=== PATIENT | male | born 1960 | race Caucasian/White ===

== ENCOUNTER 2018-11-24 08:00 | Outpatient (CLI) | payer MEDICAID ==
[2018-11-24 12:53] LABS: BASOPHILS % (AUTO) 0.5 %; EOSINOPHILS # (AUTO) 0.1 10^3/uL (0.0-0.7); EOSINOPHILS % (AUTO) 1.6 %; HGB - HEMOGLOBIN 14.3 g/dL (14.0-18.0); LYMPHOCYTES # (AUTO) 1.9 10^3/uL (1.5-3.5); LYMPHOCYTES % (AUTO) 34.5 %; MEAN CORPUSCULAR HEMOGLOBIN 28.1 pg (27.0-31.0); MEAN CORPUSCULAR HGB CONC 33.9 g/dL (32.0-36.0); MEAN CORPUSCULAR VOLUME 82.8 fL (80.0-94.0); MEAN PLATELET VOLUME 9.9 fL (7.4-11.4); MONOCYTES # (AUTO) 0.4 10^3/uL (0.0-1.0); MONOCYTES % (AUTO) 6.5 %; NEUTROPHILS # (AUTO) 3.2 10^3/uL (1.5-6.6); NEUTROPHILS % (AUTO) 56.9 %; PLT - PLATELET COUNT 155 10^3/uL (130-450); RED BLOOD COUNT 5.08 10^6/uL (4.70-6.10); WHITE BLOOD COUNT 5.6 x10^3/uL (4.8-10.8)
[2018-11-24 13:30] LABS: ALBUMIN 4.1 g/dL (3.2-5.5); ALBUMIN/GLOBULIN RATIO 1.4 (1.0-2.2); ALKALINE PHOSPHATASE 65 IU/L (42-121); ALT ALANINE AMINOTRANSFERASE 42 IU/L (10-60); AST ASPARTATE AMINOTRANSFERASE 25 IU/L (10-42); BILIRUBIN,TOTAL 0.6 mg/dL (0.2-1.0); BUN - BLOOD UREA NITROGEN 19 mg/dL (6-20); CALCIUM 8.6 mg/dL (8.5-10.3); CARBON DIOXIDE - CO2 25 mmol/L (21-32); CHLORIDE 98 mmol/L (101-111); CHOL/HDL RATIO 5.7 (<5.0); CHOLESTEROL 193 mg/dL; CREATININE 0.9 mg/dL (0.6-1.2); GFR - MDRD 87 (>89); GLUCOSE 288 mg/dL (70-100); HDL CHOLESTEROL 34 mg/dL; SODIUM 133 mmol/L (135-145)
[2018-11-24 13:38] LABS: CREATININE,URINE 125.4 mg/dL; MICROALBUM/CREATININE RATIO,UR 54.2 ug/mg (<30.0); MICROALBUMIN,URINE 6.8 mg/dL (0-300.0)
[2018-11-24 13:58] LABS: LDL CHOLESTEROL,DIRECT 85 mg/dL; LDLD/HDL RATIO 2.5 (<3.6)
[2018-11-24 14:16] LABS: HB2 TOTAL 15.6 g/dL; HEMOGLOBIN A1C 1.7 g/dL; HEMOGLOBIN A1C % 12.1 % (4.6-6.2)
== END 2018-11-24 23:59 | disposition home or self-care (01) ==
LOC: LAB.WCP 08:00
PROVIDERS: ATTEND Family Medicine
DX: E11.9 Type 2 diabetes mellitus without complications (principal); E78.5 Hyperlipidemia, unspecified; I10 Essential (primary) hypertension
CPT/HCPCS: 36415; 80053; 80061; 82043; 82570; 83036; 83721; 84443; 85025

== ENCOUNTER 2019-03-03 07:13 | Outpatient (CLI) | payer MEDICAID ==
[2019-03-03 14:04] LABS: HB2 TOTAL 14.4 g/dL; HEMOGLOBIN A1C 1.53 g/dL; HEMOGLOBIN A1C % 11.9 % (4.6-6.2)
[2019-03-03 14:19] LABS: BUN - BLOOD UREA NITROGEN 22 mg/dL (6-20); CARBON DIOXIDE - CO2 24 mmol/L (21-32); CHLORIDE 104 mmol/L (101-111); CHOL/HDL RATIO 3.5 (<5.0); CHOLESTEROL 131 mg/dL; CREATININE 1.1 mg/dL (0.6-1.2); GFR - MDRD 69 (>89); GLUCOSE 194 mg/dL (70-100); HDL CHOLESTEROL 37 mg/dL; LDL CHOLESTEROL,CALCULATED 64 mg/dL; LDL/HDL RATIO 1.7 (<3.6); SODIUM 136 mmol/L (135-145); VLDL CHOLESTEROL 30 mg/dL
== END 2019-03-03 07:14 | disposition home or self-care (01) ==
LOC: LAB.WCP 07:13
PROVIDERS: ATTEND Family Medicine
DX: E11.9 Type 2 diabetes mellitus without complications (principal); E78.5 Hyperlipidemia, unspecified
CPT/HCPCS: 36415; 80048; 80061; 83036; 83721

== ENCOUNTER 2020-01-05 07:10 | Outpatient (CLI) | payer MEDICAID ==
[2020-01-05 12:53] LABS: BASOPHILS % (AUTO) 0.4 %; EOSINOPHILS # (AUTO) 0.1 10^3/uL (0.0-0.7); EOSINOPHILS % (AUTO) 1.3 %; HGB - HEMOGLOBIN 15.8 g/dL (14.0-18.0); LYMPHOCYTES # (AUTO) 1.7 10^3/uL (1.5-3.5); MEAN CORPUSCULAR HEMOGLOBIN 29.6 pg (27.0-31.0); MEAN CORPUSCULAR HGB CONC 34.3 g/dL (32.0-36.0); MEAN CORPUSCULAR VOLUME 86.3 fL (80.0-94.0); MEAN PLATELET VOLUME 11.9 fL (7.4-11.4); MONOCYTES # (AUTO) 0.4 10^3/uL (0.0-1.0); MONOCYTES % (AUTO) 7.8 %; NEUTROPHILS # (AUTO) 2.5 10^3/uL (1.5-6.6); NEUTROPHILS % (AUTO) 53.6 %; PLT - PLATELET COUNT 174 10^3/uL (130-450); RED BLOOD COUNT 5.33 10^6/uL (4.70-6.10); RED CELL DISTRIBUTION WIDTH 13.2 % (12.0-15.0); WHITE BLOOD COUNT 4.6 x10^3/uL (4.8-10.8)
[2020-01-05 13:21] LABS: ALBUMIN 4.4 g/dL (3.2-5.5); ALBUMIN/GLOBULIN RATIO 1.4 (1.0-2.2); ALKALINE PHOSPHATASE 62 IU/L (42-121); ALT ALANINE AMINOTRANSFERASE 39 IU/L (10-60); AST ASPARTATE AMINOTRANSFERASE 23 IU/L (10-42); BILIRUBIN,TOTAL 0.7 mg/dL (0.2-1.0); BUN - BLOOD UREA NITROGEN 16 mg/dL (6-20); CALCIUM 8.9 mg/dL (8.5-10.3); CARBON DIOXIDE - CO2 25 mmol/L (21-32); CHLORIDE 98 mmol/L (101-111); CHOL/HDL RATIO 6.7 (<5.0); CHOLESTEROL 235 mg/dL; CREATININE 0.9 mg/dL (0.6-1.2); GLUCOSE 364 mg/dL (70-100); HDL CHOLESTEROL 35 mg/dL; SODIUM 134 mmol/L (135-145); TOTAL PROTEIN 7.5 g/dL (6.7-8.2)
[2020-01-05 13:33] LABS: CREATININE,URINE 43.3 mg/dL; MICROALBUM/CREATININE RATIO,UR 170.9 ug/mg (<30.0); MICROALBUMIN,URINE 7.4 mg/dL (0-300.0)
[2020-01-05 14:08] LABS: HB2 TOTAL 15.5 g/dL; HEMOGLOBIN A1C 1.95 g/dL; HEMOGLOBIN A1C % 13.7 % (4.6-6.2)
[2020-01-05 14:41] LABS: LDL CHOLESTEROL,DIRECT 112 mg/dL; LDLD/HDL RATIO 3.2 (<3.6)
== END 2020-01-05 23:59 | disposition home or self-care (01) ==
LOC: LAB.WCP 07:10
PROVIDERS: ATTEND Family Medicine
DX: E11.9 Type 2 diabetes mellitus without complications (principal); E78.5 Hyperlipidemia, unspecified
CPT/HCPCS: 36415; 80053; 80061; 82043; 82570; 83036; 83721; 84443; 85025

== ENCOUNTER 2020-04-12 07:27 | Outpatient (CLI) | payer MEDICAID ==
[2020-04-12 12:59] LABS: HB2 TOTAL 15.7 g/dL; HEMOGLOBIN A1C 1.57 g/dL; HEMOGLOBIN A1C % 11.3 % (4.6-6.2)
== END 2020-04-12 23:59 | disposition home or self-care (01) ==
LOC: LAB.WCP 07:27
PROVIDERS: ATTEND Family Medicine
DX: E11.9 Type 2 diabetes mellitus without complications (principal)
CPT/HCPCS: 36415; 83036

== ENCOUNTER 2020-06-20 08:06 | Outpatient (CLI) | payer MEDICAID ==
[2020-06-20 12:02] LABS: HEMOGLOBIN A1c% 9.9 % (4.27-6.07)
== END 2020-06-20 23:59 | disposition home or self-care (01) ==
LOC: LAB.WCP 08:06
PROVIDERS: ATTEND Family Medicine
DX: E11.9 Type 2 diabetes mellitus without complications (principal)
CPT/HCPCS: 36415; 83036

== ENCOUNTER 2020-07-19 14:06 | Outpatient (CLI) | payer MEDICAID | END 2020-07-19 14:07 | disposition home or self-care (01) | LOC: COV 14:06 | PROVIDERS: ATTEND Surgery | DX: Z01.812 Encounter for preprocedural laboratory examination (principal); K42.9 Umbilical hernia without obstruction or gangrene; Z20.828 Contact with and (suspected) exposure to other viral communicable diseases ==

== ENCOUNTER 2020-07-23 07:03 | Day surgery (SDC) | payer MEDICAID ==
[2020-07-23] MEDS ORDERED: fentaNYL 100 MCG/2 ML VIAL IVP ONE (07:04)
[2020-07-23] MEDS ORDERED: DEXAMETHASONE 4 MG/ML VIAL IVP ONE (07:04)
[2020-07-23] MEDS ORDERED: GLYCOPYRROLATE 1 MG/5 ML VIAL IVP ONE (07:04)
[2020-07-23] MEDS ORDERED: ACETAMINOPHEN 1,000 MG/100 ML 100 ML IV ONE (07:04)
[2020-07-23] MEDS ORDERED: PROPOFOL 200 MG/20 ML VIAL IVP ONE (07:04)
[2020-07-23] MEDS ORDERED: SUCCINYLCHOLINE 200 MG/10 ML VIAL IVP ONE (07:04)
[2020-07-23] MEDS ORDERED: ePHEDrine 50 MG/ML VIAL IVP ONE (07:04)
[2020-07-23] MEDS ORDERED: ONDANSETRON 4 MG/2 ML VIAL IVP ONE (07:04)
[2020-07-23] MEDS ORDERED: MIDAZOLAM 2 MG/2 ML VIAL IVP ONE (07:04)
[2020-07-23] MEDS ORDERED: BUPIVACAINE 0.25% PF 30 ML VIAL ONE ×2 (07:24→09:06)
[2020-07-23] MEDS ORDERED: LIDOCAINE 1% 50 ML MDV ONE (07:24)
[2020-07-23] MEDS ORDERED: CEFAZOLIN SODIUM IN 0.9 % NACL 2 GM/100 ML BAG IV ONE (07:25)
[2020-07-23] MEDS ORDERED: LACTATED RINGERS 1,000 ML IV ONE ×2 (07:26→09:48)
[2020-07-23] MEDS ORDERED: MORPHINE 2 MG/ML CARPUJECT IVP PRN (08:01)
[2020-07-23] MEDS ORDERED: ATROPINE ABBOJECT 1 MG/10 ML SYRINGE IVP PRN (08:01)
[2020-07-23] MEDS ORDERED: NALOXONE 0.4 MG/ML VIAL IVP PRN (08:01)
[2020-07-23] MEDS ORDERED: METOCLOPRAMIDE 10 MG/2 ML VIAL IVP PRN (08:01)
[2020-07-23] MEDS ORDERED: ONDANSETRON 4 MG/2 ML VIAL IVP PRN (08:01)
[2020-07-23] MEDS ORDERED: ePHEDrine 50 MG/ML VIAL IVP PRN (08:01)
[2020-07-23] MEDS ORDERED: fentaNYL 100 MCG/2 ML VIAL IVP PRN (08:01)
[2020-07-23] MEDS ORDERED: HYDROmorphone 0.5 MG/0.5 ML SYRINGE IVP PRN (08:01)
--- NOTE | 2020-07-23 08:01 | ANESTHESIA ---
Pre-Anesthesia VS, & Labs - Diagnosis umbilical hernia - Procedure Open umbilical hernia repair with mesh Vital Signs: Temp Pulse Resp BP Pulse Ox 36.7 C 51 L 14 170/86 H 99 07/23/20 07:20 07/23/20 07:20 07/23/20 07:20 07/23/20 07:20 07/23/20 07:20 Height: 5 ft 11 in Weight (kg): 93.2 kg Body Mass Index: 28.6 BMI Classification: Overweight - NPO >8 hours - Lab Results Current Lab Results: Laboratory Tests 07/23/20 07:30: POC Whole Bld Glucose 289 H Home Medications and Allergies Home Medications: Ambulatory Orders Amlodipine Besylate [Norvasc] 10 mg PO DAILY 07/18/20 Atenolol [Tenormin] 50 mg PO DAILY 07/18/20 Atorvastatin Calcium [Lipitor] 80 mg PO QPM 07/18/20 Lisinopril [Zestril] 60 mg PO DAILY 07/18/20 glyBURIDE [Diabeta] 10 mg PO BID 07/18/20 Amlodipine Besylate [Norvasc] 10 mg PO DAILY 07/18/20 Atenolol [Tenormin] 50 mg PO DAILY 07/18/20 Atorvastatin Calcium [Lipitor] 80 mg PO QPM 07/18/20 Lisinopril [Zestril] 60 mg PO DAILY 07/18/20 glyBURIDE [Diabeta] 10 mg PO BID 07/18/20 Allergies/Adverse Reactions: Allergies Allergy/AdvReac Type Severity Reaction Status Date / Time No Known Drug Allergies Allergy Verified 07/18/20 09:00 Anes History & Medical History - Anesthetic History Anesthesia Complications: reports: No previous complications Family history of Anesthesia Complications: Denies Family history of Malignant Hyperthermia: Denies - Medical History Cardiovascular: reports: Hypertension, High cholesterol Pulmonary: reports: None Gastrointestinal: reports: None Urinary: reports: None Musculoskeletal: reports: None Endocrine/Autoimmune: reports: Type 2 diabetes Skin: reports: None - Surgical History Eyes Ears Nose Throat (EENT): Tonsil/Adenoidectomy Exam General: Alert, Oriented x3, Cooperative, No acute distress Dental: WNL Mouth Openin Fingerbreadth Neck Mobility: Normal Mallampati classification: II Respiratory: Lungs clear, Normal breath sounds, No respiratory distress, No accessory muscle use Cardiovascular: Regular rate, Normal S1, Normal S2, No murmurs Plan Anesthesia Type: General Consent for Procedure(s) Verified and Reviewed: Yes Code Status: Attempt Resuscitation ASA classification: 3-Severe systemic disease Is this case an emergency?: No
[2020-07-23] MEDS: INSULIN REGULAR HUMAN 100 UNIT/1 ML 10 ML MDV ONE ×2 (08:27→10:32)
[2020-07-23] MEDS ORDERED: LACTATED RINGERS 1,000 ML IV SCH (09:00)
[2020-07-23] MEDS ORDERED: BUPIVACAINE 0.25% PF 30 ML VIAL SUBQ ONE ×2 (09:04→09:33)
[2020-07-23] MEDS ORDERED: HYDROcod/ACETAM 5/325 MG TABLET PO PRN (09:57)
--- NOTE | 2020-07-23 10:01 | OPERATIVE REPORT ---
Operative Report - General Procedure Date: 07/23/20 Planned Procedure: umbilical hernia repair with mesh Pre-Op Diagnosis: 3 cm umbilical hernia Procedure Performed: open repair with mesh/ preperitoneal placement Post Op Diagnosis: umbilical hernia - Procedure Note Anesthesia Technique: General ET tube, Local Estimated Blood Loss (mL): 5 Complications: none
--- NOTE | 2020-07-23 10:22 | ANESTHESIA POST OP EVALUATION ---
Anesthesia Post Eval - Post Anesthesia Eval Vitals: Last Vital Signs Temp 36.1 C L 07/23/20 10:14 Pulse 67 07/23/20 10:14 Resp 20 07/23/20 10:14 BP 140/88 H 07/23/20 10:14 Pulse Ox 98 07/23/20 10:14 CV Function Including HR & BP: positive: Stable Pain Control: positive: Satisfactory Nausea & Vomiting: positive: Negative Mental Status: positive: Baseline Respiratory Status: Airway Patent Hydration Status: Satisfactory Anesthesia Complications: positive: None
[2020-07-23] MEDS ORDERED: INSULIN REGULAR HUMAN 100 UNIT/1 ML 10 ML MDV ONE (10:40)
[2020-07-23 10:46] VITALS: BP 144/85
--- NOTE | 2020-07-24 03:09 | OPERATIVE REPORT ---
DATE OF SERVICE: 07/23/2020 Physician: Rad Oliveira MD PREOPERATIVE DIAGNOSIS: Large symptomatic umbilical hernia. POSTOPERATIVE DIAGNOSIS: Large symptomatic umbilical hernia. PROCEDURE 1. Open umbilical hernia repair with mesh. 2. Preperitoneal dissection for mesh placement. SURGEON: Rad Oliveira MD ROOF FIXER: None. ANESTHESIA 1. General endotracheal anesthesia. 2. Local anesthesia with Marcaine. COMPLICATIONS: None. SPECIMEN: None. ESTIMATED BLOOD LOSS: None. COMPLICATIONS: None. PROSTHETIC: A 1-1/2-inch to 1-3/4-inch x 3-3/4-inch polypropylene mesh placed preperitoneal. INDICATIONS FOR PROCEDURE: The patient is an active 59-year-old gentleman who has developed a large symptomatic umbilical hernia. He presents for open repair with mesh. Risks discussed, alternatives discussed, questions answered, and consent obtained. DESCRIPTION OF PROCEDURE: The patient was properly identified and brought to the operating room and placed in supine position. He voided prior to surgery. Sequential compression devices were placed. General endotracheal anesthesia was induced. He has had difficulty managing his diabetes for a long time. He was given insulin as well as antibiotics prior to surgery. He was prepped and draped in a sterile fashion. Local anesthetic was given throughout the procedure. A 2 cm incision was made cephalad of umbilicus in the midline. The incision was extended left lateral of the umbilicus. He had a large hernia sac, which was mobilized away from surrounding subcutaneous tissue. It was sharply mobilized off from the umbilical skin and down towards the fascial defect. The hole in the top of the hernia sac or peritoneum was closed with a running 3-0 Vicryl suture. The peritoneum or hernia sac was carefully released at the fascial defect edge and preperitoneal dissection and space created. An 1-1/2-inch to 1-3/4-inch more cephalad x 3-3/4-inch tall polypropylene mesh was placed preperitoneal retrorectus and secured with 10 interrupted 0 Ethibond sutures. The fascia was closed over the mesh with additional interrupted 0 Ethibond sutures. There were no apparent complications. Hemostasis was ensured. Umbilical skin was tacked back down to fascia with interrupted 2-0 Vicryl. Subcutaneous tissue was closed with interrupted 2-0 Vicryl. Buried interrupted subdermal 3-0 Vicryl sutures were then placed. Skin was closed with a running 4-0 Monocryl subcuticular suture. He tolerated the procedure well, was awakened and brought to recovery in good condition. TD: 07/23/2020 19:56 EMERITA
== END 2020-07-23 07:04 | disposition home or self-care (01) ==
LOC: SDS 07:03
PROVIDERS: ATTEND Surgery
DX: K42.9 Umbilical hernia without obstruction or gangrene (principal); I10 Essential (primary) hypertension; E11.9 Type 2 diabetes mellitus without complications; Z79.84 Long term (current) use of oral hypoglycemic drugs
CPT/HCPCS: 49585; C1781; J0131; J0330; J0690; J1815; J7120

== ENCOUNTER 2020-08-27 08:00 | Outpatient (CLI) | payer MEDICAID ==
[2020-08-27 13:44] LABS: BASOPHILS % (AUTO) 0.4 %; EOSINOPHILS # (AUTO) 0.1 10^3/uL (0.0-0.7); EOSINOPHILS % (AUTO) 1.3 %; HGB - HEMOGLOBIN 15.2 g/dL (14.0-18.0); LYMPHOCYTES # (AUTO) 1.9 10^3/uL (1.5-3.5); LYMPHOCYTES % (AUTO) 27.7 %; MEAN CORPUSCULAR HEMOGLOBIN 29.1 pg (27.0-31.0); MEAN CORPUSCULAR HGB CONC 34.2 g/dL (32.0-36.0); MEAN CORPUSCULAR VOLUME 85.1 fL (80.0-94.0); MEAN PLATELET VOLUME 11.4 fL (7.4-11.4); MONOCYTES # (AUTO) 0.5 10^3/uL (0.0-1.0); MONOCYTES % (AUTO) 7.1 %; NEUTROPHILS # (AUTO) 4.4 10^3/uL (1.5-6.6); NEUTROPHILS % (AUTO) 63.1 %; PLT - PLATELET COUNT 173 10^3/uL (130-450); RED BLOOD COUNT 5.22 10^6/uL (4.70-6.10); RED CELL DISTRIBUTION WIDTH 12.2 % (12.0-15.0); WHITE BLOOD COUNT 6.9 x10^3/uL (4.8-10.8)
[2020-08-27 14:14] LABS: CREATININE,URINE 95.5 mg/dL; MICROALBUM/CREATININE RATIO,UR 9.4 ug/mg (<30.0); MICROALBUMIN,URINE 0.9 mg/dL (0-300.0)
[2020-08-27 14:16] LABS: ALBUMIN 4.3 g/dL (3.2-5.5); ALBUMIN/GLOBULIN RATIO 1.4 (1.0-2.2); ALKALINE PHOSPHATASE 54 IU/L (42-121); ALT ALANINE AMINOTRANSFERASE 38 IU/L (10-60); AST ASPARTATE AMINOTRANSFERASE 20 IU/L (10-42); BILIRUBIN,TOTAL 0.7 mg/dL (0.2-1.0); BUN - BLOOD UREA NITROGEN 23 mg/dL (6-20); CARBON DIOXIDE - CO2 27 mmol/L (21-32); CHLORIDE 101 mmol/L (101-111); CHOL/HDL RATIO 6.5 (<5.0); CHOLESTEROL 220 mg/dL; CREATININE 0.9 mg/dL (0.6-1.2); GLUCOSE 334 mg/dL (70-100); HDL CHOLESTEROL 34 mg/dL; SODIUM 137 mmol/L (135-145); TOTAL PROTEIN 7.3 g/dL (6.7-8.2)
[2020-08-27 14:29] LABS: HEMOGLOBIN A1c% 10.9 % (4.27-6.07)
[2020-08-27 15:02] LABS: LDL CHOLESTEROL,DIRECT 113 mg/dL; LDLD/HDL RATIO 3.3 (<3.6)
== END 2020-08-27 23:59 ==
LOC: LAB.WCP 08:00
PROVIDERS: ATTEND Internal Medicine Critical Care Medicine
DX: E11.9 Type 2 diabetes mellitus without complications (principal); I10 Essential (primary) hypertension; Z12.5 Encounter for screening for malignant neoplasm of prostate
CPT/HCPCS: 36415; 80053; 80061; 82043; 82088; 82570; 83036; 83721; 84153; 84244; 84443; 85025

== ENCOUNTER 2020-10-18 09:18 | Day surgery (SDC) | payer MEDICAID ==
[2020-10-18] MEDS ORDERED: LACTATED RINGERS 1,000 ML IV ONE ×2 (10:03→11:19)
[2020-10-18] MEDS ORDERED: MIDAZOLAM 2 MG/2 ML VIAL ONE ×3 (10:38→11:03)
[2020-10-18] MEDS ORDERED: fentaNYL 250 MCG/5 ML VIAL ONE (10:39)
[2020-10-18 11:46] VITALS: BP 124/72
== END 2020-10-18 09:19 | disposition home or self-care (01) ==
LOC: SDS 09:18
PROVIDERS: ATTEND Surgery
PROC: 0DBM8ZZ Excision of Descending Colon, Via Natural or Artificial Opening Endoscopic (ICD-10-PCS; principal; 2020-10-18 10:30)
DX: Z12.11 Encounter for screening for malignant neoplasm of colon (principal); K63.5 Polyp of colon; I10 Essential (primary) hypertension; E11.9 Type 2 diabetes mellitus without complications; Z79.84 Long term (current) use of oral hypoglycemic drugs
CPT/HCPCS: 45385; J3010; J7120

== ENCOUNTER 2020-11-13 08:41 | Outpatient (CLI) | payer MEDICAID ==
--- NOTE | 2020-11-13 15:21 | Ultrasound Report ---
PROCEDURE: Ankle Brachial Index INDICATIONS: HYPERTENSION, BILATERAL LEG CRAMPS TECHNIQUE: Ankle-brachial indices were obtained bilaterally and recorded. COMPARISONS: None. FINDINGS: Right ankle brachial index (ROMY): 1.04 Left ankle brachial index (ROMY): 1.01 Healing potential: Ankle pressures >55 mm Hg in non-diabetics and >80 mm Hg in diabetics are likely to achieve primary h ealing of ischemic foot ulcers. Toe pressures >30 mm Hg are likely to achieve primary healing of ischemic foot ulcers, toe or transme tatarsal amputations. IMPRESSION: Normal bilateral ROMY as above Reviewed by: Diego Jacobs MD on 11/13/2020 3:19 PM PST Approved by: Diego Jacobs MD on 11/13/2020 3:19 PM PST Station ID: [id number]
--- NOTE | 2020-11-14 11:27 | Ultrasound Report ---
PROCEDURE: Arterial Visceral Complete INDICATIONS: HYPERTENSION, BILATERAL LEG CRAMPS TECHNIQUE: Real time scanning was performed of both kidneys, followed by Color and pulsed Doppler in terrogation of the renal vessels. COMPARISON: None. FINDINGS: Aortic peak systolic velocity: 85.3 cm/s. Right side: Moss-scale imaging: Kidney is 12.5 cm long; renal cortical thickness is at least 1.5 cm. No hydrone phrosis. No nephrolithiasis. Renal cortex is normal in echogenicity. No suspicious solid renal mas ses. Proximal renal artery peak systolic velocity: Not visualized due to obscuration by bowel gas. Mid renal artery peak systolic velocity: Nonvisualized due to obscuration by bowel gas. Distal renal artery peak systolic velocity: 80 cm/s. Renal vein: Patent, without thrombus. Peak renal/aortic ratio (RAR): 0.9. Left side: Moss-scale imaging: Kidney is 13.7 cm long; renal cortical thickness is at least 1.5 cm. No hydrone phrosis. No nephrolithiasis. Renal cortex is normal in echogenicity. No suspicious solid renal mas ses. Proximal renal artery peak systolic velocity: 54 cm/s. Mid-renal artery peak systolic velocity: 62 cm/s. Distal renal artery peak systolic velocity: 64 cm/s. Renal vein: Patent, without thrombus. Peak renal/aortic ratio (RAR): 0.7. IMPRESSION: No renal artery stenosis. No findings of renal atrophy. Reviewed by: Ky Rosario MD on 11/14/2020 11:26 AM PST Approved by: Ky Rosario MD on 11/14/2020 11:26 AM PST Station ID: [id number]
== END 2020-11-13 08:42 | disposition home or self-care (01) ==
LOC: DI 08:41
PROVIDERS: ATTEND Internal Medicine
DX: I10 Essential (primary) hypertension (principal); R25.2 Cramp and spasm
CPT/HCPCS: 93922; 93975

== ENCOUNTER 2020-12-16 15:48 | Emergency (ER) | payer MEDICAID ==
[2020-12-16 16:34] LABS: BASOPHILS % (AUTO) 0.6 %; EOSINOPHILS # (AUTO) 0.1 10^3/uL (0.0-0.7); EOSINOPHILS % (AUTO) 1.6 %; HCT - HEMATOCRIT 44.1 % (42.0-52.0); HGB - HEMOGLOBIN 15.1 g/dL (14.0-18.0); LYMPHOCYTES % (AUTO) 38.3 %; MEAN CORPUSCULAR HEMOGLOBIN 28.3 pg (27.0-31.0); MEAN CORPUSCULAR HGB CONC 34.2 g/dL (32.0-36.0); MEAN CORPUSCULAR VOLUME 82.7 fL (80.0-94.0); MEAN PLATELET VOLUME 10.6 fL (7.4-11.4); MONOCYTES # (AUTO) 0.4 10^3/uL (0.0-1.0); MONOCYTES % (AUTO) 7.5 %; NEUTROPHILS # (AUTO) 2.6 10^3/uL (1.5-6.6); NEUTROPHILS % (AUTO) 51.4 %; PLT - PLATELET COUNT 159 10^3/uL (130-450); RED BLOOD COUNT 5.33 10^6/uL (4.70-6.10); RED CELL DISTRIBUTION WIDTH 12.5 % (12.0-15.0); WHITE BLOOD COUNT 5.1 x10^3/uL (4.8-10.8)
[2020-12-16 16:47] LABS: ALBUMIN 4.2 g/dL (3.2-5.5); ALBUMIN/GLOBULIN RATIO 1.4 (1.0-2.2); BILIRUBIN,TOTAL 0.6 mg/dL (0.2-1.0); CALCIUM 9.1 mg/dL (8.5-10.3); POTASSIUM 3.7 mmol/L (3.5-5.0); TOTAL PROTEIN 7.1 g/dL (6.7-8.2)
[2020-12-16 17:08] LABS: BILIRUBIN,URINE NEGATIVE (NEGATIVE); GLUCOSE, URINE (UA) >=1000 mg/dL (NEGATIVE); KETONES,URINE (UA) TRACE mg/dL (NEGATIVE); LEUKOCYTE ESTERASE, URINE NEGATIVE (NEGATIVE); NITRITE,URINE NEGATIVE (NEGATIVE); OCCULT BLOOD,URINE NEGATIVE (NEGATIVE); PROTEIN,URINE NEGATIVE (NEGATIVE); UROBILINOGEN,URINE 0.2 (NORMAL) E.U./dL (NORMAL)
[2020-12-16 17:14] LABS: CLARITY,URINE CLEAR (CLEAR)
[2020-12-16] MEDS ORDERED: IOPAMIDOL-300 100 ML VIAL ONE (18:03)
--- NOTE | 2020-12-16 18:28 | ED Physician Documentation ---
History of Present Illness - Stated complaint Stated Complaint: DIARRHEA/DIZZY/BLOATED - Chief complaint Chief Complaint: Abd Pain - History obtained from History obtained from: Patient - History of Present Illness Timing: Today Pain level max: 8 Pain level now: 6 - Additonal information Additional information: Patient is a 60-year-old male who presents to the emergency department with abdominal pain and diarrhea for the past 2 weeks. Comes and goes. Better with Imodium, nothing makes it worse. States he goes between 4-8 times per day. No fevers. No blood in the stool. He feels weak and tired. Feels lightheaded when standing. States he had a normal colonoscopy a month ago. Review of Systems Ten Systems: 10 systems reviewed and negative Constitutional: denies: Fever, Chills Ears: denies: Ear pain Nose: denies: Rhinorrhea / runny nose, Congestion Throat: denies: Sore throat Cardiac: denies: Chest pain / pressure Respiratory: denies: Cough, Wheezing GI: denies: Hematemesis, Bloody / black stool : denies: Dysuria, Frequency, Hesitancy Skin: denies: Rash Musculoskeletal: denies: Neck pain, Back pain Neurologic: denies: Headache PD PAST MEDICAL HISTORY - Past Medical History Past Medical History: Yes Cardiovascular: Hypertension, High cholesterol Respiratory: None Endocrine/Autoimmune: Type 2 diabetes GI: None : None HEENT: None Psych: None Musculoskeletal: None Derm: None - Past Surgical History Past Surgical History: Yes General: Colonoscopy HEENT: Tonsil/Adenoidectomy - Present Medications Home Medications: Ambulatory Orders Medication Instructions Recorded Confirmed Amlodipine Besylate [Norvasc] 10 mg PO DAILY 07/18/20 10/18/20 Atenolol [Tenormin] 50 mg PO DAILY 07/18/20 10/18/20 Atorvastatin Calcium [Lipitor] 80 mg PO QPM 07/18/20 10/18/20 Lisinopril [Zestril] 40 mg PO DAILY 07/18/20 10/18/20 glyBURIDE [Diabeta] 10 mg PO BID 07/18/20 10/18/20 metFORMIN [Glucophage] 1,000 mg PO BIDWM 10/17/20 10/18/20 HYDROcod/ACETAM 5/325 [[place] 5/325] 1 - 2 ea PO Q6H PRN #10 tablet 12/16/20 Ondansetron Odt [Zofran] 4 mg TL Q6H PRN #10 tablet 12/16/20 - Allergies Allergies/Adverse Reactions: Allergies Allergy/AdvReac Type Severity Reaction Status Date / Time No Known Drug Allergies Allergy Verified 12/16/20 15:58 - Social History Does the pt smoke?: No Smoking Status: Never smoker Does the pt drink ETOH?: No Does the pt have substance abuse?: Yes Substance Use and Type: Marijuana - Immunizations Immunizations are current?: Yes - POLST Patient has POLST: No PD ED PE NORMAL - Vitals Vital signs reviewed: Yes - General General: Alert and oriented X 3, No acute distress, Well developed/nourished - HEENT HEENT: PERRL, Moist mucous membranes - Neck Neck: Supple, no meningeal sign - Cardiac Cardiac: RRR, Strong equal pulses - Respiratory Respiratory: No respiratory distress, Clear bilaterally - Abdomen Abdomen: Normal bowel sounds, Soft, Non tender, Non distended - Back Back: No spinal TTP - Derm Derm: Warm and dry - Extremities Extremities: No deformity - Neuro Neuro: Alert and oriented X 3 - Psych Psych: Normal mood, Normal affect Results - Vitals Vitals: Vital Signs - 24 hr 12/16/20 12/16/20 12/16/20 15:58 16:47 19:46 Temperature 36.5 C Heart Rate 80 70 59 L Respiratory 16 18 16 Rate Blood Pressure 160/100 H 170/109 H 167/95 H O2 Saturation 98 99 99 12/16/20 12/16/20 20:29 21:00 Temperature 36.4 C L Heart Rate 52 L 55 L Respiratory 14 16 Rate Blood Pressure 164/93 H 165/93 H O2 Saturation 100 100 Oxygen O2 Source Room air - Labs Labs: Laboratory Tests 12/16/20 12/16/20 12/16/20 16:28 16:28 16:52 WBC 5.1 RBC 5.33 Hgb 15.1 Hct 44.1 MCV 82.7 MCH 28.3 MCHC 34.2 RDW 12.5 Plt Count 159 MPV 10.6 Neut # (Auto) 2.6 Lymph # (Auto) 2.0 [place] # (Auto) 0.4 Eos # (Auto) 0.1 Baso # (Auto) 0.0 Absolute Nucleated RBC 0.00 Nucleated RBC % 0.0 Sodium 136 Potassium 3.7 Chloride 101 Carbon Dioxide 26 Anion Gap 9.0 BUN 16 Creatinine 1.0 Estimated GFR (MDRD) 77 L Glucose 278 H Calcium 9.1 Total Bilirubin 0.6 AST 23 ALT 41 Alkaline Phosphatase 56 Total Protein 7.1 Albumin 4.2 Globulin 2.9 Albumin/Globulin Ratio 1.4 Lipase 32 Urine Color YELLOW Urine Clarity CLEAR Urine pH 6.0 Ur Specific [place] 1.025 Urine Protein NEGATIVE Urine Glucose (UA) >=1000 H Urine Ketones TRACE Urine Occult Blood NEGATIVE Urine Nitrite NEGATIVE Urine Bilirubin NEGATIVE Urine Urobilinogen 0.2 (NORMAL) Ur Leukocyte Esterase NEGATIVE Ur Microscopic Review NOT INDICATED Urine Culture Comments NOT INDICATED - Rads (name of study) CT abdomen and pelvis Radiology: Prelim report reviewed, EMP read contemporaneously, See rad report PD MEDICAL DECISION MAKING - ED course Complexity details: reviewed results, re-evaluated patient, considered differential, d/w patient ED course: 60-year-old male with diarrhea for the past several weeks, some days are worse than others. No diarrhea rating p.o. without difficulty. He is dehydrated and feels better after IV fluids. No significant findings on CT scan. No significant lab abnormalities. Patient is well-appearing, nontoxic. No evidence of C. difficile. Recommend stool culture with his doctor. Reportedly normal colonoscopy 1 month ago. Patient counseled regarding signs and symptoms for which I believe and urgent re-evaluation would be necessary. Patient with good understanding of and agreement to plan and is comfortable going home at this time This document was made in part using voice recognition software. While efforts are made to proofread this document, sound alike and grammatical errors may occur. IMPRESSION: 1. No CT evidence of acute process. 2. Mild hepatic steatosis and hepatomegaly. 3. Slight urinary bladder wall thickening. Correlate with UA as this can be seen in cystitis but may also be related to chronic bladder outlet obstruction. Departure - Departure Disposition: 01 Home, Self Care Clinical Impression: Diarrhea Qualifiers: Diarrhea type: unspecified type Qualified Code(s): R19.7 - Diarrhea, unspecified Abdominal pain Qualifiers: Abdominal location: generalized Qualified Code(s): R10.84 - Generalized abdominal pain Condition: Good Instructions: ED Abdominal Pain Unkn Cause, ED Diet Vomiting Diarrhea Follow-Up: Jas Epstein MD [Primary Care Provider] - Prescriptions: HYDROcod/ACETAM 5/325 [[place] 5/325] 1 - 2 ea PO Q6H PRN #10 tablet PRN Reason: Pain Ondansetron Odt [Zofran] 4 mg TL Q6H PRN #10 tablet PRN Reason: Nausea / Vomiting Comments: Follow-up with your doctor for further care. They will likely want to perform a stool sample prior to seeing you in the office. They will need to send in a order to the laboratory for this. Your testing today does not show any acute abnormality other than mild hyperglycemia, elevated blood sugar. Make sure you are drinking plenty of water. Do not drink alcohol or drive while on narcotic pain medicine. Note that many narcotic pain relievers also contain tylenol/acetaminophen. Please ensure that your total dose of acetaminophen from all sources does not exceed 3 grams (3000mg) per day. You may constipated on this medication, take a stool softener such as "Colace" twice a day while you are on it. Also recommend a [id number]-myl-[id number] laxative such as senna or MiraLAX any day that you do not have a bowel movement. If you received narcotic pain medication in the emergency department, do not drive or operate machinery for the next 24 hours. Discharge Date/Time: 12/16/20 21:16
--- NOTE | 2020-12-16 18:48 | CT Report ---
PROCEDURE: Abdomen/Pelvis W INDICATIONS: diffuse abd pain, diarrhea CONTRAST: IV CONTRAST: Isovue 300 ml: 100 PO CONTRAST: *NO PO CONTRAST TECHNIQUE: After the administration of IV contrast, 5 mm thick sections acquired from the diaphragms to the symp hysis. 5 mm thick coronal and sagittal reformats were acquired. For radiation dose reduction, the f ollowing was used: automated exposure control, adjustment of mA and/or kV according to patient size. COMPARISON: None. FINDINGS: Image quality: Excellent. ABDOMEN: Lung bases: Lung bases are clear. Heart size is normal. Partially imaged coronary artery calcifica tion. Solid organs: Liver is slightly enlarged and moderately hypodense. There is relative sparing in the gallbladder fossa. Spleen is normal size and enhancement.. Gallbladder is within normal limits. Angel iary system is non dilated. Pancreas enhances normally. No adrenal nodules. Kidneys demonstrate no rmal size and enhancement, without hydronephrosis. There are a few cortical cysts arising within the right kidney. Peritoneum and bowel: Bowel loops demonstrate normal wall thickness and caliber. No free fluid or a ir. There is normal appendix. Nodes and vessels: No retroperitoneal or mesenteric adenopathy by size criteria. Aorta and inferior vena cava are normal in size. Miscellaneous: No ventral hernias. PELVIS: i Genitourinary: There is slightly urinary bladder wall thickening.. Mild prostatomegaly. Miscellaneous: Small bilateral fat-containing inguinal hernias. Bones: No suspicious bony lesions. Prominent anterior endplate spur formation in the lower thoracic spine and at the L3-4 level. No vertebral body compression fractures. IMPRESSION: 1. No CT evidence of acute process. 2. Mild hepatic steatosis and hepatomegaly. 3. Slight urinary bladder wall thickening. Correlate with UA as this can be seen in cystitis but may also be related to chronic bladder outlet obstruction. Reviewed by: Pina Avery MD on 12/16/2020 5:46 PM JOSEPH Approved by: Pina Avery MD on 12/16/2020 5:46 PM AKNIC Station ID: [id number]
[2020-12-16] MEDS ORDERED: SODIUM CHLORIDE 0.9% 1,000 ML IV STA ×2 (18:57→18:58)
[2020-12-16] MEDS ORDERED: MORPHINE 2 MG/ML CARPUJECT IVP STA (20:01)
[2020-12-16 21:02] VITALS: BP 165/93
[2020-12-16] MEDS ORDERED: IOPAMIDOL-300 100 ML VIAL IVP ONE (21:32)
--- OUTSIDE RECORDS SUMMARY | 2020-12-18 03:17 | EXTERNAL MEDICAL SUMMARY RPT | Continuity of Care Document ---
:1960 Demographics Phone Unavailable Preferred Language Unknown Marital Status Unknown Anabaptism Affiliation Unknown Race Unknown Ethnic Group Unknown Author Organization [facility] Address [address] [place] [address] Phone Social History date description facility [id number]
== END 2020-12-16 21:16 | disposition home or self-care (01) ==
LOC: ED 15:48
DX: R19.7 Diarrhea, unspecified (principal); R10.84 Generalized abdominal pain; E86.0 Dehydration; E11.65 Type 2 diabetes mellitus with hyperglycemia; Z79.84 Long term (current) use of oral hypoglycemic drugs; I10 Essential (primary) hypertension
CPT/HCPCS: 36415; 74177; 80053; 81003; 83690; 85025; 93005; 96374; 99284; Q9967; 81001; 87086

== ENCOUNTER 2020-12-24 07:46 | Outpatient (CLI) | payer MEDICAID ==
[2020-12-24 12:42] LABS: BUN - BLOOD UREA NITROGEN 19 mg/dL (6-20); CALCIUM 9.4 mg/dL (8.5-10.3); CARBON DIOXIDE - CO2 28 mmol/L (21-32); CHLORIDE 100 mmol/L (101-111); CHOLESTEROL 237 mg/dL; CREATININE 0.9 mg/dL (0.6-1.2); GFR - MDRD 87 (>89); GLUCOSE 306 mg/dL (70-100); HDL CHOLESTEROL 34 mg/dL; POTASSIUM 4.1 mmol/L (3.5-5.0); SODIUM 137 mmol/L (135-145); TRIGLYCERIDES 681 mg/dL
[2020-12-24 12:45] LABS: CREATININE,URINE 103.4 mg/dL; MICROALBUM/CREATININE RATIO,UR 22.2 ug/mg (<30.0); MICROALBUMIN,URINE 2.3 mg/dL (0-300.0)
[2020-12-24 13:01] LABS: ESTIMATED AVERAGE GLUCOSE 286 mg/dL (70-100); HEMOGLOBIN A1c% 11.6 % (4.27-6.07)
[2020-12-24 14:00] LABS: LDL CHOLESTEROL,DIRECT 96 mg/dL; LDLD/HDL RATIO 2.8 (<3.6)
[2020-12-25 13:55] LABS: HEPATITIS C ANTIBODY NON-REACTIVE (NON-REACTIVE)
== END 2020-12-24 23:59 | disposition home or self-care (01) ==
LOC: LAB.WCP 07:46
PROVIDERS: ATTEND Internal Medicine
DX: E11.9 Type 2 diabetes mellitus without complications (principal); Z11.59 Encounter for screening for other viral diseases
CPT/HCPCS: 36415; 80048; 80061; 82043; 82570; 83036; 83721; 86803

== ENCOUNTER 2021-03-27 07:53 | Outpatient (CLI) | payer MEDICAID ==
[2021-03-27 11:42] LABS: CREATININE,URINE 70.9 mg/dL; MICROALBUM/CREATININE RATIO,UR 7.1 ug/mg (<30.0); MICROALBUMIN,URINE 0.5 mg/dL (0-300.0)
[2021-03-27 11:56] LABS: BUN - BLOOD UREA NITROGEN 14 mg/dL (6-20); CARBON DIOXIDE - CO2 29 mmol/L (21-32); CHLORIDE 100 mmol/L (101-111); CHOL/HDL RATIO 5.3 (<5.0); CHOLESTEROL 189 mg/dL; GFR - MDRD 77 (>89); GLUCOSE 187 mg/dL (70-100); HDL CHOLESTEROL 36 mg/dL; LDL CHOLESTEROL,CALCULATED 91 mg/dL; LDL/HDL RATIO 2.5 (<3.6); POTASSIUM 4.1 mmol/L (3.5-5.0); SODIUM 138 mmol/L (135-145); TRIGLYCERIDES 311 mg/dL; VLDL CHOLESTEROL 62 mg/dL
[2021-03-27 12:23] LABS: ESTIMATED AVERAGE GLUCOSE 232 mg/dL (70-100); HEMOGLOBIN A1c% 9.7 % (4.27-6.07)
== END 2021-03-27 23:59 | disposition home or self-care (01) ==
LOC: LAB.WCP 07:53
PROVIDERS: ATTEND Internal Medicine
DX: E11.9 Type 2 diabetes mellitus without complications (principal)
CPT/HCPCS: 36415; 80048; 80061; 82043; 82570; 83036; 83721

== ENCOUNTER 2021-06-09 20:00 | Outpatient (CLI) | payer MEDICAID | END 2021-06-09 20:01 | disposition critical access hospital (66) | LOC: EMS 20:00 | DX: T20.04XA Burn of unspecified degree of nose (septum), initial encounter (principal); W40.8XXA Explosion of other specified explosive materials, initial encounter; Y92.009 Unspecified place in unspecified non-institutional (private) residence as the place of occurrence of the external cause | CPT/HCPCS: A0425; A0427; A0999 ==

== ENCOUNTER 2021-06-09 20:40 | Emergency (ER) | payer MEDICAID ==
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
[2021-06-09] MEDS ORDERED: SODIUM CHLORIDE 0.9% 1,000 ML IV STA (20:51)
[2021-06-09 21:07] LABS: BASOPHILS % (AUTO) 0.5 %; EOSINOPHILS % (AUTO) 0.5 %; HCT - HEMATOCRIT 41.9 % (42.0-52.0); HGB - HEMOGLOBIN 14.6 g/dL (14.0-18.0); LYMPHOCYTES # (AUTO) 2.3 10^3/uL (1.5-3.5); LYMPHOCYTES % (AUTO) 37.7 %; MEAN CORPUSCULAR HEMOGLOBIN 29.4 pg (27.0-31.0); MEAN CORPUSCULAR HGB CONC 34.8 g/dL (32.0-36.0); MEAN CORPUSCULAR VOLUME 84.3 fL (80.0-94.0); MEAN PLATELET VOLUME 11.3 fL (7.4-11.4); MONOCYTES # (AUTO) 0.6 10^3/uL (0.0-1.0); MONOCYTES % (AUTO) 9.4 %; NEUTROPHILS # (AUTO) 3.1 10^3/uL (1.5-6.6); NEUTROPHILS % (AUTO) 51.7 %; PLT - PLATELET COUNT 227 10^3/uL (130-450); RED BLOOD COUNT 4.97 10^6/uL (4.70-6.10); RED CELL DISTRIBUTION WIDTH 12.7 % (12.0-15.0); WHITE BLOOD COUNT 6.1 x10^3/uL (4.8-10.8)
[2021-06-09 21:12] LABS: KETONES, SERUM (ACETEST) NEGATIVE (NEGATIVE)
[2021-06-09 21:16] LABS: BUN - BLOOD UREA NITROGEN 22 mg/dL (6-20); CALCIUM 10.1 mg/dL (8.5-10.3); CARBON DIOXIDE - CO2 24 mmol/L (21-32); CHLORIDE 97 mmol/L (101-111); GFR - MDRD 77 (>89); GLUCOSE 384 mg/dL (70-100); POTASSIUM 3.7 mmol/L (3.5-5.0); SODIUM 135 mmol/L (135-145)
--- NOTE | 2021-06-09 21:27 | XRAY Report ---
PROCEDURE: Chest 2 View X-Ray INDICATIONS: facial [place]in TECHNIQUE: 2 view(s) of the chest. COMPARISON: None. FINDINGS: Surgical changes and devices: None. Lungs and pleura: No pleural effusions or pneumothorax. Lungs are clear. Mediastinum: Mediastinal contours are normal. Heart size is normal. Bones and chest wall: No suspicious bony abnormalities. Soft tissues appear unremarkable. IMPRESSION: No evidence acute pulmonary process. Reviewed by: Hadley Weeks MD on 06/09/2021 9:25 PM PDT Approved by: Hadley Weeks MD on 06/09/2021 9:25 PM PDT Station ID: [id number]
[2021-06-09] MEDS ORDERED: BACITRACIN ZINC OINT 1 PACKET TOP STA (22:06)
[2021-06-09] MEDS ORDERED: amLODIPine 5 MG TABLET PO STA (22:06)
[2021-06-09 22:36] VITALS: BP 184/101
== END 2021-06-09 22:35 | disposition home or self-care (01) ==
LOC: EDUNIT# → ED 20:40
DX: T20.14XA Burn of first degree of nose (septum), initial encounter (principal); T31.0 Burns involving less than 10% of body surface; X04.XXXA Exposure to ignition of highly flammable material, initial encounter; Y93.89 Activity, other specified; E11.65 Type 2 diabetes mellitus with hyperglycemia; Z79.84 Long term (current) use of oral hypoglycemic drugs; I10 Essential (primary) hypertension
CPT/HCPCS: 36415; 71046; 80048; 82009; 85025; 96360; 99283; 99285; A9270

== ENCOUNTER 2021-08-28 11:33 | Emergency (ER) | payer MEDICAID ==
[2021-08-28 12:27] LABS: HCT - HEMATOCRIT 38.6 % (42.0-52.0); HGB - HEMOGLOBIN 13.6 g/dL (14.0-18.0); LYMPHOCYTES % (AUTO) 6.7 %; MEAN CORPUSCULAR HEMOGLOBIN 28.5 pg (27.0-31.0); MEAN CORPUSCULAR HGB CONC 35.2 g/dL (32.0-36.0); MEAN CORPUSCULAR VOLUME 80.8 fL (80.0-94.0); MEAN PLATELET VOLUME 10.7 fL (7.4-11.4); NEUTROPHILS % (AUTO) 80.9 %; PLT - PLATELET COUNT 155 10^3/uL (130-450); RED BLOOD COUNT 4.78 10^6/uL (4.70-6.10); RED CELL DISTRIBUTION WIDTH 12.4 % (12.0-15.0); WHITE BLOOD COUNT 10.8 x10^3/uL (4.8-10.8)
[2021-08-28 12:28] LABS: BASOPHILS % (AUTO) 0.6 %; EOSINOPHILS # (AUTO) 0.2 10^3/uL (0.0-0.7); EOSINOPHILS % (AUTO) 1.6 %; LYMPHOCYTES # (AUTO) 0.7 10^3/uL (1.5-3.5); MONOCYTES # (AUTO) 1.1 10^3/uL (0.0-1.0); MONOCYTES % (AUTO) 9.8 %; NEUTROPHILS # (AUTO) 8.7 10^3/uL (1.5-6.6); SLIDE REVIEW? Not Indicated
--- NOTE | 2021-08-28 12:28 | ED Physician Documentation ---
History of Present Illness - Stated complaint Stated Complaint: DIZZINESS - Chief complaint Chief Complaint: General - History obtained from History obtained from: Patient - History of Present Illness Timing: Other (several months) Pain level max: 9 Pain level now: 8 - Additonal information Additional information: Patient is a 60-year-old male who presents to the emergency department with several complaints today. He states that all of these complaints been ongoing for several months and none are new. He states he has had low back pain for the last several months. Worse with movement, better with rest. Has never taken anything for the pain. He states that today it just felt worse than usual. No trauma. No falls. No loss of bowel or bladder control. No numbness or tingling. No radiation. The pains in the lumbar area. He also states that he has had right lower quadrant abdominal pain for the past several months as well. He has had a colonoscopy which he reports was normal. No fevers. No chills. No nausea or vomiting. He states he has also had intermittent headaches for a few months since his girlfriend . They are gradual in onset, holoacranial and generally resolve on their own. Has not had any focal neurological deficits. He occasionally feels dizzy when he stands up and the pain becomes severe. Review of Systems Ten Systems: 10 systems reviewed and negative Constitutional: denies: Fever, Chills Nose: denies: Rhinorrhea / runny nose, Congestion Cardiac: denies: Chest pain / pressure, Palpitations Respiratory: denies: Dyspnea, Cough GI: denies: Vomiting, Diarrhea, Hematemesis, Bloody / black stool : denies: Dysuria, Frequency, Hesitancy, Unable to Void Skin: denies: Rash Musculoskeletal: denies: Neck pain Neurologic: denies: Headache PD PAST MEDICAL HISTORY - Past Medical History Cardiovascular: Hypertension, High cholesterol Respiratory: None Endocrine/Autoimmune: Type 2 diabetes GI: None : None HEENT: None Psych: None Musculoskeletal: None Derm: None - Past Surgical History Past Surgical History: Yes General: Colonoscopy HEENT: Tonsil/Adenoidectomy - Present Medications Home Medications: Ambulatory Orders Medication Instructions Recorded Confirmed Amlodipine Besylate [Norvasc] 10 mg PO DAILY 07/18/20 08/28/21 Atenolol [Tenormin] 50 mg PO DAILY 07/18/20 08/28/21 Atorvastatin Calcium [Lipitor] 80 mg PO QPM 07/18/20 08/28/21 Lisinopril [Zestril] 40 mg PO DAILY 07/18/20 08/28/21 glyBURIDE [Diabeta] 10 mg PO BID 07/18/20 08/28/21 metFORMIN [Glucophage] 1,000 mg PO BIDWM 10/17/20 08/28/21 HYDROcod/ACETAM 5/325 [[place] 5/325] 1 - 2 ea PO Q6H PRN #14 tablet 08/28/21 Ibuprofen [Motrin] 800 mg PO Q8H PRN #30 tablet 08/28/21 - Allergies Allergies/Adverse Reactions: Allergies Allergy/AdvReac Type Severity Reaction Status Date / Time No Known Drug Allergies Allergy Verified 06/09/21 20:47 - Social History Does the pt smoke?: No Smoking Status: Never smoker Does the pt drink ETOH?: No Does the pt have substance abuse?: Yes - Immunizations Immunizations are current?: Yes - POLST Patient has POLST: No PD ED PE NORMAL - Vitals Vital signs reviewed: Yes - General General: Alert and oriented X 3, No acute distress, Well developed/nourished - HEENT HEENT: Atraumatic, PERRL, EOMI, Ears normal, Moist mucous membranes, Pharynx benign - Neck Neck: Supple, no meningeal sign - Cardiac Cardiac: RRR, No murmur, Strong equal pulses - Respiratory Respiratory: No respiratory distress, Clear bilaterally - Abdomen Abdomen: Soft, Non distended, Other (Tender palpation right lower quadrant. No peritoneal signs.) - Back Back: No CVA TTP, No spinal TTP, Other (Paraspinal spasm bilateral lower lumbar.) - Derm Derm: Warm and dry - Extremities Extremities: No edema, No calf tenderness / cord - Neuro Neuro: Alert and oriented X 3, emissions engineer 2-12 intact (Normal cerebellar test.), No motor deficit, No sensory deficit, Normal speech, Other (Normal bilateral lower extremity patellar and ankle jerk reflexes. Normal great toe extension bilaterally. no saddle anesthesia) - Psych Psych: Normal mood, Normal affect Results - Vitals Vitals: Vital Signs - 24 hr 08/28/21 08/28/21 08/28/21 11:42 13:46 15:00 Temperature 37 C 36.5 C 36.6 C Heart Rate 102 H 97 85 Respiratory 21 24 24 Rate Blood Pressure 184/102 H 159/91 H 140/85 H O2 Saturation 100 99 97 08/28/21 08/28/21 08/28/21 17:00 19:00 19:41 Temperature 36.5 C 36.6 C 36.6 C Heart Rate 102 H 100 102 H Respiratory 30 H 24 24 Rate Blood Pressure 196/104 H 188/103 H 183/100 H O2 Saturation 97 100 97 08/28/21 19:59 Temperature 37.3 C Heart Rate 98 Respiratory 22 Rate Blood Pressure 178/100 H O2 Saturation 98 Oxygen O2 Source Room air - EKG (time done) 1137 Rate: Rate (enter#) (105) Rhythm: Sinus tachycardia [place]: Normal Intervals: Normal [place] QRS: Normal Ischemia: Normal ST segments - Labs Labs: Laboratory Tests 08/28/21 08/28/21 08/28/21 12:04 12:04 12:04 WBC 10.8 RBC 4.78 Hgb 13.6 L Hct 38.6 L MCV 80.8 MCH 28.5 MCHC 35.2 RDW 12.4 Plt Count 155 MPV 10.7 Neut # (Auto) 8.7 H Lymph # (Auto) 0.7 L [place] # (Auto) 1.1 H Eos # (Auto) 0.2 Baso # (Auto) 0.0 Absolute Nucleated RBC 0.00 Nucleated RBC % 0.0 Manual Slide Review Not Indicated VBG pH VBG pCO2 VBG pO2 VBG HCO3 VBG Total CO2 VBG O2 Saturation VBG Base Excess Sodium 125 L Potassium 3.5 Chloride 87 L Carbon Dioxide 21 Anion Gap 17.0 H BUN 15 Creatinine 0.8 Estimated GFR (MDRD) 99 Glucose 346 H Calcium 8.9 Total Bilirubin 1.6 H AST 29 ALT 50 Alkaline Phosphatase 128 H Total Protein 7.4 Albumin 3.5 Globulin 3.9 Albumin/Globulin Ratio 0.9 L Lipase 23 Urine Color Urine Clarity Urine pH Ur Specific [place] Urine Protein Urine Glucose (UA) Urine Ketones Urine Occult Blood Urine Nitrite Urine Bilirubin Urine Urobilinogen Ur Leukocyte Esterase Ur Microscopic Review Urine Culture Comments Urine Opiates Screen Ur Oxycodone Screen Urine Methadone Screen Ur Propoxyphene Screen Ur Barbiturates Screen Ur Tricyclics Screen Ur Phencyclidine Scrn Ur Amphetamine Screen U Methamphetamines Scrn U Benzodiazepines Scrn Urine Cocaine Screen U Cannabinoids Screen Ethyl Alcohol < 5.0 Serum Ketones 08/28/21 08/28/21 08/28/21 13:04 13:15 16:23 WBC RBC Hgb Hct MCV MCH MCHC RDW Plt Count MPV Neut # (Auto) Lymph # (Auto) Ellis # (Auto) Eos # (Auto) Baso # (Auto) Absolute Nucleated RBC Nucleated RBC % Manual Slide Review VBG pH 7.489 H VBG pCO2 30.4 L VBG pO2 59.1 H VBG HCO3 22.6 L VBG Total CO2 23.5 L VBG O2 Saturation 92.5 H VBG Base Excess 0.2 Sodium Potassium Chloride Carbon Dioxide Anion Gap BUN Creatinine Estimated GFR (MDRD) Glucose Calcium Total Bilirubin AST ALT Alkaline Phosphatase Total Protein Albumin Globulin Albumin/Globulin Ratio Lipase Urine Color Urine Clarity Urine pH Ur Specific [place] Urine Protein Urine Glucose (UA) Urine Ketones Urine Occult Blood Urine Nitrite Urine Bilirubin Urine Urobilinogen Ur Leukocyte Esterase Ur Microscopic Review Urine Culture Comments Urine Opiates Screen NEGATIVE Ur Oxycodone Screen NEGATIVE Urine Methadone Screen NEGATIVE Ur Propoxyphene Screen NEGATIVE Ur Barbiturates Screen NEGATIVE Ur Tricyclics Screen NEGATIVE Ur Phencyclidine Scrn NEGATIVE Ur Amphetamine Screen POSITIVE H U Methamphetamines Scrn POSITIVE H U Benzodiazepines Scrn NEGATIVE Urine Cocaine Screen NEGATIVE U Cannabinoids Screen POSITIVE H Ethyl Alcohol Serum Ketones SMALL H 08/28/21 08/28/21 16:23 17:35 WBC RBC Hgb Hct MCV MCH MCHC RDW Plt Count MPV Neut # (Auto) Lymph # (Auto) Ellis # (Auto) Eos # (Auto) Baso # (Auto) Absolute Nucleated RBC Nucleated RBC % Manual Slide Review VBG pH VBG pCO2 VBG pO2 VBG HCO3 VBG Total CO2 VBG O2 Saturation VBG Base Excess Sodium 130 L Potassium 4.3 Chloride 92 L Carbon Dioxide 25 Anion Gap 13.0 BUN 15 Creatinine 0.8 Estimated GFR (MDRD) 99 Glucose 296 H Calcium 8.7 Total Bilirubin AST ALT Alkaline Phosphatase Total Protein Albumin Globulin Albumin/Globulin Ratio Lipase Urine Color YELLOW Urine Clarity CLEAR Urine pH 5.5 Ur Specific [place] 1.015 Urine Protein NEGATIVE Urine Glucose (UA) >=1000 H Urine Ketones >=80 H Urine Occult Blood TRACE-INTA Urine Nitrite NEGATIVE Urine Bilirubin NEGATIVE Urine Urobilinogen 0.2 (NORMAL) Ur Leukocyte Esterase NEGATIVE Ur Microscopic Review NOT INDICATED Urine Culture Comments NOT INDICATED Urine Opiates Screen Ur Oxycodone Screen Urine Methadone Screen Ur Propoxyphene Screen Ur Barbiturates Screen Ur Tricyclics Screen Ur Phencyclidine Scrn Ur Amphetamine Screen U Methamphetamines Scrn U Benzodiazepines Scrn Urine Cocaine Screen U Cannabinoids Screen Ethyl Alcohol Serum Ketones - Rads (name of study) CT abdomen pelvis Radiology: Final report received, EMP read contemporaneously, See rad report PD MEDICAL DECISION MAKING - ED course Complexity details: reviewed results, re-evaluated patient, considered differential, d/w patient ED course: 60-year-old male with hyperglycemia, mild acidosis and mild ketosis. He was given IV fluids, insulin. His laboratory values improved. He is feeling better. Tolerating p.o. without any difficulty. Is not in significant DKA. Does not want to be admitted. His CT of the abdomen pelvis shows lumbar degenerative changes with canal stenosis at L4-L5. Pain well controlled with Toradol. Ambulating without any difficulty in the emergency department and with a steady gait. No evidence of cauda equina, epidural abscess. We will have him continue his current medications at home and follow-up with his doctor to adjust his medications for his hyperglycemia. I am prescribing a short course of short-acting opioid pain medication for this patient. I have reviewed the patients COMMUNITY [employer]IVING [employer]IST and no concerning findings were noted. I have discussed that the opioids are for short term therapy only, and will not be refilled from the ED. patient counseled regarding signs and symptoms for which I believe and urgent re-evaluation would be necessary. Patient with good understanding of and agreement to plan and is comfortable going home at this time This document was made in part using voice recognition software. While efforts are made to proofread this document, sound alike and grammatical errors may occur. IMPRESSION: 1. Mild splenomegaly, stable. 2. No evidence of acute abdominal process. 3. Mild prostate enlargement with bladder distention. 4. Small bilateral fat-containing inguinal hernias. 5. Lumbar degenerative change with canal stenosis at L4-L5. Departure - Departure Disposition: 01 Home, Self Care Clinical Impression: Hyperglycemia due to diabetes mellitus, Hyponatremia, Dehydration, Central stenosis of spinal canal Abdominal pain Qualifiers: Abdominal location: unspecified location Qualified Code(s): R10.9 - Unspecified abdominal pain Condition: Good Instructions: ED Back Care Tips, ED Hyperglycemia Diabetic, ED Dehydration Follow-Up: your,doctor in 3 days [Other] Prescriptions: Ibuprofen [Motrin] 800 mg PO Q8H PRN #30 tablet PRN Reason: PAIN &/OR FEVER HYDROcod/ACETAM 5/325 [[place] 5/325] 1 - 2 ea PO Q6H PRN #14 tablet PRN Reason: Pain Comments: Please follow-up with your doctor for further care. You need to make sure that you are controlling your blood sugar well at home and checking it regularly. Please return if you worsen. Your doctor should recheck your sodium and glucose levels next week. Your prescriptions were sent to [facility] in [place]. I am prescribing a short course of narcotic pain medication for you. These are potentially dangerous and addictive medications that should be used carefully. These medications may constipate you. Take an pjss-aul-lyixlwt stool softener (docusate) twice daily with plenty of water while taking these medications. If you go 24 hours without a bowel movement, take [id number] miralax, per package instructions. Do not drink or drive while taking these medications. If you received narcotic or sedating medications while in the emergency department, do not drive for 24 hours. Store this medication in a safe, secure place and out of reach of children. It is a violation of federal law to give or sell this medication to another person or to use in a manner other than prescribed. The ED will not refill narcotic prescriptions, including prescriptions lost or stolen. To dispose of unwanted medications: 1. [facility] at [address] in [place] has a medication drop box. They accept prescription medications (in pill form) Wednesday through Wednesday 9:00 a.m. to 5:00 p.m. 2. The [facility] [employer] accepts prescription medications (in pill form only) for disposal year round. Call for more information. 3. Contact the [facility] for the next [facility] sponsored prescription drug collection event. , [phone], or [phone]; CT RESULTS: FINDINGS: Image quality: Excellent. ABDOMEN: Lung bases: Lung bases are clear. Heart size is normal. Solid organs: Liver is normal in size and enhancement. Mild splenomegaly, as before. The craniocaudal dimension and the spleen is approximately 15 cm. AP and transverse dimensions are not enlarged. Gallbladder is unremarkable. Biliary system is non dilated. Pancreas enhances normally. No adrenal nodules. Kidneys demonstrate normal size and enhancement, without hydronephrosis. Peritoneum and bowel: Bowel loops demonstrate normal wall thickness and caliber. No free fluid or air. Nodes and vessels: No retroperitoneal or mesenteric adenopathy by size criteria. Aorta and inferior vena cava are normal in size. Miscellaneous: No ventral hernias. PELVIS: Genitourinary: Mild prostate enlargement. Distended bladder without significant wall thickening. Miscellaneous: Small bilateral fat-containing inguinal hernias. Small shotty inguinal lymph nodes. Bones: No suspicious bony lesions. No vertebral body compression fractures. Lumbar degenerative change. Disc plus osteophyte at L4-L5 contributes to canal stenosis. IMPRESSION: 1. Mild splenomegaly, stable. 2. No evidence of acute abdominal process. 3. Mild prostate enlargement with bladder distention. 4. Small bilateral fat-containing inguinal hernias. 5. Lumbar degenerative change with canal stenosis at L4-L5. Discharge Date/Time: 08/28/21 20:00
[2021-08-28] MEDS: KETOROLAC 30 MG/ML VIAL IVP STA (12:43)
[2021-08-28 12:56] LABS: BILIRUBIN,TOTAL 1.6 mg/dL (0.2-1.0); CALCIUM 8.9 mg/dL (8.5-10.3); CREATININE 0.8 mg/dL (0.6-1.2); POTASSIUM 3.5 mmol/L (3.5-5.0)
[2021-08-28 12:57] LABS: ALBUMIN 3.5 g/dL (3.2-5.5); ALBUMIN/GLOBULIN RATIO 0.9 (1.0-2.2); TOTAL PROTEIN 7.4 g/dL (6.7-8.2)
[2021-08-28 13:20] LABS: VBG BASE EXCESS 0.2 mmol/L (-2 - +2); VBG HCO3 22.6 mmol/L (23-28); VBG OXYGEN SATURATION 92.5 % (60-80); VBG PCO2 30.4 mmHg (41-51); VBG PH 7.489 (7.31-7.41); VBG PO2 59.1 mmHg (25-47); VBG TOTAL CO2 23.5 mmol/L (24-29)
[2021-08-28] MEDS: INSULIN REGULAR HUMAN 100 UNIT/1 ML 10 ML MDV SUBQ STA (13:20)
[2021-08-28] MEDS: INSULIN REGULAR HUMAN 100 UNIT/1 ML 10 ML MDV IVP STA (13:24)
[2021-08-28] MEDS: SODIUM CHLORIDE 0.9% 1,000 ML IV STA ×3 (13:24→16:04)
[2021-08-28] MEDS ORDERED: IOPAMIDOL-300 100 ML VIAL ONE (14:15)
[2021-08-28] MEDS: IOPAMIDOL-300 100 ML VIAL IVP ONE (14:56)
--- NOTE | 2021-08-28 15:21 | CT Report ---
PROCEDURE: Abdomen/Pelvis W INDICATIONS: diffuse abd pain CONTRAST: IV CONTRAST: Isovue 300 ml: 100 PO CONTRAST: *NO PO CONTRAST TECHNIQUE: After the administration of contrast, 5 mm thick sections acquired from the diaphragms to the sym physis. 5 mm thick coronal and sagittal reformats were acquired. For radiation dose reduction, the following was used: automated exposure control, adjustment of mA and/or kV according to patient size . COMPARISON: None. FINDINGS: Image quality: Excellent. ABDOMEN: Lung bases: Lung bases are clear. Heart size is normal. Solid organs: Liver is normal in size and enhancement. Mild splenomegaly, as before. The craniocauda l dimension and the spleen is approximately 15 cm. AP and transverse dimensions are not enlarged. Gal lbladder is unremarkable. Biliary system is non dilated. Pancreas enhances normally. No adrenal no dules. Kidneys demonstrate normal size and enhancement, without hydronephrosis. Peritoneum and bowel: Bowel loops demonstrate normal wall thickness and caliber. No free fluid or a ir. Nodes and vessels: No retroperitoneal or mesenteric adenopathy by size criteria. Aorta and inferior vena cava are normal in size. Miscellaneous: No ventral hernias. PELVIS: Genitourinary: Mild prostate enlargement. Distended bladder without significant wall thickening. Miscellaneous: Small bilateral fat-containing inguinal hernias. Small shotty inguinal lymph nodes. Bones: No suspicious bony lesions. No vertebral body compression fractures. Lumbar degenerative ch claus. Disc plus osteophyte at L4-L5 contributes to canal stenosis. IMPRESSION: 1. Mild splenomegaly, stable. 2. No evidence of acute abdominal process. 3. Mild prostate enlargement with bladder distention. 4. Small bilateral fat-containing inguinal hernias. 5. Lumbar degenerative change with canal stenosis at L4-L5. Reviewed by: Hadley Weeks MD on 08/28/2021 3:19 PM PST Approved by: Hadley Weeks MD on 08/28/2021 3:19 PM PST Station ID: [id number]
[2021-08-28 16:26] LABS: MUDS CUTOFF CONCENTRATIONS CUTOFF CONC BELOW:
[2021-08-28 16:42] LABS: BILIRUBIN,URINE NEGATIVE (NEGATIVE); GLUCOSE, URINE (UA) >=1000 mg/dL (NEGATIVE); KETONES,URINE (UA) >=80 mg/dL (NEGATIVE); LEUKOCYTE ESTERASE, URINE NEGATIVE (NEGATIVE); NITRITE,URINE NEGATIVE (NEGATIVE); OCCULT BLOOD,URINE TRACE-INTA (NEGATIVE); PH,URINE 5.5 PH (5.0-7.5); PROTEIN,URINE NEGATIVE (NEGATIVE); UROBILINOGEN,URINE 0.2 (NORMAL) E.U./dL (NORMAL)
[2021-08-28 16:51] LABS: CLARITY,URINE CLEAR (CLEAR)
[2021-08-28 16:55] LABS: COCAINE SCREEN URINE NEGATIVE (NEGATIVE); METHAMPHETAMINES SCREEN, URINE POSITIVE (NEGATIVE); THC CANNABINOID SCREEN, URINE POSITIVE (NEGATIVE)
[2021-08-28 16:56] LABS: AMPHETAMINE SCREEN,URINE POSITIVE (NEGATIVE); BARBITURATE SCREEN,UR NEGATIVE (NEGATIVE); BENZODIAZEPINES SCREEN, URINE NEGATIVE (NEGATIVE); METHADONE SCREEN, URINE NEGATIVE (NEGATIVE); OPIATE SCREEN, URINE NEGATIVE (NEGATIVE); OXYCODONE SCREEN, URINE NEGATIVE (NEGATIVE); PROPOXYPHENE SCREEN, URINE NEGATIVE (NEGATIVE); TRICYCLIC ANTIDEPRESSANT,URINE NEGATIVE (NEGATIVE)
[2021-08-28 17:51] LABS: CALCIUM 8.7 mg/dL (8.5-10.3); CREATININE 0.8 mg/dL (0.6-1.2); POTASSIUM 4.3 mmol/L (3.5-5.0)
[2021-08-28] MEDS: MORPHINE 2 MG/ML CARPUJECT IVP STA (19:08)
[2021-08-28] MEDS: DICYCLOMINE 10 MG CAPSULE PO STA (19:08)
[2021-08-28 20:00] VITALS: BP 178/100
== END 2021-08-28 20:00 | disposition home or self-care (01) ==
LOC: ED 11:33
DX: E11.65 Type 2 diabetes mellitus with hyperglycemia (principal); Z79.84 Long term (current) use of oral hypoglycemic drugs; E87.1 Hypo-osmolality and hyponatremia; E86.0 Dehydration; M48.061 Spinal stenosis, lumbar region without neurogenic claudication; I10 Essential (primary) hypertension
CPT/HCPCS: 36415; 74177; 80048; 80053; 80306; 80320; 81003; 82009; 82803; 83690; 85025; 93005; 96361; 96374; 96375; 99284; A9270; J1815; Q9967; 81001; 87086

== ENCOUNTER 2021-11-05 18:25 | Outpatient (CLI) | payer MEDICAID | END 2021-11-05 18:26 | disposition short-term general hospital (02) | LOC: EMS 18:25 | DX: M54.50 Low back pain, unspecified (principal) | CPT/HCPCS: A0425; A0427; A0999 ==

== ENCOUNTER 2021-12-22 09:36 | Outpatient (CLI) | payer MEDICAID ==
[2021-12-22 12:17] LABS: BASOPHILS % (AUTO) 0.6 %; EOSINOPHILS # (AUTO) 0.1 10^3/uL (0.0-0.7); HGB - HEMOGLOBIN 11.4 g/dL (14.0-18.0); LYMPHOCYTES # (AUTO) 1.6 10^3/uL (1.5-3.5); LYMPHOCYTES % (AUTO) 32.6 %; MEAN CORPUSCULAR HEMOGLOBIN 26.9 pg (27.0-31.0); MEAN CORPUSCULAR HGB CONC 31.7 g/dL (32.0-36.0); MEAN CORPUSCULAR VOLUME 84.9 fL (80.0-94.0); MEAN PLATELET VOLUME 9.9 fL (7.4-11.4); MONOCYTES # (AUTO) 0.4 10^3/uL (0.0-1.0); MONOCYTES % (AUTO) 7.3 %; NEUTROPHILS # (AUTO) 2.9 10^3/uL (1.5-6.6); NEUTROPHILS % (AUTO) 58.1 %; PLT - PLATELET COUNT 251 10^3/uL (130-450); RED BLOOD COUNT 4.24 10^6/uL (4.70-6.10); RED CELL DISTRIBUTION WIDTH 15.8 % (12.0-15.0); WHITE BLOOD COUNT 4.9 x10^3/uL (4.8-10.8)
== END 2021-12-22 09:37 | disposition home or self-care (01) ==
LOC: LAB.N 09:36
PROVIDERS: ATTEND Physician Assistant Medical
DX: M46.20 Osteomyelitis of vertebra, site unspecified (principal)
CPT/HCPCS: 36415; 85025

== ENCOUNTER 2022-01-02 11:53 | Outpatient (CLI) | payer MEDICAID ==
[2022-01-02 18:17] LABS: BASOPHILS % (AUTO) 0.5 %; EOSINOPHILS # (AUTO) 0.1 10^3/uL (0.0-0.7); EOSINOPHILS % (AUTO) 1.6 %; HGB - HEMOGLOBIN 11.6 g/dL (14.0-18.0); LYMPHOCYTES # (AUTO) 2.1 10^3/uL (1.5-3.5); LYMPHOCYTES % (AUTO) 37.5 %; MEAN CORPUSCULAR HEMOGLOBIN 27.4 pg (27.0-31.0); MEAN CORPUSCULAR HGB CONC 32.2 g/dL (32.0-36.0); MEAN CORPUSCULAR VOLUME 84.9 fL (80.0-94.0); MEAN PLATELET VOLUME 10.4 fL (7.4-11.4); MONOCYTES # (AUTO) 0.5 10^3/uL (0.0-1.0); MONOCYTES % (AUTO) 9.5 %; NEUTROPHILS # (AUTO) 2.8 10^3/uL (1.5-6.6); NEUTROPHILS % (AUTO) 50.5 %; PLT - PLATELET COUNT 319 10^3/uL (130-450); RED BLOOD COUNT 4.24 10^6/uL (4.70-6.10); RED CELL DISTRIBUTION WIDTH 15.3 % (12.0-15.0); WHITE BLOOD COUNT 5.6 x10^3/uL (4.8-10.8)
== END 2022-01-02 11:54 | disposition home or self-care (01) ==
LOC: LAB.N 11:53
PROVIDERS: ATTEND Physician Assistant Medical
DX: M46.20 Osteomyelitis of vertebra, site unspecified (principal)
CPT/HCPCS: 36415; 85025

== ENCOUNTER 2022-01-07 09:19 | Outpatient (CLI) | payer MEDICAID ==
[2022-01-07 12:06] LABS: BASOPHILS % (AUTO) 0.6 %; EOSINOPHILS # (AUTO) 0.1 10^3/uL (0.0-0.7); HCT - HEMATOCRIT 36.5 % (42.0-52.0); HGB - HEMOGLOBIN 11.9 g/dL (14.0-18.0); LYMPHOCYTES # (AUTO) 1.5 10^3/uL (1.5-3.5); LYMPHOCYTES % (AUTO) 29.5 %; MEAN CORPUSCULAR HEMOGLOBIN 27.5 pg (27.0-31.0); MEAN CORPUSCULAR HGB CONC 32.6 g/dL (32.0-36.0); MEAN CORPUSCULAR VOLUME 84.3 fL (80.0-94.0); MEAN PLATELET VOLUME 10.4 fL (7.4-11.4); MONOCYTES # (AUTO) 0.5 10^3/uL (0.0-1.0); MONOCYTES % (AUTO) 9.3 %; NEUTROPHILS % (AUTO) 58.8 %; PLT - PLATELET COUNT 295 10^3/uL (130-450); RED BLOOD COUNT 4.33 10^6/uL (4.70-6.10); WHITE BLOOD COUNT 5.2 x10^3/uL (4.8-10.8)
== END 2022-01-07 09:20 | disposition home or self-care (01) ==
LOC: LAB.N 09:19
PROVIDERS: ATTEND Physician Assistant Medical
DX: M46.20 Osteomyelitis of vertebra, site unspecified (principal)
CPT/HCPCS: 36415; 85025

== ENCOUNTER 2022-01-12 11:42 | Outpatient (CLI) | payer MEDICAID ==
[2022-01-12 17:54] LABS: BASOPHILS % (AUTO) 0.6 %; EOSINOPHILS # (AUTO) 0.1 10^3/uL (0.0-0.7); EOSINOPHILS % (AUTO) 0.7 %; HGB - HEMOGLOBIN 11.8 g/dL (14.0-18.0); LYMPHOCYTES # (AUTO) 1.9 10^3/uL (1.5-3.5); LYMPHOCYTES % (AUTO) 26.4 %; MEAN CORPUSCULAR HGB CONC 32.8 g/dL (32.0-36.0); MEAN CORPUSCULAR VOLUME 85.5 fL (80.0-94.0); MEAN PLATELET VOLUME 10.5 fL (7.4-11.4); MONOCYTES # (AUTO) 0.6 10^3/uL (0.0-1.0); MONOCYTES % (AUTO) 8.2 %; NEUTROPHILS # (AUTO) 4.5 10^3/uL (1.5-6.6); NEUTROPHILS % (AUTO) 63.4 %; PLT - PLATELET COUNT 280 10^3/uL (130-450); RED BLOOD COUNT 4.21 10^6/uL (4.70-6.10); RED CELL DISTRIBUTION WIDTH 14.8 % (12.0-15.0); WHITE BLOOD COUNT 7.1 x10^3/uL (4.8-10.8)
[2022-01-12 18:18] LABS: ALBUMIN 4.1 g/dL (3.2-5.5); ALBUMIN/GLOBULIN RATIO 1.2 (1.0-2.2); BILIRUBIN,TOTAL 0.4 mg/dL (0.2-1.0); CALCIUM 9.7 mg/dL (8.5-10.3); CREATININE 0.9 mg/dL (0.6-1.2); POTASSIUM 4.3 mmol/L (3.5-5.0); TOTAL PROTEIN 7.5 g/dL (6.7-8.2)
== END 2022-01-12 11:43 | disposition home or self-care (01) ==
LOC: LAB.N 11:42
PROVIDERS: ATTEND Physician Assistant Medical
DX: M46.20 Osteomyelitis of vertebra, site unspecified (principal); M86.9 Osteomyelitis, unspecified
CPT/HCPCS: 36415; 80053; 85025

== ENCOUNTER 2022-01-21 09:36 | Outpatient (CLI) | payer MEDICAID ==
[2022-01-21 11:55] LABS: BASOPHILS % (AUTO) 0.3 %; EOSINOPHILS # (AUTO) 0.1 10^3/uL (0.0-0.7); EOSINOPHILS % (AUTO) 1.3 %; HCT - HEMATOCRIT 36.3 % (42.0-52.0); HGB - HEMOGLOBIN 11.9 g/dL (14.0-18.0); LYMPHOCYTES # (AUTO) 1.9 10^3/uL (1.5-3.5); LYMPHOCYTES % (AUTO) 32.4 %; MEAN CORPUSCULAR HEMOGLOBIN 27.7 pg (27.0-31.0); MEAN CORPUSCULAR HGB CONC 32.8 g/dL (32.0-36.0); MEAN CORPUSCULAR VOLUME 84.4 fL (80.0-94.0); MEAN PLATELET VOLUME 10.4 fL (7.4-11.4); MONOCYTES # (AUTO) 0.5 10^3/uL (0.0-1.0); MONOCYTES % (AUTO) 8.4 %; NEUTROPHILS # (AUTO) 3.3 10^3/uL (1.5-6.6); NEUTROPHILS % (AUTO) 56.1 %; PLT - PLATELET COUNT 250 10^3/uL (130-450); RED CELL DISTRIBUTION WIDTH 14.5 % (12.0-15.0)
[2022-01-21 12:01] LABS: ALBUMIN 4.1 g/dL (3.2-5.5); ALBUMIN/GLOBULIN RATIO 1.2 (1.0-2.2); BILIRUBIN,TOTAL 0.5 mg/dL (0.2-1.0); CALCIUM 9.1 mg/dL (8.5-10.3); CREATININE 0.9 mg/dL (0.6-1.2); POTASSIUM 4.1 mmol/L (3.5-5.0); TOTAL PROTEIN 7.6 g/dL (6.7-8.2)
== END 2022-01-21 09:37 | disposition home or self-care (01) ==
LOC: LAB.N 09:36
PROVIDERS: ATTEND Physician Assistant Medical
DX: M46.20 Osteomyelitis of vertebra, site unspecified (principal); M86.9 Osteomyelitis, unspecified
CPT/HCPCS: 36415; 80053; 85025

== ENCOUNTER 2022-01-29 11:16 | Outpatient (CLI) | payer MEDICAID ==
[2022-01-29 17:49] LABS: ALBUMIN 4.2 g/dL (3.2-5.5); ALBUMIN/GLOBULIN RATIO 1.3 (1.0-2.2); BILIRUBIN,TOTAL 0.6 mg/dL (0.2-1.0); CALCIUM 9.2 mg/dL (8.5-10.3); CREATININE 1.1 mg/dL (0.6-1.2); POTASSIUM 3.8 mmol/L (3.5-5.0); TOTAL PROTEIN 7.4 g/dL (6.7-8.2)
[2022-01-29 18:06] LABS: BASOPHILS % (AUTO) 0.5 %; HCT - HEMATOCRIT 35.8 % (42.0-52.0); HGB - HEMOGLOBIN 11.8 g/dL (14.0-18.0); LYMPHOCYTES # (AUTO) 1.3 10^3/uL (1.5-3.5); LYMPHOCYTES % (AUTO) 32.2 %; MEAN CORPUSCULAR HEMOGLOBIN 28.2 pg (27.0-31.0); MEAN CORPUSCULAR VOLUME 85.4 fL (80.0-94.0); MEAN PLATELET VOLUME 10.3 fL (7.4-11.4); MONOCYTES # (AUTO) 0.3 10^3/uL (0.0-1.0); MONOCYTES % (AUTO) 8.1 %; NEUTROPHILS # (AUTO) 2.3 10^3/uL (1.5-6.6); NEUTROPHILS % (AUTO) 57.7 %; PLT - PLATELET COUNT 224 10^3/uL (130-450); RED BLOOD COUNT 4.19 10^6/uL (4.70-6.10); RED CELL DISTRIBUTION WIDTH 14.6 % (12.0-15.0)
== END 2022-01-29 11:17 | disposition home or self-care (01) ==
LOC: LAB.N 11:16
PROVIDERS: ATTEND Physician Assistant Medical
DX: M46.20 Osteomyelitis of vertebra, site unspecified (principal); M86.9 Osteomyelitis, unspecified
CPT/HCPCS: 36415; 80053; 85025

== ENCOUNTER 2022-07-13 15:29 | Outpatient (CLI) | payer MEDICAID | END 2022-07-13 15:30 | disposition critical access hospital (66) | LOC: EMS 15:29 | DX: M79.89 Other specified soft tissue disorders (principal); M79.672 Pain in left foot; R23.8 Other skin changes | CPT/HCPCS: A0425; A0429; A0999 ==

== ENCOUNTER 2022-07-13 15:52 | Emergency (ER) | payer MEDICAID ==
[2022-07-13] MEDS ORDERED: LIDOCAINE-EPINEPH-TETRACAINE 3 ML SYRINGE TOP STA (16:00)
[2022-07-13] MEDS ORDERED: KETOROLAC 15 MG/ML VIAL IVP STA (16:08)
[2022-07-13] MEDS ORDERED: CLINDAMYCIN 600 MG/50 ML 50 ML IV ONE (16:08)
[2022-07-13] MEDS ORDERED: HYDROmorphone 1 MG/ML CARPUJECT IVP STA (16:08)
[2022-07-13] MEDS ORDERED: ceFAZolin 1 GM in SODIUM CHLORIDE 0.9% MINIBAG 100 ML IV STA (16:08)
--- NOTE | 2022-07-13 16:09 | ED Physician Documentation ---
PD HPI LOWER EXT INJURY - Stated complaint Stated Complaint: LT FT INFECTION - History obtained from History obtained from: Patient - History of Present Illness PD HPI LOW EXT INJURY LOCATION: Left, Foot, Toe Type of injury: Other (had blister type lesion under toe, with swelling and redness progresing over past few days.). No: Fall, Twist Where injury occurred: Home (Patient denies any obvious injury. He developed blistery swelling under the toe and has progressive redness swelling and pain in the last few days. Redness and swelling to the dorsum of the foot.) Timing - onset: How many days ago (2-3) Timing - duration: Days (2-3) Timing - details: Abrupt onset (had small blister feeling area under 2-3rd toes and now 2-3 days of abruptly worsening redness/ swelling/ pain dorsal foot and the 2nd toe.), Still present Worsened by: Moving, Palpating Associated symptoms: Swelling, Discolored Contributing factors: Other (diabetic) Similar symptoms before: Diagnosis (has had foot infection on other foot last year, needed surgery.) Recently seen: Not recently seen Review of Systems Constitutional: denies: Fever, Chills Nose: denies: Rhinorrhea / runny nose, Congestion Throat: denies: Sore throat Cardiac: denies: Chest pain / pressure Respiratory: denies: Dyspnea GI: denies: Nausea, Vomiting Neurologic: reports: Numbness (of both feet due to neuropathy.). denies: Focal weakness PD PAST MEDICAL HISTORY - Past Medical History Cardiovascular: Hypertension, High cholesterol Respiratory: None Endocrine/Autoimmune: Type 2 diabetes GI: None : None HEENT: None Psych: None Musculoskeletal: None Derm: None - Past Surgical History Past Surgical History: Yes General: Colonoscopy HEENT: Tonsil/Adenoidectomy - Present Medications Home Medications: Ambulatory Orders Medication Instructions Recorded Confirmed Amlodipine Besylate [Norvasc] 10 mg PO DAILY 07/18/20 08/28/21 Atenolol [Tenormin] 50 mg PO DAILY 07/18/20 08/28/21 Atorvastatin Calcium [Lipitor] 80 mg PO QPM 07/18/20 08/28/21 Lisinopril [Zestril] 40 mg PO DAILY 07/18/20 08/28/21 glyBURIDE [Diabeta] 10 mg PO BID 07/18/20 08/28/21 metFORMIN [Glucophage] 1,000 mg PO BIDWM 10/17/20 08/28/21 HYDROcod/ACETAM 5/325 [[place] 5/325] 1 - 2 ea PO Q6H PRN #14 tablet 08/28/21 Ibuprofen [Motrin] 800 mg PO Q8H PRN #30 tablet 08/28/21 HYDROcod/ACETAM 5/325 [[place] 5/325] 1 ea PO Q6H PRN #18 tablet 07/13/22 Mupirocin 2% Oint [Bactroban 2% 1 applic TOP TID #15 gm 07/13/22 Oint] cephALEXin [Keflex] 500 mg PO TID 5 Days #15 cap 07/13/22 clindamycin HCL [Clindamycin HCl] 300 mg PO TID 5 Days #15 cap 07/13/22 - Allergies Allergies/Adverse Reactions: Allergies Allergy/AdvReac Type Severity Reaction Status Date / Time No Known Drug Allergies Allergy Verified 07/13/22 16:09 - Social History Does the pt smoke?: No Smoking Status: Never smoker Does the pt drink ETOH?: No Does the pt have substance abuse?: Yes - Immunizations Immunizations are current?: Yes - POLST Patient has POLST: No PD ED PE NORMAL - Vitals Vital signs reviewed: Yes - General General: Alert and oriented X 3, Well developed/nourished, Other (appears in pain from foot. ) - Cardiac Cardiac: RRR, No murmur - Respiratory Respiratory: Clear bilaterally - Abdomen Abdomen: Soft, Non tender - Derm Derm: Normal color, Warm and dry - Extremities Extremities: Other (left foot with redness, swelling, tenderness dorsum mid foot and the whole of 2nd toe, side of 3rd toe. there is blister/pustule appearing under 2nd-3rd toes at flexion crease area. Markedly tender. ) Results - Vitals Vitals: Vital Signs - 24 hr 07/13/22 07/13/22 07/13/22 16:04 16:33 18:52 Temperature 36.9 C 36.9 C Heart Rate 79 71 70 Respiratory 20 16 16 Rate Blood Pressure 143/90 H 155/89 H 140/88 H O2 Saturation 100 100 100 Oxygen O2 Source Room air - Labs Labs: Microbiology 07/13/22 17:43 Wound Culture - Preliminary Foot - Left Laboratory Tests 07/13/22 07/13/22 07/13/22 16:16 16:16 16:16 WBC 7.1 RBC 4.53 L Hgb 12.4 L Hct 37.7 L MCV 83.2 MCH 27.4 MCHC 32.9 RDW 13.1 Plt Count 177 MPV 10.5 Neut # (Auto) 5.2 Lymph # (Auto) 1.2 L [place] # (Auto) 0.6 Eos # (Auto) 0.1 Baso # (Auto) 0.0 Absolute Nucleated RBC 0.00 Nucleated RBC % 0.0 ESR 74 H Sodium 129 L Potassium 3.5 Chloride 93 L Carbon Dioxide 25 Anion Gap 11.0 BUN 20 Creatinine 1.1 Estimated GFR (MDRD) 69 L Glucose 658 H* Calcium 9.0 Total Bilirubin 0.5 AST 12 ALT 17 Alkaline Phosphatase 109 Total Protein 7.1 Albumin 3.6 Globulin 3.5 Albumin/Globulin Ratio 1.0 Lipase 26 - Rads (name of study) toes xray Radiology: Prelim report reviewed (no osseous lesions. ), See rad report Procedures - Abscess I&D (location) left plantar foot flexion crease Preparation: Lidocaine 1% Incision: Incised with scalpel, Purulent drainage, Irrigated, Culture obtained Other: Pt tolerated well, Antibiotic prescribed PD MEDICAL DECISION MAKING - ED course Complexity details: reviewed results, re-evaluated patient (pain improved with IV meds and also LET topically. ), considered differential (abscess of skin under toes with now cellulitis and pain of toe/foot. To give abx, and will give IV since diabetic and fast evolving. ), d/w patient Departure - Departure Disposition: 01 Home, Self Care Clinical Impression: Foot abscess, Cellulitis of foot, Poorly controlled diabetes mellitus Condition: Stable Record reviewed to determine appropriate education?: Yes Instructions: ED Infec Skin Cellulitis Prescriptions: Mupirocin 2% Oint [Bactroban 2% Oint] 1 applic TOP TID #15 gm clindamycin HCL [Clindamycin HCl] 300 mg PO TID 5 Days #15 cap cephALEXin [Keflex] 500 mg PO TID 5 Days #15 cap HYDROcod/ACETAM 5/325 [[place] 5/325] 1 ea PO Q6H PRN #18 tablet PRN Reason: Pain Comments: Soak the foot in warm water 2-3 times daily to help promote further drainage. Cleanse and dry gently after and apply mupirocin antibiotic ointment to the main sore under the toes. Elevate and rest your foot often to help reduce swelling. Your x-ray does not show any signs of bone involvement. Your blood sugar was quite elevated in the 600s. Be sure to take your regular insulin. We did give a little dose here but I would still use your normal at home. We did do a culture of the pus from the area. This will result in 2 to 3 days. For now I will prescribe cephalexin and clindamycin antibiotics. We should be able to tailor it to one of the other after the culture results. I also prescribed hydrocodone pain medicine to use if needed for pain. I sent your prescriptions to [facility] pharmacy. I am prescribing a short course of narcotic pain medication for you. These are potentially dangerous and addictive medications that should be used carefully. These medications may constipate you. Take an lamu-tmi-omriftu stool softener such as docusate twice daily with plenty of water while taking these medications. If you go 24 hours without a bowel movement, take vgoz-[id number]-sariefv MiraLAX, per package instructions. Do not drink or drive while taking these medications. If you received narcotic or sedating medications while in the emergency department do not drive for 24 hours. Store this medication in a safe, secure place and out of reach of children. It is a violation of federal law to give or sell this medication to another person or to use in a manner other than prescribed. The ED will not refill narcotic prescriptions, including prescriptions lost or stolen. You can dispose of unwanted medications at the [facility]'s office or at several pharmacies such as [facility]. Discharge Date/Time: 07/13/22 18:30
[2022-07-13 16:22] LABS: BASOPHILS % (AUTO) 0.4 %; EOSINOPHILS # (AUTO) 0.1 10^3/uL (0.0-0.7); EOSINOPHILS % (AUTO) 0.8 %; HCT - HEMATOCRIT 37.7 % (42.0-52.0); HGB - HEMOGLOBIN 12.4 g/dL (14.0-18.0); LYMPHOCYTES # (AUTO) 1.2 10^3/uL (1.5-3.5); LYMPHOCYTES % (AUTO) 16.7 %; MEAN CORPUSCULAR HEMOGLOBIN 27.4 pg (27.0-31.0); MEAN CORPUSCULAR HGB CONC 32.9 g/dL (32.0-36.0); MEAN CORPUSCULAR VOLUME 83.2 fL (80.0-94.0); MEAN PLATELET VOLUME 10.5 fL (7.4-11.4); MONOCYTES # (AUTO) 0.6 10^3/uL (0.0-1.0); MONOCYTES % (AUTO) 7.8 %; NEUTROPHILS # (AUTO) 5.2 10^3/uL (1.5-6.6); PLT - PLATELET COUNT 177 10^3/uL (130-450); RED BLOOD COUNT 4.53 10^6/uL (4.70-6.10); RED CELL DISTRIBUTION WIDTH 13.1 % (12.0-15.0); WHITE BLOOD COUNT 7.1 x10^3/uL (4.8-10.8)
--- NOTE | 2022-07-13 16:44 | XRAY Report ---
PROCEDURE: Toe(s) LT INDICATIONS: foot/toe infection and redness TECHNIQUE: 3 views of the second toe(s) acquired. COMPARISON: None FINDINGS: Bones: No fractures or dislocations. No suspicious bony lesions. Soft tissues: No suspicious soft tissue densities. IMPRESSION: No osseous abnormality identified. If concern persists, MRI may be obtained. Reviewed by: Suyapa Mosley MD on 07/13/2022 4:42 PM PDT Approved by: Suyapa Mosley MD on 07/13/2022 4:42 PM PDT Station ID: [id number]
[2022-07-13 16:56] LABS: ALBUMIN 3.6 g/dL (3.2-5.5); BILIRUBIN,TOTAL 0.5 mg/dL (0.2-1.0); CREATININE 1.1 mg/dL (0.6-1.2); POTASSIUM 3.5 mmol/L (3.5-5.0); TOTAL PROTEIN 7.1 g/dL (6.7-8.2)
[2022-07-13] MEDS ORDERED: INSULIN REGULAR HUMAN 100 UNIT/1 ML 10 ML MDV IVP STA (18:08)
[2022-07-13] MEDS ORDERED: INSULIN ASPART 300 UNIT/3 ML PEN SUBQ STA (18:08)
[2022-07-13] MEDS ORDERED: INSULIN LISPRO 300 UNIT/3 ML PEN SUBQ STA (18:11)
[2022-07-13 18:53] VITALS: BP 140/88
== END 2022-07-13 18:30 | disposition home or self-care (01) ==
LOC: ED 15:52
DX: E11.621 Type 2 diabetes mellitus with foot ulcer (principal); L97.429 Non-pressure chronic ulcer of left heel and midfoot with unspecified severity; Z79.84 Long term (current) use of oral hypoglycemic drugs; I10 Essential (primary) hypertension
CPT/HCPCS: 10060; 36415; 73660; 80053; 83690; 85025; 85651; 87070; 87181; 87205; 96365; 96367; 96375; 99284; A9270; J1170

== ENCOUNTER 2022-09-15 12:53 | Outpatient (CLI) | payer MEDICAID | END 2022-09-15 12:54 | disposition critical access hospital (66) | LOC: EMS 12:53 | DX: M54.6 Pain in thoracic spine (principal); M54.50 Low back pain, unspecified; M79.672 Pain in left foot; M79.671 Pain in right foot | CPT/HCPCS: A0425; A0429; A0999 ==

== ENCOUNTER 2022-09-15 13:13 | Emergency (ER) | payer MEDICAID ==
[2022-09-15] MEDS ORDERED: HYDROmorphone 1 MG/ML CARPUJECT IVP STA (13:29)
[2022-09-15 13:49] LABS: BASOPHILS % (AUTO) 0.2 %; EOSINOPHILS % (AUTO) 0.4 %; HCT - HEMATOCRIT 41.3 % (42.0-52.0); HGB - HEMOGLOBIN 14.1 g/dL (14.0-18.0); LYMPHOCYTES # (AUTO) 0.7 10^3/uL (1.5-3.5); LYMPHOCYTES % (AUTO) 12.8 %; MEAN CORPUSCULAR HEMOGLOBIN 27.5 pg (27.0-31.0); MEAN CORPUSCULAR HGB CONC 34.1 g/dL (32.0-36.0); MEAN CORPUSCULAR VOLUME 80.7 fL (80.0-94.0); MEAN PLATELET VOLUME 10.6 fL (7.4-11.4); MONOCYTES # (AUTO) 0.4 10^3/uL (0.0-1.0); NEUTROPHILS # (AUTO) 4.3 10^3/uL (1.5-6.6); NEUTROPHILS % (AUTO) 78.4 %; PLT - PLATELET COUNT 204 10^3/uL (130-450); RED BLOOD COUNT 5.12 10^6/uL (4.70-6.10); RED CELL DISTRIBUTION WIDTH 13.5 % (12.0-15.0); WHITE BLOOD COUNT 5.5 x10^3/uL (4.8-10.8)
[2022-09-15 14:01] LABS: PT - PROTHROMBIN TIME 11.5 secs (9.9-12.6)
[2022-09-15 14:08] LABS: LACTIC ACID, VENOUS 2.8 mmol/L (0.5-2.2); PARTIAL THROMBOPLASTIN TIME 29.7 secs (24.9-33.3)
--- NOTE | 2022-09-15 14:17 | ED Physician Documentation ---
History of Present Illness - Stated complaint Stated Complaint: GLF/BACK PX - Chief complaint Chief Complaint: Back Pain - History obtained from History obtained from: Patient, EMS - History of Present Illness Timing: How many days ago (2) Pain level max: 9 Pain level now: 7 - Additonal information Additional information: Patient is a 62-year-old male who presents to the emergency department complaining of lower back pain. He states is been ongoing for the past several years but over the past 12 months has had 3 separate surgeries at [facility] for osteomyelitis in the spine. He states recently having increasing back pain again. He also states that he has neuropathy in his feet and he has a ulcer to the bottom of the right foot. He states that he has felt feverish and chilled, but has not taken his temperature at home. Nothing makes it better or worse. No rhinorrhea or congestion. No cough. No loss of bowel or bladder control. Review of Systems Constitutional: denies: Fever, Chills GI: denies: Vomiting, Diarrhea Skin: denies: Rash Musculoskeletal: denies: Neck pain, Back pain Neurologic: denies: Focal weakness, Numbness, Confused, Altered mental status PD PAST MEDICAL HISTORY - Past Medical History Past Medical History: Yes Cardiovascular: Hypertension, High cholesterol Respiratory: None Neuro: Peripheral neuropathy Endocrine/Autoimmune: Type 2 diabetes GI: None : None HEENT: None Psych: None Musculoskeletal: None Derm: None - Past Surgical History Past Surgical History: Yes General: Colonoscopy HEENT: Tonsil/Adenoidectomy - Present Medications Home Medications: Ambulatory Orders Medication Instructions Recorded Confirmed Atorvastatin Calcium [Lipitor] 80 mg PO QPM 07/18/20 08/28/21 Cyclobenzaprine [Flexeril] 10 mg PO TID PRN 09/15/22 09/15/22 Gabapentin [Neurontin] 300 mg PO TID 09/15/22 09/15/22 Insulin Aspart [Novolog] 5 unit SQ TIDWM 09/15/22 09/15/22 Insulin Glargine [Lantus Solostar] 22 units SQ HS 09/15/22 09/15/22 Lisinopril [Zestril] 20 mg PO DAILY 09/15/22 09/15/22 Metoprolol Tartrate [Lopressor] 50 mg PO BID 09/15/22 09/15/22 Oxycodone HCl/Acetaminophen 1 - 2 each PO Q6H PRN #14 tablet 09/15/22 [Percocet 5-325 mg Tablet] MDD 6 tabs clindamycin HCL [Cleocin HCl] 300 mg PO Q6H #40 cap 09/15/22 - Allergies Allergies/Adverse Reactions: Allergies Allergy/AdvReac Type Severity Reaction Status Date / Time No Known Drug Allergies Allergy Verified 07/13/22 16:09 - Social History Does the pt smoke?: No Smoking Status: Never smoker Does the pt drink ETOH?: No Does the pt have substance abuse?: Yes Substance Use and Type: Marijuana - Immunizations Immunizations are current?: Yes - POLST Patient has POLST: No PD ED PE NORMAL - Vitals Vital signs reviewed: Yes - General General: Alert and oriented X 3, No acute distress - HEENT HEENT: Moist mucous membranes - Neck Neck: Supple, no meningeal sign - Cardiac Cardiac: RRR - Respiratory Respiratory: No respiratory distress, Clear bilaterally - Abdomen Abdomen: Soft, Non tender, Non distended - Back Back: No CVA TTP, No spinal TTP, Other (no skin changes.) - Derm Derm: Warm and dry - Neuro Neuro: Alert and oriented X 3, counseling services director 2-12 intact, No motor deficit, Other (decreased sensation over the B feet. There is a ulcer to the plantar aspect of the right foot underneath the first MTP joint. No drainage.) - Psych Psych: Normal mood, Normal affect Results - Vitals Vitals: Vital Signs - 24 hr 09/15/22 09/15/22 09/15/22 13:24 13:37 14:17 Temperature 37.0 C Heart Rate 73 80 84 Respiratory 24 22 18 Rate Blood Pressure 154/105 H 175/105 H 178/104 H O2 Saturation 100 100 95 09/15/22 16:53 Temperature Heart Rate 83 Respiratory 15 Rate Blood Pressure 147/93 H O2 Saturation 99 Oxygen O2 Source Room air - Labs Labs: Microbiology 09/15/22 16:30 Wound Culture - Preliminary Foot - Right Laboratory Tests 09/15/22 09/15/22 09/15/22 13:24 13:24 13:41 WBC 5.5 RBC 5.12 Hgb 14.1 Hct 41.3 L MCV 80.7 MCH 27.5 MCHC 34.1 RDW 13.5 Plt Count 204 MPV 10.6 Neut # (Auto) 4.3 Lymph # (Auto) 0.7 L [place] # (Auto) 0.4 Eos # (Auto) 0.0 Baso # (Auto) 0.0 Absolute Nucleated RBC 0.00 Nucleated RBC % 0.0 ESR 21 H PT 11.5 INR 1.0 APTT 29.7 Sodium Potassium Chloride Carbon Dioxide Anion Gap BUN Creatinine Estimated GFR (MDRD) Glucose Lactic Acid Calcium Total Bilirubin AST ALT Alkaline Phosphatase C-Reactive Protein Total Protein Albumin Globulin Albumin/Globulin Ratio Lipase Nasal Adenovirus (PCR) Nasal B. parapertussis DNA (PCR) Nasal Coronavir 229E PCR Nasal Coronavir HKU1 PCR Nasal Coronavir NL63 PCR Nasal Coronavir OC43 PCR Nasal Enterovir/Rhinovir PCR Nasal Influenza B PCR Nasal Influenza A PCR Nasal Parainfluen 1 PCR Nasal Parainfluen 2 PCR Nasal Parainfluen 3 PCR Nasal Parainfluen 4 PCR Nasal RSV (PCR) Nasal B.pertussis DNA PCR Nasal C.pneumoniae (PCR) Girish Human Metapneumo PCR Nasal M.pneumoniae (PCR) Nasal SARS-CoV-2 (PCR) 09/15/22 09/15/22 09/15/22 13:41 13:41 15:45 WBC RBC Hgb Hct MCV MCH MCHC RDW Plt Count MPV Neut # (Auto) Lymph # (Auto) [place] # (Auto) Eos # (Auto) Baso # (Auto) Absolute Nucleated RBC Nucleated RBC % ESR PT INR APTT Sodium 128 L Potassium 3.5 Chloride 93 L Carbon Dioxide 22 Anion Gap 13.0 BUN 17 Creatinine 1.0 Estimated GFR (MDRD) 76 L Glucose 307 H Lactic Acid 2.8 H Calcium 9.6 Total Bilirubin 1.1 H AST 24 ALT 23 Alkaline Phosphatase 94 C-Reactive Protein 1.3 H Total Protein 7.2 Albumin 4.1 Globulin 3.1 Albumin/Globulin Ratio 1.3 Lipase 33 Nasal Adenovirus (PCR) NOT DETECTED Nasal B. parapertussis DNA (PCR) NOT DETECTED Nasal Coronavir 229E PCR NOT DETECTED Nasal Coronavir HKU1 PCR NOT DETECTED Nasal Coronavir NL63 PCR NOT DETECTED Nasal Coronavir OC43 PCR NOT DETECTED Nasal Enterovir/Rhinovir PCR NOT DETECTED Nasal Influenza B PCR NOT DETECTED Nasal Influenza A PCR NOT DETECTED Nasal Parainfluen 1 PCR NOT DETECTED Nasal Parainfluen 2 PCR NOT DETECTED Nasal Parainfluen 3 PCR NOT DETECTED Nasal Parainfluen 4 PCR NOT DETECTED Nasal RSV (PCR) NOT DETECTED Nasal B.pertussis DNA PCR NOT DETECTED Nasal C.pneumoniae (PCR) NOT DETECTED Girish Human Metapneumo PCR NOT DETECTED Nasal M.pneumoniae (PCR) NOT DETECTED Nasal SARS-CoV-2 (PCR) NOT DETECTED - Rads (name of study) L spine MRI Radiology: Final report received, See rad report R foot xray Radiology: Final report received, See rad report PD Medical Decision Making - ED course Complexity details: reviewed results, re-evaluated patient, considered differential, d/w patient, d/w family ED course: Patient is a 62-year-old male who presents to the emergency department with continued lumbar spine pain. He has a history of osteomyelitis. Has had several surgeries for this. His MRI does not show any evidence of osteomyelitis today. He also has a mild cellulitis and a wound to the plantar aspect of the right foot. He had a small Foreign body in the soft tissue of the right foot, this was removed with forceps. A wound culture was performed. We will place on antibiotics for the diabetic foot ulcer. We will have him follow-up closely with wound care for debridement and further care. Patient will follow up with his PCP for further care as well. Patient is well-appearing, nontoxic. Afebrile. Pain well controlled. Patient counseled regarding signs and symptoms for which I believe and urgent re-evaluation would be necessary. Patient with good understanding of and agreement to plan and is comfortable going home at this time This document was made in part using voice recognition software. While efforts are made to proofread this document, sound alike and grammatical errors may occur. FINDINGS: Image quality: Excellent. Alignment and curvature: There is normal bony alignment. Marrow: No acute vertebral body compression fractures. No suspicious marrow enhancement. Decompressive laminotomies at L4-5 and L5-S1. L4-5 and L5-S1 interbody fusion with posterior lucas and screw instrumentation Spinal cord: Conus medullaris terminates at the L1 level. Visualized spinal cord demonstrates normal signal, without suspicious enhancement. Paraspinous soft tissues: No paravertebral masses or abnormal enhancement. T12-L1: Normal in appearance. L1-L2: Normal in appearance. L2-L3: Normal in appearance. L3-L4: Mild disc space narrowing posterior disc bulge without central or foraminal stenosis L4-L5: Discectomy and fusion. No central stenosis. Moderate bilateral foraminal stenosis L5-S1: Discectomy and fusion. No central or foraminal stenosis IMPRESSION: 1. Instrumented L4-5 and L5-S1 discectomy and fusion. No evidence of osteomyelitis Departure - Departure Disposition: 01 Home, Self Care Clinical Impression: Cellulitis of foot Diabetic foot ulcer Qualifiers: Diabetic foot ulcer location: unspecified part of foot Diabetes mellitus type: type 2 Laterality: right Non-pressure ulcer stage: unspecified non-pressure ulcer stage Qualified Code(s): E11.621 - Type 2 diabetes mellitus with foot ulcer Back pain Qualifiers: Back pain location: low back pain Chronicity: chronic Back pain laterality: bilateral Sciatica presence: without sciatica Qualified Code(s): M54.50 - Low back pain, unspecified Condition: Good Instructions: ED Infec Skin Cellulitis, ED Neck Back Pain General Follow-Up: Jas Epstein MD [Primary Care Provider] - Krista Ribeiro ARNP [Provider Admit Priv/Credential] - Krista Ribeiro ARNP [Provider Admit Priv/Credential] - [facility] [Provider Group] [facility] [Provider Group] - Within 1 week Prescriptions: clindamycin HCL [Cleocin HCl] 300 mg PO Q6H #40 cap Oxycodone HCl/Acetaminophen [Percocet 5-325 mg Tablet] 1 - 2 each PO Q6H PRN #14 tablet MDD 6 tabs PRN Reason: pain Comments: Please follow-up with wound care for further care of your foot. Please keep the wound dry. Please take all antibiotics. Please return if you worsen. Your MRI of your spine today does not show any evidence of osteomyelitis. Please follow- up with your doctor for further care. Your prescriptions were sent to [facility] in [place]. I am prescribing a short course of narcotic pain medication for you. These are potentially dangerous and addictive medications that should be used carefully. These medications may constipate you. Take an zvih-orj-pnufcef stool softener (docusate) twice daily with plenty of water while taking these medications. If you go 24 hours without a bowel movement, take [id number]-vyxrzsb miralax, per package instructions. Do not drink or drive while taking these medications. If you received narcotic or sedating medications while in the emergency department, do not drive for 24 hours. Store this medication in a safe, secure place and out of reach of children. It is a violation of federal law to give or sell this medication to another person or to use in a manner other than prescribed. The ED will not refill narcotic prescriptions, including prescriptions lost or stolen. To dispose of unwanted medications: 1. [facility] [address] in [place] has a medication drop box. They accept prescription medications (in pill form) Wednesday through Wednesday 9:00 a.m. to 5:00 p.m. 2. The [facility] [employer] accepts prescription medications (in pill form only) for disposal year round. Call for more information. 3. Contact the [facility] for the next [facility] sponsored prescription drug collection event. , [phone], or [phone]; Discharge Date/Time: 09/15/22 17:15
[2022-09-15 14:22] LABS: ALBUMIN 4.1 g/dL (3.2-5.5); ALBUMIN/GLOBULIN RATIO 1.3 (1.0-2.2); BILIRUBIN,TOTAL 1.1 mg/dL (0.2-1.0); CALCIUM 9.6 mg/dL (8.5-10.3); CRP - C-REACTIVE PROTEIN 1.3 mg/dL (0-1.0); POTASSIUM 3.5 mmol/L (3.5-5.0); TOTAL PROTEIN 7.2 g/dL (6.7-8.2)
--- NOTE | 2022-09-15 14:27 | XRAY Report ---
PROCEDURE: Foot 3 View RT INDICATIONS: R foot ulcer, neuropathy TECHNIQUE: 3 views of the foot were acquired. COMPARISON: None FINDINGS: Bones: Scattered arthrosis, mild to moderate first MTP and scattered interphalangeal joints. No displ aced fracture. No dislocation. No convincing osseous erosion. There is some irregularity of the sesam oids. Plantar calcaneal enthesopathy. Soft tissues: Skin hyperdensity at the plantar surface underlying the sesamoids. There is soft tissue swelling. IMPRESSION: No displaced fracture or dislocation. There is soft tissue swelling around the proximal first ray, as well as a skin hyperdensity on the plantar surface underlying the sesamoids on lateral view. The med ial sesamoid is slightly irregular in appearance on lateral view, without other convincing osseous er osion. Consider MRI to further evaluate for osteomyelitis if necessary. Reviewed by: Kris Wood MD on 09/15/2022 2:26 PM PST Approved by: Kris Wood MD on 09/15/2022 2:26 PM PST Station ID: [id number]
[2022-09-15] MEDS ORDERED: GADOBUTROL 7.5 MMOL/7.5 ML VIAL ONE (14:41)
--- NOTE | 2022-09-15 16:15 | MRI Report ---
PROCEDURE: MRI lumbar spine with and without contrast INDICATIONS: L spine pain, h/o osteo x 3 in 2021 CONTRAST: gadavist 7.0ml TECHNIQUE: Noncontrast sagittal T1 spin echo and T2 fast spin echo, sagittal STIR, axial T1 and T2 fast spin ech o through the lumbar spine. In cases with scoliosis, additional coronal T2 fast spin echo may be per formed. After the administration of contrast, sagittal and axial T1 spin echo with fat saturation th rough the lumbar spine. COMPARISON: None. FINDINGS: Image quality: Excellent. Alignment and curvature: There is normal bony alignment. Marrow: No acute vertebral body compression fractures. No suspicious marrow enhancement. Decompre ssive laminotomies at L4-5 and L5-S1. L4-5 and L5-S1 interbody fusion with posterior lucas and screw in strumentation Spinal cord: Conus medullaris terminates at the L1 level. Visualized spinal cord demonstrates peewee l signal, without suspicious enhancement. Paraspinous soft tissues: No paravertebral masses or abnormal enhancement. T12-L1: Normal in appearance. L1-L2: Normal in appearance. L2-L3: Normal in appearance. L3-L4: Mild disc space narrowing posterior disc bulge without central or foraminal stenosis L4-L5: Discectomy and fusion. No central stenosis. Moderate bilateral foraminal stenosis L5-S1: Discectomy and fusion. No central or foraminal stenosis IMPRESSION: 1. Instrumented L4-5 and L5-S1 discectomy and fusion. No evidence of osteomyelitis Reviewed by: Robbin Jefferson MD on 09/15/2022 3:13 PM [facility] Approved by: Robbin Jefferson MD on 09/15/2022 3:13 PM [facility] Station ID: [id number]
[2022-09-15] MEDS ORDERED: AMOX/CLAV 875 MG/125 MG TABLET PO STA (16:24)
[2022-09-15 16:50] LABS: B. PARAPERTUSSIS- RESP PCR PAN NOT DETECTED; B. PERTUSSIS- RESP PCR PANEL NOT DETECTED; C. PNEUMONIAE- RESP PCR PANEL NOT DETECTED; CORONAVIRUS 229E-RESP PCR NOT DETECTED; CORONAVIRUS HKU1-RESP PCR NOT DETECTED; CORONAVIRUS NL63-RESP PCR NOT DETECTED; CORONAVIRUS OC43-RESP PCR NOT DETECTED; HUMAN METAPNEUMOVIRUS NOT DETECTED; INFLUENZA A- RESP PCR PANEL NOT DETECTED; INFLUENZA B - RESP PCR PANEL NOT DETECTED; M. PNEUMONIAE- RESP PCR PANEL NOT DETECTED; PARAINFLUENZA VIRUS 1 NOT DETECTED; PARAINFLUENZA VIRUS 2 NOT DETECTED; PARAINFLUENZA VIRUS 3 NOT DETECTED; PARAINFLUENZA VIRUS 4 NOT DETECTED; RHINOVIRUS/ENTEROVIRUS NOT DETECTED; RSV- RESP PCR PANEL NOT DETECTED; SARS-CoV-2 -RESP PCR PANEL NOT DETECTED
[2022-09-15 16:54] VITALS: BP 147/93
[2022-09-15] MEDS ORDERED: GADOBUTROL 7.5 MMOL/7.5 ML VIAL IVP ONE (18:03)
--- NOTE | 2022-09-19 17:39 | ED Physician Documentation ---
ED Addendum - Addendum Addendum: 09/19/22 17:36 I have been asked by nursing staff to follow-up on the blood cultures obtained from the patient's September 15 visit where he was treated for cellulitis in the foot. He was started on clindamycin. A subsequent set of blood cultures grew staph aureus. A wound culture taken at that time grew E. coli as well as staph. Patient does have a history of osteomyelitis. When the blood cultures resulted positive on 16 September nursing staff called the patient and he reports to me that he went to [facility]. He reports that he was briefly admitted there. He reports to me that he had 2 sets of blood cultures drawn and was subsequently discharged when he was told that the blood cultures were negative. He continues to remain on the clindamycin. He has had no fevers. At this time it would seem appropriate for the patient to remain home. However we discussed the concern of osteomyelitis as well as blood culture infection. This may have been a contaminant but given that he has been seen at an outside hospital with negative Subsequent testing he can continue to remain home. We discussed that should he develop any further fevers have worsening of his wound or cellulitis he is to return immediately to the ER.
== END 2022-09-15 17:15 | disposition home or self-care (01) ==
LOC: EDUNIT# → ED 13:13
DX: E11.42 Type 2 diabetes mellitus with diabetic polyneuropathy (principal); E11.621 Type 2 diabetes mellitus with foot ulcer; L97.519 Non-pressure chronic ulcer of other part of right foot with unspecified severity; M79.5 Residual foreign body in soft tissue; L03.115 Cellulitis of right lower limb; M54.50 Low back pain, unspecified; G89.29 Other chronic pain; Z79.4 Long term (current) use of insulin
CPT/HCPCS: 36415; 72158; 73630; 80053; 83605; 83690; 85025; 85610; 85651; 85730; 86140; 87040; 87070; 87077; 87150; 87181; 87205; 87633; 96374; 99284; A9270; A9585; J1170

== ENCOUNTER 2023-01-03 09:44 | Emergency (ER) | payer OTHER, MEDICAID ==
[2023-01-03 09:52] VITALS: BP 206/117
--- NOTE | 2023-01-03 09:55 | ED Physician Documentation ---
History of Present Illness - Stated complaint Stated Complaint: FIT FOR CONFINEMENT - History obtained from History obtained from: Patient, Police - Additonal information Additional information: 62-year-old gentleman with history of hypertension, diabetes, and chronic foot wounds is here for fit for confinement because of concern about his foot wounds. Patient has no specific complaints. PD PAST MEDICAL HISTORY - Past Medical History Cardiovascular: Hypertension, High cholesterol Respiratory: None Neuro: Peripheral neuropathy Endocrine/Autoimmune: Type 2 diabetes GI: None : None HEENT: None Psych: Depression Musculoskeletal: Chronic back pain Derm: Other - Past Surgical History Past Surgical History: Yes General: Colonoscopy Ortho: Spine surgery, Other HEENT: Tonsil/Adenoidectomy - Present Medications Home Medications: Ambulatory Orders Medication Instructions Recorded Confirmed Atorvastatin Calcium [Lipitor] 80 mg PO QPM 07/18/20 11/18/22 Cyclobenzaprine [Flexeril] 10 mg PO TID PRN 09/15/22 11/18/22 Gabapentin [Neurontin] 300 mg PO TID 09/15/22 11/18/22 Insulin Aspart [Novolog] 5 unit SQ TIDWM 09/15/22 11/18/22 Insulin Glargine [Lantus Solostar] 22 units SQ [id number] 09/15/22 11/18/22 Lisinopril [Zestril] 40 mg PO DAILY 09/15/22 11/18/22 Metoprolol Tartrate [Lopressor] 50 mg PO BID 09/15/22 11/18/22 Amlodipine Besylate [Norvasc] 10 mg PO DAILY 11/18/22 11/18/22 Multivit-Minerals/Folic Acid 200 mcg PO DAILY 11/18/22 11/18/22 [Multivitamin Gummies] cephALEXin [Keflex] 500 mg PO Q6H 11/18/22 11/18/22 Amox/Clav 875/125 [Augmentin 1 tablet PO Q12H 10 Days #20 tablet 11/26/22 875/125 Tab] - Allergies Allergies/Adverse Reactions: Allergies Allergy/AdvReac Type Severity Reaction Status Date / Time No Known Drug Allergies Allergy Verified 01/03/23 09:52 - Social History Does the pt smoke?: No Smoking Status: Never smoker Does the pt drink ETOH?: No Does the pt have substance abuse?: Yes - Immunizations Immunizations are current?: Yes - POLST Patient has POLST: No PD ED PE NORMAL - Vitals Vital signs reviewed: Yes (Hypertensive) - General General: Alert and oriented X 3, No acute distress - Cardiac Cardiac: RRR, No murmur - Respiratory Respiratory: No respiratory distress, Clear bilaterally - Back Back: No CVA TTP, No spinal TTP - Derm Derm: Normal color, Warm and dry - Extremities Extremities: Other (He has a few blisters on the left foot, none of which appear infected. There is a deeper ulcer without signs of active infection on under the right first metatarsal head) - Neuro Neuro: Alert and oriented X 3, Normal speech Results - Vitals Vitals: Vital Signs - 24 hr 01/03/23 09:50 Temperature 36.4 C L Heart Rate 102 H Respiratory 20 Rate Blood Pressure 206/117 H O2 Saturation 100 Oxygen O2 Source Room air PD Medical Decision Making - ED course Complexity details: d/w leasing consultant (Attempted to call [facility] [facility], no answer, left voicemail) ED course: 62-year-old gentleman brought in for fit for confinement. He has a chronic ulcer on the bottom of the right foot which has been treated and wound care. There is no sign of active infection clinically right now. He also has uncontrolled hypertension, his compliance with his medications at home has been questionable. Departure - Departure Disposition: 01 Home, Self Care Clinical Impression: Uncontrolled hypertension, Type 2 diabetes mellitus with foot ulcer Condition: Good Record reviewed to determine appropriate education?: Yes Instructions: ED Foot Care Diabetic Comments: He should be immediately restarted on his home medications. Return if worse.
== END 2023-01-03 10:20 | disposition home or self-care (01) ==
LOC: ED 09:44
DX: Z02.89 Encounter for other administrative examinations (principal); I10 Essential (primary) hypertension; E11.621 Type 2 diabetes mellitus with foot ulcer; L97.519 Non-pressure chronic ulcer of other part of right foot with unspecified severity; Z79.4 Long term (current) use of insulin
CPT/HCPCS: 99281; 99283

== ENCOUNTER 2023-03-08 18:57 | Outpatient (CLI) | payer MEDICAID | END 2023-03-08 23:59 | disposition critical access hospital (66) | LOC: EMS 18:57 | DX: E11.65 Type 2 diabetes mellitus with hyperglycemia (principal); Z79.4 Long term (current) use of insulin | CPT/HCPCS: A0425; A0427; A0999 ==

== ENCOUNTER 2023-03-08 19:18 | Inpatient (IN) | payer MEDICAID ==
[2023-03-08] MEDS ORDERED: HYDROmorphone 1 MG/ML CARPUJECT IVP STA (19:25)
[2023-03-08] MEDS ORDERED: SODIUM CHLORIDE 0.9% 1,000 ML IV STA ×2 (19:25)
[2023-03-08] MEDS ORDERED: INSULIN REGULAR HUMAN 300 UNIT/3 ML VIAL IVP STA ×2 (19:25→21:49)
--- OUTSIDE RECORDS SUMMARY | 2023-03-08 19:27 | EXTERNAL MEDICAL SUMMARY RPT | Continuity of Care Document ---
Author Name Unknown Address [address] [place] [address] Phone Organization [facility] Address [address] [place] [address] Phone Care Team Providers Care Uniformer Name Role Phone Ever Monique Geriatric Nurse IiiJennifer Unavailable Unavailable System Maintenance Unavailable Unavailable Medications date description facility 2022-12-13 00:00 metoprolol tartrate All 2022-12-13 00:00 metoprolol tartrate All 2023-02-03 00:00 metoprolol tartrate All 2023-02-03 00:00 metoprolol tartrate All 2022-12-13 00:00 lisinopril All 2022-12-13 00:00 lisinopril All 2023-02-03 00:00 levofloxacin All 2023-02-05 00:00 levofloxacin All 2023-02-03 00:00 sulfamethoxazole-trimethoprim A 2023-02-05 00:00 sulfamethoxazole-trimethoprim A 2022-12-13 00:00 metoprolol tartrate All 2022-12-13 00:00 metoprolol tartrate All 2023-02-03 00:00 metoprolol tartrate All 2023-02-03 00:00 metoprolol tartrate All 2023-02-03 00:00 sulfamethoxazole-trimethoprim A 2023-02-05 00:00 sulfamethoxazole-trimethoprim A 2022-12-13 00:00 lisinopril All 2022-12-13 00:00 lisinopril All 2023-02-03 00:00 sulfamethoxazole-trimethoprim A 2023-02-05 00:00 sulfamethoxazole-trimethoprim A 2023-02-03 00:00 sulfamethoxazole-trimethoprim A 2023-02-05 00:00 sulfamethoxazole-trimethoprim A 2022-12-13 00:00 lisinopril All 2022-12-13 00:00 lisinopril All 2023-02-03 00:00 levofloxacin All 2023-02-05 00:00 levofloxacin All 2022-12-13 00:00 metoprolol tartrate All 2022-12-13 00:00 metoprolol tartrate All 2023-02-03 00:00 metoprolol tartrate All 2023-02-03 00:00 metoprolol tartrate All 2022-12-13 00:00 lisinopril All 2022-12-13 00:00 lisinopril All 2023-02-03 00:00 levofloxacin All 2023-02-05 00:00 levofloxacin All 2023-02-03 00:00 levofloxacin All 2023-02-05 00:00 levofloxacin All 2022-12-13 00:00 metoprolol tartrate All 2022-12-13 00:00 metoprolol tartrate All 2023-02-03 00:00 metoprolol tartrate All 2023-02-03 00:00 metoprolol tartrate All
--- NOTE | 2023-03-08 19:29 | ED Physician Documentation ---
History of Present Illness - Stated complaint Stated Complaint: LETHARGIC - Chief complaint Chief Complaint: General - History obtained from History obtained from: Patient - Additonal information Additional information: 62-year-old gentleman with poorly controlled diabetes with diabetic neuropathy and history of foot infections. He was in wound care but sounds like he got dismissed from wound care due to missing appointments. He also 2 years ago had history of what sounds like may be epidural abscess or spinal osteomyelitis couple of years ago. Review of the chart shows a history of methamphetamine abuse as well. Patient states he does not use tobacco but does use cannabis. He has low back pain starting yesterday with no neurologic symptoms and has been lethargic with increased thirst for the last 4 days with a prehospital blood sugar of nearly 500. He has not been checking his blood sugars because "I do not like poking myself." PD PAST MEDICAL HISTORY - Past Medical History Cardiovascular: Hypertension, High cholesterol Respiratory: None Neuro: Peripheral neuropathy Endocrine/Autoimmune: Type 2 diabetes GI: None : None HEENT: None Psych: Depression Musculoskeletal: Chronic back pain Derm: Other - Past Surgical History Past Surgical History: Yes General: Colonoscopy Ortho: Spine surgery, Other HEENT: Tonsil/Adenoidectomy - Present Medications Home Medications: Ambulatory Orders Medication Instructions Recorded Confirmed Atorvastatin Calcium [Lipitor] 80 mg PO QPM 07/18/20 11/18/22 Cyclobenzaprine [Flexeril] 10 mg PO TID PRN 09/15/22 11/18/22 Gabapentin [Neurontin] 300 mg PO TID 09/15/22 11/18/22 Insulin Aspart [Novolog] 5 unit SQ TIDWM 09/15/22 11/18/22 Insulin Glargine [Lantus Solostar] 22 units SQ QDBREAKFAST 09/15/22 11/18/22 Lisinopril [Zestril] 40 mg PO DAILY 09/15/22 11/18/22 Metoprolol Tartrate [Lopressor] 50 mg PO BID 09/15/22 11/18/22 Amlodipine Besylate [Norvasc] 10 mg PO DAILY 11/18/22 11/18/22 Multivit-Minerals/Folic Acid 200 mcg PO DAILY 11/18/22 11/18/22 [Multivitamin Gummies] cephALEXin [Keflex] 500 mg PO Q6H 11/18/22 11/18/22 Amox/Clav 875/125 [Augmentin 1 tablet PO Q12H 10 Days #20 tablet 11/26/22 875/125 Tab] - Allergies Allergies/Adverse Reactions: Allergies Allergy/AdvReac Type Severity Reaction Status Date / Time No Known Drug Allergies Allergy Verified 01/03/23 09:52 - Social History Does the pt smoke?: No Smoking Status: Never smoker Does the pt drink ETOH?: No Does the pt have substance abuse?: Yes - Immunizations Immunizations are current?: Yes - POLST Patient has POLST: No PD ED PE NORMAL - Vitals Vital signs reviewed: Yes - General General: Alert and oriented X 3, No acute distress - HEENT HEENT: PERRL, EOMI - Neck Neck: Supple, no meningeal sign, No bony TTP - Cardiac Cardiac: RRR, No murmur - Respiratory Respiratory: No respiratory distress, Clear bilaterally - Abdomen Abdomen: Non tender - Back Back: Other (He is quite tender over the lumbar spine) - Derm Derm: Normal color, Warm and dry - Extremities Extremities: Other (There is a large ulcer under the first metatarsal of the right foot that probes deep with purulent drainage. There is a developing ulcer on the lateral left foot. Multiple other smaller foot sores.) - Neuro Neuro: Alert and oriented X 3, No motor deficit, Normal speech, Other (Minimal sensation of the feet consistent with diabetic neuropathy) Results - Vitals Vitals: Vital Signs - 24 hr 03/08/23 03/08/23 19:22 20:11 Temperature 36.9 C Heart Rate 87 78 Respiratory 16 16 Rate Blood Pressure 147/96 H 152/99 H O2 Saturation 98 96 Oxygen O2 Source Room air - Labs Labs: Laboratory Tests 03/08/23 03/08/23 03/08/23 19:36 19:36 19:36 WBC 7.3 RBC 3.77 L Hgb 10.3 L Hct 30.1 L MCV 79.8 L MCH 27.3 MCHC 34.2 RDW 12.0 Plt Count 213 MPV 9.4 Neut # (Auto) 5.9 Lymph # (Auto) 1.0 L Newton # (Auto) 0.3 Eos # (Auto) 0.0 Baso # (Auto) 0.0 Absolute Nucleated RBC 0.00 Nucleated RBC % 0.0 ESR > 140 H VBG pH VBG pCO2 VBG pO2 VBG HCO3 VBG Total CO2 VBG O2 Saturation VBG Base Excess Sodium 127 L Potassium 3.7 Chloride 92 L Carbon Dioxide 26 Anion Gap 9.0 BUN 21 H Creatinine 0.9 Estimated GFR (MDRD) 86 L Glucose 500 H* POC Whole Bld Glucose Lactic Acid Calcium 8.2 L Phosphorus 3.8 Magnesium 1.7 Total Bilirubin 0.4 AST 11 ALT 14 Alkaline Phosphatase 110 C-Reactive Protein Total Protein 6.8 Albumin 2.5 L Globulin 4.3 H Albumin/Globulin Ratio 0.6 L Serum Ketones NEGATIVE SARS-CoV-2 (PCR) 03/08/23 03/08/23 03/08/23 19:36 19:52 20:02 WBC RBC Hgb Hct MCV MCH MCHC RDW Plt Count MPV Neut # (Auto) Lymph # (Auto) Newton # (Auto) Eos # (Auto) Baso # (Auto) Absolute Nucleated RBC Nucleated RBC % ESR VBG pH VBG pCO2 VBG pO2 VBG HCO3 VBG Total CO2 VBG O2 Saturation VBG Base Excess Sodium Potassium Chloride Carbon Dioxide Anion Gap BUN Creatinine Estimated GFR (MDRD) Glucose POC Whole Bld Glucose Lactic Acid 1.1 Calcium Phosphorus Magnesium Total Bilirubin AST ALT Alkaline Phosphatase C-Reactive Protein 12.5 H Total Protein Albumin Globulin Albumin/Globulin Ratio Serum Ketones SARS-CoV-2 (PCR) NOT DETECTED 03/08/23 03/08/23 20:02 21:31 WBC RBC Hgb Hct MCV MCH MCHC RDW Plt Count MPV Neut # (Auto) Lymph # (Auto) Newton # (Auto) Eos # (Auto) Baso # (Auto) Absolute Nucleated RBC Nucleated RBC % ESR VBG pH 7.472 H VBG pCO2 37.3 L VBG pO2 37.9 VBG HCO3 26.7 VBG Total CO2 27.8 VBG O2 Saturation 77.0 VBG Base Excess 3.0 H Sodium Potassium Chloride Carbon Dioxide Anion Gap BUN Creatinine Estimated GFR (MDRD) Glucose POC Whole Bld Glucose 343 H Lactic Acid Calcium Phosphorus Magnesium Total Bilirubin AST ALT Alkaline Phosphatase C-Reactive Protein Total Protein Albumin Globulin Albumin/Globulin Ratio Serum Ketones SARS-CoV-2 (PCR) - Rads (name of study) R foot XR Relevant Findings:: Final report received, Discussed with rads (Three-view x-ray of both feet read as normal by the radiologist. I believe he has osteomyelitis of the distal first metatarsal. I called Dr. Herring to clarify, he said he was no longer working" we could just get a bone scan." To my eye he clearly has osteomyelitis there and bone scan is not availa), EMP independent interpretation of test PD Medical Decision Making - ED course ED course: 62-year-old gentleman with uncontrolled diabetes, history of osteomyelitis or epidural abscess of the spine presents with severe back pain but also has osteomyelitis of the right foot. This is in the setting of uncontrolled diabetes with blood sugars of 500. He was given IV fluids and IV insulin. Labs were checked which were notable for normal white count, ESR too high To calculate, elevated CRP and blood sugar of 500. Given the back pain and the history of spinal infection this is of course concern and I called [facility] for potential transport as I do not not have access to timely MRI here. Subsequently they got me a hold of Dr. Kurtis Patel a neurosurgical resident who declined to accept the patient as there was no clear neurosurgical diagnosis. They will call me back potentially with another accepting physician. Subsequently [facility] called back and said they could not accept him and just recommend admission here for MRI and further work-up. I did speak with our on- call orthopedic surgeon who is happy to see the patient, but does note that he does not do amputations except for below-knee amputations. He does agree though that any surgical intervention on the foot would not be urgent or necessarily need to be done as an inpatient. At approximately 10 PM I had an extensive conversation with Dr. Rowland, the telehealth hospitalist and given the circumstances he refuses to admit. I tried to be clear that we had already tried to send the patient to a tertiary center capable of overnight MRI and neurosurgical consultation without success but he still refused to admit. We tried to do an ED to ED transfer to [facility], but they were well over capacity and could not accommodate. At this point the patient is boarding in the emergency department pending transfer to higher level of care. I had been holding off on antibiotics with the hope that he could go somewhere and have intraoperative cultures if needed, but at this point it appears that his stay will be long in the emergency department I went ahead and ordered Rocephin and vancomycin. I asked the FINISHING MANAGER to call any and all facilities in the area capable of neurosurgical consultation And urgent MRI and this is pending on signout to Dr. Reagan at shift change. Departure - Departure Disposition: 02 Transfer Acute Care Hosp Clinical Impression: Osteomyelitis of right foot, Back pain, Uncontrolled diabetes mellitus, Elevated erythrocyte sedimentation rate
[2023-03-08 19:42] LABS: BASOPHILS % (AUTO) 0.4 %; EOSINOPHILS % (AUTO) 0.3 %; HCT - HEMATOCRIT 30.1 % (42.0-52.0); HGB - HEMOGLOBIN 10.3 g/dL (14.0-18.0); LYMPHOCYTES % (AUTO) 13.3 %; MEAN CORPUSCULAR HEMOGLOBIN 27.3 pg (27.0-31.0); MEAN CORPUSCULAR HGB CONC 34.2 g/dL (32.0-36.0); MEAN CORPUSCULAR VOLUME 79.8 fL (80.0-94.0); MEAN PLATELET VOLUME 9.4 fL (7.4-11.4); MONOCYTES # (AUTO) 0.3 10^3/uL (0.0-1.0); MONOCYTES % (AUTO) 4.5 %; NEUTROPHILS # (AUTO) 5.9 10^3/uL (1.5-6.6); NEUTROPHILS % (AUTO) 80.8 %; PLT - PLATELET COUNT 213 10^3/uL (130-450); RED BLOOD COUNT 3.77 10^6/uL (4.70-6.10); WHITE BLOOD COUNT 7.3 x10^3/uL (4.8-10.8)
[2023-03-08 19:48] LABS: KETONES, SERUM (ACETEST) NEGATIVE (NEGATIVE)
[2023-03-08 19:58] LABS: ALBUMIN 2.5 g/dL (3.2-5.5); ALBUMIN/GLOBULIN RATIO 0.6 (1.0-2.2); ALKALINE PHOSPHATASE 110 IU/L (42-121); ALT ALANINE AMINOTRANSFERASE 14 IU/L (10-60); AST ASPARTATE AMINOTRANSFERASE 11 IU/L (10-42); BILIRUBIN,TOTAL 0.4 mg/dL (0.2-1.0); BUN - BLOOD UREA NITROGEN 21 mg/dL (6-20); CALCIUM 8.2 mg/dL (8.5-10.3); CARBON DIOXIDE - CO2 26 mmol/L (21-32); CHLORIDE 92 mmol/L (101-111); CREATININE 0.9 mg/dL (0.6-1.2); GFR - MDRD 86 (>89); MAGNESIUM 1.7 mg/dL (1.7-2.8); PHOSPHORUS 3.8 mg/dL (2.5-4.6); POTASSIUM 3.7 mmol/L (3.5-5.0); SODIUM 127 mmol/L (135-145); TOTAL PROTEIN 6.8 g/dL (6.7-8.2)
[2023-03-08 19:59] LABS: GLUCOSE 500 mg/dL (70-100)
--- NOTE | 2023-03-08 20:02 | XRAY Report ---
PROCEDURE: Foot 3 View BILAT INDICATIONS: Bilateral diabetic foot infections TECHNIQUE: 3 views of the foot were acquired. COMPARISON: None. FINDINGS: Bones: No fractures or dislocations. No suspicious bony lesions. Soft tissues: No suspicious soft tissue calcifications or masses. IMPRESSION: No acute fracture. No osseous lesion. If symptoms and/or clinical suspicion for pathology continue, f urther assessment with repeat plain films, or advanced imaging (e.g., CT, MRI, or bone scan) is recom mended for further assessment. Reviewed by: Wally Herring MD on 03/08/2023 8:01 PM PDT Approved by: Wally Herring MD on 03/08/2023 8:01 PM PDT Station ID: [id number]
[2023-03-08 20:09] LABS: VBG PCO2 37.3 mmHg (41-51); VBG PH 7.472 (7.31-7.41)
[2023-03-08 20:10] LABS: VBG HCO3 26.7 mmol/L (23-28); VBG PO2 37.9 mmHg (25-47); VBG TOTAL CO2 27.8 mmol/L (24-29)
[2023-03-08] MEDS ORDERED: VANCOMYCIN INJ 1.5 GM in SODIUM CHLORIDE 0.9% 500 ML IV STA (22:28)
[2023-03-08] MEDS ORDERED: cefTRIAXone 1 GM VIAL IVP STA (22:29)
[2023-03-08] MEDS ORDERED: ONDANSETRON 4 MG/2 ML VIAL IVP PRN (22:30)
[2023-03-08] MEDS ORDERED: VANCOMYCIN 1 GM VIAL ONE (23:12)
[2023-03-09] MEDS: oxyCODONE 5 MG TABLET PO PRN ×4 (04:24→23:37)
[2023-03-09 04:35] LABS: MUDS CUTOFF CONCENTRATIONS CUTOFF CONC BELOW:
[2023-03-09 04:46] LABS: COCAINE SCREEN URINE NEGATIVE (NEGATIVE); METHAMPHETAMINES SCREEN, URINE POSITIVE (NEGATIVE); THC CANNABINOID SCREEN, URINE POSITIVE (NEGATIVE)
[2023-03-09 04:47] LABS: AMPHETAMINE SCREEN,URINE POSITIVE (NEGATIVE); BARBITURATE SCREEN,UR NEGATIVE (NEGATIVE); BENZODIAZEPINES SCREEN, URINE NEGATIVE (NEGATIVE); METHADONE SCREEN, URINE NEGATIVE (NEGATIVE); OPIATE SCREEN, URINE POSITIVE (NEGATIVE); OXYCODONE SCREEN, URINE NEGATIVE (NEGATIVE); PROPOXYPHENE SCREEN, URINE NEGATIVE (NEGATIVE); TRICYCLIC ANTIDEPRESSANT,URINE NEGATIVE (NEGATIVE)
[2023-03-09 06:12] LABS: BASOPHILS % (AUTO) 0.2 %; EOSINOPHILS % (AUTO) 0.2 %; HCT - HEMATOCRIT 28.8 % (42.0-52.0); HGB - HEMOGLOBIN 9.9 g/dL (14.0-18.0); LYMPHOCYTES # (AUTO) 0.6 10^3/uL (1.5-3.5); LYMPHOCYTES % (AUTO) 15.2 %; MEAN CORPUSCULAR HEMOGLOBIN 27.6 pg (27.0-31.0); MEAN CORPUSCULAR HGB CONC 34.4 g/dL (32.0-36.0); MEAN CORPUSCULAR VOLUME 80.2 fL (80.0-94.0); MEAN PLATELET VOLUME 9.2 fL (7.4-11.4); MONOCYTES # (AUTO) 0.3 10^3/uL (0.0-1.0); MONOCYTES % (AUTO) 7.1 %; NEUTROPHILS # (AUTO) 3.2 10^3/uL (1.5-6.6); NEUTROPHILS % (AUTO) 75.6 %; PLT - PLATELET COUNT 174 10^3/uL (130-450); RED BLOOD COUNT 3.59 10^6/uL (4.70-6.10); WHITE BLOOD COUNT 4.2 x10^3/uL (4.8-10.8)
[2023-03-09 06:26] LABS: CALCIUM 7.8 mg/dL (8.5-10.3); CREATININE 0.8 mg/dL (0.6-1.2); POTASSIUM 3.8 mmol/L (3.5-5.0)
[2023-03-09] MEDS: PANTOPRAZOLE 40 MG TABLET PO SCH (06:45)
[2023-03-09] MEDS: INSULIN NPH HUMAN 100 UNIT/1 ML 10 ML MDV SUBQ SCH ×3 (06:45→17:18)
[2023-03-09] MEDS ORDERED: cefTRIAXone 1 GM VIAL IVP SCH (09:00)
[2023-03-09] MEDS ORDERED: INSULIN GLARGINE-YFGN 300 UNIT/3 ML PEN SUBQ SCH (09:00)
[2023-03-09] MEDS: MULTIVITAMIN TABLET PO SCH (10:19)
[2023-03-09] MEDS ORDERED: GADOBUTROL 7.5 MMOL/7.5 ML VIAL ONE (10:44)
[2023-03-09] MEDS ORDERED: VANCOMYCIN INJ 1 GM in SODIUM CHLORIDE 0.9% 250 ML IV SCH ×2 (11:00→21:00)
--- NOTE | 2023-03-09 12:54 | MRI Report ---
PROCEDURE: LUMBAR SPINE W/WO INDICATIONS: back pain CONTRAST: gadavist 7.5ml TECHNIQUE: Noncontrast sagittal T1 spin echo and T2 fast spin echo, sagittal STIR, axial T1 and T2 fast spin ech o through the lumbar spine. In cases with scoliosis, additional coronal T2 fast spin echo may be per formed. After the administration of contrast, sagittal and axial T1 spin echo with fat saturation th rough the lumbar spine. COMPARISON: CT dated 08/28/2021 and MRI dated 09/15/2022 FINDINGS: Image quality: Degraded by metallic artifact. Alignment and curvature: 5 lumbar type vertebral bodies are present by CT. 2 mm of retrolisthesis of L3 on L4. Marrow: Marrow is of normal overall signal. No acute vertebral body compression fractures. No susp icious marrow enhancement. Mild reactive signal throughout the endplates of the lumbar and lower tho racic spine. Posterior fusion hardware at L4-S1. Spinal cord: Conus medullaris terminates at the lower L1 level. Visualized spinal cord demonstrates normal signal, without suspicious enhancement. Paraspinous soft tissues: No paravertebral masses or abnormal enhancement. T12-L1: Mild disc desiccation and diffuse disc bulge. Mild facet and ligament flavum hypertrophy. Mi ld canal stenosis. No foraminal stenosis. No significant change. L1-L2: Mild facet and ligament flavum hypertrophy. No significant canal nor foraminal stenosis. No significant change. L2-L3: Mild facet and ligament flavum hypertrophy. No significant canal stenosis. Mild bilateral f oraminal stenosis. No significant change. L3-L4: Mild disc desiccation and diffuse disc bulge. Mild facet and ligament flavum hypertrophy. Mi ld canal stenosis. Moderate right and mild left foraminal stenosis. No significant change. L4-L5: Posterior fusion. Interbody device placement. Mild residual disc bulge/osteophyte. Mild bila teral facet hypertrophy. Mild canal stenosis. Moderate bilateral foraminal stenosis. No significant c hange. L5-S1: Posterior fusion. Interbody device placement. Mild residual disc bulge. Mild bilateral face t and ligament flavum hypertrophy. Mild canal stenosis. Moderate subarticular foraminal stenosis bila terally. No significant change. IMPRESSION: 1. Postsurgical sequelae. 2. Multilevel degenerative disc and facet disease, in addition to epidural lipomatosis and ligamentum flavum hypertrophy. 3. Mild multilevel canal stenoses. 4. Multilevel foraminal stenoses, worst at L3-L4, L4-L5, and L5-S1, where there are moderate foramina l stenoses. Reviewed by: Wally Herring MD on 03/09/2023 12:53 PM PDT Approved by: Wally Herring MD on 03/09/2023 12:53 PM PDT Station ID: [id number]
[2023-03-09] MEDS: AMPICILLIN/SULBACTAM 3 GM in SODIUM CHLORIDE 0.9% MINIBAG 100 ML IV SCH ×2 (14:13→19:30)
--- NOTE | 2023-03-09 15:12 | ED Physician Documentation ---
ED Addendum - Addendum Addendum: 03/09/23 15:36 62-year-old Kevin Valadez has a history of osteomyelitis in his foot and an epidural abscess back in 2019. He states he spent about 3 months in the hospital with this and multiple operations. He has wounds to his feet, his car has broken down and he has resorted to walking. He has worsening pain, swelling and erythema to the right foot with a draining ulcer. He was evaluated in the ED yesterday with elevated CRP(12.5) and ESR(>140). He had x-ray demonstrating osteo on the right foot. He was not considered here for admission with the thought that previously an epidural abscess was present and this would need to be ruled out prior to admission here. We also do not have a surgeon capable of operating on feet. The patient remained in the ED overnight for MRI. This was done today and there is no evidence of abscess or osteo on the MRI of the lumbar spine. I am now contacting the hospitalist for admission here with out patient follow up with podiatry. We have reached out to podiatry Dr. Bethea at [facility] and they will call us back tomorrow for consultation. 03/09/23 15:59 03/09/23 16:02 03/09/23 16:03 03/09/23 17:15
[2023-03-09] MEDS ORDERED: ACETAMINOPHEN 325 MG TABLET PO PRN (17:11)
[2023-03-09] MEDS ORDERED: SODIUM CHLORIDE FLUSH 0.9% 10 ML SYRINGE IVP PRN (17:11)
[2023-03-09] MEDS ORDERED: ONDANSETRON 4 MG/2 ML VIAL IVP PRN (17:11)
--- NOTE | 2023-03-09 17:21 | HISTORY & PHYSICAL EXAMINATION ---
Chief Complaint - Chief Complaint Chief Complaint: R foot pain and drainage from chronic wound History of Present Illness - Admitted From Admitted From:: ED - History Obtained From History obtained from: ED provider and the patient - History of Present Illness HPI Comment/Other: This is a 62-year-old man who has type 2 diabetes, is on insulin. He has a history of chronic diabetic foot ulcers. There is a history of an epidural abscess that needed to be drained and he had prolonged hospitalization because of this several years ago. Patient is usually followed at the wound clinic for his diabetic foot ulcers. He stopped attending those appointments because his car broke down and he could not get to them. He was subsequently discharged from those clinics because of no-shows. The patient developed drainage and worse pain in the ulcer of the right foot and because of that presented to the ER last evening. He denied a fever or chills. He admits he is not compliant with a diabetic diet nor with checking his fingersticks. He was found to have a normal WBC but elevated ESR greater than 140 and great elevated CRP of 12.9. He underwent x-rays of both feet and findings are that of bone changes consistent with osteomyelitis of the plantar aspect of the right foot. Because of the epidural abscess history he also underwent MRI of his back today. This showed no areas suspicious for infection or abscess. He has been started on empiric IV Vanco and IV Unasyn given in the ED. The ED provider reached out to me on the Hospitalist team and we spoke about having this patient admitted for treatment of his diabetic foot ulcers with R foot osteomyelitis. History - Past Medical History Cardiovascular: reports: Hypertension, High cholesterol Respiratory: reports: None Neuro: reports: Peripheral neuropathy Endocrine/Autoimmune: reports: Type 2 diabetes GI: reports: None : reports: None HEENT: reports: None Psych: reports: Depression Musculoskeletal: reports: Chronic back pain Derm: reports: Other MRSA Hx?: Yes - Past Surgical History General: reports: Colonoscopy Ortho: reports: Spine surgery, Other HEENT: reports: Tonsil/Adenoidectomy - Family & Social History Family History: Mother: , Father: , Sister: Alive and Well, Brother: Alive and Well Family History Comment/Other: He has no natural children. He has 2 brothers and sisters, no one else has diabetes. Living arrangement: At home Living Situation: Alone Social History Notes: He is a non-smoker of cigarettes but smokes pot daily. He rarely uses alcohol. There is a remote mote history of meth use. He just got approved for SSI to get financial support. - Substance History Use: Uses substance without health or social issues: Cannabis - POLST Patient has POLST: No Meds/Allgy - Home Medications Home Medications: Ambulatory Orders Medication Instructions Recorded Confirmed Atorvastatin Calcium [Lipitor] 80 mg PO QPM 07/18/20 11/18/22 Cyclobenzaprine [Flexeril] 10 mg PO TID PRN 09/15/22 11/18/22 Gabapentin [Neurontin] 300 mg PO TID 09/15/22 11/18/22 Insulin Aspart [Novolog] 5 unit SQ TIDWM 09/15/22 11/18/22 Insulin Glargine [Lantus Solostar] 22 units SQ QDBREAKFAST 09/15/22 11/18/22 Lisinopril [Zestril] 40 mg PO DAILY 09/15/22 11/18/22 Metoprolol Tartrate [Lopressor] 50 mg PO BID 09/15/22 11/18/22 Amlodipine Besylate [Norvasc] 10 mg PO DAILY 11/18/22 11/18/22 Multivit-Minerals/Folic Acid 200 mcg PO DAILY 11/18/22 11/18/22 [Multivitamin Gummies] cephALEXin [Keflex] 500 mg PO Q6H 11/18/22 11/18/22 Amox/Clav 875/125 [Augmentin 1 tablet PO Q12H 10 Days #20 tablet 11/26/22 875/125 Tab] - Allergies Allergies/Adverse Reactions: Allergies Allergy/AdvReac Type Severity Reaction Status Date / Time No Known Drug Allergies Allergy Verified 01/03/23 09:52 Review of Systems - Integumentary Integumentary: reports: Other (Drainage from R foot ulcer for several days. Left foot ulcer is dry and smaller) - Neurological Neurological: reports: Numbness (of feet chronically.) - All Other Systems All Other Systems: reports: Reviewed and negative Exam - Vital Signs Reviewed Vital Signs: Yes Vital Signs: Vital Signs x48h Pulse Resp BP Pulse Ox 03/09/23 17:00 82 20 164/88 H 100 03/09/23 15:17 82 12 171/107 H 100 03/09/23 11:00 79 22 172/96 H 99 03/09/23 10:00 77 21 180/101 H 99 - Physical Exam General Appearance: positive: No acute distress, Alert Eyes Bilateral: positive: Normal inspection, EOMI ENT: positive: ENT inspection nml, No signs of dehydration Neck: positive: Nml inspection, No JVD Respiratory: positive: No respiratory distress Cardiovascular: positive: Regular rate & rhythm, No murmur Abdomen: positive: Non-tender, No distention Skin: positive: Warm, Dry, Pallor Extremities: positive: No pedal edema, Other (Small ( 3x 3cm) dry, purple ulcer with eschar of plantar side of 5th L toe. Larger (approx 6x6 cm) open ulcer of R foot, plantar side of 1st toe. Base is purple, edges are red, and drainage is yellow. Tender.) Conclusion/Plan - Problem List (1) Osteomyelitis of right foot Conclusion/Plan: The source is a chronic diabetic right foot wound. His XRay was read as having osteo Plan: I will order culture of the foot wound drainage Await blood culture results that were taken in ER We will continue with empiric IV Vanco and IV Unasyn. Follow ESR and CRP daily since his WBC is not elevated. We will await input from the spreading machine operator at [facility] who did prior interventions on this patient, for further recommendations (our ED provider Dr. Schwartz reached out to him today and he is to call back tomorrow). Our current orthopedic surgeon does not do foot amputations, only BKAs. Qualifiers: Osteomyelitis type: unspecified type Qualified Code(s): M86.9 - Osteomyelitis, unspecified (2) Diabetic foot ulcer Conclusion/Plan: Plan: As in #1 We will order Tylenol, oxycodone and Dilaudid as needed (3) Uncontrolled diabetes mellitus Conclusion/Plan: He reported that his glucose at home measured greater than 500. He normally does not do fingersticks at all he admitted to me. He also said he does not follow a diabetic diet but takes his insulin on schedule His admission labs show he was running glucoses in the 300s. Because of the high glucoses, he has pseudohyponatremia on labs (all labs were reviewed). Plan: We will continue with his Lantus insulin, however I will not order 22 units since he will be on a carb controlled diet here, will order 15 units every morning We will order sliding scale insulin We will continue with fingerstick checks, order hypoglycemia protocol in a diabetic diet Check his A1c We will request meeting facilitator consultation and for giving him education Qualifiers: Diabetes mellitus type: type 2 (4) Anemia Conclusion/Plan: His hemoglobin is 9.9 on presentation (all labs were reviewed). Plan: We will check B12, folate levels and iron stores and replace if low (5) HTN (hypertension) Conclusion/Plan: His blood pressure is running 160-180/80-100. He is on lisinopril and amlodipine at home Plan: I will give doses of his BP meds and continue those meds daily - Lab Results Fish Bones: 03/09/23 06:08 03/09/23 06:08 - Diagnostic Imaging Results Diagnostic Imaging Results: positive: Final report reviewed - Other Other Results/Comments: Attestation: The patient is expected to be hospitalized for greater than 2 midnights and is expected to be discharged or transferred to another facility within 96 hours: Yes.
[2023-03-09] MEDS ORDERED: lisinopriL 5 MG TABLET PO STA (17:36)
[2023-03-09] MEDS ORDERED: amLODIPine 5 MG TABLET PO STA (17:36)
[2023-03-09] MEDS: ACETAMINOPHEN 500 MG TABLET PO PRN (17:57)
[2023-03-09] MEDS: INSULIN LISPRO 300 UNIT/3 ML PEN SUBQ SCH ×3 (18:02→21:10)
[2023-03-09] MEDS ORDERED: GADOBUTROL 7.5 MMOL/7.5 ML VIAL IVP ONE (18:27)
[2023-03-09] MEDS ORDERED: AMPICILLIN/SULBACTAM 3 GM in SODIUM CHLORIDE 0.9% MINIBAG 100 ML IV SCH (21:00)
[2023-03-09] MEDS ORDERED: VANCOMYCIN 1 GM VIAL ONE (21:09)
[2023-03-09] MEDS: SODIUM CHLORIDE FLUSH 0.9% 10 ML SYRINGE IVP SCH (23:38)
[2023-03-10] MEDS: AMPICILLIN/SULBACTAM 3 GM in SODIUM CHLORIDE 0.9% MINIBAG 100 ML IV SCH ×4 (00:33→19:02)
[2023-03-10 05:16] LABS: BASOPHILS % (AUTO) 0.6 %; EOSINOPHILS # (AUTO) 0.1 10^3/uL (0.0-0.7); EOSINOPHILS % (AUTO) 1.4 %; HCT - HEMATOCRIT 30.7 % (42.0-52.0); HGB - HEMOGLOBIN 10.1 g/dL (14.0-18.0); LYMPHOCYTES # (AUTO) 0.8 10^3/uL (1.5-3.5); LYMPHOCYTES % (AUTO) 23.3 %; MEAN CORPUSCULAR HEMOGLOBIN 26.9 pg (27.0-31.0); MEAN CORPUSCULAR HGB CONC 32.9 g/dL (32.0-36.0); MEAN CORPUSCULAR VOLUME 81.9 fL (80.0-94.0); MEAN PLATELET VOLUME 9.3 fL (7.4-11.4); MONOCYTES # (AUTO) 0.4 10^3/uL (0.0-1.0); NEUTROPHILS # (AUTO) 2.3 10^3/uL (1.5-6.6); PLT - PLATELET COUNT 217 10^3/uL (130-450); RED BLOOD COUNT 3.75 10^6/uL (4.70-6.10); RED CELL DISTRIBUTION WIDTH 12.3 % (12.0-15.0); WHITE BLOOD COUNT 3.6 x10^3/uL (4.8-10.8)
[2023-03-10 05:35] LABS: CALCIUM 8.1 mg/dL (8.5-10.3); CREATININE 0.8 mg/dL (0.6-1.2); CRP - C-REACTIVE PROTEIN 9.4 mg/dL (0-1.0); MAGNESIUM 1.9 mg/dL (1.7-2.8); PHOSPHORUS 3.8 mg/dL (2.5-4.6); POTASSIUM 3.7 mmol/L (3.5-5.0)
[2023-03-10] MEDS: oxyCODONE 5 MG TABLET PO PRN ×3 (05:37→21:27)
[2023-03-10] MEDS: PANTOPRAZOLE 40 MG TABLET PO SCH (06:01)
[2023-03-10] MEDS: ACETAMINOPHEN 500 MG TABLET PO PRN (07:45)
[2023-03-10] MEDS: INSULIN LISPRO 300 UNIT/3 ML PEN SUBQ SCH ×4 (08:50→21:19)
[2023-03-10] MEDS: amLODIPine 5 MG TABLET PO SCH (08:52)
[2023-03-10] MEDS: lisinopriL 20 MG TABLET PO SCH (08:52)
[2023-03-10] MEDS: MULTIVITAMIN TABLET PO SCH (08:52)
[2023-03-10] MEDS: SODIUM CHLORIDE FLUSH 0.9% 10 ML SYRINGE IVP SCH ×2 (08:53→17:05)
[2023-03-10] MEDS: ENOXAPARIN 40 MG/0.4 ML SYRINGE SUBQ SCH (08:53)
[2023-03-10] MEDS ORDERED: INSULIN GLARGINE-YFGN 300 UNIT/3 ML PEN SUBQ SCH (09:00)
[2023-03-10] MEDS ORDERED: lisinopriL 20 MG TABLET PO SCH (09:00)
--- NOTE | 2023-03-10 09:27 | PROVIDER PROGRESS NOTE ---
Assessment/Plan - Problem List (1) Osteomyelitis of right foot Qualifiers: Osteomyelitis type: unspecified type Qualified Code(s): M86.9 - Osteomyelitis, unspecified Assessment/Plan: The source is a chronic diabetic right foot wound. His XRay was read as having osteo Plan: Await blood culture results that were taken in ER We will continue with empiric IV Vanco and IV Unasyn. Vanco will be stopped when we know he is not growing MRSA. Discussed with pharmacy today. Follow ESR and CRP daily since his WBC is not elevated. Our current orthopedic surgeon does not do foot amputations, only BKAs. I spoke to Dr Bethea, the shingle inspector at [facility], who did prior intervention(s) on this patient and knows him. Dr. 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 I called the transfer center at [facility] and they have no open beds today. So I did not speak to a Hospitalist yet to accept him. I updated the patient on this plan Qualifiers: Osteomyelitis type: unspecified type Qualified Code(s): M86.9 - Osteomyelitis, unspecified (2) Diabetic foot ulcer Conclusion/Plan: The gr5am stain from the foot wound drainage is showing WBC and gram Pos cocci Plan: MAC wound clinic consult ordered with Dr. Car. He will be squeezed into their clinic schedule on (tomorrow) at 0830. Pt was updated. Antibx as in #1 Cont Tylenol, oxycodone and Dilaudid as needed, but he gets his best pain relief from Flexeril, he said. Today his med list is reconciled by pharmacy and I will resume his Gabapentin and Flexeril (3) Uncontrolled diabetes mellitus Conclusion/Plan: He reported that his glucose at home measured greater than 500. He normally does not do fingersticks at all he admitted to me. He also said he does not follow a diabetic diet but takes his insulin on schedule His admission labs show glucose in the 300s. Because of the high glucoses, he has pseudohyponatremia on labs (all labs were reviewed). His A1c came back at 15, which equates to an avg glu of 348. Plan: We will continue with his Lantus insulin, and I will resume his 22 units q am, since he is still running high glu levels on fingerstick checks. Will also add Reg Insulin 5U with meals TID Cont sliding scale insulin We will continue with fingerstick checks,hypoglycemia protocol, and a diabetic diet I will request college physics instructor consultation and for giving him education Qualifiers: Diabetes mellitus type: type 2 (4) Drug abuse - F19.10 Conclusion/Plan: The patient admitted to smoking a lot of pot.His MUDS tox screen came back showing positive meth, amphetamines and narcotics. There were no narcotics listed on his prescription ordered medication list. His upper jaw is edentulous, which is consistent with meth use. I asked him where he is getting meth from. He denied getting any meth. When I re- questioned him and told him the test definitely shows belem was present, he then admitted that maybe he is getting it from his girlfriend who is "trying naturopathy and is mixing various substances together to give him". Given the meth use, I expect him to have weakness and hypersomnolence as he withdraws from that Plan: Will have social work see him in consult to offer resources to stop drug abuse (5) Lightheadedness Conclusion/Plan: Today he told his afternoon nurse that he was lightheaded. Vital signs were checked and were normal at the time (BP 141/84, heart rate 68). He told me he gets this feeling of near syncope and he needs to rest, it can last an hour. He has never had syncope. It is associated with pain in the left upper posterior mandible where he has one broken tooth left, the rest of his upper teeth fell out recently. That tooth pain radiates to his left TMJ and he thinks he might have sinusitis. Plan: I will order maxillofacial CT to evaluate for abscess or any infection (6) Anemia Conclusion/Plan: His hemoglobin is 9.9 on presentation (all labs were reviewed). Plan: We will check B12, folate levels and iron stores and replace if low (7) HTN (hypertension) Conclusion/Plan: His blood pressure is running 160-180/80-100. He is on lisinopril and amlodipine at home Plan: I will give doses of his BP meds and continue those meds daily - Current Meds Current Meds: Current Medications Generic Name Dose Route Start Last Admin Trade Name Freq PRN Reason Stop Dose Admin Amlodipine Besylate 10 mg 03/10/23 09:00 03/10/23 08:52 Amlodipine 5 Mg Tablet PO 10 mg DAILY JUANITO Administration Enoxaparin Sodium 40 mg 03/10/23 09:00 03/10/23 08:53 Enoxaparin 40 Mg/0.4 Ml Syringe SUBQ 40 mg DAILY JUANITO Administration Ampicillin Sodium/Sulbactam 100 mls @ 200 mls/hr 03/10/23 01:00 03/10/23 06:49 Sodium 3 gm/ Sodium Chloride IV Infused Q6H JUANITO Infusion Insulin Glargine-yfgn 15 unit 03/10/23 09:00 03/10/23 09:14 Insulin Glargine-Yfgn 300 Unit/3 Ml Pen SUBQ 15 unit DAILY UJANITO Administration Insulin Human Lispro 1 - 9 unit 03/09/23 21:00 03/10/23 08:50 Insulin Lispro 300 Unit/3 Ml Pen SUBQ 3 unit 0800,1200,1700,2100 JUANITO Administration Protocol Lisinopril 20 mg 03/10/23 09:00 03/10/23 08:52 Lisinopril 20 Mg Tablet PO 20 mg DAILY JUANITO Administration Multivitamins 1 tab 03/09/23 08:00 03/10/23 08:52 Multivitamin Tablet PO 1 tab DAILYWM JUANITO Administration Sodium Chloride 10 ml 03/10/23 01:00 03/10/23 08:53 Sodium Chloride Flush 0.9% 10 Ml Syringe IVP 10 ml 0100,0900,1700 JUANITO Administration - Lab Result Fish Bone Diagrams: 03/10/23 05:08 03/10/23 05:08 - Additional Planning My Orders: My Active Orders 03/09/23 Dinner Carb-controlled Diet [DIET] 03/09/23 17:11 Activity Orders [RC] Q2HR IO [RC] IOSHIFT Initiate Bowel Care Protocol [RC] .protocol Initiate Line Care Protocol [RC] QSHIFT Initiate Personal Care Protoco [RC] .protocol Oxygen Therapy [RC] .PRN Vital Signs [RC] Q4HR Acetaminophen [Tylenol] 650 mg PO Q4HR PRN HYDROmorphone 0.5MG SYRINGE [Dilaudid 0.5MG Syringe] 0.5 mg IVP Q2H PRN Ondansetron Inj [Zofran Inj] 4 mg IVP Q6HR PRN Sodium Chloride Flush 0.9% [Normal Saline Flush 0.9%] 10 ml IVP PRN PRN oxyCODONE [Roxicodone] 5 mg PO Q6HR PRN Code Status [OTHERS] Routine Condition of Patient [OTHERS] Routine DVT Prophylaxis [OTHERS] Routine 03/09/23 17:13 Daily Weight [RC] 0600 IV Insert [RC] .ONCE 03/09/23 17:14 Evaluate and Treat OT [OT] Routine Evaluate and Treat PT [PT] Routine 03/09/23 17:15 Blood Glucose Checks - Eating [RC] 0800,1200,1700,2100 Initiate Hypoglycemia Protocol [RC] .protocol 03/09/23 21:00 Insulin Lispro [Humalog Kwikpen U-100] 1 - 9 unit SUBQ 0800,1200,1700,2100 03/10/23 CUL,WOUND (AEROBIC) [RM] Stat 03/10/23 01:00 Ampicillin/Sulbactam [Unasyn] 3 gm Sodium Chloride 0.9% Minibag [Normal Saline 0.9% Minibag] 100 ml IV Q6H Sodium Chloride Flush 0.9% [Normal Saline Flush 0.9%] 10 ml IVP 0100,0900,1700 03/10/23 05:08 HEMOGLOBIN A1c% [CHEM] DAILYLAB 03/10/23 09:00 Enoxaparin [Lovenox] 40 mg SUBQ DAILY Insulin Glargine-Yfgn [Semglee] 15 unit SUBQ DAILY amLODIPine [Norvasc] 10 mg PO DAILY lisinopriL [Zestril] 20 mg PO DAILY 03/10/23 10:00 Vancomycin Inj [Vancomycin] 1 gm Vancomycin Inj [Vancomycin Hcl] 250 mg Sodium Chloride 0.9% [Normal Saline 0.9%] 250 ml IV Q12H 03/11/23 05:00 BMP - BASIC METABOLIC PANEL [CHEM] DAILYLAB CBC - COMP BLD CT W/AUTO DIFF [HEME] DAILYLAB CRP - C-REACTIVE PROTEIN [CHEM] DAILYLAB ESR- ERYTHROCYTE SEDIMENT RATE [HEME] DAILYLAB 03/12/23 05:00 BMP - BASIC METABOLIC PANEL [CHEM] DAILYLAB CBC - COMP BLD CT W/AUTO DIFF [HEME] DAILYLAB CRP - C-REACTIVE PROTEIN [CHEM] DAILYLAB ESR- ERYTHROCYTE SEDIMENT RATE [HEME] DAILYLAB 03/13/23 05:00 BMP - BASIC METABOLIC PANEL [CHEM] DAILYLAB CBC - COMP BLD CT W/AUTO DIFF [HEME] DAILYLAB CRP - C-REACTIVE PROTEIN [CHEM] DAILYLAB ESR- ERYTHROCYTE SEDIMENT RATE [HEME] DAILYLAB Subjective - Subjective Patient Reports: Feeling Better (Not as tired. He did not remember meeting me yesterday and says it was because he was tired. Still has drainage from the wound on the bottom of his right foot) Objective Vital Signs: Vital Signs - 24 hr 03/09/23 03/09/23 03/09/23 10:00 11:00 15:17 Temperature Heart Rate 77 79 82 Heart Rate [ Brachial] Respiratory 21 22 12 Rate Blood Pressure 180/101 H 172/96 H 171/107 H Blood Pressure [Left Brachial artery] Blood Pressure [Right Brachial artery] O2 Saturation 99 99 100 03/09/23 03/09/23 03/09/23 17:00 17:45 20:54 Temperature 36.7 C Heart Rate 82 Heart Rate [ 91 70 Brachial] Respiratory 20 16 18 Rate Blood Pressure 164/88 H Blood Pressure 170/84 H 145/88 H [Left Brachial artery] Blood Pressure [Right Brachial artery] O2 Saturation 100 94 03/09/23 03/10/23 03/10/23 23:32 05:11 07:33 Temperature 36.4 C L 36.7 C 36.9 C Heart Rate Heart Rate [ 72 82 80 Brachial] Respiratory 18 18 16 Rate Blood Pressure Blood Pressure 162/83 H 160/86 H [Left Brachial artery] Blood Pressure 171/96 H [Right Brachial artery] O2 Saturation 96 100 98 Oxygen O2 Source Room air I&O (Last 24 Hrs): Intake and Output Totals x24h 03/08/23 03/09/23 03/10/23 23:59 23:59 23:59 Intake Total 1000 2630 1200 Output Total 700 500 Balance 1000 1930 700 General: Alert, Oriented x3 HEENT: Other (Edentulous upper jaw) Neck: Supple, No JVD Neuro: Alert, Non Focal Cardiovascular: Regular rate Respiratory: No respiratory distress Abdomen: Soft Extremities: No clubbing, Other (Right distal foot bandaged) - Results Results: Laboratory Results WBC 3.6 x10^3/uL (4.8-10.8) L 03/10/23 05:08 RBC 3.75 10^6/uL (4.70-6.10) L 03/10/23 05:08 Hgb 10.1 g/dL (14.0-18.0) L 03/10/23 05:08 Hct 30.7 % (42.0-52.0) L 03/10/23 05:08 MCV 81.9 fL (80.0-94.0) 03/10/23 05:08 MCH 26.9 pg (27.0-31.0) L 03/10/23 05:08 MCHC 32.9 g/dL (32.0-36.0) 03/10/23 05:08 RDW 12.3 % (12.0-15.0) 03/10/23 05:08 Plt Count 217 10^3/uL (130-450) 03/10/23 05:08 MPV 9.3 fL (7.4-11.4) 03/10/23 05:08 Neut # (Auto) 2.3 10^3/uL (1.5-6.6) 03/10/23 05:08 Lymph # (Auto) 0.8 10^3/uL (1.5-3.5) L 03/10/23 05:08 [place] # (Auto) 0.4 10^3/uL (0.0-1.0) 03/10/23 05:08 Eos # (Auto) 0.1 10^3/uL (0.0-0.7) 03/10/23 05:08 Baso # (Auto) 0.0 10^3/uL (0.0-0.1) 03/10/23 05:08 Absolute Nucleated RBC 0.00 x10^3/uL 03/10/23 05:08 Nucleated RBC % 0.0 /100WBC 03/10/23 05:08 ESR > 140 mm/Hr (0-20) H 03/10/23 05:08 VBG pH 7.472 (7.31-7.41) H 03/08/23 20:02 VBG pCO2 37.3 mmHg (41-51) L 03/08/23 20:02 VBG pO2 37.9 mmHg (25-47) 03/08/23 20:02 VBG HCO3 26.7 mmol/L (23-28) 03/08/23 20:02 VBG Total CO2 27.8 mmol/L (24-29) 03/08/23 20:02 VBG O2 Saturation 77.0 % (60-80) 03/08/23 20:02 VBG Base Excess 3.0 mmol/L (-2 - +2) H 03/08/23 20:02 Sodium 132 mmol/L (135-145) L 03/10/23 05:08 Potassium 3.7 mmol/L (3.5-5.0) 03/10/23 05:08 Chloride 98 mmol/L (101-111) L 03/10/23 05:08 Carbon Dioxide 27 mmol/L (21-32) 03/10/23 05:08 Anion Gap 7.0 (6-13) 03/10/23 05:08 BUN 27 mg/dL (6-20) H 03/10/23 05:08 Creatinine 0.8 mg/dL (0.6-1.2) 03/10/23 05:08 Estimated GFR (MDRD) 99 (>89) 03/10/23 05:08 Glucose 243 mg/dL (70-100) H 03/10/23 05:08 POC Whole Bld Glucose 222 mg/dL (70 - 100) H 03/10/23 07:30 Lactic Acid 1.1 mmol/L (0.5-2.2) 03/08/23 20:02 Calcium 8.1 mg/dL (8.5-10.3) L 03/10/23 05:08 Phosphorus 3.8 mg/dL (2.5-4.6) 03/10/23 05:08 Magnesium 1.9 mg/dL (1.7-2.8) 03/10/23 05:08 Total Bilirubin 0.4 mg/dL (0.2-1.0) 03/08/23 19:36 AST 11 IU/L (10-42) 03/08/23 19:36 ALT 14 IU/L (10-60) 03/08/23 19:36 Alkaline Phosphatase 110 IU/L (42-121) 03/08/23 19:36 C-Reactive Protein 9.4 mg/dL (0-1.0) H 03/10/23 05:08 Total Protein 6.8 g/dL (6.7-8.2) 03/08/23 19:36 Albumin 2.5 g/dL (3.2-5.5) L 03/08/23 19:36 Globulin 4.3 g/dL (2.1-4.2) H 03/08/23 19:36 Albumin/Globulin Ratio 0.6 (1.0-2.2) L 03/08/23 19:36 Urine Opiates Screen POSITIVE (NEGATIVE) H 03/09/23 04:26 Ur Oxycodone Screen NEGATIVE (NEGATIVE) 03/09/23 04:26 Urine Methadone Screen NEGATIVE (NEGATIVE) 03/09/23 04:26 Ur Propoxyphene Screen NEGATIVE (NEGATIVE) 03/09/23 04:26 Ur Barbiturates Screen NEGATIVE (NEGATIVE) 03/09/23 04:26 Ur Tricyclics Screen NEGATIVE (NEGATIVE) 03/09/23 04:26 Ur Phencyclidine Scrn NEGATIVE (NEGATIVE) 03/09/23 04:26 Ur Amphetamine Screen POSITIVE (NEGATIVE) H 03/09/23 04:26 U Methamphetamines Scrn POSITIVE (NEGATIVE) H 03/09/23 04:26 U Benzodiazepines Scrn NEGATIVE (NEGATIVE) 03/09/23 04:26 Urine Cocaine Screen NEGATIVE (NEGATIVE) 03/09/23 04:26 U Cannabinoids Screen POSITIVE (NEGATIVE) H 03/09/23 04:26 Serum Ketones NEGATIVE (NEGATIVE) 03/08/23 19:36 SARS-CoV-2 (PCR) NOT DETECTED 03/08/23 19:52 - Procedures Procedures: Procedures EXCISION OF DESCENDING COLON, ENDO (10/18/20)
[2023-03-10] MEDS: VANCOMYCIN INJ 1 GM, VANCOMYCIN INJ 250 MG in SODIUM CHLORIDE 0.9% 250 ML IV SCH ×2 (10:17→22:05)
[2023-03-10 11:47] LABS: ESTIMATED AVERAGE GLUCOSE 384 mg/dL (70-100)
[2023-03-10] MEDS: ZINC SULFATE 220 MG CAPSULE PO SCH (12:11)
[2023-03-10] MEDS: ASCORBIC ACID 500 MG TABLET PO SCH (12:11)
[2023-03-10] MEDS: CHOLECALCIFEROL 25 MCG TABLET PO SCH (12:11)
--- NOTE | 2023-03-10 14:12 | PHARMACY PROGRESS NOTE ---
- Best Possible Medication History Admit Date and Time: 03/09/23 1711 Processed by: Pharmacy Medication History completed: Yes Patient Interview: Completed Secondary Source(s): Pharmacy records As the person ultimately responsible for medication therapy, providers are able to order a medication from an existing home medication list in [facility] via the "Reconcile Routine" prior to Confirmation of that medication by field support specialist. Such practice is discouraged except when the physician, in their clinical judgment, deems that a medical need exists for a medication without regard to previous use.
[2023-03-10] MEDS: HYDROmorphone 0.5 MG/0.5 ML SYRINGE IVP PRN (14:48)
[2023-03-10] MEDS: CYCLOBENZAPRINE 10 MG TABLET PO PRN (17:22)
--- NOTE | 2023-03-10 20:23 | CT Report ---
PROCEDURE: MAXILLOFACIAL WO INDICATIONS: L uppr jaw pain,missing broken teeth,L TMJ pain TECHNIQUE: Noncontrast 1.5 mm thick axial images acquired from the mandible through the frontal sinuses, with co elidia and sagittal reformatting. For radiation dose reduction, the following was used: automated ex posure control, adjustment of mA and/or kV according to patient size. COMPARISON: None. FINDINGS: Image quality: Excellent. Bones and teeth: Orbital neville are intact. Sinus neville show no fracture or deformity. Nasal bones and septum are intact. Visualized portions of the mandible demonstrate no fractures or subluxation. Lucency is present surrounding the superior right first and second teeth from the midline as well as the second and third as well as fourth anterior left teeth from the midline. Zygomatic arches are in tact. Pterygoid plates are intact. Visualized portions of the skull base and auditory canals are in tact. Sinuses: Paranasal sinuses are aerated, without fluid levels. Minimal scattered pansinus mucosal thi ckening. Mastoid air cells are aerated. Soft tissues: No edema, masses, or fluid collections. No enlarged lymph nodes. No soft tissue lace rations or debris. Vascular: Visualized vascular structures appear normal in the absence of contrast. Bony vascular fo ramina and canals are intact. IMPRESSION: Lucency surrounding several teeth which could be related to dental disease or less likely trauma. Mandible and maxilla demonstrate no visualized fracture. Reviewed by: Suyapa Mosley MD on 03/10/2023 8:21 PM PDT Approved by: Suyapa Mosley MD on 03/10/2023 8:21 PM PDT Station ID: [id number]
[2023-03-10] MEDS ORDERED: METOPROLOL TARTRATE 50 MG TABLET PO SCH (21:00)
[2023-03-10] MEDS: GABAPENTIN 300 MG CAPSULE PO SCH (21:20)
[2023-03-10] MEDS: METOPROLOL TARTRATE 50 MG TABLET PO SCH (21:20)
[2023-03-11] MEDS: SODIUM CHLORIDE FLUSH 0.9% 10 ML SYRINGE IVP SCH ×3 (00:11→16:20)
[2023-03-11] MEDS: AMPICILLIN/SULBACTAM 3 GM in SODIUM CHLORIDE 0.9% MINIBAG 100 ML IV SCH ×3 (00:18→16:08)
[2023-03-11] MEDS: HYDROmorphone 0.5 MG/0.5 ML SYRINGE IVP PRN (00:18)
[2023-03-11 05:40] LABS: BASOPHILS % (AUTO) 0.3 %; EOSINOPHILS # (AUTO) 0.1 10^3/uL (0.0-0.7); EOSINOPHILS % (AUTO) 1.7 %; HCT - HEMATOCRIT 27.1 % (42.0-52.0); HGB - HEMOGLOBIN 8.9 g/dL (14.0-18.0); LYMPHOCYTES % (AUTO) 27.6 %; MEAN CORPUSCULAR HEMOGLOBIN 27.1 pg (27.0-31.0); MEAN CORPUSCULAR HGB CONC 32.8 g/dL (32.0-36.0); MEAN CORPUSCULAR VOLUME 82.6 fL (80.0-94.0); MEAN PLATELET VOLUME 9.8 fL (7.4-11.4); MONOCYTES # (AUTO) 0.4 10^3/uL (0.0-1.0); MONOCYTES % (AUTO) 10.3 %; NEUTROPHILS # (AUTO) 2.1 10^3/uL (1.5-6.6); PLT - PLATELET COUNT 203 10^3/uL (130-450); RED BLOOD COUNT 3.28 10^6/uL (4.70-6.10); RED CELL DISTRIBUTION WIDTH 12.5 % (12.0-15.0); WHITE BLOOD COUNT 3.5 x10^3/uL (4.8-10.8)
[2023-03-11 06:02] LABS: CALCIUM 8.1 mg/dL (8.5-10.3); CREATININE 0.8 mg/dL (0.6-1.2); CRP - C-REACTIVE PROTEIN 5.3 mg/dL (0-1.0); POTASSIUM 3.8 mmol/L (3.5-5.0)
[2023-03-11] MEDS: GABAPENTIN 300 MG CAPSULE PO SCH ×3 (06:03→20:55)
[2023-03-11] MEDS: oxyCODONE 5 MG TABLET PO PRN ×2 (06:35→16:18)
[2023-03-11] MEDS: ENOXAPARIN 40 MG/0.4 ML SYRINGE SUBQ SCH (08:00)
[2023-03-11] MEDS ORDERED: MULTIVITAMIN W/MINERALS TABLET PO SCH ×2 (08:00→09:00)
[2023-03-11] MEDS ORDERED: INSULIN GLARGINE-YFGN 300 UNIT/3 ML PEN SUBQ SCH ×2 (08:00→21:00)
[2023-03-11] MEDS: ZINC SULFATE 220 MG CAPSULE PO SCH (08:01)
[2023-03-11] MEDS: ASCORBIC ACID 500 MG TABLET PO SCH (08:01)
[2023-03-11] MEDS: CHOLECALCIFEROL 25 MCG TABLET PO SCH (08:01)
[2023-03-11] MEDS: amLODIPine 5 MG TABLET PO SCH (08:02)
[2023-03-11] MEDS: METOPROLOL TARTRATE 50 MG TABLET PO SCH ×2 (08:03→20:56)
[2023-03-11] MEDS: lisinopriL 20 MG TABLET PO SCH (08:03)
[2023-03-11] MEDS: INSULIN LISPRO 300 UNIT/3 ML PEN SUBQ SCH ×7 (08:04→20:57)
[2023-03-11] MEDS ORDERED: polyethylene glycoL 3350 17 GM PACKET PO SCH (09:00)
[2023-03-11] MEDS ORDERED: amLODIPine 5 MG TABLET PO SCH (09:00)
[2023-03-11 11:32] LABS: VANCOMYCIN,TROUGH 9.5 ug/mL (10.0-20.0)
[2023-03-11] MEDS: VANCOMYCIN INJ 1 GM, VANCOMYCIN INJ 250 MG in SODIUM CHLORIDE 0.9% 250 ML IV SCH (11:56)
[2023-03-11] MEDS: CYCLOBENZAPRINE 10 MG TABLET PO PRN ×2 (12:43→20:56)
--- NOTE | 2023-03-11 14:40 | WOUND CARE CONSULTATION ---
Referring Provider Name of Referring Provider:: Dariana Gonzales MD Consult Date: 03/11/23 Chief Complaint - Chief Complaint Chief Complaint: R foot wound. History of Present Illness - History Obtained From Records Reviewed: EMR History obtained from: Patient Exam Limitations: None - History of Present Illness HPI: 62-year-old male with poorly-controlled, non-compliant, DM II who I last saw at his initial consultation in the [facility] on 11/19/22. He had a R foot DFU on the plantar surface of his 1st MTH that he noted after some home surgery on a callus. He generally receives care at numerous ED visits and walk-in clinic appointments. He had taken a couple rounds of Keflex. He was instructed to keep weight off wound and given a postop shoe. Culture of the wound grew 2+ Enterococcus faecalis, susceptible to ampicillin and penicillin. On 11/26, he was prescribed a 10-day course of Augmentin. He never followed up as recommended. He stated his car broke down. Besides leading to lack of follow-up, it also resulted in a significant increase in ambulation. His ulcer became painful and he noted increased drainage, prompting him to present to the ED on the evening of 03/08. X-ray consistent with osteomyelitis. Inflammatory markers very elevated. WBC normal. He has been started on empiric IV Vanco. IV Unasyn given in the ED. Denies FCS, malaise, fatigue. He has a history of neuropathy, which he states is from previous spine surgery for osteomyelitis. He states he had surgery on his foot for abscess in 2020. In September 2022, he had associated cellulitis and possible S. aureus sepsis which was treated. Plain film of the right foot at that time did not show any convincing e/o osteomyelitis. He was being followed by our diabetic diabetes education clinic and appropriate recommendations had been made. He has hx of methamphetamine abuse, hypertension, hyperlipidemia. No h/o PAD. History - Past Medical History Cardiovascular: reports: Hypertension, High cholesterol Respiratory: reports: None Neuro: reports: Peripheral neuropathy Endocrine/Autoimmune: reports: Type 2 diabetes GI: reports: None : reports: None HEENT: reports: None Psych: reports: Depression Musculoskeletal: reports: Chronic back pain Derm: reports: Other MRSA Hx?: Yes - Past Surgical History General: reports: Colonoscopy Ortho: reports: Spine surgery, Other HEENT: reports: Tonsil/Adenoidectomy - Family & Social History Family History: Mother: , Father: , Sister: Alive and Well, Brother: Alive and Well Family History Comment/Other: He has no natural children. He has 2 brothers and sisters, no one else has diabetes. Living arrangement: At home Living Situation: Alone - Substance History Use: Uses substance without health or social issues: Cannabis - POLST Patient has POLST: No Objective Comments/Notes: Vitals (taken on floor at 7:16 AM): T 98.2 F, HR 69, RR 16, BP 149/90. O2 Sat 96% (room air). Constitutional: NAD. Alert and conversant. Respiratory: Normal respiratory effort. Cardiovascular: Regular rate. Neurological: Loss of protective sensation noted bilateral feet. Extremities: Toes are hammered. There is exquisite TTP and question of fluctuance in the right forefoot, dorsal. Lower Extremity Assessment: Extremity edema: L absent. R absent. Extremity color: L normal. R normal. Capillary refill: L less than 3 seconds. R less than 3 seconds. Elevation pallor: L absent. R absent. Dependent rubor: L absent. R absent. Hand-held Doppler: L DP: Biphasic. L PT: Biphasic. R DP: Triphasic. R PT: Triphasic. Micro: 03/10/2023: Right foot wound. Gram stain, moderate GPC, few yeast, no WBCs. Culture pending. Labs: 03/11/2023: WBC 3.5, hemoglobin 8.9/hematocrit 27.1. Normocytic. ESR greater than 140 (140 on admission). CRP 5.3 (12.5 on admission). GFR 99. Glucose 252. 03/10/2023: A1c 15.0 03/09/2023: Urine tox screen positive for opiates, methamphetamine, and cannabinoids. Imagin03/08/2023: X-ray, right foot is suspicious for osteomyelitis with lucency within the proximal medial aspect of the proximal phalanx, first digit, as well as the medial aspect of the first metatarsal head. - Wound Assessment Wound #1 is a full-thickness diabetic foot ulcer of the plantar right first m etatarsal head. It measures 2.0 x 2.1 x 0.4 cm (L x W x D). There is no tunneling, undermining, or sinus tract. There is moderate serosanguineous drainage noted which has no odor. The wound margin is unattached and callused. The wound bed has no epithelialization, no eschar, yes slough, yes red spongy granulation. The periwound skin texture is boggy. The periwound skin moisture is normal. The periwound skin temperature is normal. The periwound skin is normal. Exposed structures: Nonviable tendon, bone. Wound #2 is a full-thickness diabetic foot ulcer of the plantar right fifth metatarsal head, visualized after paring of overriding callus by certified RN. It measures 0.1 x 0.1 x 0.1 cm (L x W x D). There is no tunneling, undermining, or sinus tract. There is no drainage noted. The wound bed has no epithelialization, no eschar, no slough, yes granulation. The periwound skin texture, moisture, temperature, and color are normal. Exposed structures: Adipose. Wound #3 is a partial-thickness diabetic foot ulcer of the lateral left fifth metatarsal head, visualized after paring of overriding boggy callus by certified RN. It measures 1.6 x 1.6 x 0.1 cm (L x W x D). There is no tunneling, undermining, or sinus tract. There is no drainage. The wound bed has no epithelialization, no eschar, no slough, no granulation. The periwound skin moisture, temperature, and color are normal. Exposed structures: None. Procedure - Procedure Note Wound #1: After informed consent was obtained, a surgical subcutaneous tissue level debridement with a total area of 5.72 square centimeters was performed by Emile Car MD. Using a scissors, forceps, and curette, dermis, epidermis, subcutaneous tissue, and devitalized tendon were removed along with devitalized tissue: Biofilm, exudate, callus, and slough. Pain control was achieved using injectable lidocaine 1% with epinephrine. A timeout was conducted prior to the start of the procedure. A moderate amount of bleeding was controlled with pressure and QuikClot. The procedure was tolerated well. Postdebridement measurements: 2.2 x 2.6 x 0.9 cm (L x W x D). Conclusion and Plan - Problem List (1) Type 2 diabetes mellitus with foot ulcer Qualifiers: Diabetes mellitus termite inspector insulin use: with termite inspector use Qualified Code(s): E11.621 - Type 2 diabetes mellitus with foot ulcer; L97.509 - Non- pressure chronic ulcer of other part of unspecified foot with unspecified severity; Z79.4 - termite technician (current) use of insulin Assessment/Plan: Poorly controlled. Educated regarding importance of blood glucose control to optimize healing and prevent complications of diabetes. Management per hospital team. (2) Non-pressure chronic ulcer of other part of right foot with necrosis of bone Assessment/Plan: R DFU. Treatment plan incorporates (when appropriate): (1) Correction of etiologic factors, (2) Optimization of the local wound environment to promote healing by cleansing, debriding, managing bacterial balance, and managing moisture balance, (3) Appropriate off-loading, (4) Treatment of infection, (5) Addressing host co-factors/co-morbidities that may affect healing, and (6) Consideration of advanced therapies such as application of cellular and/or tissue products/skin grafting. X-ray suspicious for osteomyelitis. Pain and slight fluctuance at dorsal forefoot concerning for potential of abscess. Recommend MRI w/wo contrast of right leg to evaluate for abscess and determine extent of osteomyelitis. Aerobic and anaerobic cultures taken. He is at very high risk of amputation. Wounds cleansed with normal saline and Anasept. Wounds #1, #3 dressed with silver Hydrofiber, plain foam, rolled gauze, and tape. Wound 2 dressed with plain foam, rolled gauze, and tape. Keep weight off wound. Postop shoe. Goals: Resolve infection Disrupt, remove, and prevent reformation of biofilm. Remove necrotic/devitalized tissue Establish a viable wound margin Redistribute pressure Manage co-morbidities Wound closure Appropriate follow up instructions were given. Recommend re-check in [facility] in 7 days. Sooner, PRN. (3) Non-pressure chronic ulcer of other part of right foot with fat layer exposed Assessment/Plan: See above. (4) Non-pressure chronic ulcer of other part of left foot limited to breakdown of skin Assessment/Plan: See above. (5) Other acute osteomyelitis, right ankle and foot Assessment/Plan: Antibiotics under the direction of hospital team. - Home Meds/Allergies Allergies No Known Drug Allergies Allergy (Verified 01/03/23 09:52)
[2023-03-11] MEDS ORDERED: GADOBUTROL 7.5 MMOL/7.5 ML VIAL ONE (15:01)
[2023-03-11] MEDS ORDERED: GADOBUTROL 7.5 MMOL/7.5 ML VIAL IVP ONE (15:47)
--- NOTE | 2023-03-11 16:09 | PROVIDER PROGRESS NOTE ---
Assessment/Plan - Problem List (1) Osteomyelitis of right foot Qualifiers: Osteomyelitis type: unspecified type Qualified Code(s): M86.9 - Osteomyelitis, unspecified Assessment/Plan: The source is a chronic diabetic right foot wound. His XRay was read as having osteo. His WBC was normal and is actually decreasing. His ESR was > 140 and trmains > 140. The CRP was 12.9 and is improved to 5.3. Dr. Car of wound clinic saw him today and recommended an MRI. The MRI came back today showing osteomyelitis and osteonecrosis as well as myositis and cellulitis Plan: Await blood culture results that were taken in ER We will continue with empiric IV Vanco and IV Unasyn. Vanco will be stopped when we know he is not growing MRSA. Discussed with pharmacy today. Follow ESR and CRP daily since his WBC is not elevated. Our current orthopedic surgeon does not do foot amputations, only BKAs. I spoke to Dr Bethea, the sample worker at [facility] on 03/10, who did prior intervention(s) on this patient and knows him. Dr. Bethea recommended the patient be transferred to their hospital onto the Hospitalist service and he will be field sales consultant and he does amputations. I called the transfer center at [facility] on 03/10 and they had no open beds. Today 03/11 I contacted transfer center, who coordinates transfers to their other hospitals, and discussed this pt. They put me in contact with the Hospitalist at [facility] who accepted this patient in transfer if they have an open bed. I did update the patient today. I did state that there may be need for amputation. Qualifiers: Osteomyelitis type: unspecified type Qualified Code(s): M86.9 - Osteomyelitis, unspecified (2) Diabetic foot ulcer Conclusion/Plan: The gram stain from the foot wound drainage is showing WBC and is growing E coli, and a gram Pos Dr. Car of wound clinic saw pt in consult today and did debridement and sent off another culture and he advised the foot MRI. Plan: Cont antibx as in #1 Cont Tylenol, oxycodone and Dilaudid as needed, but he gets his best pain relief from Flexeril, he said. I resumed his Gabapentin and Flexeril (3) Uncontrolled diabetes mellitus Conclusion/Plan: He reported that his glucose at home measured greater than 500. He normally does not do fingersticks at all he admitted to me. He also said he does not follow a diabetic diet but takes his insulin on schedule His admission labs show glucose in the 300s. Because of the high glucoses, he had pseudohyponatremia on labs at admission (all labs were reviewed). His A1c came back at 15, which equates to an avg glu of 348. Plan: We will continue with his Lantus insulin at 22 units q am. Because glucoses are still very elevated, I will begin Lantus insulin 10 units at night. Cont with Reg Insulin 5U with meals TID Cont sliding scale insulin We will continue with fingerstick checks,hypoglycemia protocol, and a diabetic diet I requested child and family therapist consultation and for giving him education Qualifiers: Diabetes mellitus type: type 2 (4) Drug abuse - F19.10 Conclusion/Plan: The patient admitted to smoking a lot of marijuana. His MUDS tox screen came ba ck showing positive meth, amphetamines and narcotics. There were no narcotics listed on his prescription ordered medication list. His upper jaw is edentulous, which is consistent with meth use. I asked him where he is getting meth from. He denied getting any meth. When I re- questioned him and told him the test definitely shows meth was present, he then admitted that "maybe he is getting it from his girlfriend who is trying naturopathy and is mixing various substances together to give him". Given the meth use, I expectrd him to have weakness and hypersomnolence as he withdraws from that, but he was only sleepy and groggy his first day. Plan: Social Work to see him in consult to offer resources to stop drug abuse (5) Necrotic tooth - K04.1 Conclusion/Plan: On 03/10 he told his afternoon nurse that he was lightheaded. Vital signs were checked and were normal at the time (BP 141/84, heart rate 68). He told me he gets this feeling of near syncope and he needs to rest, it can last an hour. He has never had syncope. It is associated with pain in the left upper posterior mandible where he has one broken tooth left, the rest of his upper teeth "fell out recently". That tooth pain radiates to his left TMJ and he thinks he might have sinusitis. I ordered maxillofacial CT to evaluate for abscess or any infection>> It showed necrotic teeth but no areas of abscess or bony involvement. (6) Anemia Conclusion/Plan: His hemoglobin is 9.9 on presentation (all labs were reviewed). Today Hgb 8.9 Plan: Will check B12, folate levels and iron stores and replace if low (7) HTN (hypertension) Conclusion/Plan: His blood pressure was running 160-180/80-100, then improved once his home meds of lisinopril and amlodipine were resumed. - Current Meds Current Meds: Current Medications Generic Name Dose Route Start Last Admin Trade Name Freq PRN Reason Stop Dose Admin Acetaminophen 650 mg 03/09/23 17:11 03/10/23 16:25 Acetaminophen 325 Mg Tablet PO 650 mg Q4HR PRN Administration Pain 1 to 4, or Fever Amlodipine Besylate 10 mg 03/10/23 09:00 03/11/23 08:02 Amlodipine 5 Mg Tablet PO 10 mg DAILY JUANITO Administration Amlodipine Besylate 10 mg 03/11/23 09:00 03/11/23 09:10 Amlodipine 5 Mg Tablet PO Not Given DAILY JUANITO Ascorbic Acid 500 mg 03/10/23 12:00 03/11/23 08:01 Ascorbic Acid 500 Mg Tablet PO 500 mg DAILY JUANITO Administration Cholecalciferol 50 mcg 03/10/23 12:00 03/11/23 08:01 Cholecalciferol 25 Mcg Tablet PO 50 mcg DAILY JUANITO Administration Cyclobenzaprine HCl 10 mg 03/10/23 17:14 03/11/23 12:43 Cyclobenzaprine 10 Mg Tablet PO 10 mg TID PRN Administration Spasms Enoxaparin Sodium 40 mg 03/10/23 09:00 03/11/23 08:00 Enoxaparin 40 Mg/0.4 Ml Syringe SUBQ 40 mg DAILY JUANITO Administration Gabapentin 300 mg 03/10/23 22:00 03/11/23 13:49 Gabapentin 300 Mg Capsule PO 300 mg TID JUANITO Administration Hydromorphone HCl 0.5 mg 03/09/23 17:11 03/11/23 00:18 Hydromorphone 0.5 Mg/0.5 Ml Syringe IVP 0.5 mg Q2H PRN Administration Pain 8 to 10 Ampicillin Sodium/Sulbactam 100 mls @ 200 mls/hr 03/10/23 01:00 03/11/23 16:08 Sodium 3 gm/ Sodium Chloride IV 200 mls/hr Q6H JUANITO Administration Insulin Glargine-yfgn 22 unit 03/11/23 08:00 03/11/23 08:08 Insulin Glargine-Yfgn 300 Unit/3 Ml Pen SUBQ 22 unit QDBREAKFAST JUANITO Administration Insulin Human Lispro 5 unit 03/11/23 08:00 03/11/23 12:10 Insulin Lispro 300 Unit/3 Ml Pen SUBQ 5 unit TIDWM JUANITO Administration Lisinopril 20 mg 03/10/23 09:00 03/11/23 08:03 Lisinopril 20 Mg Tablet PO 20 mg DAILY JUANITO Administration Metoprolol Tartrate 50 mg 03/10/23 21:00 03/11/23 08:03 Metoprolol Tartrate 50 Mg Tablet PO 50 mg BID JUANITO Administration Multivitamins/Minerals 1 tab 03/11/23 08:00 03/11/23 08:01 Multivitamin W/Minerals Tablet PO 1 tab DAILYWM JUANITO Administration Oxycodone HCl 5 mg 03/09/23 17:11 03/11/23 06:35 Oxycodone 5 Mg Tablet PO 5 mg Q6HR PRN Administration Pain 8 to 10 Polyethylene Glycol 17 gm 03/11/23 09:00 03/11/23 08:01 Polyethylene Glycol 3350 17 Gm Packet PO 17 gm DAILY JUANITO Administration Sodium Chloride 10 ml 03/09/23 17:11 03/11/23 11:56 Sodium Chloride Flush 0.9% 10 Ml Syringe IVP 10 ml PRN PRN Administration NEEDED PER PROVIDER ORDERS Sodium Chloride 10 ml 03/10/23 01:00 03/11/23 10:16 Sodium Chloride Flush 0.9% 10 Ml Syringe IVP 10 ml 0100,0900,1700 JUANITO Administration Zinc Sulfate 220 mg 03/10/23 12:00 03/11/23 08:01 Zinc Sulfate 220 Mg Capsule PO 03/16/23 12:01 220 mg DAILY JUANITO Administration - Lab Result Fish Bone Diagrams: 03/11/23 05:13 03/11/23 05:13 - Additional Planning My Orders: My Active Orders 03/10/23 17:14 Cyclobenzaprine [Flexeril] 10 mg PO TID PRN 03/10/23 21:00 Metoprolol Tartrate [Lopressor] 50 mg PO BID 03/10/23 22:00 Gabapentin [Neurontin] 300 mg PO TID 03/11/23 08:00 Insulin Glargine-Yfgn [Semglee] 22 unit SUBQ QDBREAKFAST Insulin Lispro [Humalog Kwikpen U-100] 5 unit SUBQ TIDWM Multivitamin W/Minerals [Theragran M] 1 tab PO DAILYWM 03/11/23 09:00 amLODIPine [Norvasc] 10 mg PO DAILY polyethylene glycoL 3350 [Miralax] 17 gm PO DAILY 03/11/23 Lunch Carb-controlled Diet [DIET] 03/11/23 12:19 FOOT W/WO - RT [MRI] Stat 03/11/23 17:00 Docusate Sodium 250Mg Capsule [Colace 250Mg Capsule] 250 - 500 mg PO BID Insulin Lispro [Humalog Kwikpen U-100] 2 - 10 unit SUBQ 0800,1200,1700,2100 Senna [Senokot] 8.6 - 17.2 mg PO BID 03/11/23 21:00 Insulin Glargine-Yfgn [Semglee] 10 unit SUBQ QPM 03/11/23 22:00 Vancomycin Inj [Vancomycin] 1 gm Vancomycin Inj [Vancomycin Hcl] 500 mg Sodium Chloride 0.9% [Normal Saline 0.9%] 500 ml IV Q12H 03/12/23 05:00 BMP - BASIC METABOLIC PANEL [CHEM] DAILYLAB CBC - COMP BLD CT W/AUTO DIFF [HEME] DAILYLAB CRP - C-REACTIVE PROTEIN [CHEM] DAILYLAB ESR- ERYTHROCYTE SEDIMENT RATE [HEME] DAILYLAB 03/13/23 05:00 BMP - BASIC METABOLIC PANEL [CHEM] DAILYLAB CBC - COMP BLD CT W/AUTO DIFF [HEME] DAILYLAB CRP - C-REACTIVE PROTEIN [CHEM] DAILYLAB ESR- ERYTHROCYTE SEDIMENT RATE [HEME] DAILYLAB 03/13/23 09:30 VANCOMYCIN TROUGH [CHEM] Timed Subjective - Subjective Patient Reports: Feeling Better (He feels stronger every day.), Pain (Pain and tenderness on the plantar side of right foot at ulcer site) Objective Vital Signs: Vital Signs - 24 hr 03/10/23 03/10/23 03/11/23 20:40 21:20 00:10 Temperature 36.7 C 36.9 C Heart Rate [ 64 60 Brachial] Respiratory 16 16 Rate Blood Pressure 131/80 H Blood Pressure 131/80 H 137/78 H [Right Brachial artery] O2 Saturation 99 100 03/11/23 03/11/23 03/11/23 05:00 07:16 08:03 Temperature 36.7 C 36.8 C Heart Rate [ 69 69 Brachial] Respiratory 16 16 Rate Blood Pressure 149/90 H Blood Pressure 149/86 H 149/90 H [Right Brachial artery] O2 Saturation 98 96 03/11/23 13:58 Temperature 36.7 C Heart Rate [ 66 Brachial] Respiratory 16 Rate Blood Pressure Blood Pressure 129/82 H [Right Brachial artery] O2 Saturation 100 Oxygen O2 Source Room air I&O (Last 24 Hrs): Intake and Output Totals x24h 03/09/23 03/10/23 03/11/23 23:59 23:59 23:59 Intake Total 2630 2530 1870 Output Total 700 1950 950 Balance 1930 580 920 General: Alert, Oriented x3 HEENT: Mucous membr. moist/pink, Other (Dentulous upper) Neck: Supple, No JVD Neuro: Alert, Non Focal Cardiovascular: Regular rate, No murmurs Respiratory: No respiratory distress, Breath sounds nml Abdomen: Normal bowel sounds, Soft Extremities: No clubbing, Other (Bandaged right foot & toes) - Results Results: Laboratory Results WBC 3.5 x10^3/uL (4.8-10.8) L 03/11/23 05:13 RBC 3.28 10^6/uL (4.70-6.10) L 03/11/23 05:13 Hgb 8.9 g/dL (14.0-18.0) L 03/11/23 05:13 Hct 27.1 % (42.0-52.0) L 03/11/23 05:13 MCV 82.6 fL (80.0-94.0) 03/11/23 05:13 MCH 27.1 pg (27.0-31.0) 03/11/23 05:13 MCHC 32.8 g/dL (32.0-36.0) 03/11/23 05:13 RDW 12.5 % (12.0-15.0) 03/11/23 05:13 Plt Count 203 10^3/uL (130-450) 03/11/23 05:13 MPV 9.8 fL (7.4-11.4) 03/11/23 05:13 Neut # (Auto) 2.1 10^3/uL (1.5-6.6) 03/11/23 05:13 Lymph # (Auto) 1.0 10^3/uL (1.5-3.5) L 03/11/23 05:13 [place] # (Auto) 0.4 10^3/uL (0.0-1.0) 03/11/23 05:13 Eos # (Auto) 0.1 10^3/uL (0.0-0.7) 03/11/23 05:13 Baso # (Auto) 0.0 10^3/uL (0.0-0.1) 03/11/23 05:13 Absolute Nucleated RBC 0.00 x10^3/uL 03/11/23 05:13 Nucleated RBC % 0.0 /100WBC 03/11/23 05:13 ESR > 140 mm/Hr (0-20) H 03/11/23 05:13 VBG pH 7.472 (7.31-7.41) H 03/08/23 20:02 VBG pCO2 37.3 mmHg (41-51) L 03/08/23 20:02 VBG pO2 37.9 mmHg (25-47) 03/08/23 20:02 VBG HCO3 26.7 mmol/L (23-28) 03/08/23 20:02 VBG Total CO2 27.8 mmol/L (24-29) 03/08/23 20:02 VBG O2 Saturation 77.0 % (60-80) 03/08/23 20:02 VBG Base Excess 3.0 mmol/L (-2 - +2) H 03/08/23 20:02 Sodium 133 mmol/L (135-145) L 03/11/23 05:13 Potassium 3.8 mmol/L (3.5-5.0) 03/11/23 05:13 Chloride 98 mmol/L (101-111) L 03/11/23 05:13 Carbon Dioxide 29 mmol/L (21-32) 03/11/23 05:13 Anion Gap 6.0 (6-13) 03/11/23 05:13 BUN 27 mg/dL (6-20) H 03/11/23 05:13 Creatinine 0.8 mg/dL (0.6-1.2) 03/11/23 05:13 Estimated GFR (MDRD) 99 (>89) 03/11/23 05:13 Glucose 252 mg/dL (70-100) H 03/11/23 05:13 POC Whole Bld Glucose 323 mg/dL (70 - 100) H 03/11/23 11:56 Estimat Average Glucose 384 mg/dL (70-100) H 03/10/23 05:08 Hemoglobin A1c % 15.0 % (4.27-6.07) H 03/10/23 05:08 Lactic Acid 1.1 mmol/L (0.5-2.2) 03/08/23 20:02 Calcium 8.1 mg/dL (8.5-10.3) L 03/11/23 05:13 Phosphorus 3.8 mg/dL (2.5-4.6) 03/10/23 05:08 Magnesium 1.9 mg/dL (1.7-2.8) 03/10/23 05:08 Total Bilirubin 0.4 mg/dL (0.2-1.0) 03/08/23 19:36 AST 11 IU/L (10-42) 03/08/23 19:36 ALT 14 IU/L (10-60) 03/08/23 19:36 Alkaline Phosphatase 110 IU/L (42-121) 03/08/23 19:36 C-Reactive Protein 5.3 mg/dL (0-1.0) H 03/11/23 05:13 Total Protein 6.8 g/dL (6.7-8.2) 03/08/23 19:36 Albumin 2.5 g/dL (3.2-5.5) L 03/08/23 19:36 Globulin 4.3 g/dL (2.1-4.2) H 03/08/23 19:36 Albumin/Globulin Ratio 0.6 (1.0-2.2) L 03/08/23 19:36 Last Dose Date UNK 03/11/23 11:18 Last Dose Time UNK 03/11/23 11:18 Vancomycin Trough 9.5 ug/mL (10.0-20.0) L 03/11/23 11:18 Urine Opiates Screen POSITIVE (NEGATIVE) H 03/09/23 04:26 Ur Oxycodone Screen NEGATIVE (NEGATIVE) 03/09/23 04:26 Urine Methadone Screen NEGATIVE (NEGATIVE) 03/09/23 04:26 Ur Propoxyphene Screen NEGATIVE (NEGATIVE) 03/09/23 04:26 Ur Barbiturates Screen NEGATIVE (NEGATIVE) 03/09/23 04:26 Ur Tricyclics Screen NEGATIVE (NEGATIVE) 03/09/23 04:26 Ur Phencyclidine Scrn NEGATIVE (NEGATIVE) 03/09/23 04:26 Ur Amphetamine Screen POSITIVE (NEGATIVE) H 03/09/23 04:26 U Methamphetamines Scrn POSITIVE (NEGATIVE) H 03/09/23 04:26 U Benzodiazepines Scrn NEGATIVE (NEGATIVE) 03/09/23 04:26 Urine Cocaine Screen NEGATIVE (NEGATIVE) 03/09/23 04:26 U Cannabinoids Screen POSITIVE (NEGATIVE) H 03/09/23 04:26 Serum Ketones NEGATIVE (NEGATIVE) 03/08/23 19:36 SARS-CoV-2 (PCR) NOT DETECTED 03/08/23 19:52 - Procedures Procedures: Procedures EXCISION OF DESCENDING COLON, ENDO (10/18/20)
[2023-03-11] MEDS: DOCUSATE SODIUM 250 MG CAPSULE PO SCH ×2 (16:18→20:58)
[2023-03-11] MEDS: SENNA 8.6 MG TABLET PO SCH ×2 (16:20→20:58)
--- NOTE | 2023-03-11 16:46 | MRI Report ---
PROCEDURE: FOOT W/WO - RT INDICATIONS: Osteo abscess suspected, chronc diab foot ulcer CONTRAST: gadavist 7.5ml TECHNIQUE: Noncontrast sagittal T1 spin echo and T2 fast spin echo with fat saturation, long-axis T1 spin echo a nd T2 fast spin echo with fat saturation; short-axis T1 spin echo, proton density fast spin echo, and T2 fast spin echo with fat saturation through the forefoot. Post-contrast short axis, long axis, an d sagittal T1 spin echo with fat saturation through the forefoot. COMPARISON: 03/08/2023. FINDINGS: Image quality: Excellent. Bones and joints: Extensive marrow edema throughout first metatarsal bone, first proximal and distal phalanges is seen. Geographic area of signal abnormality within first metatarsal shaft is noted hussain rning for osteonecrosis. Cortical erosion involving plantar and medial cortices of first metatarsal s haft and first proximal phalangeal shaft is seen. Erosive changes also noted involving first distal p halangeal tuft and medial cortex. Mild to moderate osteoarthritic changes are noted throughout midfoo t and forefoot. No other area of abnormal marrow signal or bony erosive changes. Heterogeneous contra st enhancement throughout great toe is noted. No other area of abnormal intraosseous enhancement. Soft tissues: Full-thickness ulceration involving plantar aspect of first MCP joint is seen with constance ed soft tissue swelling and edema surrounding great toe particularly surrounding first MTP joint and show heterogeneous contrast enhancement. No discrete drainable peripherally enhancing fluid collectio n is noted. No full-thickness extensor or flexor tendon rupture. Lisfranc ligament and joint is intac t. Significant edema throughout visualized plantar foot muscles are noted without discrete intramuscu lar fluid collection. IMPRESSION: 1. Ulceration involving plantar aspect of first MTP joint with extensive cellulitis involving medial aspect of midfoot and forefoot. No discrete drainable abscess collection. 2. Extensive osteomyelitis involving first metatarsal bone, first proximal and distal phalanges as ab ove. Geographic area of signal abnormality within first metatarsal shaft concerning for osteonecrosis . No acute fracture or dislocation. 3. Myositis involving the visualized plantar foot muscles. No drainable intramuscular fluid collectio n. Reviewed by: Leon Ford MD on 03/11/2023 4:44 PM PDT Approved by: Leon Ford MD on 03/11/2023 4:44 PM PDT Station ID: [id number]
--- NOTE | 2023-03-11 19:15 | Discharge Plan ---
Discharge Plan Problem Reviewed?: Yes Disposition: 02 Transfer Acute Care Hosp No Smoking: If you smoke, Please STOP! Call for help.
[2023-03-11 20:55] VITALS: BP 130/70
[2023-03-11] MEDS ORDERED: VANCOMYCIN INJ 1 GM, VANCOMYCIN INJ 500 MG in SODIUM CHLORIDE 0.9% 500 ML IV SCH (22:00)
--- NOTE | 2023-03-12 08:59 | DISCHARGE SUMMARY ---
Discharge Summary Admit Date: 03/09/23 Discharge Date: 03/11/23 Discharging Provider: Dr Dariana Gonzales Primary Care Provider: Unknown Discharge Disposition: 02 Transfer Acute Care Hosp - [facility] History of Present Illness: This is a 62-year-old man who has type 2 diabetes, is on insulin. He has a history of chronic diabetic foot ulcers. There is a history of an epidural abscess that needed to be drained and he had prolonged hospitalization because of this several years ago. Patient was usually followed at the wound clinic for his diabetic foot ulcers. He stopped attending those appointments (mainly, he said, because his car broke down and he could not get to them). He was subsequently discharged from [facility] because of no-shows. The patient developed 2-3 days of drainage and worse pain of the ulcer on the right foot and because of that, he presented to the ER last evening. He denied a fever or chills. He admits he is not compliant with a diabetic diet nor with checking his fingersticks. He was found to have a normal WBC but elevated ESR greater than 140 and elevated CRP of 12.9. In the ER, he underwent x-rays of both feet and findings are that of bone changes consistent with osteomyelitis of the plantar aspect of the right foot. Because of the epidural abscess history, he also underwent MRI of his back today. This showed no areas suspicious for infection or abscess. He has been started on empiric IV Vanco and IV Unasyn given in the ED. The ED provider reached out to me on the Hospitalist team and we spoke about having this patient admitted for treatment of his diabetic foot ulcers with probable R foot osteomyelitis. - HOSPITAL COURSE Hospital Course: (1) Osteomyelitis of right foot - M86.9 - Osteomyelitis, unspecified The source was a chronic right diabetic foot wound. His XRay was read as having osteo. He was kept on iv antibiotics. His WBC was normal and was actually decreasing. His ESR was > 140 and remained > 140. The CRP was 12.9 and improved to 5.3 (at time of transfer). Dr. Car of Wound Clinic saw him in consult and recommended an MRI. The MRI came back showing osteomyelitis and osteonecrosis as well as myositis and cellulitis. The current orthopedic surgeon here does not do foot amputations, only BKAs. Therefore, I spoke to Dr Bethea, the hand laminator at [facility], who did prior intervention(s) on this patient and knew him. Dr. Bethea recommended the pat ient be transferred to their hospital onto the Hospitalist service and Dr Bethea would be nursing education consultant, as he does do amputations. The Hospitalist at [facility] accepted this patient in transfer. (2) Osteonecrosis As in #1. (3) Diabetic foot ulcer The gram stain from the foot wound drainage showed WBC and then grew E coli, and a gram Pos. Dr. Car of [facility] saw patient in consult and did debridement and sent off another culture and he advised the foot MRI. We continued antibx as in #1. We continued Tylenol, oxycodone and Dilaudid as needed, but he got his best pain relief from Flexeril plus Gabapentin. (4) Myositis As in #1 (5) Cellulitis As in #1 (6) Uncontrolled diabetes mellitus He reported that his glucose at home recently measured greater than 500. He normally does not do fingersticks at all he admitted, and also does not follow a diabetic diet at all. But he takes his insulin on schedule, as prescribed. His admission labs showed glucose in the 300s. Because of the high glucoses, he also had pseudohyponatremia on labs at admission. His A1c came back at 15, which equates to an avg glu of 348. We had him on Lantus Insulin, Reg Insulin 5U TID with meals, and sliding scale insulin. Our panel raiser operator saw him in consultation and for giving him education. (7) Drug abuse - F19.10 The patient admitted to smoking a lot of marijuana. His MUDS tox screen came back (+) for meth, amphetamines and narcotics. There were no narcotics listed on his reconciled medication list. His upper jaw was edentulous, which is consistent with meth use. I asked him where he is getting meth from. He denied getting any meth. When I re-questioned him and told him the test definitely shows meth was present, he then admitted that "maybe he is getting it from his girlfriend who is trying naturopathy and is making concoctions to give him". (8) Necrotic tooth - K04.1 On 03/10 he told his afternoon nurse that he was lightheaded. Vital signs were checked and were normal at the time (BP 141/84, heart rate 68). He told me he gets this feeling of near syncope and he needs to rest, it can last an hour. He has never had syncope. It is associated with pain in the left upper posterior mandible where he has one broken tooth left, the rest of his upper teeth "fell out recently". That tooth pain radiates to his left TMJ and he thinks he might have sinusitis. I ordered maxillofacial CT to evaluate for abscess or any infection. It showed necrotic teeth but no areas of abscess or bony involvement. (9) Anemia His hemoglobin was 9.9 on presentation>> Hgb 8.9 after iv fluids. His B12, folate levels, and iron stores were not checked before his transfer. (10) HTN (hypertension) His blood pressure was running 160-180/80-100, then improved once his home meds of Lisinopril and amlodipine were resumed. - ALLERGIES Allergies/Adverse Reactions: Allergies Allergy/AdvReac Type Severity Reaction Status Date / Time No Known Drug Allergies Allergy Verified 01/03/23 09:52 - MEDICATIONS Home Medications: Ambulatory Orders Medication Instructions Recorded Confirmed Cyclobenzaprine [Flexeril] 10 mg PO TID PRN 09/15/22 03/10/23 Gabapentin [Neurontin] 300 mg PO TID 09/15/22 03/10/23 Insulin Aspart [Novolog] 5 unit SQ TIDWM 09/15/22 03/10/23 Insulin Glargine [Lantus Solostar] 22 units SQ QDBREAKFAST 09/15/22 03/10/23 Lisinopril [Zestril] 40 mg PO DAILY 09/15/22 03/10/23 Metoprolol Tartrate [Lopressor] 50 mg PO BID 09/15/22 03/10/23 Amlodipine Besylate [Norvasc] 10 mg PO DAILY 11/18/22 03/10/23 Multivit-Minerals/Folic Acid 200 mcg PO DAILY 11/18/22 03/10/23 [Multivitamin Gummies] - PHYSICAL EXAM AT DISCHARGE General Appearance: positive: No acute distress, Alert, Other (Disheveled.) Eyes Bilateral: positive: Normal inspection, EOMI ENT: positive: No signs of dehydration, Other (Nearly edentulous upper jaw. Poor lower jaw dentition.) Neck: positive: Nml inspection, No JVD Respiratory: positive: No respiratory distress, Breath sounds nml Cardiovascular: positive: Regular rate & rhythm, No murmur Abdomen: positive: Nml bowel sounds, No distention Skin: positive: Warm, Dry Extremities: positive: Other (Dry eschar on plantar side L foot under 5th toe. Bandaged, open ulcer, plantar side R foot, under great toe.) - LABS Result Diagrams: 03/11/23 05:13 03/11/23 05:13 - DIAGNOSTIC IMAGING Diagnostic Imaging Results: Final report reviewed - FOLLOW UP Follow Up: F/U will be determined after his hosputalization at [facility]. - TIME SPENT Time Spent in Discharge (Minutes): 55
== END 2023-03-11 21:20 | disposition short-term general hospital (02) | DRG 501 ==
LOC: ED 19:18 → MS2 03-09 17:11
PROVIDERS: ADMIT Internal Medicine; ATTEND Internal Medicine
PROC: 0LBV0ZZ Excision of Right Foot Tendon, Open Approach (ICD-10-PCS; principal; 2023-03-11)
DX: M86.171 Other acute osteomyelitis, right ankle and foot (principal); L03.115 Cellulitis of right lower limb; L97.412 Non-pressure chronic ulcer of right heel and midfoot with fat layer exposed; M87.3 Other secondary osteonecrosis; M60.9 Myositis, unspecified; E11.621 Type 2 diabetes mellitus with foot ulcer; L97.511 Non-pressure chronic ulcer of other part of right foot limited to breakdown of skin; E11.65 Type 2 diabetes mellitus with hyperglycemia; Z79.4 Long term (current) use of insulin; B96.20 Unspecified Escherichia coli [E. coli] as the cause of diseases classified elsewhere; F15.10 Other stimulant abuse, uncomplicated; F12.10 Cannabis abuse, uncomplicated; F19.10 Other psychoactive substance abuse, uncomplicated; K04.1 Necrosis of pulp; D64.9 Anemia, unspecified; I10 Essential (primary) hypertension; Z91.119 Patient's noncompliance with dietary regimen due to unspecified reason; E78.00 Pure hypercholesterolemia, unspecified; L97.529 Non-pressure chronic ulcer of other part of left foot with unspecified severity; E11.42 Type 2 diabetes mellitus with diabetic polyneuropathy
CPT/HCPCS: 36415; 70486; 72158; 73630; 73720; 80048; 80053; 80202; 80306; 82009; 82803; 83036; 83605; 83735; 84100; 85025; 85651; 86140; 87040; 87070; 87075; 87077; 87181; 87205; 87635; 96365; 96366; 96375; 96376; 97162; 97166; 97530; 99285; A9270; A9585; J1170; J1650; J1815; J3370

== ENCOUNTER 2023-10-07 11:21 | Outpatient (CLI) | payer MEDICAID ==
[2023-10-07 11:39] LABS: ALBUMIN 3.9 g/dL (3.2-5.5); ALBUMIN/GLOBULIN RATIO 1.1 (1.0-2.2); BILIRUBIN,TOTAL 0.2 mg/dL (0.2-1.0); CALCIUM 9.1 mg/dL (8.5-10.3); CREATININE 0.9 mg/dL (0.6-1.3); POTASSIUM 3.9 mmol/L (3.5-4.5); TOTAL PROTEIN 7.6 g/dL (6.4-8.9)
[2023-10-07 12:01] LABS: BASOPHILS % (AUTO) 0.6 %; EOSINOPHILS # (AUTO) 0.1 10^3/uL (0.0-0.7); EOSINOPHILS % (AUTO) 1.1 %; HCT - HEMATOCRIT 32.1 % (42.0-52.0); HGB - HEMOGLOBIN 10.3 g/dL (14.0-18.0); LYMPHOCYTES # (AUTO) 1.8 10^3/uL (1.5-3.5); LYMPHOCYTES % (AUTO) 24.8 %; MEAN CORPUSCULAR HGB CONC 32.1 g/dL (32.0-36.0); MEAN CORPUSCULAR VOLUME 84.3 fL (80.0-94.0); MEAN PLATELET VOLUME 10.4 fL (7.4-11.4); MONOCYTES # (AUTO) 0.5 10^3/uL (0.0-1.0); MONOCYTES % (AUTO) 6.4 %; NEUTROPHILS # (AUTO) 4.8 10^3/uL (1.5-6.6); NEUTROPHILS % (AUTO) 66.8 %; PLT - PLATELET COUNT 331 10^3/uL (130-450); RED BLOOD COUNT 3.81 10^6/uL (4.70-6.10); RED CELL DISTRIBUTION WIDTH 14.4 % (12.0-15.0); WHITE BLOOD COUNT 7.2 x10^3/uL (4.8-10.8)
[2023-10-08 14:14] LABS: CRP - C-REACTIVE PROTEIN 0.9 mg/dL (<0.5)
== END 2023-10-07 11:22 | disposition home or self-care (01) ==
LOC: LAB.R 11:21
PROVIDERS: ATTEND Internal Medicine Infectious Disease
DX: E11.621 Type 2 diabetes mellitus with foot ulcer (principal); L03.116 Cellulitis of left lower limb; L02.416 Cutaneous abscess of left lower limb
CPT/HCPCS: 80053; 82550; 85025; 86140

== ENCOUNTER 2023-10-14 13:43 | Outpatient (CLI) | payer MEDICAID ==
[2023-10-14 13:55] LABS: BASOPHILS # (AUTO) 0.1 10^3/uL (0.0-0.1); BASOPHILS % (AUTO) 0.8 %; EOSINOPHILS # (AUTO) 0.4 10^3/uL (0.0-0.7); EOSINOPHILS % (AUTO) 6.6 %; HCT - HEMATOCRIT 36.4 % (42.0-52.0); HGB - HEMOGLOBIN 11.7 g/dL (14.0-18.0); LYMPHOCYTES # (AUTO) 2.1 10^3/uL (1.5-3.5); LYMPHOCYTES % (AUTO) 32.2 %; MEAN CORPUSCULAR HEMOGLOBIN 26.5 pg (27.0-31.0); MEAN CORPUSCULAR HGB CONC 32.1 g/dL (32.0-36.0); MEAN CORPUSCULAR VOLUME 82.5 fL (80.0-94.0); MEAN PLATELET VOLUME 10.3 fL (7.4-11.4); MONOCYTES # (AUTO) 0.5 10^3/uL (0.0-1.0); MONOCYTES % (AUTO) 7.2 %; NEUTROPHILS # (AUTO) 3.4 10^3/uL (1.5-6.6); NEUTROPHILS % (AUTO) 52.6 %; PLT - PLATELET COUNT 272 10^3/uL (130-450); RED BLOOD COUNT 4.41 10^6/uL (4.70-6.10); RED CELL DISTRIBUTION WIDTH 13.9 % (12.0-15.0); WHITE BLOOD COUNT 6.5 x10^3/uL (4.8-10.8)
[2023-10-14 14:06] LABS: ALBUMIN 4.1 g/dL (3.2-5.5); ALBUMIN/GLOBULIN RATIO 1.2 (1.0-2.2); ALKALINE PHOSPHATASE 109 IU/L (42-121); ALT ALANINE AMINOTRANSFERASE 12 IU/L (10-60); AST ASPARTATE AMINOTRANSFERASE 10 IU/L (10-42); BILIRUBIN,TOTAL 0.3 mg/dL (0.2-1.0); BUN - BLOOD UREA NITROGEN 23 mg/dL (6-20); CALCIUM 9.6 mg/dL (8.5-10.3); CARBON DIOXIDE - CO2 29 mmol/L (21-32); CHLORIDE 102 mmol/L (101-111); CREATININE 0.9 mg/dL (0.6-1.3); CRP - C-REACTIVE PROTEIN < 0.5 mg/dL (<0.5); GFR - MDRD 86 (>89); GLUCOSE 104 mg/dL (74-104); POTASSIUM 3.9 mmol/L (3.5-4.5); SODIUM 139 mmol/L (135-145); TOTAL PROTEIN 7.6 g/dL (6.4-8.9)
[2023-10-15 13:03] LABS: CK- CREATINE KINASE 34 IU/L (30-223)
== END 2023-10-14 13:44 | disposition home or self-care (01) ==
LOC: LAB.R 13:43
PROVIDERS: ATTEND Internal Medicine Infectious Disease
DX: E11.621 Type 2 diabetes mellitus with foot ulcer (principal); L03.116 Cellulitis of left lower limb; L02.416 Cutaneous abscess of left lower limb
CPT/HCPCS: 80053; 82550; 85025; 86140

== ENCOUNTER 2023-10-28 12:31 | Outpatient (CLI) | payer MEDICAID ==
[2023-10-28 12:44] LABS: BASOPHILS % (AUTO) 0.4 %; EOSINOPHILS # (AUTO) 0.1 10^3/uL (0.0-0.7); EOSINOPHILS % (AUTO) 2.1 %; HCT - HEMATOCRIT 37.4 % (42.0-52.0); HGB - HEMOGLOBIN 12.1 g/dL (14.0-18.0); LYMPHOCYTES # (AUTO) 1.6 10^3/uL (1.5-3.5); LYMPHOCYTES % (AUTO) 29.7 %; MEAN CORPUSCULAR HEMOGLOBIN 26.8 pg (27.0-31.0); MEAN CORPUSCULAR HGB CONC 32.4 g/dL (32.0-36.0); MEAN CORPUSCULAR VOLUME 82.7 fL (80.0-94.0); MEAN PLATELET VOLUME 11.3 fL (7.4-11.4); MONOCYTES # (AUTO) 0.3 10^3/uL (0.0-1.0); NEUTROPHILS # (AUTO) 3.3 10^3/uL (1.5-6.6); NEUTROPHILS % (AUTO) 61.6 %; PLT - PLATELET COUNT 278 10^3/uL (130-450); RED BLOOD COUNT 4.52 10^6/uL (4.70-6.10); RED CELL DISTRIBUTION WIDTH 14.2 % (12.0-15.0); WHITE BLOOD COUNT 5.3 x10^3/uL (4.8-10.8)
== END 2023-10-28 12:32 | disposition home or self-care (01) ==
LOC: LAB.R 12:31
PROVIDERS: ATTEND Internal Medicine Infectious Disease
DX: E11.621 Type 2 diabetes mellitus with foot ulcer (principal); L03.116 Cellulitis of left lower limb; L02.416 Cutaneous abscess of left lower limb
CPT/HCPCS: 80053; 82550; 85025; 86140

== ENCOUNTER 2023-11-01 11:46 | Outpatient (CLI) | payer MEDICAID ==
[2023-11-01 11:57] LABS: BASOPHILS % (AUTO) 0.4 %; EOSINOPHILS # (AUTO) 0.1 10^3/uL (0.0-0.7); EOSINOPHILS % (AUTO) 1.2 %; HCT - HEMATOCRIT 34.1 % (42.0-52.0); LYMPHOCYTES # (AUTO) 1.3 10^3/uL (1.5-3.5); LYMPHOCYTES % (AUTO) 19.1 %; MEAN CORPUSCULAR HEMOGLOBIN 26.9 pg (27.0-31.0); MEAN CORPUSCULAR HGB CONC 32.3 g/dL (32.0-36.0); MEAN CORPUSCULAR VOLUME 83.4 fL (80.0-94.0); MEAN PLATELET VOLUME 11.3 fL (7.4-11.4); MONOCYTES # (AUTO) 0.4 10^3/uL (0.0-1.0); MONOCYTES % (AUTO) 6.4 %; NEUTROPHILS # (AUTO) 4.9 10^3/uL (1.5-6.6); NEUTROPHILS % (AUTO) 72.3 %; PLT - PLATELET COUNT 209 10^3/uL (130-450); RED BLOOD COUNT 4.09 10^6/uL (4.70-6.10); WHITE BLOOD COUNT 6.8 x10^3/uL (4.8-10.8)
[2023-11-01 12:09] LABS: ALBUMIN 4.1 g/dL (3.2-5.5); ALBUMIN/GLOBULIN RATIO 1.4 (1.0-2.2); ALKALINE PHOSPHATASE 95 IU/L (42-121); ALT ALANINE AMINOTRANSFERASE 11 IU/L (10-60); AST ASPARTATE AMINOTRANSFERASE 11 IU/L (10-42); BILIRUBIN,TOTAL 0.2 mg/dL (0.2-1.0); BUN - BLOOD UREA NITROGEN 19 mg/dL (6-20); CALCIUM 9.4 mg/dL (8.5-10.3); CARBON DIOXIDE - CO2 29 mmol/L (21-32); CHLORIDE 101 mmol/L (101-111); CREATININE 0.8 mg/dL (0.6-1.3); CRP - C-REACTIVE PROTEIN < 0.5 mg/dL (<0.5); GFR - MDRD 98 (>89); GLUCOSE 353 mg/dL (74-104); POTASSIUM 4.2 mmol/L (3.5-4.5); SODIUM 137 mmol/L (135-145); TOTAL PROTEIN 7.1 g/dL (6.4-8.9)
[2023-11-01 13:05] LABS: CK- CREATINE KINASE 45 IU/L (30-223)
== END 2023-11-01 11:47 | disposition home or self-care (01) ==
LOC: LAB.R 11:46
PROVIDERS: ATTEND Internal Medicine Infectious Disease
DX: E11.621 Type 2 diabetes mellitus with foot ulcer (principal); L02.416 Cutaneous abscess of left lower limb; L03.116 Cellulitis of left lower limb
CPT/HCPCS: 80053; 82550; 85025; 86140

== ENCOUNTER 2023-11-04 14:16 | Outpatient (CLI) | payer MEDICAID ==
[2023-11-04 14:27] LABS: BASOPHILS % (AUTO) 0.6 %; EOSINOPHILS # (AUTO) 0.1 10^3/uL (0.0-0.7); EOSINOPHILS % (AUTO) 2.2 %; HCT - HEMATOCRIT 34.8 % (42.0-52.0); HGB - HEMOGLOBIN 11.2 g/dL (14.0-18.0); LYMPHOCYTES # (AUTO) 2.1 10^3/uL (1.5-3.5); LYMPHOCYTES % (AUTO) 41.5 %; MEAN CORPUSCULAR HEMOGLOBIN 26.9 pg (27.0-31.0); MEAN CORPUSCULAR HGB CONC 32.2 g/dL (32.0-36.0); MEAN CORPUSCULAR VOLUME 83.5 fL (80.0-94.0); MEAN PLATELET VOLUME 10.5 fL (7.4-11.4); MONOCYTES # (AUTO) 0.4 10^3/uL (0.0-1.0); MONOCYTES % (AUTO) 7.8 %; NEUTROPHILS # (AUTO) 2.4 10^3/uL (1.5-6.6); NEUTROPHILS % (AUTO) 47.3 %; PLT - PLATELET COUNT 217 10^3/uL (130-450); RED BLOOD COUNT 4.17 10^6/uL (4.70-6.10); RED CELL DISTRIBUTION WIDTH 14.6 % (12.0-15.0)
[2023-11-04 14:41] LABS: ALBUMIN 4.2 g/dL (3.2-5.5); ALBUMIN/GLOBULIN RATIO 1.4 (1.0-2.2); ALKALINE PHOSPHATASE 98 IU/L (42-121); ALT ALANINE AMINOTRANSFERASE 12 IU/L (10-60); AST ASPARTATE AMINOTRANSFERASE 10 IU/L (10-42); BILIRUBIN,TOTAL 0.3 mg/dL (0.2-1.0); BUN - BLOOD UREA NITROGEN 26 mg/dL (6-20); CALCIUM 9.8 mg/dL (8.5-10.3); CARBON DIOXIDE - CO2 31 mmol/L (21-32); CHLORIDE 100 mmol/L (101-111); CK- CREATINE KINASE 58 IU/L (30-223); CREATININE 1.1 mg/dL (0.6-1.3); CRP - C-REACTIVE PROTEIN < 0.5 mg/dL (<0.5); GFR - MDRD 68 (>89); GLUCOSE 289 mg/dL (74-104); SODIUM 138 mmol/L (135-145); TOTAL PROTEIN 7.2 g/dL (6.4-8.9)
== END 2023-11-04 14:17 | disposition home or self-care (01) ==
LOC: LAB 14:16 → LAB.R 14:17
PROVIDERS: ATTEND Internal Medicine Infectious Disease
DX: E11.621 Type 2 diabetes mellitus with foot ulcer (principal); L03.116 Cellulitis of left lower limb; L02.416 Cutaneous abscess of left lower limb
CPT/HCPCS: 80053; 82550; 85025; 86140

== ENCOUNTER 2024-02-10 15:23 | Outpatient (CLI) | payer MEDICAID ==
--- NOTE | 2024-02-10 16:16 | XRAY Report ---
PROCEDURE: Foot 3+V RT INDICATIONS: OSTEOMYELITIS R 2ND MTH TECHNIQUE: 3 views of the foot were acquired. COMPARISON: 03/08/2023 FINDINGS: Bones: No fractures or dislocations. Amputation of the first digit at the mid metatarsal. Severe def ormity of the second MTP joint. Possible irregularity at the second MTP, concerning for osteomyelitis . No suspicious bony lesions. Soft tissues: No tibiotalar joint effusion. Achilles tendon appears normal. IMPRESSION: Deformity of the second MTP with possible cortical irregularity, concerning for osteomyelitis. Consid er MRI for further evaluation. Reviewed by: Danny Cunningham MD on 02/10/2024 4:14 PM PDT Approved by: Danny Cunningham MD on 02/10/2024 4:14 PM PDT Station ID: [id number]
== END 2024-02-10 15:24 | disposition home or self-care (01) ==
LOC: DI 15:23
PROVIDERS: ATTEND Family Medicine
DX: L97.512 Non-pressure chronic ulcer of other part of right foot with fat layer exposed (principal); L97.516 Non-pressure chronic ulcer of other part of right foot with bone involvement without evidence of necrosis; E11.621 Type 2 diabetes mellitus with foot ulcer; L97.422 Non-pressure chronic ulcer of left heel and midfoot with fat layer exposed; L97.522 Non-pressure chronic ulcer of other part of left foot with fat layer exposed; Z79.2 Long term (current) use of antibiotics

== ENCOUNTER 2024-04-10 09:37 | Outpatient (CLI) | payer MEDICAID | END 2024-04-10 23:59 | disposition critical access hospital (66) | LOC: EMS 09:37 | DX: I46.9 Cardiac arrest, cause unspecified (principal) | CPT/HCPCS: A0425; A0427; A0999 ==

== ENCOUNTER 2024-04-10 09:53 | Inpatient (IN) | payer MEDICAID ==
--- NOTE | 2024-04-10 10:01 | ED Physician Documentation ---
PD HPI ALTERED MENTAL STATUS - Stated complaint Stated Complaint: POST CPR/ROSC - History obtained from History obtained from: EMS - History of Present Illness Timing - onset: Unknown (pt has daytime caregivers) Timing - details: Still present Quality / character: Unresponsive Associated symptoms: Other (inadequate resp effort) Contributing factors: Other (unknown) Basline status: Alert and oriented X 3, Ambulatory Recently seen: Emergency Dept (reportedly seen [facility] ER for foot infection about 2 weeks prior.) Review of Systems Unable to obtain: Intubated, AMS PD PAST MEDICAL HISTORY - Past Medical History Cardiovascular: Peripheral Vascular Disease Endocrine/Autoimmune: Type 2 diabetes - Present Medications Home Medications: Ambulatory Orders Medication Instructions Recorded Confirmed Amlodipine Besylate [Norvasc] 5 mg PO BID 11/18/22 04/10/24 Amox/Clav 875/125 [Augmentin 1 tab PO BID 04/10/24 04/10/24 875/125 Tab] Baclofen 20 mg PO QID 04/10/24 04/10/24 Baclofen [Lioresal] 10 mg PO QID PRN 04/10/24 04/10/24 Gabapentin [Neurontin] 200 mg PO TID 04/10/24 04/10/24 Insulin Glargine,Hum.rec.anlog 22 units SUBQ DAILY 04/10/24 04/10/24 [Basaglar Kwikpen U-100] Insulin Lispro [Humalog Kwikpen 0 - 8 units SUBQ TIDWM 04/10/24 04/10/24 U-100] Isosorbide Mononitrate ER [Imdur] 30 mg PO DAILY 04/10/24 04/10/24 Lisinopril [Zestril] 40 mg PO DAILY 04/10/24 04/10/24 Magnesium Oxide 400 mg PO DAILY 04/10/24 04/10/24 Naloxone HCl Nasal [Narcan Nasal] 1 spray PATRICK PRN PRN 04/10/24 04/10/24 Oxycodone HCl 10 mg PO Q4HR PRN 04/10/24 04/10/24 Senna [Senokot] 8.6 mg PO DAILY 04/10/24 04/10/24 polyethylene glycoL 3350 [Miralax] 17 g PO DAILY PRN 04/10/24 04/10/24 - Allergies Allergies/Adverse Reactions: Allergies Allergy/AdvReac Type Severity Reaction Status Date / Time No Known Drug Allergies Allergy Verified 04/10/24 11:17 PD ED PE NORMAL - Vitals Vital signs reviewed: Yes - General General: Well developed/nourished - HEENT HEENT: Atraumatic - Cardiac Cardiac: RRR (bradycardic but regular. ) - Respiratory Respiratory: No: Clear bilaterally (coarse sounds right base. otherwise symmetric airflow with vent c/w good tube position. ) - Abdomen Abdomen: Normal bowel sounds (diminished), Non distended - Derm Derm: Normal color, Warm and dry - Extremities Extremities: No edema, Other (left foot with bandaging around mid foot and toes. ) - Neuro Eye Opening: None Motor: None Verbal: None GCS Score: 3 Results - Vitals Vitals: Vital Signs - 24 hr 04/10/24 04/10/24 04/10/24 09:55 10:01 10:11 Temperature 35.4 C L Heart Rate 445 H 47 L 63 Respiratory 16 18 Rate Blood Pressure 181/92 H 165/90 H O2 Saturation 100 100 04/10/24 04/10/24 04/10/24 10:16 10:31 10:41 Temperature Heart Rate 47 L 50 L 42 L Respiratory 18 22 24 Rate Blood Pressure 165/90 H 57/42 L 120/77 O2 Saturation 100 98 100 04/10/24 04/10/24 04/10/24 10:50 10:57 11:00 Temperature 35.1 C L Heart Rate 46 L 49 L 51 L Respiratory 23 22 18 Rate Blood Pressure 119/74 111/72 107/73 O2 Saturation 100 99 99 04/10/24 04/10/24 04/10/24 11:05 11:12 11:24 Temperature Heart Rate 52 L 46 L 55 L Respiratory 18 18 18 Rate Blood Pressure 104/71 115/74 71/53 L O2 Saturation 98 99 97 04/10/24 04/10/24 04/10/24 11:32 11:37 11:44 Temperature 35.2 C L Heart Rate 47 L 44 L 48 L Respiratory 18 19 18 Rate Blood Pressure 101/74 128/79 127/79 O2 Saturation 99 99 99 04/10/24 04/10/24 04/10/24 11:45 12:00 12:15 Temperature Heart Rate 48 L 55 L 53 L Respiratory 18 16 18 Rate Blood Pressure 114/76 120/76 113/80 O2 Saturation 99 98 99 04/10/24 04/10/24 04/10/24 12:30 12:45 12:56 Temperature Heart Rate 59 L 52 L 59 L Respiratory 21 18 18 Rate Blood Pressure 113/80 184/96 H 144/88 H O2 Saturation 100 100 100 04/10/24 04/10/24 04/10/24 13:00 13:05 13:11 Temperature 35.5 C L 35.5 C L Heart Rate 57 L 58 L 60 Respiratory 18 18 18 Rate Blood Pressure 137/89 H 135/89 H 131/87 H O2 Saturation 99 99 99 04/10/24 04/10/24 04/10/24 13:25 13:30 13:36 Temperature 35.6 C L Heart Rate 56 L 53 L 60 Respiratory 18 18 22 Rate Blood Pressure 127/89 H 188/109 H 165/87 H O2 Saturation 99 98 100 04/10/24 04/10/24 04/10/24 13:40 13:45 14:00 Temperature Heart Rate 68 62 53 L Respiratory 18 18 18 Rate Blood Pressure 119/79 98/70 132/81 H O2 Saturation 98 99 99 Oxygen O2 Source Mechanical ventilator - Labs Labs: Laboratory Tests 04/10/24 04/10/24 04/10/24 10:05 10:05 10:05 WBC 6.5 RBC 4.31 L Hgb 11.0 L Hct 36.4 L MCV 84.5 MCH 25.5 L MCHC 30.2 L RDW 15.5 H Plt Count 303 MPV 10.2 Neut # (Auto) 2.8 Lymph # (Auto) 2.8 [place] # (Auto) 0.6 Eos # (Auto) 0.3 Baso # (Auto) 0.0 Absolute Nucleated RBC 0.00 Nucleated RBC % 0.0 Bld Gas Analysis Time Sample Site ABG pH ABG pCO2 ABG pO2 ABG HCO3 ABG Total CO2 ABG O2 Saturation ABG Base Excess Morris Test Respiration Rate O2 Delivery Device Vent Mode FiO2 Tidal Volume PEEP Sodium 138 Potassium 4.1 Chloride 102 Carbon Dioxide 26 Anion Gap 10.0 BUN 37 H Creatinine 2.9 H Estimated GFR (MDRD) 22 L Glucose 226 H POC Whole Bld Glucose Calcium 9.5 Total Bilirubin 0.4 AST 25 ALT 15 Alkaline Phosphatase 92 Total Creatine Kinase 320 H Troponin I High Sens 6.8 B-Natriuretic Peptide Total Protein 8.1 Albumin 4.2 Globulin 3.9 Albumin/Globulin Ratio 1.1 Lipase 28 Urine Color Urine Clarity Urine pH Ur Specific [place] Urine Protein Urine Glucose (UA) Urine Ketones Urine Occult Blood Urine Nitrite Urine Bilirubin Urine Urobilinogen Ur Leukocyte Esterase Urine RBC Urine WBC Ur Squamous Epith Cells Urine Bacteria Urine Casts Urine Mucus Ur Microscopic Review Urine Culture Comments Nasal Adenovirus (PCR) Nasal B. parapertussis DNA (PCR) Nasal Coronavir 229E PCR Nasal Coronavir HKU1 PCR Nasal Coronavir NL63 PCR Nasal Coronavir OC43 PCR Nasal Enterovir/Rhinovir PCR Nasal Influenza B PCR Nasal Influenza A PCR Nasal Parainfluen 1 PCR Nasal Parainfluen 2 PCR Nasal Parainfluen 3 PCR Nasal Parainfluen 4 PCR Nasal RSV (PCR) Nasal B.pertussis DNA PCR Nasal C.pneumoniae (PCR) Patrick Human Metapneumo PCR Nasal M.pneumoniae (PCR) Nasal SARS-CoV-2 (PCR) Salicylates < 1.5 Urine Opiates Screen Ur Buprenorphine Scrn Ur Oxycodone Screen Urine Methadone Screen Acetaminophen 1.5 Ur Barbiturates Screen Ur Tricyclics Screen Ur Phencyclidine Scrn Ur Amphetamine Screen U Methamphetamines Scrn U Benzodiazepines Scrn Urine Cocaine Screen U Cannabinoids Screen Ur Drug Screen Comment Ethyl Alcohol < 10.0 04/10/24 04/10/24 04/10/24 10:05 10:20 10:20 WBC RBC Hgb Hct MCV MCH MCHC RDW Plt Count MPV Neut # (Auto) Lymph # (Auto) [place] # (Auto) Eos # (Auto) Baso # (Auto) Absolute Nucleated RBC Nucleated RBC % Bld Gas Analysis Time Sample Site ABG pH ABG pCO2 ABG pO2 ABG HCO3 ABG Total CO2 ABG O2 Saturation ABG Base Excess Morris Test Respiration Rate O2 Delivery Device Vent Mode FiO2 Tidal Volume PEEP Sodium Potassium Chloride Carbon Dioxide Anion Gap BUN Creatinine Estimated GFR (MDRD) Glucose POC Whole Bld Glucose Calcium Total Bilirubin AST ALT Alkaline Phosphatase Total Creatine Kinase Troponin I High Sens B-Natriuretic Peptide 64 Total Protein Albumin Globulin Albumin/Globulin Ratio Lipase Urine Color YELLOW Urine Clarity CLEAR Urine pH 7.0 Ur Specific [place] 1.020 Urine Protein 30 H Urine Glucose (UA) 100 H Urine Ketones NEGATIVE Urine Occult Blood SMALL H Urine Nitrite NEGATIVE Urine Bilirubin NEGATIVE Urine Urobilinogen 0.2 (NORMAL) Ur Leukocyte Esterase NEGATIVE Urine RBC 0-5 Urine WBC 0-3 Ur Squamous Epith Cells NONE SEEN Urine Bacteria Few Urine Casts 0-2 Fine Granular Urine Mucus Few Strands Ur Microscopic Review INDICATED Urine Culture Comments NOT INDICATED Nasal Adenovirus (PCR) NOT DETECTED Nasal B. parapertussis DNA (PCR) NOT DETECTED Nasal Coronavir 229E PCR NOT DETECTED Nasal Coronavir HKU1 PCR NOT DETECTED Nasal Coronavir NL63 PCR NOT DETECTED Nasal Coronavir OC43 PCR NOT DETECTED Nasal Enterovir/Rhinovir PCR NOT DETECTED Nasal Influenza B PCR NOT DETECTED Nasal Influenza A PCR NOT DETECTED Nasal Parainfluen 1 PCR NOT DETECTED Nasal Parainfluen 2 PCR NOT DETECTED Nasal Parainfluen 3 PCR NOT DETECTED Nasal Parainfluen 4 PCR NOT DETECTED Nasal RSV (PCR) NOT DETECTED Nasal B.pertussis DNA PCR NOT DETECTED Nasal C.pneumoniae (PCR) NOT DETECTED Patrick Human Metapneumo PCR NOT DETECTED Nasal M.pneumoniae (PCR) NOT DETECTED Nasal SARS-CoV-2 (PCR) NOT DETECTED Salicylates Urine Opiates Screen POSITIVE H Ur Buprenorphine Scrn NEGATIVE Ur Oxycodone Screen POSITIVE H Urine Methadone Screen NEGATIVE Acetaminophen Ur Barbiturates Screen NEGATIVE Ur Tricyclics Screen NEGATIVE Ur Phencyclidine Scrn NEGATIVE Ur Amphetamine Screen POSITIVE H U Methamphetamines Scrn POSITIVE H U Benzodiazepines Scrn NEGATIVE Urine Cocaine Screen NEGATIVE U Cannabinoids Screen POSITIVE H Ur Drug Screen Comment CUTOFF CONC BELOW: Ethyl Alcohol 04/10/24 04/10/24 10:40 12:39 WBC RBC Hgb Hct MCV MCH MCHC RDW Plt Count MPV Neut # (Auto) Lymph # (Auto) [place] # (Auto) Eos # (Auto) Baso # (Auto) Absolute Nucleated RBC Nucleated RBC % Bld Gas Analysis Time 10:55 Sample Site LEFT RADIAL ABG pH 7.43 ABG pCO2 36 ABG pO2 77 L ABG HCO3 23.3 ABG Total CO2 24.4 ABG O2 Saturation 96 ABG Base Excess -0.7 Morris Test POSITIVE Respiration Rate 18 O2 Delivery Device VENTILATOR Vent Mode ASSIST/CONTROL FiO2 40.00 Tidal Volume 500 PEEP 5 Sodium Potassium Chloride Carbon Dioxide Anion Gap BUN Creatinine Estimated GFR (MDRD) Glucose POC Whole Bld Glucose 242 H Calcium Total Bilirubin AST ALT Alkaline Phosphatase Total Creatine Kinase Troponin I High Sens B-Natriuretic Peptide Total Protein Albumin Globulin Albumin/Globulin Ratio Lipase Urine Color Urine Clarity Urine pH Ur Specific [place] Urine Protein Urine Glucose (UA) Urine Ketones Urine Occult Blood Urine Nitrite Urine Bilirubin Urine Urobilinogen Ur Leukocyte Esterase Urine RBC Urine WBC Ur Squamous Epith Cells Urine Bacteria Urine Casts Urine Mucus Ur Microscopic Review Urine Culture Comments Nasal Adenovirus (PCR) Nasal B. parapertussis DNA (PCR) Nasal Coronavir 229E PCR Nasal Coronavir HKU1 PCR Nasal Coronavir NL63 PCR Nasal Coronavir OC43 PCR Nasal Enterovir/Rhinovir PCR Nasal Influenza B PCR Nasal Influenza A PCR Nasal Parainfluen 1 PCR Nasal Parainfluen 2 PCR Nasal Parainfluen 3 PCR Nasal Parainfluen 4 PCR Nasal RSV (PCR) Nasal B.pertussis DNA PCR Nasal C.pneumoniae (PCR) Patrick Human Metapneumo PCR Nasal M.pneumoniae (PCR) Nasal SARS-CoV-2 (PCR) Salicylates Urine Opiates Screen Ur Buprenorphine Scrn Ur Oxycodone Screen Urine Methadone Screen Acetaminophen Ur Barbiturates Screen Ur Tricyclics Screen Ur Phencyclidine Scrn Ur Amphetamine Screen U Methamphetamines Scrn U Benzodiazepines Scrn Urine Cocaine Screen U Cannabinoids Screen Ur Drug Screen Comment Ethyl Alcohol - Rads (name of study) chest xray Relevant Findings:: Prelim report reviewed (ETT in position. No infiltrates. comment on right PICC line but he does not have one. Might be monitor lead.?) PD Medical Decision Making - ED course Complexity details: reviewed results (Chest xray with ETT in satisfactory position. No noted infiltrates. NG tube in poistion. Subsequent CT head without acute process (No Rad report as of this time) and Chest CT angio without obvious PE. There is notable right lower infiltrate/pneumonia, likely aspiration (Again, still no rad report).), re-evaluated patient (mulitple evaluations for BP, sats, condition, responsiveness, and fluid/med adjustments. ), considered differential (Pt found unresponsive with low BP and HR leading to not palpable pulses initially (PEA by Medic), with pulses felt after Epi and IV fluids. Pt still not responsive without effective resp effort, so intubated. Still unresponsive on ED arrival. BP improved.), d/w family (I called the Pace Analyst on chart without answer. Left message on voice mail. Have not heard back. ) ED course: Patient to ED via EMS with altered mental status/ unresponsive found by caregiver (comes in AMs M-F, so could have been down for even couple of days). U npalpable pulses initially and inapparent breathing, so CPR initially by first responders. Medics on monitor found PEA (rhythm without pulses initially) but pulses felt after some fluid and epi IV. He was still not breathing independently, so intubated. He did have gag reflex per medic, so was given Succ and etomidate. Has not made resp effort after arrival here in ER. Reportedly seen for foot infection in past couple weeks at [facility] ER - obtained records eventually and will pass to Hospitalist. In ED, pt placed on vent. Not breathing above the rate. Did have some hiccup type spasms for 10-15 minutes but then stopped. Burris placed and he did have good urine output. Given IV fluids. The initial Norepi started by EMS was stopped as BP here was 160-180 systolic. Given IV fluids though. BP did lower to below 100 systolic with MAP 79, and given IV fluid boluses and resumed the norepi at 4 mcg/min. BP responded well. Norepi then subsequently tapered again to off and BP remained normal after IV fluids. CT head without acute process. CT chst with right lower infiltrate. No noted PE to my view (Radiology report still not resulted by time of admitting). Given IV antibiotics for pneumonia. May be likely aspiration given localtion, thickness of fluid, and unresponsive condition initially. He had sinus rhythm on monitor and troponin is negative, so not sounding primarily cardiac. Has multiple positives on UTox, so presume mixed substance overdose with AMS as most likely. Glucose and other labs are reasonably normal. Dr. Sawyer agreed to admit pt here as not presuming needing particular specialist such as cardiology. To ICU in stable condition. - Critical Care Time(min): 80 Time Includes: Direct patient care, Reassess patient, Document care, Coordinate care, See progress note Data interpretation: Labs, Pulse ox, ABG, CXR Procedures excluded from critical care time: EKG Departure - Departure Disposition: 66 [facility] DC/Xfer Clinical Impression: Acute respiratory insufficiency, MARJ (acute kidney injury), Polysubstance abuse AMS (altered mental status) Qualifiers: Altered mental status type: coma Pneumonia Qualifiers: Pneumonia type: aspiration pneumonia Aspiration pneumonia type: unspecified Laterality: right Lung location: lower lobe of lung Qualified Code(s): J69.0 - Pneumonitis due to inhalation of food and vomit Diabetes Qualifiers: Diabetes mellitus type: type 2 Diabetes mellitus assistant terminal manager insulin use: with assistant terminal manager use Diabetes mellitus complication status: with circulatory complication Diabetes mellitus complication detail: with peripheral angiopathy without gangrene Qualified Code(s): E11.51 - Type 2 diabetes mellitus with diabetic peripheral angiopathy without gangrene Condition: Stable Discharge Date/Time: 04/10/24 14:45
[2024-04-10 10:22] LABS: BASOPHILS % (AUTO) 0.6 %; EOSINOPHILS # (AUTO) 0.3 10^3/uL (0.0-0.7); EOSINOPHILS % (AUTO) 4.3 %; HCT - HEMATOCRIT 36.4 % (42.0-52.0); LYMPHOCYTES # (AUTO) 2.8 10^3/uL (1.5-3.5); LYMPHOCYTES % (AUTO) 42.6 %; MEAN CORPUSCULAR HEMOGLOBIN 25.5 pg (27.0-31.0); MEAN CORPUSCULAR HGB CONC 30.2 g/dL (32.0-36.0); MEAN CORPUSCULAR VOLUME 84.5 fL (80.0-94.0); MEAN PLATELET VOLUME 10.2 fL (7.4-11.4); MONOCYTES # (AUTO) 0.6 10^3/uL (0.0-1.0); MONOCYTES % (AUTO) 8.7 %; NEUTROPHILS # (AUTO) 2.8 10^3/uL (1.5-6.6); NEUTROPHILS % (AUTO) 42.6 %; PLT - PLATELET COUNT 303 10^3/uL (130-450); RED BLOOD COUNT 4.31 10^6/uL (4.70-6.10); RED CELL DISTRIBUTION WIDTH 15.5 % (12.0-15.0); WHITE BLOOD COUNT 6.5 x10^3/uL (4.8-10.8)
[2024-04-10] MEDS ORDERED: iohexoL-300 100 ML VIAL ONE (10:28)
[2024-04-10 10:29] LABS: AST ASPARTATE AMINOTRANSFERASE 25 IU/L (10-42); BILIRUBIN,TOTAL 0.4 mg/dL (0.2-1.0); BUN - BLOOD UREA NITROGEN 37 mg/dL (6-20); CALCIUM 9.5 mg/dL (8.5-10.3); CARBON DIOXIDE - CO2 26 mmol/L (21-32); CHLORIDE 102 mmol/L (101-111); CREATININE 2.9 mg/dL (0.6-1.3); GFR - MDRD 22 (>89); GLUCOSE 226 mg/dL (74-104); POTASSIUM 4.1 mmol/L (3.5-4.5); SODIUM 138 mmol/L (135-145)
[2024-04-10 10:30] LABS: ACETAMINOPHEN 1.5 ug/mL; ALBUMIN 4.2 g/dL (3.2-5.5); ALBUMIN/GLOBULIN RATIO 1.1 (1.0-2.2); ALKALINE PHOSPHATASE 92 IU/L (42-121); ALT ALANINE AMINOTRANSFERASE 15 IU/L (10-60); CK- CREATINE KINASE 320 IU/L (30-223); ETOH - ETHANOL < 10.0 mg/dL; LIPASE 28 U/L (11-82); TOTAL PROTEIN 8.1 g/dL (6.4-8.9)
[2024-04-10 10:32] LABS: SALICYLATE < 1.5 mg/dL
[2024-04-10 10:33] LABS: BILIRUBIN,URINE NEGATIVE (NEGATIVE); GLUCOSE, URINE (UA) 100 mg/dL (NEGATIVE); KETONES,URINE (UA) NEGATIVE (NEGATIVE); LEUKOCYTE ESTERASE, URINE NEGATIVE (NEGATIVE); NITRITE,URINE NEGATIVE (NEGATIVE); OCCULT BLOOD,URINE SMALL (NEGATIVE); PROTEIN,URINE 30 mg/dL (NEGATIVE); UROBILINOGEN,URINE 0.2 (NORMAL) E.U./dL (NORMAL)
[2024-04-10 10:34] LABS: CLARITY,URINE CLEAR (CLEAR)
--- NOTE | 2024-04-10 10:37 | XRAY Report ---
PROCEDURE: Chest for Line Placement INDICATIONS: intubated TECHNIQUE: One view of the chest was acquired. COMPARISON: None. FINDINGS: Surgical changes and devices: ET tube tip is approximately 3.2 cm above the anthony. Possible right-s ided PICC line tip is in the region of mid subclavian vein.. Lungs and pleura: No pleural effusions or pneumothorax. Elevated right hemidiaphragm is seen. No def inite focal infiltrate, significant pleural effusion or pneumothorax. Mediastinum: Mediastinal contours appear normal. Heart size is normal. Bones and chest wall: No suspicious bony lesions. Overlying soft tissues appear unremarkable. IMPRESSION: ET tube is in satisfactory position. Right-sided PICC line tip is in mid right subclavian vein and ca n be advanced. No focal infiltrate, pleural effusion or pneumothorax. Elevation of right hemidiaphrag m. Reviewed by: Leon Ford MD on 04/10/2024 10:36 AM PDT Approved by: Leon Ford MD on 04/10/2024 10:36 AM PDT Station ID: [id number]
[2024-04-10 10:46] LABS: METHAMPHETAMINES SCREEN, URINE POSITIVE (NEGATIVE); THC CANNABINOID SCREEN, URINE POSITIVE (NEGATIVE)
[2024-04-10 10:47] LABS: AMPHETAMINE SCREEN,URINE POSITIVE (NEGATIVE); COCAINE SCREEN URINE NEGATIVE (NEGATIVE); OPIATE SCREEN, URINE POSITIVE (NEGATIVE); OXYCODONE SCREEN, URINE POSITIVE (NEGATIVE)
[2024-04-10 10:48] LABS: BARBITURATE SCREEN,UR NEGATIVE (NEGATIVE); BENZODIAZEPINES SCREEN, URINE NEGATIVE (NEGATIVE); BUPRENORPHINE SCREEN, URINE NEGATIVE (NEGATIVE); METHADONE SCREEN, URINE NEGATIVE (NEGATIVE); TRICYCLIC ANTIDEPRESSANT,URINE NEGATIVE (NEGATIVE)
[2024-04-10 10:58] LABS: ABG BASE EXCESS -0.7 mmol/L (-2.0-3.0); ABG HCO3 23.3 mmol/L (22.0-26.0); ABG OXYGEN SATURATION 96 % (94-98); ABG PCO2 36 mmHg (34-45); ABG PH 7.43 (7.35-7.45); ABG PO2 77 mmHg (80-100); ABG TCO2 24.4 MMOL/L (21.0-29.0); ALLEN TEST POSITIVE
[2024-04-10 10:59] LABS: ABG RESPIRATORY RATE 18 b/min
[2024-04-10 11:00] LABS: ABG MODE OF VENTILATION ASSIST/CONTROL
[2024-04-10 11:02] LABS: BACTERIA,URINE Few /HPF (None Seen); CASTS, URINE 0-2 Fine Granular /LPF; RBC,URINE 0-5 /HPF (0-5); SQUAMOUS EPITHELIAL CELL,UR NONE SEEN (<= Few); WBC,URINE 0-3 /HPF (0-3)
[2024-04-10 11:03] LABS: MUCUS,URINE Few Strands
[2024-04-10] MEDS: SODIUM CHLORIDE 0.9% 1,000 ML IV STA ×2 (11:15→13:29)
[2024-04-10] MEDS: METOCLOPRAMIDE 10 MG/2 ML VIAL IVP STA (11:39)
[2024-04-10] MEDS: NOREPINEPHRINE/0.9 % NS 8 MG/250 ML BAG IV SCH (12:22)
[2024-04-10] MEDS: iohexoL-300 100 ML VIAL IVP ONE (13:36)
[2024-04-10] MEDS ORDERED: ONDANSETRON ODT 4 MG TABLET TL PRN (14:05)
[2024-04-10 14:50] LABS: B. PARAPERTUSSIS- RESP PCR PAN NOT DETECTED; B. PERTUSSIS- RESP PCR PANEL NOT DETECTED; C. PNEUMONIAE- RESP PCR PANEL NOT DETECTED; CORONAVIRUS 229E-RESP PCR NOT DETECTED; CORONAVIRUS HKU1-RESP PCR NOT DETECTED; CORONAVIRUS NL63-RESP PCR NOT DETECTED; CORONAVIRUS OC43-RESP PCR NOT DETECTED; HUMAN METAPNEUMOVIRUS NOT DETECTED; INFLUENZA A- RESP PCR PANEL NOT DETECTED; INFLUENZA B - RESP PCR PANEL NOT DETECTED; M. PNEUMONIAE- RESP PCR PANEL NOT DETECTED; PARAINFLUENZA VIRUS 1 NOT DETECTED; PARAINFLUENZA VIRUS 2 NOT DETECTED; PARAINFLUENZA VIRUS 3 NOT DETECTED; PARAINFLUENZA VIRUS 4 NOT DETECTED; RHINOVIRUS/ENTEROVIRUS NOT DETECTED; RSV- RESP PCR PANEL NOT DETECTED; SARS-CoV-2 -RESP PCR PANEL NOT DETECTED
[2024-04-10] MEDS: metroNIDAZOLE 500 MG/100 ML 500 MG/100 ML BAG IV SCH (15:17)
[2024-04-10] MEDS: SODIUM CHLORIDE 0.9% 1,000 ML IV SCH (15:17)
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
[2024-04-10] MEDS: PANTOPRAZOLE 40 MG VIAL IVP SCH (16:35)
[2024-04-10] MEDS: cefTRIAXone 1 GM in SODIUM CHLORIDE 0.9% MINIBAG 100 ML IV SCH (16:36)
--- NOTE | 2024-04-10 16:36 | PHARMACY PROGRESS NOTE ---
- Best Possible Medication History Admit Date and Time: 04/10/24 1405 Processed by: Pharmacy Medications reviewed in ED?: No Medication History completed: Yes Patient Interview: Pt unable to participate Secondary Source(s): Pharmacy records, Insurance records As the person ultimately responsible for medication therapy, providers are able to order a medication from an existing home medication list in [facility] via the "Reconcile Routine" prior to Confirmation of that medication by desktop support engineer. Such practice is discouraged except when the physician, in their clinical judgment, deems that a medical need exists for a medication without regard to previous use.
[2024-04-10] MEDS: IPRATROPIUM/ALBUTEROL 3 ML NEB INH SCH (17:35)
[2024-04-10] MEDS: AZITHROMYCIN INJ 500 MG in SODIUM CHLORIDE 0.9% 250 ML IV SCH (17:51)
[2024-04-10] MEDS: NALOXONE 0.4 MG/ML VIAL IVP ONE (17:52)
[2024-04-10] MEDS: INSULIN REGULAR, HUMAN 300 UNIT/3 ML PEN SUBQ SCH (18:09)
[2024-04-10] MEDS: SODIUM CHLORIDE FLUSH 0.9% 10 ML SYRINGE IVP SCH (18:11)
[2024-04-10] MEDS: SACCHAROMYCES BOULARDII 250 MG CAPSULE PO SCH (18:12)
[2024-04-10] MEDS: ethyl alcohoL 62% SWAB AMPULE NAS SCH (21:09)
[2024-04-10] MEDS: INSULIN GLARGINE-YFGN 300 UNIT/3 ML PEN SUBQ SCH (21:09)
[2024-04-11] MEDS: MIN OIL/DIMETHICON/COCONUT OIL 92 GM TUBE TOP PRN (00:47)
[2024-04-11 04:53] LABS: BASOPHILS % (AUTO) 0.2 %; HCT - HEMATOCRIT 32.1 % (42.0-52.0); LYMPHOCYTES # (AUTO) 0.8 10^3/uL (1.5-3.5); LYMPHOCYTES % (AUTO) 8.3 %; MEAN CORPUSCULAR HEMOGLOBIN 25.1 pg (27.0-31.0); MEAN CORPUSCULAR HGB CONC 31.2 g/dL (32.0-36.0); MEAN CORPUSCULAR VOLUME 80.5 fL (80.0-94.0); MEAN PLATELET VOLUME 10.4 fL (7.4-11.4); MONOCYTES # (AUTO) 0.5 10^3/uL (0.0-1.0); MONOCYTES % (AUTO) 5.4 %; NEUTROPHILS # (AUTO) 8.3 10^3/uL (1.5-6.6); NEUTROPHILS % (AUTO) 85.9 %; PLT - PLATELET COUNT 210 10^3/uL (130-450); RED BLOOD COUNT 3.99 10^6/uL (4.70-6.10); RED CELL DISTRIBUTION WIDTH 15.6 % (12.0-15.0); WHITE BLOOD COUNT 9.6 x10^3/uL (4.8-10.8)
[2024-04-11 05:01] LABS: CALCIUM, IONIZED 1.07 mmol/L (1.15-1.33); VBG PH 7.514 (7.31-7.41)
[2024-04-11 05:15] LABS: CALCIUM 8.8 mg/dL (8.5-10.3); CREATININE 1.2 mg/dL (0.6-1.3); PHOSPHORUS 2.9 mg/dL (2.5-5.0); POTASSIUM 3.3 mmol/L (3.5-4.5)
[2024-04-11] MEDS: CALCIUM GLUC 1,000MG/50ML-NACL 1,000 MG/50 ML BAG IV ONE ×2 (05:46→19:45)
[2024-04-11] MEDS: POTASSIUM CHLOR 10 MEQ/100 ML 10 MEQ/100 ML BAG IV SCH ×2 (06:55→15:28)
[2024-04-11] MEDS ORDERED: DEXMEDETOMIDINE 400 MCG/100 ML 100 ML IV PRN (07:42)
[2024-04-11] MEDS: ENOXAPARIN 40 MG/0.4 ML SYRINGE SUBQ SCH (08:19)
[2024-04-11 08:26] LABS: ABG BASE EXCESS -0.1 mmol/L (-2.0-3.0); ABG HCO3 22.7 mmol/L (22.0-26.0); ABG MODE OF VENTILATION ASSIST/CONTROL; ABG OXYGEN SATURATION 89 % (94-98); ABG PCO2 31 mmHg (34-45); ABG PH 7.49 (7.35-7.45); ABG PO2 55 mmHg (80-100); ABG RESPIRATORY RATE 18 b/min; ABG TCO2 23.6 MMOL/L (21.0-29.0); ALLEN TEST POSITIVE
--- NOTE | 2024-04-11 08:34 | PROVIDER PROGRESS NOTE ---
Subjective - Prog Note Date Prog Note Date: 04/11/24 Prog Note Time: 15:27 - Subjective Subjective: Today my examination showed a gentleman who was unresponsive to sternal rub, Babinski. Pupils were 2 mm and unreactive. He did breathe above the vent but not by much. Nursing asked me to put restraints on him because he did respond to the Narcan and that he involuntarily twitched a couple of times. They were afraid that he would wake up and extubate himself. This morning he is the same. He goes from a high blood pressure to a low blood pressure. Yesterday Levophed was started and stopped many times. He still has the same 2 mm pupils, unrespo nsiveness to pain, occasional involuntary twitching. But no true meaningful response. The night RN asked me to start a Precedex drip or some type of sedative drip. The morning nurse wonders if I could please hold off on that until he can assess the patient over the next hour to see if we really need restraints or Precedex. For the course of the day there has been no change. I did not end up having to order the Precedex. He has been off restraints since 10 this morning. He is not making any involuntary or voluntary movements to disrupt the ET tube or his central line. I was able to speak to his sister Brenda. Her number is [phone]. He used to have a partner who of methamphetamine use. He has no children. She is his nearest living relative and, as far she knows, he is only next of kin that can make decisions for him. He has been miserable for months. The stress was ov erwhelming from constant diabetic foot infections and how much he was losing more more mobility, and losing more more independence. He was becoming increasingly depressed. He was wishing that "it would all end". But to her knowledge he never expressed suicidal ideation enough to say that he wanted to kill himself. She is not surprised about the methamphetamines. He has used them off-and-on over the years. But she had hoped that he was staying clean and never really directly asked. In the past he has stated that he never wanted to be on life support. Never wanted dialysis. Did not want to prolong his life if it was his time. I have explained his apparent lack of response from a valente coma scale perpective to her. He may have anoxic brain injury. She states that we are not supposed to do tube feedings, we are not supposed to keep him on a ventilator indefinitely. She will rely on my judgment about when to stop everything. I also explained that if she were to opt to stop the ventilator, and IV fluids, he would not necessarily right away. It it may take him a few days. We would then send him [place] a [place] [facility] for care there. Current Medications - Current Medications Current Medications: Active Medications Albuterol/Ipratropium (Ipratropium/Albuterol 3 Ml Neb) 3 ml INH RTQID [facility] Stop: 04/11/24 14:59 Last Admin: 04/11/24 07:15 Dose: 3 ml Alcohol (Ethyl Alcohol 62% Swab Ampule) 1 amp PATRICK BID [facility] Last Admin: 04/11/24 08:19 Dose: 1 amp Carboxymethylcellulose (Carboxymethylcellulose Ophth Drops) 1 drops EACHEYE PRN PRN PRN Reason: Dry Eye Enoxaparin Sodium (Enoxaparin 40 Mg/0.4 Ml Syringe) 40 mg SUBQ DAILY [facility] Last Admin: 04/11/24 08:19 Dose: 40 mg Hydromorphone HCl (Hydromorphone 0.5 Mg/0.5 Ml Syringe) 0.5 mg IVP Q2H PRN PRN Reason: Pain 8 to 10 NOREPINEPHRINE/0.9 % NS (Levophed 8 Mg/250-0.9% Nacl) 8 mg in 250 mls @ 7.5 mls/hr IV .[id number] [facility]; Protocol Last Titration: 04/11/24 04:50 Dose: 0 mcg/min, 0 mls/hr Sodium Chloride (Normal Saline 0.9%) 1,000 mls @ 100 mls/hr IV .Q10H [facility] Last Admin: 04/11/24 00:46 Dose: 100 mls/hr Azithromycin 500 mg/ Sodium (Chloride) 250 mls @ 250 mls/hr IV DAILY [facility] Stop: 04/12/24 09:59 Last Admin: 04/11/24 08:19 Dose: 250 mls/hr Ceftriaxone Sodium 1 gm/ (Sodium Chloride) 100 mls @ 200 mls/hr IV DAILY [facility] Stop: 04/14/24 09:29 Last Infusion: 04/10/24 17:10 Dose: Infused Metronidazole (Flagyl 500 Mg/100 Ml) 500 mg in 100 mls @ 100 mls/hr IV Q8H [facility] Stop: 04/15/24 07:59 Last Admin: 04/11/24 06:55 Dose: 100 mls/hr Potassium Chloride (Potassium Chloride) 10 meq in 100 mls @ 100 mls/hr IV Q1H [facility]; Protocol Stop: 04/11/24 10:59 Last Admin: 04/11/24 07:49 Dose: 100 mls/hr Insulin Glargine-yfgn (Insulin Glargine-Yfgn 300 Unit/3 Ml Pen) 15 unit SUBQ QPM [facility] Last Admin: 04/10/24 21:09 Dose: 15 unit Insulin Human Regular (Insulin Regular, Human 300 Unit/3 Ml Pen) 1 - 9 unit SUBQ Q6HR [facility]; Protocol Last Admin: 04/11/24 06:06 Dose: 1 unit Mineral Oil (Min Oil/Dimethicon/Coconut Oil 92 Gm Tube) 1 applic TOP PRN PRN PRN Reason: Skin Care Last Admin: 04/11/24 00:47 Dose: 1 applic Ondansetron HCl (Ondansetron Odt 4 Mg Tablet) 4 mg TL Q6HR PRN PRN Reason: Nausea / Vomiting Ondansetron HCl (Ondansetron 4 Mg/2 Ml Vial) 4 mg IVP Q6HR PRN PRN Reason: Nausea / Vomiting Pantoprazole Sodium (Pantoprazole 40 Mg Vial) 40 mg IVP QDAC [facility] Last Admin: 04/11/24 06:55 Dose: 40 mg Saccharomyces Boulardii (Saccharomyces Boulardii 250 Mg Capsule) 250 mg PO BIDWM [facility] Last Admin: 04/10/24 18:50 Dose: Not Given Sodium Chloride (Sodium Chloride Flush 0.9% 10 Ml Syringe) 10 ml IVP 0100,0900,1700 [facility] Last Admin: 04/11/24 00:46 Dose: Not Given Sodium Chloride (Sodium Chloride Flush 0.9% 10 Ml Syringe) 10 ml IVP PRN PRN PRN Reason: NEEDED PER PROVIDER ORDERS Amlodipine Besylate [Norvasc] 5 mg PO BID 11/18/22 Amox/Clav 875/125 [Augmentin 875/125 Tab] 1 tab PO BID 04/10/24 Baclofen 20 mg PO QID 04/10/24 Baclofen [Lioresal] 10 mg PO QID PRN 04/10/24 Gabapentin [Neurontin] 200 mg PO TID 04/10/24 Insulin Glargine,Hum.rec.anlog [Basaglar Kwikpen U-100] 22 units SUBQ DAILY 04/10/24 Insulin Lispro [Humalog Kwikpen U-100] 0 - 8 units SUBQ TIDWM 04/10/24 Isosorbide Mononitrate ER [Imdur] 30 mg PO DAILY 04/10/24 Lisinopril [Zestril] 40 mg PO DAILY 04/10/24 Magnesium Oxide 400 mg PO DAILY 04/10/24 Naloxone HCl Nasal [Narcan Nasal] 1 spray PATRICK PRN PRN 04/10/24 Oxycodone HCl 10 mg PO Q4HR PRN 04/10/24 Senna [Senokot] 8.6 mg PO DAILY 04/10/24 polyethylene glycoL 3350 [Miralax] 17 g PO DAILY PRN 04/10/24 Objective - Vital Signs/Intake & Output Reviewed Vital Signs: Yes Vital Signs: Vital Signs Pulse Pulse Resp BP Pulse Ox 04/11/24 07:44 100 128/74 04/11/24 07:34 111 H 173/88 H 04/11/24 07:16 186/96 H 04/11/24 07:15 108 H 18 04/11/24 07:09 108 H 114 H 21 215/93 H 92 04/11/24 06:00 63 18 130/76 98 04/11/24 05:00 62 18 125/70 98 Intake & Output: Intake & Output 04/08/24 04/09/24 04/10/24 04/11/24 23:59 23:59 23:59 23:59 Intake Total 2784.652 1199.114 Output Total 2485 760 Balance 299.652 439.114 - Objective General Appearance: positive: Other ( Intubated, no sedative, unresponsive. Eyes open now without acknowledgment on his part that he is seeing anything) Eyes Bilateral: positive: Other ( 2 mm pupils. Sclera not icteric) ENT: positive: Pharynx nml Neck: positive: No JVD. negative: Stiff neck Respiratory: positive: No respiratory distress. negative: Wheezes, Rales, Rhonchi Abdomen: positive: Non-tender, No organomegaly, Nml bowel sounds, No distention Skin: positive: Warm, Dry, Pallor Extremities: positive: No pedal edema, Other ( Right foot with 1, 2 toes amputated. Eschar callus at the heel. Left foot with surgical erica, sutures at heel, mid vertical foot, and great toe metatarsal. No redness, heat, drainage.) Neurologic/Psychiatric: positive: Other ( Intubated. No sedation. Unrespons ale. Yesterday he was breathing above the vent couple of times. Today there has been no spontaneous respiration above the vent settings.) - Lab Results Fish Bones: 04/11/24 04:24 04/11/24 14:00 Other Labs: Lab Results x24hrs 04/11/24 04/11/24 04/11/24 Range/Units 08:18 08:16 06:01 WBC (4.8-10.8) x10^3/uL RBC (4.70-6.10) 10^6/uL Hgb (14.0-18.0) g/dL Hct (42.0-52.0) % MCV (80.0-94.0) fL MCH (27.0-31.0) pg MCHC (32.0-36.0) g/dL RDW (12.0-15.0) % Plt Count (130-450) 10^3/uL MPV (7.4-11.4) fL Neut # (Auto) (1.5-6.6) 10^3/uL Lymph # (Auto) (1.5-3.5) 10^3/uL [place] # (Auto) (0.0-1.0) 10^3/uL Eos # (Auto) (0.0-0.7) 10^3/uL Baso # (Auto) (0.0-0.1) 10^3/uL Absolute Nucleated RBC x10^3/uL Nucleated RBC % /100WBC Bld Gas Analysis Time 0824 Sample Site LEFT BRACHIAL ABG pH 7.49 H (7.35-7.45) ABG pCO2 31 L (34-45) mmHg ABG pO2 55 L (80-100) mmHg ABG HCO3 22.7 (22.0-26.0) mmol/L ABG Total CO2 23.6 (21.0-29.0) MMOL/L ABG O2 Saturation 89 L (94-98) % ABG Base Excess -0.1 (-2.0-3.0) mmol/L Morris Test POSITIVE VBG pH (7.31-7.41) Ionized Calcium (1.15-1.33) mmol/L Respiration Rate 18 b/min O2 Delivery Device VENTILATOR Vent Mode ASSIST/CONTROL FiO2 35.00 Tidal Volume 500 mL PEEP 5 cmH2O Sodium (135-145) mmol/L Potassium (3.5-4.5) mmol/L Chloride (101-111) mmol/L Carbon Dioxide (21-32) mmol/L Anion Gap (6-13) BUN (6-20) mg/dL Creatinine (0.6-1.3) mg/dL Estimated GFR (MDRD) (>89) Glucose (74-104) mg/dL POC Whole Bld Glucose 164 H 161 H (70 - 100) mg/dL Calcium (8.5-10.3) mg/dL Phosphorus (2.5-5.0) mg/dL Magnesium (1.7-2.3) mg/dL Total Bilirubin (0.2-1.0) mg/dL AST (10-42) IU/L ALT (10-60) IU/L Alkaline Phosphatase (42-121) IU/L Total Creatine Kinase (30-223) IU/L Troponin I High Sens (2.3-19.7) ng/L B-Natriuretic Peptide (5-100) pg/mL Total Protein (6.4-8.9) g/dL Albumin (3.2-5.5) g/dL Globulin (2.1-4.2) g/dL Albumin/Globulin Ratio (1.0-2.2) Lipase (11-82) U/L Urine Color Urine Clarity (CLEAR) Urine pH (5.0-7.5) PH Ur Specific [place] (1.002-1.030) Urine Protein (NEGATIVE) mg/dL Urine Glucose (UA) (NEGATIVE) mg/dL Urine Ketones (NEGATIVE) mg/dL Urine Occult Blood (NEGATIVE) Urine Nitrite (NEGATIVE) Urine Bilirubin (NEGATIVE) Urine Urobilinogen (NORMAL) E.U./dL Ur Leukocyte Esterase (NEGATIVE) Urine RBC (0-5) /HPF Urine WBC (0-3) /HPF Ur Squamous Epith Cells (<= Few) Urine Bacteria (None Seen) /HPF Urine Casts /LPF Urine Mucus Ur Microscopic Review Urine Culture Comments Nasal Adenovirus (PCR) Nasal B. parapertussis DNA (PCR) Nasal Coronavir 229E PCR Nasal Coronavir HKU1 PCR Nasal Coronavir NL63 PCR Nasal Coronavir OC43 PCR Nasal Enterovir/Rhinovir PCR Nasal Influenza B PCR Nasal Influenza A PCR Nasal Parainfluen 1 PCR Nasal Parainfluen 2 PCR Nasal Parainfluen 3 PCR Nasal Parainfluen 4 PCR Nasal RSV (PCR) Nasal Screen MRSA (PCR) (NEGATIVE) Nasal B.pertussis DNA PCR Nasal C.pneumoniae (PCR) Patrick Human Metapneumo PCR Nasal M.pneumoniae (PCR) Nasal SARS-CoV-2 (PCR) Salicylates mg/dL Urine Opiates Screen (NEGATIVE) Ur Buprenorphine Scrn (NEGATIVE) Ur Oxycodone Screen (NEGATIVE) Urine Methadone Screen (NEGATIVE) Acetaminophen ug/mL Ur Barbiturates Screen (NEGATIVE) Ur Tricyclics Screen (NEGATIVE) Ur Phencyclidine Scrn (NEGATIVE) Ur Amphetamine Screen (NEGATIVE) U Methamphetamines Scrn (NEGATIVE) U Benzodiazepines Scrn (NEGATIVE) Urine Cocaine Screen (NEGATIVE) U Cannabinoids Screen (NEGATIVE) Ur Drug Screen Comment Ethyl Alcohol mg/dL 04/11/24 04/11/24 04/11/24 Range/Units 04:24 04:24 04:24 WBC 9.6 (4.8-10.8) x10^3/uL RBC 3.99 L (4.70-6.10) 10^6/uL Hgb 10.0 L (14.0-18.0) g/dL Hct 32.1 L (42.0-52.0) % MCV 80.5 (80.0-94.0) fL MCH 25.1 L (27.0-31.0) pg MCHC 31.2 L (32.0-36.0) g/dL RDW 15.6 H (12.0-15.0) % Plt Count 210 (130-450) 10^3/uL MPV 10.4 (7.4-11.4) fL Neut # (Auto) 8.3 H (1.5-6.6) 10^3/uL Lymph # (Auto) 0.8 L (1.5-3.5) 10^3/uL [place] # (Auto) 0.5 (0.0-1.0) 10^3/uL Eos # (Auto) 0.0 (0.0-0.7) 10^3/uL Baso # (Auto) 0.0 (0.0-0.1) 10^3/uL Absolute Nucleated RBC 0.00 x10^3/uL Nucleated RBC % 0.0 /100WBC Bld Gas Analysis Time Sample Site ABG pH (7.35-7.45) ABG pCO2 (34-45) mmHg ABG pO2 (80-100) mmHg ABG HCO3 (22.0-26.0) mmol/L ABG Total CO2 (21.0-29.0) MMOL/L ABG O2 Saturation (94-98) % ABG Base Excess (-2.0-3.0) mmol/L Morris Test VBG pH 7.514 H (7.31-7.41) Ionized Calcium 1.07 L (1.15-1.33) mmol/L Respiration Rate b/min O2 Delivery Device Vent Mode FiO2 Tidal Volume mL PEEP cmH2O Sodium 143 (135-145) mmol/L Potassium 3.3 L (3.5-4.5) mmol/L Chloride 111 (101-111) mmol/L Carbon Dioxide 24 (21-32) mmol/L Anion Gap 8.0 (6-13) BUN 29 H (6-20) mg/dL Creatinine 1.2 (0.6-1.3) mg/dL Estimated GFR (MDRD) 62 L (>89) Glucose 180 H (74-104) mg/dL POC Whole Bld Glucose (70 - 100) mg/dL Calcium 8.8 (8.5-10.3) mg/dL Phosphorus 2.9 (2.5-5.0) mg/dL Magnesium 2.0 (1.7-2.3) mg/dL Total Bilirubin (0.2-1.0) mg/dL AST (10-42) IU/L ALT (10-60) IU/L Alkaline Phosphatase (42-121) IU/L Total Creatine Kinase (30-223) IU/L Troponin I High Sens (2.3-19.7) ng/L B-Natriuretic Peptide (5-100) pg/mL Total Protein (6.4-8.9) g/dL Albumin (3.2-5.5) g/dL Globulin (2.1-4.2) g/dL Albumin/Globulin Ratio (1.0-2.2) Lipase (11-82) U/L Urine Color Urine Clarity (CLEAR) Urine pH (5.0-7.5) PH Ur Specific [place] (1.002-1.030) Urine Protein (NEGATIVE) mg/dL Urine Glucose (UA) (NEGATIVE) mg/dL Urine Ketones (NEGATIVE) mg/dL Urine Occult Blood (NEGATIVE) Urine Nitrite (NEGATIVE) Urine Bilirubin (NEGATIVE) Urine Urobilinogen (NORMAL) E.U./dL Ur Leukocyte Esterase (NEGATIVE) Urine RBC (0-5) /HPF Urine WBC (0-3) /HPF Ur Squamous Epith Cells (<= Few) Urine Bacteria (None Seen) /HPF Urine Casts /LPF Urine Mucus Ur Microscopic Review Urine Culture Comments Nasal Adenovirus (PCR) Nasal B. parapertussis DNA (PCR) Nasal Coronavir 229E PCR Nasal Coronavir HKU1 PCR Nasal Coronavir NL63 PCR Nasal Coronavir OC43 PCR Nasal Enterovir/Rhinovir PCR Nasal Influenza B PCR Nasal Influenza A PCR Nasal Parainfluen 1 PCR Nasal Parainfluen 2 PCR Nasal Parainfluen 3 PCR Nasal Parainfluen 4 PCR Nasal RSV (PCR) Nasal Screen MRSA (PCR) (NEGATIVE) Nasal B.pertussis DNA PCR Nasal C.pneumoniae (PCR) Patrick Human Metapneumo PCR Nasal M.pneumoniae (PCR) Nasal SARS-CoV-2 (PCR) Salicylates mg/dL Urine Opiates Screen (NEGATIVE) Ur Buprenorphine Scrn (NEGATIVE) Ur Oxycodone Screen (NEGATIVE) Urine Methadone Screen (NEGATIVE) Acetaminophen ug/mL Ur Barbiturates Screen (NEGATIVE) Ur Tricyclics Screen (NEGATIVE) Ur Phencyclidine Scrn (NEGATIVE) Ur Amphetamine Screen (NEGATIVE) U Methamphetamines Scrn (NEGATIVE) U Benzodiazepines Scrn (NEGATIVE) Urine Cocaine Screen (NEGATIVE) U Cannabinoids Screen (NEGATIVE) Ur Drug Screen Comment Ethyl Alcohol mg/dL 04/11/24 04/10/24 04/10/24 Range/Units 00:08 21:00 16:37 WBC (4.8-10.8) x10^3/uL RBC (4.70-6.10) 10^6/uL Hgb (14.0-18.0) g/dL Hct (42.0-52.0) % MCV (80.0-94.0) fL MCH (27.0-31.0) pg MCHC (32.0-36.0) g/dL RDW (12.0-15.0) % Plt Count (130-450) 10^3/uL MPV (7.4-11.4) fL Neut # (Auto) (1.5-6.6) 10^3/uL Lymph # (Auto) (1.5-3.5) 10^3/uL [place] # (Auto) (0.0-1.0) 10^3/uL Eos # (Auto) (0.0-0.7) 10^3/uL Baso # (Auto) (0.0-0.1) 10^3/uL Absolute Nucleated RBC x10^3/uL Nucleated RBC % /100WBC Bld Gas Analysis Time Sample Site ABG pH (7.35-7.45) ABG pCO2 (34-45) mmHg ABG pO2 (80-100) mmHg ABG HCO3 (22.0-26.0) mmol/L ABG Total CO2 (21.0-29.0) MMOL/L ABG O2 Saturation (94-98) % ABG Base Excess (-2.0-3.0) mmol/L Morris Test VBG pH (7.31-7.41) Ionized Calcium (1.15-1.33) mmol/L Respiration Rate b/min O2 Delivery Device Vent Mode FiO2 Tidal Volume mL PEEP cmH2O Sodium (135-145) mmol/L Potassium (3.5-4.5) mmol/L Chloride (101-111) mmol/L Carbon Dioxide (21-32) mmol/L Anion Gap (6-13) BUN (6-20) mg/dL Creatinine (0.6-1.3) mg/dL Estimated GFR (MDRD) (>89) Glucose (74-104) mg/dL POC Whole Bld Glucose 216 H 230 H 229 H (70 - 100) mg/dL Calcium (8.5-10.3) mg/dL Phosphorus (2.5-5.0) mg/dL Magnesium (1.7-2.3) mg/dL Total Bilirubin (0.2-1.0) mg/dL AST (10-42) IU/L ALT (10-60) IU/L Alkaline Phosphatase (42-121) IU/L Total Creatine Kinase (30-223) IU/L Troponin I High Sens (2.3-19.7) ng/L B-Natriuretic Peptide (5-100) pg/mL Total Protein (6.4-8.9) g/dL Albumin (3.2-5.5) g/dL Globulin (2.1-4.2) g/dL Albumin/Globulin Ratio (1.0-2.2) Lipase (11-82) U/L Urine Color Urine Clarity (CLEAR) Urine pH (5.0-7.5) PH Ur Specific [place] (1.002-1.030) Urine Protein (NEGATIVE) mg/dL Urine Glucose (UA) (NEGATIVE) mg/dL Urine Ketones (NEGATIVE) mg/dL Urine Occult Blood (NEGATIVE) Urine Nitrite (NEGATIVE) Urine Bilirubin (NEGATIVE) Urine Urobilinogen (NORMAL) E.U./dL Ur Leukocyte Esterase (NEGATIVE) Urine RBC (0-5) /HPF Urine WBC (0-3) /HPF Ur Squamous Epith Cells (<= Few) Urine Bacteria (None Seen) /HPF Urine Casts /LPF Urine Mucus Ur Microscopic Review Urine Culture Comments Nasal Adenovirus (PCR) Nasal B. parapertussis DNA (PCR) Nasal Coronavir 229E PCR Nasal Coronavir HKU1 PCR Nasal Coronavir NL63 PCR Nasal Coronavir OC43 PCR Nasal Enterovir/Rhinovir PCR Nasal Influenza B PCR Nasal Influenza A PCR Nasal Parainfluen 1 PCR Nasal Parainfluen 2 PCR Nasal Parainfluen 3 PCR Nasal Parainfluen 4 PCR Nasal RSV (PCR) Nasal Screen MRSA (PCR) (NEGATIVE) Nasal B.pertussis DNA PCR Nasal C.pneumoniae (PCR) [place] Human Metapneumo PCR Nasal M.pneumoniae (PCR) Nasal SARS-CoV-2 (PCR) Salicylates mg/dL Urine Opiates Screen (NEGATIVE) Ur Buprenorphine Scrn (NEGATIVE) Ur Oxycodone Screen (NEGATIVE) Urine Methadone Screen (NEGATIVE) Acetaminophen ug/mL Ur Barbiturates Screen (NEGATIVE) Ur Tricyclics Screen (NEGATIVE) Ur Phencyclidine Scrn (NEGATIVE) Ur Amphetamine Screen (NEGATIVE) U Methamphetamines Scrn (NEGATIVE) U Benzodiazepines Scrn (NEGATIVE) Urine Cocaine Screen (NEGATIVE) U Cannabinoids Screen (NEGATIVE) Ur Drug Screen Comment Ethyl Alcohol mg/dL 04/10/24 04/10/24 04/10/24 Range/Units 16:30 15:00 12:39 WBC (4.8-10.8) x10^3/uL RBC (4.70-6.10) 10^6/uL Hgb (14.0-18.0) g/dL Hct (42.0-52.0) % MCV (80.0-94.0) fL MCH (27.0-31.0) pg MCHC (32.0-36.0) g/dL RDW (12.0-15.0) % Plt Count (130-450) 10^3/uL MPV (7.4-11.4) fL Neut # (Auto) (1.5-6.6) 10^3/uL Lymph # (Auto) (1.5-3.5) 10^3/uL [place] # (Auto) (0.0-1.0) 10^3/uL Eos # (Auto) (0.0-0.7) 10^3/uL Baso # (Auto) (0.0-0.1) 10^3/uL Absolute Nucleated RBC x10^3/uL Nucleated RBC % /100WBC Bld Gas Analysis Time Sample Site ABG pH (7.35-7.45) ABG pCO2 (34-45) mmHg ABG pO2 (80-100) mmHg ABG HCO3 (22.0-26.0) mmol/L ABG Total CO2 (21.0-29.0) MMOL/L ABG O2 Saturation (94-98) % ABG Base Excess (-2.0-3.0) mmol/L [place] Test VBG pH (7.31-7.41) Ionized Calcium (1.15-1.33) mmol/L Respiration Rate b/min O2 Delivery Device Vent Mode FiO2 Tidal Volume mL PEEP cmH2O Sodium (135-145) mmol/L Potassium (3.5-4.5) mmol/L Chloride (101-111) mmol/L Carbon Dioxide (21-32) mmol/L Anion Gap (6-13) BUN (6-20) mg/dL Creatinine (0.6-1.3) mg/dL Estimated GFR (MDRD) (>89) Glucose (74-104) mg/dL POC Whole Bld Glucose 242 H (70 - 100) mg/dL Calcium (8.5-10.3) mg/dL Phosphorus (2.5-5.0) mg/dL Magnesium (1.7-2.3) mg/dL Total Bilirubin (0.2-1.0) mg/dL AST (10-42) IU/L ALT (10-60) IU/L Alkaline Phosphatase (42-121) IU/L Total Creatine Kinase (30-223) IU/L Troponin I High Sens 36.8 H* (2.3-19.7) ng/L B-Natriuretic Peptide (5-100) pg/mL Total Protein (6.4-8.9) g/dL Albumin (3.2-5.5) g/dL Globulin (2.1-4.2) g/dL Albumin/Globulin Ratio (1.0-2.2) Lipase (11-82) U/L Urine Color Urine Clarity (CLEAR) Urine pH (5.0-7.5) PH Ur Specific [place] (1.002-1.030) Urine Protein (NEGATIVE) mg/dL Urine Glucose (UA) (NEGATIVE) mg/dL Urine Ketones (NEGATIVE) mg/dL Urine Occult Blood (NEGATIVE) Urine Nitrite (NEGATIVE) Urine Bilirubin (NEGATIVE) Urine Urobilinogen (NORMAL) E.U./dL Ur Leukocyte Esterase (NEGATIVE) Urine RBC (0-5) /HPF Urine WBC (0-3) /HPF Ur Squamous Epith Cells (<= Few) Urine Bacteria (None Seen) /HPF Urine Casts /LPF Urine Mucus Ur Microscopic Review Urine Culture Comments Nasal Adenovirus (PCR) Nasal B. parapertussis DNA (PCR) Nasal Coronavir 229E PCR Nasal Coronavir HKU1 PCR Nasal Coronavir NL63 PCR Nasal Coronavir OC43 PCR Nasal Enterovir/Rhinovir PCR Nasal Influenza B PCR Nasal Influenza A PCR Nasal Parainfluen 1 PCR Nasal Parainfluen 2 PCR Nasal Parainfluen 3 PCR Nasal Parainfluen 4 PCR Nasal RSV (PCR) Nasal Screen MRSA (PCR) POSITIVE A* (NEGATIVE) Nasal B.pertussis DNA PCR Nasal C.pneumoniae (PCR) [place] Human Metapneumo PCR Nasal M.pneumoniae (PCR) Nasal SARS-CoV-2 (PCR) Salicylates mg/dL Urine Opiates Screen (NEGATIVE) Ur Buprenorphine Scrn (NEGATIVE) Ur Oxycodone Screen (NEGATIVE) Urine Methadone Screen (NEGATIVE) Acetaminophen ug/mL Ur Barbiturates Screen (NEGATIVE) Ur Tricyclics Screen (NEGATIVE) Ur Phencyclidine Scrn (NEGATIVE) Ur Amphetamine Screen (NEGATIVE) U Methamphetamines Scrn (NEGATIVE) U Benzodiazepines Scrn (NEGATIVE) Urine Cocaine Screen (NEGATIVE) U Cannabinoids Screen (NEGATIVE) Ur Drug Screen Comment Ethyl Alcohol mg/dL 04/10/24 04/10/24 04/10/24 Range/Units 10:40 10:20 10:20 WBC (4.8-10.8) x10^3/uL RBC (4.70-6.10) 10^6/uL Hgb (14.0-18.0) g/dL Hct (42.0-52.0) % MCV (80.0-94.0) fL MCH (27.0-31.0) pg MCHC (32.0-36.0) g/dL RDW (12.0-15.0) % Plt Count (130-450) 10^3/uL MPV (7.4-11.4) fL Neut # (Auto) (1.5-6.6) 10^3/uL Lymph # (Auto) (1.5-3.5) 10^3/uL [place] # (Auto) (0.0-1.0) 10^3/uL Eos # (Auto) (0.0-0.7) 10^3/uL Baso # (Auto) (0.0-0.1) 10^3/uL Absolute Nucleated RBC x10^3/uL Nucleated RBC % /100WBC Bld Gas Analysis Time 10:55 Sample Site LEFT RADIAL ABG pH 7.43 (7.35-7.45) ABG pCO2 36 (34-45) mmHg ABG pO2 77 L (80-100) mmHg ABG HCO3 23.3 (22.0-26.0) mmol/L ABG Total CO2 24.4 (21.0-29.0) MMOL/L ABG O2 Saturation 96 (94-98) % ABG Base Excess -0.7 (-2.0-3.0) mmol/L [place] Test POSITIVE VBG pH (7.31-7.41) Ionized Calcium (1.15-1.33) mmol/L Respiration Rate 18 b/min O2 Delivery Device VENTILATOR Vent Mode ASSIST/CONTROL FiO2 40.00 Tidal Volume 500 mL PEEP 5 cmH2O Sodium (135-145) mmol/L Potassium (3.5-4.5) mmol/L Chloride (101-111) mmol/L Carbon Dioxide (21-32) mmol/L Anion Gap (6-13) BUN (6-20) mg/dL Creatinine (0.6-1.3) mg/dL Estimated GFR (MDRD) (>89) Glucose (74-104) mg/dL POC Whole Bld Glucose (70 - 100) mg/dL Calcium (8.5-10.3) mg/dL Phosphorus (2.5-5.0) mg/dL Magnesium (1.7-2.3) mg/dL Total Bilirubin (0.2-1.0) mg/dL AST (10-42) IU/L ALT (10-60) IU/L Alkaline Phosphatase (42-121) IU/L Total Creatine Kinase (30-223) IU/L Troponin I High Sens (2.3-19.7) ng/L B-Natriuretic Peptide (5-100) pg/mL Total Protein (6.4-8.9) g/dL Albumin (3.2-5.5) g/dL Globulin (2.1-4.2) g/dL Albumin/Globulin Ratio (1.0-2.2) Lipase (11-82) U/L Urine Color YELLOW Urine Clarity CLEAR (CLEAR) Urine pH 7.0 (5.0-7.5) PH Ur Specific [place] 1.020 (1.002-1.030) Urine Protein 30 H (NEGATIVE) mg/dL Urine Glucose (UA) 100 H (NEGATIVE) mg/dL Urine Ketones NEGATIVE (NEGATIVE) mg/dL Urine Occult Blood SMALL H (NEGATIVE) Urine Nitrite NEGATIVE (NEGATIVE) Urine Bilirubin NEGATIVE (NEGATIVE) Urine Urobilinogen 0.2 (NORMAL) (NORMAL) E.U./dL Ur Leukocyte Esterase NEGATIVE (NEGATIVE) Urine RBC 0-5 (0-5) /HPF Urine WBC 0-3 (0-3) /HPF Ur Squamous Epith Cells NONE SEEN (<= Few) Urine Bacteria Few (None Seen) /HPF Urine Casts 0-2 Fine Granular /LPF Urine Mucus Few Strands Ur Microscopic Review INDICATED Urine Culture Comments NOT INDICATED Nasal Adenovirus (PCR) NOT DETECTED Nasal B. parapertussis DNA (PCR) NOT DETECTED Nasal Coronavir 229E PCR NOT DETECTED Nasal Coronavir HKU1 PCR NOT DETECTED Nasal Coronavir NL63 PCR NOT DETECTED Nasal Coronavir OC43 PCR NOT DETECTED Nasal Enterovir/Rhinovir PCR NOT DETECTED Nasal Influenza B PCR NOT DETECTED Nasal Influenza A PCR NOT DETECTED Nasal Parainfluen 1 PCR NOT DETECTED Nasal Parainfluen 2 PCR NOT DETECTED Nasal Parainfluen 3 PCR NOT DETECTED Nasal Parainfluen 4 PCR NOT DETECTED Nasal RSV (PCR) NOT DETECTED Nasal Screen MRSA (PCR) (NEGATIVE) Nasal B.pertussis DNA PCR NOT DETECTED Nasal C.pneumoniae (PCR) NOT DETECTED [place] Human Metapneumo PCR NOT DETECTED Nasal M.pneumoniae (PCR) NOT DETECTED Nasal SARS-CoV-2 (PCR) NOT DETECTED Salicylates mg/dL Urine Opiates Screen POSITIVE H (NEGATIVE) Ur Buprenorphine Scrn NEGATIVE (NEGATIVE) Ur Oxycodone Screen POSITIVE H (NEGATIVE) Urine Methadone Screen NEGATIVE (NEGATIVE) Acetaminophen ug/mL Ur Barbiturates Screen NEGATIVE (NEGATIVE) Ur Tricyclics Screen NEGATIVE (NEGATIVE) Ur Phencyclidine Scrn NEGATIVE (NEGATIVE) Ur Amphetamine Screen POSITIVE H (NEGATIVE) U Methamphetamines Scrn POSITIVE H (NEGATIVE) U Benzodiazepines Scrn NEGATIVE (NEGATIVE) Urine Cocaine Screen NEGATIVE (NEGATIVE) U Cannabinoids Screen POSITIVE H (NEGATIVE) Ur Drug Screen Comment CUTOFF CONC BELOW: Ethyl Alcohol mg/dL 04/10/24 04/10/24 04/10/24 Range/Units 10:05 10:05 10:05 WBC (4.8-10.8) x10^3/uL RBC (4.70-6.10) 10^6/uL Hgb (14.0-18.0) g/dL Hct (42.0-52.0) % MCV (80.0-94.0) fL MCH (27.0-31.0) pg MCHC (32.0-36.0) g/dL RDW (12.0-15.0) % Plt Count (130-450) 10^3/uL MPV (7.4-11.4) fL Neut # (Auto) (1.5-6.6) 10^3/uL Lymph # (Auto) (1.5-3.5) 10^3/uL [place] # (Auto) (0.0-1.0) 10^3/uL Eos # (Auto) (0.0-0.7) 10^3/uL Baso # (Auto) (0.0-0.1) 10^3/uL Absolute Nucleated RBC x10^3/uL Nucleated RBC % /100WBC Bld Gas Analysis Time Sample Site ABG pH (7.35-7.45) ABG pCO2 (34-45) mmHg ABG pO2 (80-100) mmHg ABG HCO3 (22.0-26.0) mmol/L ABG Total CO2 (21.0-29.0) MMOL/L ABG O2 Saturation (94-98) % ABG Base Excess (-2.0-3.0) mmol/L Morris Test VBG pH (7.31-7.41) Ionized Calcium (1.15-1.33) mmol/L Respiration Rate b/min O2 Delivery Device Vent Mode FiO2 Tidal Volume mL PEEP cmH2O Sodium 138 (135-145) mmol/L Potassium 4.1 (3.5-4.5) mmol/L Chloride 102 (101-111) mmol/L Carbon Dioxide 26 (21-32) mmol/L Anion Gap 10.0 (6-13) BUN 37 H (6-20) mg/dL Creatinine 2.9 H (0.6-1.3) mg/dL Estimated GFR (MDRD) 22 L (>89) Glucose 226 H (74-104) mg/dL POC Whole Bld Glucose (70 - 100) mg/dL Calcium 9.5 (8.5-10.3) mg/dL Phosphorus (2.5-5.0) mg/dL Magnesium (1.7-2.3) mg/dL Total Bilirubin 0.4 (0.2-1.0) mg/dL AST 25 (10-42) IU/L ALT 15 (10-60) IU/L Alkaline Phosphatase 92 (42-121) IU/L Total Creatine Kinase 320 H (30-223) IU/L Troponin I High Sens 6.8 (2.3-19.7) ng/L B-Natriuretic Peptide 64 (5-100) pg/mL Total Protein 8.1 (6.4-8.9) g/dL Albumin 4.2 (3.2-5.5) g/dL Globulin 3.9 (2.1-4.2) g/dL Albumin/Globulin Ratio 1.1 (1.0-2.2) Lipase 28 (11-82) U/L Urine Color Urine Clarity (CLEAR) Urine pH (5.0-7.5) PH Ur Specific [place] (1.002-1.030) Urine Protein (NEGATIVE) mg/dL Urine Glucose (UA) (NEGATIVE) mg/dL Urine Ketones (NEGATIVE) mg/dL Urine Occult Blood (NEGATIVE) Urine Nitrite (NEGATIVE) Urine Bilirubin (NEGATIVE) Urine Urobilinogen (NORMAL) E.U./dL Ur Leukocyte Esterase (NEGATIVE) Urine RBC (0-5) /HPF Urine WBC (0-3) /HPF Ur Squamous Epith Cells (<= Few) Urine Bacteria (None Seen) /HPF Urine Casts /LPF Urine Mucus Ur Microscopic Review Urine Culture Comments Nasal Adenovirus (PCR) Nasal B. parapertussis DNA (PCR) Nasal Coronavir 229E PCR Nasal Coronavir HKU1 PCR Nasal Coronavir NL63 PCR Nasal Coronavir OC43 PCR Nasal Enterovir/Rhinovir PCR Nasal Influenza B PCR Nasal Influenza A PCR Nasal Parainfluen 1 PCR Nasal Parainfluen 2 PCR Nasal Parainfluen 3 PCR Nasal Parainfluen 4 PCR Nasal RSV (PCR) Nasal Screen MRSA (PCR) (NEGATIVE) Nasal B.pertussis DNA PCR Nasal C.pneumoniae (PCR) Patrick Human Metapneumo PCR Nasal M.pneumoniae (PCR) Nasal SARS-CoV-2 (PCR) Salicylates < 1.5 mg/dL Urine Opiates Screen (NEGATIVE) Ur Buprenorphine Scrn (NEGATIVE) Ur Oxycodone Screen (NEGATIVE) Urine Methadone Screen (NEGATIVE) Acetaminophen 1.5 ug/mL Ur Barbiturates Screen (NEGATIVE) Ur Tricyclics Screen (NEGATIVE) Ur Phencyclidine Scrn (NEGATIVE) Ur Amphetamine Screen (NEGATIVE) U Methamphetamines Scrn (NEGATIVE) U Benzodiazepines Scrn (NEGATIVE) Urine Cocaine Screen (NEGATIVE) U Cannabinoids Screen (NEGATIVE) Ur Drug Screen Comment Ethyl Alcohol < 10.0 mg/dL 04/10/24 Range/Units 10:05 WBC 6.5 (4.8-10.8) x10^3/uL RBC 4.31 L (4.70-6.10) 10^6/uL Hgb 11.0 L (14.0-18.0) g/dL Hct 36.4 L (42.0-52.0) % MCV 84.5 (80.0-94.0) fL MCH 25.5 L (27.0-31.0) pg MCHC 30.2 L (32.0-36.0) g/dL RDW 15.5 H (12.0-15.0) % Plt Count 303 (130-450) 10^3/uL MPV 10.2 (7.4-11.4) fL Neut # (Auto) 2.8 (1.5-6.6) 10^3/uL Lymph # (Auto) 2.8 (1.5-3.5) 10^3/uL [place] # (Auto) 0.6 (0.0-1.0) 10^3/uL Eos # (Auto) 0.3 (0.0-0.7) 10^3/uL Baso # (Auto) 0.0 (0.0-0.1) 10^3/uL Absolute Nucleated RBC 0.00 x10^3/uL Nucleated RBC % 0.0 /100WBC Bld Gas Analysis Time Sample Site ABG pH (7.35-7.45) ABG pCO2 (34-45) mmHg ABG pO2 (80-100) mmHg ABG HCO3 (22.0-26.0) mmol/L ABG Total CO2 (21.0-29.0) MMOL/L ABG O2 Saturation (94-98) % ABG Base Excess (-2.0-3.0) mmol/L Morris Test VBG pH (7.31-7.41) Ionized Calcium (1.15-1.33) mmol/L Respiration Rate b/min O2 Delivery Device Vent Mode FiO2 Tidal Volume mL PEEP cmH2O Sodium (135-145) mmol/L Potassium (3.5-4.5) mmol/L Chloride (101-111) mmol/L Carbon Dioxide (21-32) mmol/L Anion Gap (6-13) BUN (6-20) mg/dL Creatinine (0.6-1.3) mg/dL Estimated GFR (MDRD) (>89) Glucose (74-104) mg/dL POC Whole Bld Glucose (70 - 100) mg/dL Calcium (8.5-10.3) mg/dL Phosphorus (2.5-5.0) mg/dL Magnesium (1.7-2.3) mg/dL Total Bilirubin (0.2-1.0) mg/dL AST (10-42) IU/L ALT (10-60) IU/L Alkaline Phosphatase (42-121) IU/L Total Creatine Kinase (30-223) IU/L Troponin I High Sens (2.3-19.7) ng/L B-Natriuretic Peptide (5-100) pg/mL Total Protein (6.4-8.9) g/dL Albumin (3.2-5.5) g/dL Globulin (2.1-4.2) g/dL Albumin/Globulin Ratio (1.0-2.2) Lipase (11-82) U/L Urine Color Urine Clarity (CLEAR) Urine pH (5.0-7.5) PH Ur Specific [place] (1.002-1.030) Urine Protein (NEGATIVE) mg/dL Urine Glucose (UA) (NEGATIVE) mg/dL Urine Ketones (NEGATIVE) mg/dL Urine Occult Blood (NEGATIVE) Urine Nitrite (NEGATIVE) Urine Bilirubin (NEGATIVE) Urine Urobilinogen (NORMAL) E.U./dL Ur Leukocyte Esterase (NEGATIVE) Urine RBC (0-5) /HPF Urine WBC (0-3) /HPF Ur Squamous Epith Cells (<= Few) Urine Bacteria (None Seen) /HPF Urine Casts /LPF Urine Mucus Ur Microscopic Review Urine Culture Comments Nasal Adenovirus (PCR) Nasal B. parapertussis DNA (PCR) Nasal Coronavir 229E PCR Nasal Coronavir HKU1 PCR Nasal Coronavir NL63 PCR Nasal Coronavir OC43 PCR Nasal Enterovir/Rhinovir PCR Nasal Influenza B PCR Nasal Influenza A PCR Nasal Parainfluen 1 PCR Nasal Parainfluen 2 PCR Nasal Parainfluen 3 PCR Nasal Parainfluen 4 PCR Nasal RSV (PCR) Nasal Screen MRSA (PCR) (NEGATIVE) Nasal B.pertussis DNA PCR Nasal C.pneumoniae (PCR) [place] Human Metapneumo PCR Nasal M.pneumoniae (PCR) Nasal SARS-CoV-2 (PCR) Salicylates mg/dL Urine Opiates Screen (NEGATIVE) Ur Buprenorphine Scrn (NEGATIVE) Ur Oxycodone Screen (NEGATIVE) Urine Methadone Screen (NEGATIVE) Acetaminophen ug/mL Ur Barbiturates Screen (NEGATIVE) Ur Tricyclics Screen (NEGATIVE) Ur Phencyclidine Scrn (NEGATIVE) Ur Amphetamine Screen (NEGATIVE) U Methamphetamines Scrn (NEGATIVE) U Benzodiazepines Scrn (NEGATIVE) Urine Cocaine Screen (NEGATIVE) U Cannabinoids Screen (NEGATIVE) Ur Drug Screen Comment Ethyl Alcohol mg/dL Assessment/Plan - Problem List (1) Acute metabolic encephalopathy Impression: In reviewing multiple charts on this gentleman he is described as ambulatory, but nonweightbearing on that foot. But alert, oriented and theoretically able to follow instructions since all of these instructions for him at discharge indicate that he understands them. So what we are seeing is an unresponsive gentleman with a pulse and a pressure in the face of multiple drugs positive in his toxicology screen, and near respiratory failure. I am still going with my initial assessment of polysubstance abuse, accidental overdose, and probable aspiration. CT of the head is been interpreted as negative by the ER doctor. Final report is pending. CT of the chest, by his reading, does not have a pulmonary embolus. He does have a large right infiltrate. I did start restraints when he was in the ICU. His nurse was concerned that the Narcan had resulted in involuntary twitching and that he would eventually wake up and very quickly extubate himself if she was not a one-to-one at the bedside. However overnight he has remained unresponsive. I have not needed to give him any sedatives. This morning the security shift manager nurse had asked for Precedex. However the dayshift nurse feels it is not necessary. The patient really is not moving. Plan: Restraints will not be renewed for today at this time Conversation with the sister indicates that if he does have a anoxic brain injury and is not going to recover that I may be extubating him in the next day or 2. No NG tube feeds, no IV fluids etc. at that time. (2) Acute respiratory insufficiency Conclusion/Plan: I am monitoring his ventilator settings. This morning's blood gas had a pH of 7.49, pCO2 31, pO2 55. Bicarb 22. He was on a rate of 18, assist-control, FiO2 35, tidal volume 500 with a PEEP of 5. I readjusted to increase his FiO2 to 50%. I reduced his rate to 16. Repeat blood gases a pH of 7.43, pCO2 36, pO2 81. If he stays stable with his blood gas, and is this way tomorrow morning, I will most likely reduce his rate to 14. I am attributing his hypoxemia and wide AA gradient to the probable aspiration pneumonitis he has. (3) Pneumonia, Clinically aspiration pneumonia Conclusion/Plan: Patient who is acutely obtunded from baseline, and has multiple polysubstance drug in his toxicology screen. Again I am assuming there is been some aspiration. However I will start treatment empirically with Rocephin and azithromycin. Pharmacy tells me that he did not receive any antibiotics in the emergency room so I will be giving him his antibiotics in the ICU. is also on Flagyl because of the suspected aspiration. Today is day 2 of antibiotics. Qualifiers: Pneumonia type: aspiration pneumonia Aspiration pneumonia type: unspecified Laterality: right Lung location: lower lobe of lung Qualified Code(s): J69.0 - Pneumonitis due to inhalation of food and vomit (4) MARJ (acute kidney injury) improving Conclusion/Plan: most likely due to his being found down. Unknown when his last known normal was. Since he has a creatinine of 0.8, and if I assume complete kidney shutdown, it would have taken at least 48 hours to get to the level he is now. With the IV fluids have been using to hydrate him, his creatinine has gone from 2.9 to 1.2. if his creatinine goes back down to normal by tomorrow, I will reduce his IV fluids to 1 L a day. I will take into account IV fluids he gets for antibiotics as well. (5) Diabetes Conclusion/Plan: Glucose is in the mid 200s in this gentleman. Already documented high A1c percentage for February of this year. Tight glucose control between 140 and 180 is recommended for wound healing. He is in the ICU. Nursing cannot find the PICC line that he supposedly has on chest x-ray. I am not finding it either. I opted not to start him on an insulin drip at this time. He will be on sliding scale.He is NPO. Last night glucose was 230. This morning he was 161. And before lunchtime he is 147 with sliding scale. A1c is 9.7%. Plan: Add Lantus of 10 units in the morning. Qualifiers: Diabetes mellitus type: type 2 Diabetes mellitus remote computer terminal operator insulin use: with remote computer terminal operator use Diabetes mellitus complication status: with circulatory complication Diabetes mellitus complication detail: with peripheral angiopathy without gangrene Qualified Code(s): E11.51 - Type 2 diabetes mellitus with diabetic peripheral angiopathy without gangrene; Z79.4 - manager long term care (current) use of insulin (6) Polysubstance abuse Conclusion/Plan: Dose of Narcan resulted in some involuntary twitching. A second dose of Narcan really did not have much change on March 11. This morning his eyes are open but he is unresponsive. (7) Diabetic foot ulcer Conclusion/Plan: He is on Rocephin and azithromycin for the pneumonia. I have added Flagyl. Most of the bacteria that will be polymicrobial and aerobic as well as anaerobic should be covered by this regimen. No change in treatment at this time. His foot does not appear to be infected. 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 In the ER he varies between hypotensive requiring Levophed and hypotensive. He has been weaned off the drip and I will continue to monitor him. Qualifiers: Hypertension type: primary hypertension Qualified Code(s): I10 - Essential (primary) hypertension (9) ST segment abnormality resolved Conclusion/Plan: Reported by nursing on telemetry when he was first admitted. By the time we got an EKG on him, I Read his EKG and there was no ST segment changes. He had sinus rhythm with normal axis, normal R wave progression, no acute ST-T wave changes. Heart rate 55. I did a troponin and it was in the 30s. plan is continued monitoring on telemetry. So far, other than PACs, he is stable. (10) Do not resuscitate status Conclusion/Plan: his caregiver states that she did try and have a conversation with him once in the past. She has been taking care of him for 6 months. She asked him if he never filled out a POLST form and could he please do that with his primary care provider. He said that he did not know what he wanted to do, was very vague and responding to her never really got around to getting that done. So I explained to her that, by default, he will be a full code. Did get a hold of his sister who lives in [place]. She states he would not want prolonged life support. As such I am changing his CODE STATUS to DO NOT RESUSCITATE.
[2024-04-11 09:59] LABS: ESTIMATED AVERAGE GLUCOSE 232 mg/dL (70-100); HEMOGLOBIN A1c% 9.7 % (4.27-6.07)
--- NOTE | 2024-04-11 10:48 | CT Report ---
PROCEDURE: Head WO INDICATIONS: unresponsive TECHNIQUE: Noncontrast 4.5 mm thick angled axial sections acquired from the foramen magnum to the vertex. For r adiation dose reduction, the following was used: automated exposure control, adjustment of mA and/or kV according to patient size. COMPARISON: None. FINDINGS: Image quality: Excellent. CSF spaces: Basal cisterns are patent. No extra-axial fluid collections. Ventricles are normal in size and shape. Brain: No midline shift. No intracranial masses or hemorrhage. Moss-white matter interface is norm al. Skull and face: Calvarium and visualized facial bones are intact, without suspicious lesions. Sinuses: Visualized sinuses and mastoids are clear. IMPRESSION: No acute intracranial pathology. Reviewed by: Manjit Viveros MD on 04/11/2024 10:47 AM PDT Approved by: Manjit Viveros MD on 04/11/2024 10:47 AM PDT Station ID: [id number]
--- NOTE | 2024-04-11 10:51 | CT Report ---
PROCEDURE: Angio Chest INDICATIONS: unresponsive/ PEA this AM CONTRAST: Not listed TECHNIQUE: After the administration of intravenous contrast, 2 mm axial images were acquired from the pulmonary apices to the posterior costophrenic angles during the arterial phase. In addition, 1 mm lung kernel and 5 mm soft tissue kernel reconstructions were performed. 3-dimensional coronal oblique maximum int ensity projection (MIP) reformats, 8 mm axial MIP, and 5 mm coronal and sagittal MPR reformats were t hen performed through the thorax. For radiation dose reduction, the following was used: automated exp osure control, adjustment of mA and/or kV according to patient size. COMPARISON: October x-ray FINDINGS: Image quality: Excellent. Large vessels: No filling defects within the opacified pulmonary arteries, accounting for motion and contrast timing. No evidence of acute aortic syndrome or aortic aneurysm. Lungs and pleura: Right middle lobe and right lower lobe consolidation. Debris within the dependent r ight airways. Elevated right hemidiaphragm. Mediastinum: Heart size is normal. No pericardial effusion. No large vessel abnormality. No mediastin al adenopathy by size criteria. Endotracheal tube within the mid thoracic trachea. Severe LAD calcif ications. Chest wall and lower neck: Thyroid is unremarkable. No axillary or supraclavicular adenopathy by size . Bones: No aggressive osseous abnormality. Upper Abdomen: Gastric tube terminates in the stomach. IMPRESSION: No pulmonary embolus. Severe LAD calcifications. Right lower lobe and right middle lobe pneumonia, probably aspiration with debris in the dependent ai rways. Reviewed by: Manjit Viveros MD on 04/11/2024 10:50 AM PDT Approved by: Manjit Viveros MD on 04/11/2024 10:50 AM PDT Station ID: [id number]
[2024-04-11 12:04] LABS: ABG HCO3 23.6 mmol/L (22.0-26.0); ABG OXYGEN SATURATION 96 % (94-98); ABG PCO2 36 mmHg (34-45); ABG PH 7.43 (7.35-7.45); ABG PO2 81 mmHg (80-100); ALLEN TEST POSITIVE
[2024-04-11 12:05] LABS: ABG MODE OF VENTILATION ASSIST/CONTROL; ABG RESPIRATORY RATE 16 b/min
[2024-04-11 14:52] LABS: VBG PH 7.435 (7.31-7.41)
[2024-04-11 14:53] LABS: CALCIUM, IONIZED 1.1 mmol/L (1.15-1.33)
[2024-04-11] MEDS: HYDROmorphone 0.5 MG/0.5 ML SYRINGE IVP PRN (17:32)
[2024-04-11] MEDS: HYDROmorphone 1 MG/ML CARPUJECT IVP PRN (18:13)
[2024-04-11] MEDS: DEXMEDETOMIDINE 400 MCG/100 ML 100 ML IV SCH (18:21)
[2024-04-11] MEDS: MIDAZOLAM DRIP 50 MG/50 ML 50 MG/50 ML BAG IV SCH (18:58)
[2024-04-11 23:11] LABS: CALCIUM, IONIZED 1.13 mmol/L (1.15-1.33); VBG PH 7.47 (7.31-7.41)
[2024-04-12] MEDS: SODIUM CHLORIDE 0.9% 500 ML IV ONE (03:11)
[2024-04-12 05:05] LABS: BASOPHILS % (AUTO) 0.3 %; HCT - HEMATOCRIT 28.4 % (42.0-52.0); HGB - HEMOGLOBIN 8.9 g/dL (14.0-18.0); MEAN CORPUSCULAR HEMOGLOBIN 25.9 pg (27.0-31.0); MEAN CORPUSCULAR HGB CONC 31.3 g/dL (32.0-36.0); MEAN CORPUSCULAR VOLUME 82.6 fL (80.0-94.0); MEAN PLATELET VOLUME 10.4 fL (7.4-11.4); MONOCYTES # (AUTO) 0.6 10^3/uL (0.0-1.0); MONOCYTES % (AUTO) 6.9 %; NEUTROPHILS # (AUTO) 6.4 10^3/uL (1.5-6.6); NEUTROPHILS % (AUTO) 80.3 %; PLT - PLATELET COUNT 150 10^3/uL (130-450); RED BLOOD COUNT 3.44 10^6/uL (4.70-6.10); RED CELL DISTRIBUTION WIDTH 15.9 % (12.0-15.0)
[2024-04-12 05:13] LABS: VBG PH 7.492 (7.31-7.41)
[2024-04-12 05:14] LABS: CALCIUM, IONIZED 1.07 mmol/L (1.15-1.33)
[2024-04-12 05:23] LABS: CALCIUM 8.7 mg/dL (8.5-10.3); PHOSPHORUS 2.9 mg/dL (2.5-5.0); POTASSIUM 3.8 mmol/L (3.5-4.5)
[2024-04-12] MEDS: CALCIUM GLUC 1,000MG/50ML-NACL 1,000 MG/50 ML BAG IV ONE (06:05)
[2024-04-12] MEDS: POTASSIUM CHLOR 10 MEQ/100 ML 10 MEQ/100 ML BAG IV SCH (06:05)
--- NOTE | 2024-04-12 16:02 | PROVIDER PROGRESS NOTE ---
Subjective - Prog Note Date Prog Note Date: 04/12/24 Prog Note Time: 17:49 - Subjective Subjective: Patient has remained on Precedex and Versed. Pupils are now fixed and dilated at 4 mm. No response to light. Not breathing above the vent. He has a wide AA gradient so I have increased FiO2 to 80% earlier today and then brought him back down to 60%. Try to maintain O2 sats above 92%. His peak pressures are about 24 to ventilating. PEEP is 5. Otherwise staying stable on assist-control, tidal volume 500. Updated his sister on his condition. I have explained that he still needs to be well before we can decide if there is been enough or severe enough brain damage. I need to make sure that he is not going through withdrawal. Or that all of his toxins of wash through. In the next day I will stop his sedation and see if he wakes up. If he does not wake up I will then do several tests such as corneal stimulation, doll's eyes, cold calorics, and see how he does. If he has no response, I will rely on her judgment about when to extubate him, and see how he does. Current Medications - Current Medications Current Medications: Active Medications Alcohol (Ethyl Alcohol 62% Swab Ampule) 1 amp PATRICK BID [facility] Last Admin: 04/12/24 08:24 Dose: 1 amp Carboxymethylcellulose (Carboxymethylcellulose Ophth Drops) 1 drops EACHEYE PRN PRN PRN Reason: Dry Eye Enoxaparin Sodium (Enoxaparin 40 Mg/0.4 Ml Syringe) 40 mg SUBQ DAILY [facility] Last Admin: 04/12/24 08:24 Dose: 40 mg Hydromorphone HCl (Hydromorphone 1 Mg/Ml Carpuject) 1 mg IVP Q2HR PRN PRN Reason: Severe Pain (Level 7-10) Last Admin: 04/12/24 05:46 Dose: 1 mg NOREPINEPHRINE/0.9 % NS (Levophed 8 Mg/250-0.9% Nacl) 8 mg in 250 mls @ 7.5 mls/hr IV .[id number] JUANITO; Protocol Last Admin: 04/11/24 22:47 Dose: Not Given Sodium Chloride (Normal Saline 0.9%) 1,000 mls @ 100 mls/hr IV .Q10H [facility] Last Admin: 04/12/24 17:58 Dose: 100 mls/hr Ceftriaxone Sodium 1 gm/ (Sodium Chloride) 100 mls @ 200 mls/hr IV DAILY [facility] Stop: 04/14/24 09:29 Last Admin: 04/12/24 09:40 Dose: 200 mls/hr Metronidazole (Flagyl 500 Mg/100 Ml) 500 mg in 100 mls @ 100 mls/hr IV Q8H [facility] Stop: 04/15/24 07:59 Last Admin: 04/12/24 15:28 Dose: 100 mls/hr Dexmedetomidine/Sodium Chloride (Precedex Premix) 100 mls @ 4.05 mls/hr IV .[id number] [facility]; Protocol Last Admin: 04/12/24 15:26 Dose: 0.4 mcg/kg/hr, 8.1 mls/hr Midazolam HCl (Versed Drip 50 Mg/50 Ml) 50 mg in 50 mls @ 3.24 mls/hr IV .[id number] [facility]; Protocol Last Admin: 04/12/24 07:14 Dose: 0.04 mg/kg/hr, 3.24 mls/hr Insulin Glargine-yfgn (Insulin Glargine-Yfgn 300 Unit/3 Ml Pen) 15 unit SUBQ QPM [facility] Last Admin: 04/11/24 20:59 Dose: 15 unit Insulin Human Regular (Insulin Regular, Human 300 Unit/3 Ml Pen) 1 - 9 unit SUBQ Q6HR [facility]; Protocol Last Admin: 04/12/24 12:21 Dose: 1 unit Mineral Oil (Min Oil/Dimethicon/Coconut Oil 92 Gm Tube) 1 applic TOP PRN PRN PRN Reason: Skin Care Last Admin: 04/11/24 00:47 Dose: 1 applic Ondansetron HCl (Ondansetron Odt 4 Mg Tablet) 4 mg TL Q6HR PRN PRN Reason: Nausea / Vomiting Ondansetron HCl (Ondansetron 4 Mg/2 Ml Vial) 4 mg IVP Q6HR PRN PRN Reason: Nausea / Vomiting Pantoprazole Sodium (Pantoprazole 40 Mg Vial) 40 mg IVP QDAC [facility] Last Admin: 04/12/24 07:06 Dose: 40 mg Saccharomyces Boulardii (Saccharomyces Boulardii 250 Mg Capsule) 250 mg PO BIDWM [facility] Last Admin: 04/12/24 17:58 Dose: 250 mg Sodium Chloride (Sodium Chloride Flush 0.9% 10 Ml Syringe) 10 ml IVP 0100,0900,1700 [facility] Last Admin: 04/12/24 17:58 Dose: 10 ml Sodium Chloride (Sodium Chloride Flush 0.9% 10 Ml Syringe) 10 ml IVP PRN PRN PRN Reason: NEEDED PER PROVIDER ORDERS Amlodipine Besylate [Norvasc] 5 mg PO BID 11/18/22 Amox/Clav 875/125 [Augmentin 875/125 Tab] 1 tab PO BID 04/10/24 Baclofen 20 mg PO QID 04/10/24 Baclofen [Lioresal] 10 mg PO QID PRN 04/10/24 Gabapentin [Neurontin] 200 mg PO TID 04/10/24 Insulin Glargine,Hum.rec.anlog [Basaglar Kwikpen U-100] 22 units SUBQ DAILY 04/10/24 Insulin Lispro [Humalog Kwikpen U-100] 0 - 8 units SUBQ TIDWM 04/10/24 Isosorbide Mononitrate ER [Imdur] 30 mg PO DAILY 04/10/24 Lisinopril [Zestril] 40 mg PO DAILY 04/10/24 Magnesium Oxide 400 mg PO DAILY 04/10/24 Naloxone HCl Nasal [Narcan Nasal] 1 spray PATRICK PRN PRN 04/10/24 Oxycodone HCl 10 mg PO Q4HR PRN 04/10/24 Senna [Senokot] 8.6 mg PO DAILY 04/10/24 polyethylene glycoL 3350 [Miralax] 17 g PO DAILY PRN 04/10/24 Objective - Vital Signs/Intake & Output Reviewed Vital Signs: Yes Vital Signs: Vital Signs Pulse Resp BP Pulse Ox 04/12/24 15:00 82 16 187/101 H 98 04/12/24 14:30 63 16 140/77 H 98 04/12/24 14:00 71 16 156/86 H 97 04/12/24 13:00 63 16 135/78 H 96 04/12/24 12:30 84 16 162/86 H 97 Intake & Output: Intake & Output 04/09/24 04/10/24 04/11/24 04/12/24 23:59 23:59 23:59 23:59 Intake Total 2784.652 4514.911 2065.664 Output Total 2485 2901 1936 Balance 624.430 7573.911 129.664 - Objective General Appearance: positive: Other ( Intubated on Versed and Precedex. Not moving. Pupils 4 mm and unresponsive. Breathing at the vent rate.) ENT: positive: Pharynx nml, No signs of dehydration Neck: positive: No JVD. negative: Stiff neck Respiratory: positive: No respiratory distress. negative: Wheezes, Rales, Rhonchi Cardiovascular: positive: Regular rate & rhythm Abdomen: positive: No organomegaly, No distention, Other ( Hypoactive bowel sounds) Skin: positive: Warm, Dry, Other ( feet remain unchanged. The right foot is with old eschar. The left foot has erica and sutures. No redness, heat, discharge) Neurologic/Psychiatric: positive: Other ( debated and unresponsive) - Lab Results Fish Bones: 04/12/24 04:44 04/12/24 04:44 Other Labs: Lab Results x24hrs 04/12/24 04/12/24 04/12/24 Range/Units 05:50 04:44 04:44 WBC (4.8-10.8) x10^3/uL RBC (4.70-6.10) 10^6/uL Hgb (14.0-18.0) g/dL Hct (42.0-52.0) % MCV (80.0-94.0) fL MCH (27.0-31.0) pg MCHC (32.0-36.0) g/dL RDW (12.0-15.0) % Plt Count (130-450) 10^3/uL MPV (7.4-11.4) fL Neut # (Auto) (1.5-6.6) 10^3/uL Lymph # (Auto) (1.5-3.5) 10^3/uL [place] # (Auto) (0.0-1.0) 10^3/uL Eos # (Auto) (0.0-0.7) 10^3/uL Baso # (Auto) (0.0-0.1) 10^3/uL Absolute Nucleated RBC x10^3/uL Nucleated RBC % /100WBC VBG pH 7.492 H (7.31-7.41) Ionized Calcium 1.07 L (1.15-1.33) mmol/L Sodium 143 (135-145) mmol/L Potassium 3.8 (3.5-4.5) mmol/L Chloride 114 H (101-111) mmol/L Carbon Dioxide 22 (21-32) mmol/L Anion Gap 7.0 (6-13) BUN 27 H (6-20) mg/dL Creatinine 1.0 (0.6-1.3) mg/dL Estimated GFR (MDRD) 76 L (>89) Glucose 178 H (74-104) mg/dL POC Whole Bld Glucose 154 H (70 - 100) mg/dL Calcium 8.7 (8.5-10.3) mg/dL Phosphorus 2.9 (2.5-5.0) mg/dL Magnesium 2.0 (1.7-2.3) mg/dL 04/12/24 04/11/24 04/11/24 Range/Units 04:44 23:56 23:03 WBC 8.0 (4.8-10.8) x10^3/uL RBC 3.44 L (4.70-6.10) 10^6/uL Hgb 8.9 L (14.0-18.0) g/dL Hct 28.4 L (42.0-52.0) % MCV 82.6 (80.0-94.0) fL MCH 25.9 L (27.0-31.0) pg MCHC 31.3 L (32.0-36.0) g/dL RDW 15.9 H (12.0-15.0) % Plt Count 150 (130-450) 10^3/uL MPV 10.4 (7.4-11.4) fL Neut # (Auto) 6.4 (1.5-6.6) 10^3/uL Lymph # (Auto) 1.0 L (1.5-3.5) 10^3/uL [place] # (Auto) 0.6 (0.0-1.0) 10^3/uL Eos # (Auto) 0.0 (0.0-0.7) 10^3/uL Baso # (Auto) 0.0 (0.0-0.1) 10^3/uL Absolute Nucleated RBC 0.00 x10^3/uL Nucleated RBC % 0.0 /100WBC VBG pH 7.470 H (7.31-7.41) Ionized Calcium 1.13 L (1.15-1.33) mmol/L Sodium (135-145) mmol/L Potassium (3.5-4.5) mmol/L Chloride (101-111) mmol/L Carbon Dioxide (21-32) mmol/L Anion Gap (6-13) BUN (6-20) mg/dL Creatinine (0.6-1.3) mg/dL Estimated GFR (MDRD) (>89) Glucose (74-104) mg/dL POC Whole Bld Glucose 218 H (70 - 100) mg/dL Calcium (8.5-10.3) mg/dL Phosphorus (2.5-5.0) mg/dL Magnesium (1.7-2.3) mg/dL 04/11/24 04/11/24 Range/Units 23:03 16:32 WBC (4.8-10.8) x10^3/uL RBC (4.70-6.10) 10^6/uL Hgb (14.0-18.0) g/dL Hct (42.0-52.0) % MCV (80.0-94.0) fL MCH (27.0-31.0) pg MCHC (32.0-36.0) g/dL RDW (12.0-15.0) % Plt Count (130-450) 10^3/uL MPV (7.4-11.4) fL Neut # (Auto) (1.5-6.6) 10^3/uL Lymph # (Auto) (1.5-3.5) 10^3/uL [place] # (Auto) (0.0-1.0) 10^3/uL Eos # (Auto) (0.0-0.7) 10^3/uL Baso # (Auto) (0.0-0.1) 10^3/uL Absolute Nucleated RBC x10^3/uL Nucleated RBC % /100WBC VBG pH (7.31-7.41) Ionized Calcium (1.15-1.33) mmol/L Sodium (135-145) mmol/L Potassium 4.1 (3.5-4.5) mmol/L Chloride (101-111) mmol/L Carbon Dioxide (21-32) mmol/L Anion Gap (6-13) BUN (6-20) mg/dL Creatinine (0.6-1.3) mg/dL Estimated GFR (MDRD) (>89) Glucose (74-104) mg/dL POC Whole Bld Glucose 189 H (70 - 100) mg/dL Calcium (8.5-10.3) mg/dL Phosphorus (2.5-5.0) mg/dL Magnesium (1.7-2.3) mg/dL Assessment/Plan - Problem List (1) Acute metabolic encephalopathy Impression: In reviewing multiple charts on this gentleman he is described as ambulatory, but nonweightbearing on that foot. But alert, oriented and theoretically able to follow instructions since all of these instructions for him at discharge indicate that he understands them. So what we are seeing is an unresponsive gentleman with a pulse and a pressure in the face of multiple drugs positive in his toxicology screen, and near respiratory failure. I am still going with my initial assessment of polysubstance abuse, accidental overdose, and probable aspiration. CT of the head is been interpreted as negative by the ER doctor. Final reports were available on his chest x-ray and CT. It took calling over the course of 24 hours to get the final reports. He has a PICC line. In ET tube. No focal infiltrates. Elevation of the right hemidiaphragm on chest x- ray. CT of the chest and thorax does not identify PE. He has right middle lobe and right lower lobe consolidation. Debris within the dependent right airways. Severe LAD calcifications. The consolidations are interpreted as probable aspiration. Head CT is without acute intracranial pathology. I did start restraints 04/10 am when he was in the ICU. His nurse was concerned that the Narcan had resulted in involuntary twitching and that he would eventually wake up and very quickly extubate himself if she was not a one-to-one at the bedside. However overnight he has remained unresponsive. I have not needed restraints. Last night I started Precedex and Versed because of the fever, twitching and decorticate posturing. All of those symptoms have resolved. Plan: Wait 24 more hours to see if he does have withdrawal that I need to treat. I will then do a sedation weaning. Will do hypercarbic challenge and see how he does on a T-piece. I will then proceed with other neurological testing to see if there is any response. (2) Acute respiratory insufficiency Conclusion/Plan: On intubation he was initially hypocarbic. I then adjusted his vent settings from 18->16 and his pCO2 went up to 36. That was yesterday. No blood gases today. I am eating anywhere between 60% to 80% FiO2 to maintain O2 sat above 90%. Pressures to deliver his oxygen is in the low 20s. He is on a PEEP of 5. (3) Pneumonia, Clinically aspiration pneumonia Conclusion/Plan: Patient who is acutely obtunded from baseline, and has multiple polysubstance drug in his toxicology screen. Again I am assuming there is been some aspiration. Today is day #3 of antibiotics. I am treating as an pneumonia but added Flagyl for aspiration. So he is on Rocephin, azithromycin, and Flagyl. Qualifiers: Pneumonia type: aspiration pneumonia Aspiration pneumonia type: unspecified Laterality: right Lung location: lower lobe of lung Qualified Code(s): J69.0 - Pneumonitis due to inhalation of food and vomit (4) MARJ (acute kidney injury) improving Conclusion/Plan: most likely due to his being found down. Unknown when his last known normal was. Since he has a creatinine of 0.8, and if I assume complete kidney shutdown, it would have taken at least 48 hours to get to the level he is now. With the IV fluids have been using to hydrate him, his creatinine has gone from 2.9 to 1.2>>1.0 today Plan is to reduce IV fluids to 83.3 cc an hour for 1 L a day. (5) Diabetes Conclusion/Plan: Glucose is in the mid 200s in this gentleman. Already documented high A1c percentage for February of this year. Tight glucose control between 140 and 180 is recommended for wound healing. He is in the ICU. Nursing cannot find the PICC line that he supposedly has on chest x-ray. I am not finding it either. I opted not to start him on an insulin drip at this ti me. NPO.I started him on Lantus 15 units at night. Any sliding scale every 6 hours. Fasting this morning was 154. Plan is to continue Lantus and sliding scale insulin Qualifiers: Diabetes mellitus type: type 2 Diabetes mellitus termite control servicer insulin use: with termite control servicer use Diabetes mellitus complication status: with circulatory complication Diabetes mellitus complication detail: with peripheral angiopathy without gangrene Qualified Code(s): E11.51 - Type 2 diabetes mellitus with diabetic peripheral angiopathy without gangrene; Z79.4 - care home (current) use of insulin (6) Polysubstance abuse Conclusion/Plan: Dose of Narcan resulted in some involuntary twitching. A second dose of Narcan really did not have much change on March 11. opened his eyes on the morning of the but he is unresponsive. This morning no eye-opening. His pupils did go from 2 mm and fixed, to 4 mm and fixed. (7) Diabetic foot ulcer Conclusion/Plan: He is on Rocephin and azithromycin for the pneumonia. I have added Flagyl. Most of the bacteria that will be polymicrobial and aerobic as well as anaerobic should be covered by this regimen. No change in treatment at this time. His foot does not appear to be infected. 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 In the ER he varies between hypotensive requiring Levophed and hypotensive. He has been weaned off the drip and I will continue to monitor him. Blood pressure stable since yesterday. Qualifiers: Hypertension type: primary hypertension Qualified Code(s): I10 - Essential (primary) hypertension (9) ST segment abnormality resolved Conclusion/Plan: Reported by nursing on telemetry when he was first admitted. By the time we got an EKG on him, I Read his EKG and there was no ST segment changes. He had sinus rhythm with normal axis, normal R wave progression, no acute ST-T wave changes. Heart rate 55. I did a troponin and it was in the 30s. plan is continued monitoring on telemetry. So far, other than PACs, he is stable. (10) Do not resuscitate status Conclusion/Plan: his caregiver states that she did try and have a conversation with him once in the past. She has been taking care of him for 6 months. She asked him if he never filled out a POLST form and could he please do that with his primary care provider. He said that he did not know what he wanted to do, was very vague and responding to her never really got around to getting that done. So I explained to her that, by default, he will be a full code. Did get a hold of his sister who lives in [place]. She states he would not want prolonged life support. As such I changed his CODE STATUS to DO NOT RESUSCITATE.
[2024-04-12 20:08] LABS: MYCOPLASMA PNEUMONIAE IGG ABS 2424 U/mL (0-99); MYCOPLASMA PNEUMONIAE IGM ABS <770 U/mL (0-769)
[2024-04-13] MEDS: SODIUM CHLORIDE FLUSH 0.9% 10 ML SYRINGE IVP PRN (05:14)
[2024-04-13 05:16] LABS: CALCIUM, IONIZED 1.05 mmol/L (1.15-1.33); VBG PH 7.479 (7.31-7.41)
[2024-04-13 05:17] LABS: BASOPHILS % (AUTO) 0.3 %; EOSINOPHILS % (AUTO) 0.1 %; HGB - HEMOGLOBIN 9.6 g/dL (14.0-18.0); LYMPHOCYTES % (AUTO) 9.2 %; MEAN CORPUSCULAR HEMOGLOBIN 26.2 pg (27.0-31.0); MEAN CORPUSCULAR VOLUME 81.7 fL (80.0-94.0); MEAN PLATELET VOLUME 10.4 fL (7.4-11.4); MONOCYTES # (AUTO) 0.7 10^3/uL (0.0-1.0); MONOCYTES % (AUTO) 6.3 %; NEUTROPHILS % (AUTO) 83.3 %; PLT - PLATELET COUNT 188 10^3/uL (130-450); RED BLOOD COUNT 3.67 10^6/uL (4.70-6.10); RED CELL DISTRIBUTION WIDTH 15.5 % (12.0-15.0); WHITE BLOOD COUNT 10.8 x10^3/uL (4.8-10.8)
[2024-04-13 05:27] LABS: CALCIUM 8.8 mg/dL (8.5-10.3); CREATININE 0.7 mg/dL (0.6-1.3); MAGNESIUM 1.6 mg/dL (1.7-2.3); PHOSPHORUS 2.4 mg/dL (2.5-5.0); POTASSIUM 3.2 mmol/L (3.5-4.5)
[2024-04-13] MEDS: CALCIUM GLUC 1,000MG/50ML-NACL 1,000 MG/50 ML BAG IV ONE (06:06)
[2024-04-13] MEDS: MAGNESIUM SULFATE 2 GRAM 2 GM/50 ML BAG IV ONE (06:07)
[2024-04-13] MEDS: POTASSIUM PHOSPHATE 15 MMOL in SODIUM CHLORIDE 0.9% 250 ML IV ONE (09:00)
--- NOTE | 2024-04-13 11:49 | PROVIDER PROGRESS NOTE ---
Subjective - Prog Note Date Prog Note Date: 04/13/24 Prog Note Time: 11:47 - Subjective Subjective: Between yesterday and today no new events. 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 I have not change his antibiotics. He has been stable on Precedex and Versed. I stopped his Precedex and Versed and an hour later reevaluated him. Extraocular movements have changed. Yesterday his vision was fixed, staring straight upward. Today his orbits has rotated downward. Pupils are minimally reactive. Still no response to noxious stimuli. I ordered him to be put on CPAP settings to see what his respiratory effort was. Sedation has been stopped for an hour. No response at all. So we put him back on the ventilator. And I am going to try again in another hour or so. Current Medications - Current Medications Current Medications: Active Medications Alcohol (Ethyl Alcohol 62% Swab Ampule) 1 amp PATRICK BID [facility] Last Admin: 04/13/24 09:00 Dose: 1 amp Carboxymethylcellulose (Carboxymethylcellulose Ophth Drops) 1 drops EACHEYE PRN PRN PRN Reason: Dry Eye Enoxaparin Sodium (Enoxaparin 40 Mg/0.4 Ml Syringe) 40 mg SUBQ DAILY [facility] Last Admin: 04/13/24 09:00 Dose: 40 mg Hydromorphone HCl (Hydromorphone 1 Mg/Ml Carpuject) 1 mg IVP Q2HR PRN PRN Reason: Severe Pain (Level 7-10) Last Admin: 04/13/24 05:14 Dose: 1 mg NOREPINEPHRINE/0.9 % NS (Levophed 8 Mg/250-0.9% Nacl) 8 mg in 250 mls @ 7.5 mls/hr IV .[id number] [facility]; Protocol Last Admin: 04/11/24 22:47 Dose: Not Given Sodium Chloride (Normal Saline 0.9%) 1,000 mls @ 100 mls/hr IV .Q10H [facility] Last Infusion: 04/13/24 07:00 Dose: 100 mls/hr Ceftriaxone Sodium 1 gm/ (Sodium Chloride) 100 mls @ 200 mls/hr IV DAILY [facility] Stop: 04/14/24 09:29 Last Infusion: 04/13/24 09:30 Dose: Infused Metronidazole (Flagyl 500 Mg/100 Ml) 500 mg in 100 mls @ 100 mls/hr IV Q8H [facility] Stop: 04/15/24 07:59 Last Infusion: 04/13/24 08:17 Dose: Infused Potassium Phosphate 15 mmol/ (Sodium Chloride) 255 mls @ 63 mls/hr IV ONCE ONE; Protocol Stop: 04/13/24 12:02 Last Admin: 04/13/24 09:00 Dose: 63 mls/hr Insulin Glargine-yfgn (Insulin Glargine-Yfgn 300 Unit/3 Ml Pen) 15 unit SUBQ QPM [facility] Last Admin: 04/12/24 21:15 Dose: 15 unit Insulin Human Regular (Insulin Regular, Human 300 Unit/3 Ml Pen) 1 - 9 unit SUBQ Q6HR [facility]; Protocol Last Admin: 04/13/24 06:59 Dose: Not Given Mineral Oil (Min Oil/Dimethicon/Coconut Oil 92 Gm Tube) 1 applic TOP PRN PRN PRN Reason: Skin Care Last Admin: 04/11/24 00:47 Dose: 1 applic Ondansetron HCl (Ondansetron Odt 4 Mg Tablet) 4 mg TL Q6HR PRN PRN Reason: Nausea / Vomiting Ondansetron HCl (Ondansetron 4 Mg/2 Ml Vial) 4 mg IVP Q6HR PRN PRN Reason: Nausea / Vomiting Pantoprazole Sodium (Pantoprazole 40 Mg Vial) 40 mg IVP QDAC [facility] Last Admin: 04/13/24 06:20 Dose: 40 mg Saccharomyces Boulardii (Saccharomyces Boulardii 250 Mg Capsule) 250 mg PO BIDWM [facility] Last Admin: 04/13/24 09:00 Dose: 250 mg Sodium Chloride (Sodium Chloride Flush 0.9% 10 Ml Syringe) 10 ml IVP 0100,0900,1700 [facility] Last Admin: 04/13/24 09:13 Dose: 10 ml Sodium Chloride (Sodium Chloride Flush 0.9% 10 Ml Syringe) 10 ml IVP PRN PRN PRN Reason: NEEDED PER PROVIDER ORDERS Last Admin: 04/13/24 06:20 Dose: 10 ml Amlodipine Besylate [Norvasc] 5 mg PO BID 11/18/22 Amox/Clav 875/125 [Augmentin 875/125 Tab] 1 tab PO BID 04/10/24 Baclofen 20 mg PO QID 04/10/24 Baclofen [Lioresal] 10 mg PO QID PRN 04/10/24 Gabapentin [Neurontin] 200 mg PO TID 04/10/24 Insulin Glargine,Hum.rec.anlog [Basaglar Kwikpen U-100] 22 units SUBQ DAILY 04/10/24 Insulin Lispro [Humalog Kwikpen U-100] 0 - 8 units SUBQ TIDWM 04/10/24 Isosorbide Mononitrate ER [Imdur] 30 mg PO DAILY 04/10/24 Lisinopril [Zestril] 40 mg PO DAILY 04/10/24 Magnesium Oxide 400 mg PO DAILY 04/10/24 Naloxone HCl Nasal [Narcan Nasal] 1 spray PATRICK PRN PRN 04/10/24 Oxycodone HCl 10 mg PO Q4HR PRN 04/10/24 Senna [Senokot] 8.6 mg PO DAILY 04/10/24 polyethylene glycoL 3350 [Miralax] 17 g PO DAILY PRN 04/10/24 Objective - Vital Signs/Intake & Output Reviewed Vital Signs: Yes Vital Signs: Vital Signs Temp Pulse Pulse Resp BP Pulse Ox 04/13/24 11:00 77 16 164/89 H 94 04/13/24 10:36 37.4 C 04/13/24 10:00 85 16 171/89 H 94 04/13/24 09:02 64 04/13/24 09:00 66 16 164/83 H 95 04/13/24 08:00 37.6 C 57 L 16 143/78 H 94 Intake & Output: Intake & Output 04/10/24 04/11/24 04/12/24 04/13/24 23:59 23:59 23:59 23:59 Intake Total 2784.652 4514.911 3662.547 1776.673 Output Total 2485 2901 3041 1750 Balance 018.669 9860.911 621.547 26.673 - Objective General Appearance: positive: Other ( Intubated. Off sedatives since approximately 8:30 AM. Now 11:45 AM.) Eyes Bilateral: positive: Other ( Pupil was 2 mm. Now closer to 4 mm. Minimally reactive.) ENT: positive: Other ( He has a new furrowed brow.) Neck: positive: No JVD. negative: Stiff neck Respiratory: positive: No respiratory distress, Other (coarse tubular breath sounds R>L.). negative: Wheezes, Rales, Rhonchi Cardiovascular: positive: Regular rate & rhythm (tachy when he bucks the vent. BP also goes up with bucking the vent.) Abdomen: positive: Nml bowel sounds, No distention Skin: positive: Warm, Dry, Pallor, Other ( unchanged foot exam. Surgical changes on the left foot with clips and sutures. No redness, heat, drainage.) Extremities: positive: No pedal edema Neurologic/Psychiatric: positive: Other ( Intubated, off sedatives, still unresponsive) - Lab Results Fish Bones: 04/13/24 04:51 04/13/24 04:51 Other Labs: Lab Results x24hrs 04/13/24 04/13/24 04/13/24 Range/Units 05:52 04:51 04:51 WBC (4.8-10.8) x10^3/uL RBC (4.70-6.10) 10^6/uL Hgb (14.0-18.0) g/dL Hct (42.0-52.0) % MCV (80.0-94.0) fL MCH (27.0-31.0) pg MCHC (32.0-36.0) g/dL RDW (12.0-15.0) % Plt Count (130-450) 10^3/uL MPV (7.4-11.4) fL Neut # (Auto) (1.5-6.6) 10^3/uL Lymph # (Auto) (1.5-3.5) 10^3/uL [place] # (Auto) (0.0-1.0) 10^3/uL Eos # (Auto) (0.0-0.7) 10^3/uL Baso # (Auto) (0.0-0.1) 10^3/uL Absolute Nucleated RBC x10^3/uL Nucleated RBC % /100WBC VBG pH 7.479 H (7.31-7.41) Ionized Calcium 1.05 L (1.15-1.33) mmol/L Sodium 139 (135-145) mmol/L Potassium 3.2 L (3.5-4.5) mmol/L Chloride 106 (101-111) mmol/L Carbon Dioxide 26 (21-32) mmol/L Anion Gap 7.0 (6-13) BUN 16 (6-20) mg/dL Creatinine 0.7 (0.6-1.3) mg/dL Estimated GFR (MDRD) 115 (>89) Glucose 121 H (74-104) mg/dL POC Whole Bld Glucose 103 H (70 - 100) mg/dL Calcium 8.8 (8.5-10.3) mg/dL Phosphorus 2.4 L (2.5-5.0) mg/dL Magnesium 1.6 L (1.7-2.3) mg/dL Mycoplasma pneumon IgG (0-99) U/mL Mycoplasma pneumon IgM (0-769) U/mL 04/13/24 04/12/24 04/12/24 Range/Units 04:51 23:57 18:45 WBC 10.8 (4.8-10.8) x10^3/uL RBC 3.67 L (4.70-6.10) 10^6/uL Hgb 9.6 L (14.0-18.0) g/dL Hct 30.0 L (42.0-52.0) % MCV 81.7 (80.0-94.0) fL MCH 26.2 L (27.0-31.0) pg MCHC 32.0 (32.0-36.0) g/dL RDW 15.5 H (12.0-15.0) % Plt Count 188 (130-450) 10^3/uL MPV 10.4 (7.4-11.4) fL Neut # (Auto) 9.0 H (1.5-6.6) 10^3/uL Lymph # (Auto) 1.0 L (1.5-3.5) 10^3/uL [place] # (Auto) 0.7 (0.0-1.0) 10^3/uL Eos # (Auto) 0.0 (0.0-0.7) 10^3/uL Baso # (Auto) 0.0 (0.0-0.1) 10^3/uL Absolute Nucleated RBC 0.00 x10^3/uL Nucleated RBC % 0.0 /100WBC VBG pH (7.31-7.41) Ionized Calcium (1.15-1.33) mmol/L Sodium (135-145) mmol/L Potassium (3.5-4.5) mmol/L Chloride (101-111) mmol/L Carbon Dioxide (21-32) mmol/L Anion Gap (6-13) BUN (6-20) mg/dL Creatinine (0.6-1.3) mg/dL Estimated GFR (MDRD) (>89) Glucose (74-104) mg/dL POC Whole Bld Glucose 151 H 144 H (70 - 100) mg/dL Calcium (8.5-10.3) mg/dL Phosphorus (2.5-5.0) mg/dL Magnesium (1.7-2.3) mg/dL Mycoplasma pneumon IgG (0-99) U/mL Mycoplasma pneumon IgM (0-769) U/mL 04/12/24 04/12/24 04/10/24 Range/Units 12:11 07:47 10:05 WBC (4.8-10.8) x10^3/uL RBC (4.70-6.10) 10^6/uL Hgb (14.0-18.0) g/dL Hct (42.0-52.0) % MCV (80.0-94.0) fL MCH (27.0-31.0) pg MCHC (32.0-36.0) g/dL RDW (12.0-15.0) % Plt Count (130-450) 10^3/uL MPV (7.4-11.4) fL Neut # (Auto) (1.5-6.6) 10^3/uL Lymph # (Auto) (1.5-3.5) 10^3/uL [place] # (Auto) (0.0-1.0) 10^3/uL Eos # (Auto) (0.0-0.7) 10^3/uL Baso # (Auto) (0.0-0.1) 10^3/uL Absolute Nucleated RBC x10^3/uL Nucleated RBC % /100WBC VBG pH (7.31-7.41) Ionized Calcium (1.15-1.33) mmol/L Sodium (135-145) mmol/L Potassium (3.5-4.5) mmol/L Chloride (101-111) mmol/L Carbon Dioxide (21-32) mmol/L Anion Gap (6-13) BUN (6-20) mg/dL Creatinine (0.6-1.3) mg/dL Estimated GFR (MDRD) (>89) Glucose (74-104) mg/dL POC Whole Bld Glucose 148 H 143 H (70 - 100) mg/dL Calcium (8.5-10.3) mg/dL Phosphorus (2.5-5.0) mg/dL Magnesium (1.7-2.3) mg/dL Mycoplasma pneumon IgG 2424 H (0-99) U/mL Mycoplasma pneumon IgM <770 (0-769) U/mL Assessment/Plan - Problem List (1) Acute metabolic encephalopathy Impression: Assessment/Plan - Problem List (1) Acute metabolic encephalopathy Impression: In reviewing multiple charts on this gentleman he is described as ambulatory, but nonweightbearing on that foot. But alert, oriented and theoretically able to follow instructions since all of these instructions for him at discharge indicate that he understands them. So what we are seeing is an unresponsive gentleman with a pulse and a pressure in the face of multiple drugs positive in his toxicology screen, and near respiratory failure. I am still going with my initial assessment of polysubstance abuse, accidental overdose, and probable aspiration. CT of the head is been interpreted as negative by the ER doctor. Final reports were available on his chest x-ray and CT. It took calling over the course of 24 hours to get the final reports. He has a PICC line. In ET tube. No focal infiltrates. Elevation of the right hemidiaphragm on chest x- ray. CT of the chest and thorax does not identify PE. He has right middle lobe and right lower lobe consolidation. Debris within the dependent right airways. Severe LAD calcifications. The consolidations are interpreted as probable aspiration. Head CT is without acute intracranial pathology. I did start restraints 04/10 am when he was in the ICU. His nurse was concerned that the Narcan had resulted in involuntary twitching and that he would eventually wake up and very quickly extubate himself if she was not a one-to-one at the bedside. However overnight he has remained unresponsive. I have not needed restraints. 04/11 I started Precedex and Versed because of the fever, twitching and decorticate posturing. All of those symptoms have resolved. No changes 04/12. Today my plan is to extubate him if I can. However this gentleman is not spontaneously breathing above the vent, I may have to rediscuss this case with his sister. She was leaning toward extubation and letting him comfortably. I will revisit that plan with her this afternoon if he fails my challenges with CPAP. (2) Acute respiratory insufficiency Conclusion/Plan: On intubation he was initially hypocarbic. I then adjusted his vent settings from 18->16 and his pCO2 went up to 36. That was yesterday. No blood gases today. I am providing anywhere between 60% to 80% FiO2 to maintain O2 sat above 90%. Pressures to deliver his oxygen is in the low 20s. He did reina the vent once the am and had pressures to 30s but back down again when his body calmed. He is on a PEEP of 5. (3) Pneumonia, Clinically aspiration pneumonia Conclusion/Plan: Patient who is acutely obtunded from baseline, and has multiple polysubstance drug in his toxicology screen. Again I am assuming there is been some aspiration. Today is day #4 of antibiotics. I am treating as an pneumonia but added Flagyl for aspiration. So he is on Rocephin, azithromycin, and Flagyl. Qualifiers: Pneumonia type: aspiration pneumonia Aspiration pneumonia type: unspecified Laterality: right Lung location: lower lobe of lung Qualified Code(s): J69.0 - Pneumonitis due to inhalation of food and vomit (4) MARJ (acute kidney injury) resolved Conclusion/Plan: most likely due to his being found down. Unknown when his last known normal was. Since he has a creatinine of 0.8, and if I assume complete kidney shutdown, it would have taken at least 48 hours to get to the level he is now. With the IV fluids have been using to hydrate him, his creatinine has gone fro m 2.9 to 1.2>>1.0>>0.7 today Plan is to continue IV fluids to 83.3 cc an hour for 1 L a day. (5) Diabetes Conclusion/Plan: Glucose is in the mid 200s in this gentleman. Already documented high A1c percentage for February of this year. Tight glucose control between 140 and 180 is recommended for wound healing. He is in the ICU. Nursing cannot find the PICC line that he supposedly has on chest x-ray. I am not finding it either. I opted not to start him on an insulin drip at this time. NPO.I started him on Lantus 15 units at night. Any sliding scale every 6 hours. 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 A second dose of Narcan really did not have much change on March 11. opened his eyes on the morning of the but he is unresponsive. This morning no eye-opening. His pupils did go from 2 mm and fixed, to 4 mm and fixed. (7) Diabetic foot ulcer Conclusion/Plan: He is on Rocephin and azithromycin for the pneumonia. I have added Flagyl. Most of the bacteria that will be polymicrobial and aerobic as well as anaerobic should be covered by this regimen. No change in treatment at this time. His foot does not appear to be infected. 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 In the ER he varies between hypotensive requiring Levophed and hypotensive. He has been weaned off the drip and I will continue to monitor him. Blood pressure stable since 04/11. Qualifiers: Hypertension type: primary hypertension Qualified Code(s): I10 - Essential (primary) hypertension (9) ST segment abnormality resolved Conclusion/Plan: Reported by nursing on telemetry when he was first admitted. By the time we got an EKG on him, I Read his EKG and there was no ST segment changes. He had sinus rhythm with normal axis, normal R wave progression, no acute ST-T wave changes. Heart rate 55. I did a troponin and it was in the 30s. plan is continued monitoring on telemetry. So far, other than PACs, he is stable. (10) Do not resuscitate status Conclusion/Plan: his caregiver Tu states that she did try and have a conversation with him once in the past. She has been taking care of him for 6 months. She asked him if he never filled out a POLST form and could he please do that with his primary care provider. He said that he did not know what he wanted to do, was very vague and responding to her never really got around to getting that done. So I explained to her that, by default, he will be a full code. Did get a hold of his sister Brenda who lives in [place]. She states he would not want prolonged life support. As such I changed his CODE STATUS to DO NOT RESUSCITATE. Today, with his failure to breath on his own, his prognosis is poor. I will discuss extubation with expectation he will not survive with his sister. Or see if she would like to wait.
[2024-04-13] MEDS: SODIUM CHLORIDE 0.9% 1,000 ML IV SCH (12:06)
[2024-04-13] MEDS: DEXMEDETOMIDINE 400 MCG/100 ML 100 ML IV SCH (18:22)
[2024-04-14 04:36] LABS: BASOPHILS % (AUTO) 0.5 %; EOSINOPHILS # (AUTO) 0.1 10^3/uL (0.0-0.7); EOSINOPHILS % (AUTO) 1.1 %; HCT - HEMATOCRIT 30.2 % (42.0-52.0); HGB - HEMOGLOBIN 9.5 g/dL (14.0-18.0); LYMPHOCYTES # (AUTO) 0.8 10^3/uL (1.5-3.5); LYMPHOCYTES % (AUTO) 12.7 %; MEAN CORPUSCULAR HEMOGLOBIN 25.3 pg (27.0-31.0); MEAN CORPUSCULAR HGB CONC 31.5 g/dL (32.0-36.0); MEAN CORPUSCULAR VOLUME 80.5 fL (80.0-94.0); MEAN PLATELET VOLUME 9.9 fL (7.4-11.4); MONOCYTES # (AUTO) 0.6 10^3/uL (0.0-1.0); MONOCYTES % (AUTO) 8.4 %; NEUTROPHILS # (AUTO) 5.1 10^3/uL (1.5-6.6); NEUTROPHILS % (AUTO) 76.8 %; PLT - PLATELET COUNT 234 10^3/uL (130-450); RED BLOOD COUNT 3.75 10^6/uL (4.70-6.10); RED CELL DISTRIBUTION WIDTH 14.9 % (12.0-15.0); WHITE BLOOD COUNT 6.6 x10^3/uL (4.8-10.8)
[2024-04-14 04:40] LABS: VBG PH 7.559 (7.31-7.41)
[2024-04-14 04:41] LABS: CALCIUM, IONIZED 1.02 mmol/L (1.15-1.33)
[2024-04-14 04:53] LABS: CALCIUM 8.7 mg/dL (8.5-10.3); CREATININE 0.6 mg/dL (0.6-1.3); MAGNESIUM 1.6 mg/dL (1.7-2.3); PHOSPHORUS 2.4 mg/dL (2.5-5.0); POTASSIUM 2.8 mmol/L (3.5-4.5)
[2024-04-14] MEDS: MAGNESIUM SULFATE 2 GRAM 2 GM/50 ML BAG IV ONE (05:54)
[2024-04-14] MEDS: CALCIUM GLUC 1,000MG/50ML-NACL 1,000 MG/50 ML BAG IV ONE (05:54)
[2024-04-14] MEDS: POTASSIUM PHOSPHATE 15 MMOL in SODIUM CHLORIDE 0.9% 250 ML IV ONE (08:48)
[2024-04-14] MEDS ORDERED: BACLOFEN 10 MG TABLET PO PRN (08:55)
[2024-04-14] MEDS: MAGNESIUM OXIDE 400 MG TABLET PO SCH (09:45)
[2024-04-14] MEDS: ISOSORBIDE MONONITRATE ER 30 MG TABLET PO SCH (09:45)
[2024-04-14] MEDS: GABAPENTIN 100 MG CAPSULE PO SCH (10:13)
[2024-04-14] MEDS: ONDANSETRON 4 MG/2 ML VIAL IVP PRN (11:44)
[2024-04-14] MEDS: BACLOFEN 10 MG TABLET PO SCH (12:07)
[2024-04-14] MEDS: oxyCODONE 5 MG TABLET PO PRN (12:07)
[2024-04-14] MEDS: POTASSIUM CHLORIDE 20 MEQ TABLET PO SCH ×2 (12:08→18:25)
[2024-04-14] MEDS: MAGNESIUM OXIDE 400 MG TABLET PO ONE (12:08)
--- NOTE | 2024-04-14 14:24 | PROVIDER PROGRESS NOTE ---
Subjective - Prog Note Date Prog Note Date: 04/14/24 Prog Note Time: 14:31 - Subjective Subjective: I reassessed him this morning. Still doing well on the vent, and off of sedatives was following commands. As such after an hour of CPAP, I ordered extubation. Current Medications - Current Medications Current Medications: Active Medications Alcohol (Ethyl Alcohol 62% Swab Ampule) 1 amp PATRICK BID [facility] Last Admin: 04/14/24 10:13 Dose: 1 amp Amlodipine Besylate (Amlodipine 5 Mg Tablet) 5 mg PO BID [facility] Baclofen (Baclofen 10 Mg Tablet) 20 mg PO QID [facility] Last Admin: 04/14/24 12:07 Dose: 20 mg Baclofen (Baclofen 10 Mg Tablet) 10 mg PO QID PRN PRN Reason: Spasms Carboxymethylcellulose (Carboxymethylcellulose Ophth Drops) 1 drops EACHEYE PRN PRN PRN Reason: Dry Eye Enoxaparin Sodium (Enoxaparin 40 Mg/0.4 Ml Syringe) 40 mg SUBQ DAILY [facility] Last Admin: 04/14/24 08:48 Dose: 40 mg Ferrous Gluconate (Ferrous Gluconate 324 Mg Tablet) 324 mg PO DAILYWM [facility] Folic Acid (Folic Acid 1 Mg Tablet) 1 mg PO DAILY [facility] Gabapentin (Gabapentin 100 Mg Capsule) 200 mg PO TID [facility] Last Admin: 04/14/24 10:13 Dose: 200 mg Hydromorphone HCl (Hydromorphone 1 Mg/Ml Carpuject) 1 mg IVP Q2HR PRN PRN Reason: Severe Pain (Level 7-10) Last Admin: 04/14/24 03:48 Dose: 1 mg NOREPINEPHRINE/0.9 % NS (Levophed 8 Mg/250-0.9% Nacl) 8 mg in 250 mls @ 7.5 mls/hr IV .[id number] [facility]; Protocol Last Admin: 04/11/24 22:47 Dose: Not Given Metronidazole (Flagyl 500 Mg/100 Ml) 500 mg in 100 mls @ 100 mls/hr IV Q8H [facility] Stop: 04/15/24 07:59 Last Admin: 04/14/24 07:03 Dose: 100 mls/hr Dexmedetomidine/Sodium Chloride (Precedex Premix) 100 mls @ 4.025 mls/hr IV .[id number] [facility]; Protocol Last Titration: 04/14/24 04:00 Dose: 0 mcg/kg/hr, 0 mls/hr Insulin Glargine-yfgn (Insulin Glargine-Yfgn 300 Unit/3 Ml Pen) 15 unit SUBQ QPM [facility] Last Admin: 04/13/24 20:38 Dose: 15 unit Insulin Human Regular (Insulin Regular, Human 300 Unit/3 Ml Pen) 1 - 9 unit SUB Q Q6HR [facility]; Protocol Last Admin: 04/14/24 12:24 Dose: 1 unit Isosorbide Mononitrate (Isosorbide Mononitrate Er 30 Mg Tablet) 30 mg PO DAILY [facility] Last Admin: 04/14/24 09:45 Dose: 30 mg Lisinopril (Lisinopril 20 Mg Tablet) 40 mg PO DAILY [facility] Magnesium Oxide (Magnesium Oxide 400 Mg Tablet) 400 mg PO DAILY [facility] Last Admin: 04/14/24 09:45 Dose: 400 mg Mineral Oil (Min Oil/Dimethicon/Coconut Oil 92 Gm Tube) 1 applic TOP PRN PRN PRN Reason: Skin Care Last Admin: 04/13/24 19:57 Dose: 1 applic Multi-Ingredient Ointment (Zinc Oxide 20% Oint 30 Gm Tube) 1 applic TOP PRN PRN PRN Reason: Skin Care Multivitamins/Minerals (Multivitamin W/Minerals Tablet) 1 tab PO DAILYWM [facility] Ondansetron HCl (Ondansetron Odt 4 Mg Tablet) 4 mg TL Q6HR PRN PRN Reason: Nausea / Vomiting Ondansetron HCl (Ondansetron 4 Mg/2 Ml Vial) 4 mg IVP Q6HR PRN PRN Reason: Nausea / Vomiting Last Admin: 04/14/24 11:44 Dose: 4 mg Oxycodone HCl (Oxycodone 5 Mg Tablet) 10 mg PO Q4HR PRN PRN Reason: Moderate Pain (Level 4-6) Last Admin: 04/14/24 12:07 Dose: 10 mg Pantoprazole Sodium (Pantoprazole 40 Mg Vial) 40 mg IVP QDAC [facility] Last Admin: 04/14/24 07:03 Dose: 40 mg Saccharomyces Boulardii (Saccharomyces Boulardii 250 Mg Capsule) 250 mg PO BIDWM [facility] Last Admin: 04/14/24 08:49 Dose: 250 mg Sodium Chloride (Sodium Chloride Flush 0.9% 10 Ml Syringe) 10 ml IVP 0100,0900,1700 [facility] Last Admin: 04/14/24 08:48 Dose: 10 ml Sodium Chloride (Sodium Chloride Flush 0.9% 10 Ml Syringe) 10 ml IVP PRN PRN PRN Reason: NEEDED PER PROVIDER ORDERS Last Admin: 04/14/24 07:03 Dose: 10 ml Thiamine HCl (Thiamine 100 Mg Tablet) 100 mg PO DAILY [facility] Amlodipine Besylate [Norvasc] 5 mg PO BID 11/18/22 Amox/Clav 875/125 [Augmentin 875/125 Tab] 1 tab PO BID 04/10/24 Baclofen 20 mg PO QID 04/10/24 Baclofen [Lioresal] 10 mg PO QID PRN 04/10/24 Gabapentin [Neurontin] 200 mg PO TID 04/10/24 Insulin Glargine,Hum.rec.anlog [Basaglar Kwikpen U-100] 22 units SUBQ DAILY 04/10/24 Insulin Lispro [Humalog Kwikpen U-100] 0 - 8 units SUBQ TIDWM 04/10/24 Isosorbide Mononitrate ER [Imdur] 30 mg PO DAILY 04/10/24 Lisinopril [Zestril] 40 mg PO DAILY 04/10/24 Magnesium Oxide 400 mg PO DAILY 04/10/24 Naloxone HCl Nasal [Narcan Nasal] 1 spray PATRICK PRN PRN 04/10/24 Oxycodone HCl 10 mg PO Q4HR PRN 04/10/24 Senna [Senokot] 8.6 mg PO DAILY 04/10/24 polyethylene glycoL 3350 [Miralax] 17 g PO DAILY PRN 04/10/24 Objective - Vital Signs/Intake & Output Reviewed Vital Signs: Yes Vital Signs: Vital Signs Temp Pulse Resp BP Pulse Ox 04/14/24 13:00 102 H 22 167/94 H 04/14/24 12:00 36.8 C 90 27 H 168/94 H 94 04/14/24 11:00 96 18 157/100 H 92 Intake & Output: Intake & Output 04/11/24 04/12/24 04/13/24 04/14/24 23:59 23:59 23:59 23:59 Intake Total 4514.911 3662.547 2725.810 425.964 Output Total 2441 8391 4550 2325 Balance 1613.911 621.547 -9163.190 -5030.036 - Objective General Appearance: positive: No acute distress, Other ( Sitting up in the chair, eyes open, responsive and answers questions. Psychomotor slowing.) Eyes Bilateral: positive: PERRL ENT: positive: Pharynx nml Neck: positive: No JVD. negative: Stiff neck Respiratory: positive: No respiratory distress, Rhonchi ( Right midlung). negative: Wheezes, Rales Cardiovascular: positive: Regular rate & rhythm Abdomen: positive: Non-tender, No organomegaly, Nml bowel sounds Skin: positive: Warm, Dry, Other ( Both Feet continue to have healing ulcers. but no acute infection.) Extremities: positive: No pedal edema Neurologic/Psychiatric: positive: CN's nml (2-12), Disoriented to place. negative: Motor nml (slow but No focal deficits.) - Lab Results Fish Bones: 04/14/24 04:18 04/14/24 10:57 Other Labs: Lab Results x24hrs 04/14/24 04/14/24 04/14/24 Range/Units 12:09 10:57 10:57 WBC (4.8-10.8) x10^3/uL RBC (4.70-6.10) 10^6/uL Hgb (14.0-18.0) g/dL Hct (42.0-52.0) % MCV (80.0-94.0) fL MCH (27.0-31.0) pg MCHC (32.0-36.0) g/dL RDW (12.0-15.0) % Plt Count (130-450) 10^3/uL MPV (7.4-11.4) fL Neut # (Auto) (1.5-6.6) 10^3/uL Lymph # (Auto) (1.5-3.5) 10^3/uL Grundy # (Auto) (0.0-1.0) 10^3/uL Eos # (Auto) (0.0-0.7) 10^3/uL Baso # (Auto) (0.0-0.1) 10^3/uL Absolute Nucleated RBC x10^3/uL Nucleated RBC % /100WBC VBG pH (7.31-7.41) Ionized Calcium (1.15-1.33) mmol/L Sodium (135-145) mmol/L Potassium 3.0 L (3.5-4.5) mmol/L Chloride (101-111) mmol/L Carbon Dioxide (21-32) mmol/L Anion Gap (6-13) BUN (6-20) mg/dL Creatinine (0.6-1.3) mg/dL Estimated GFR (MDRD) (>89) Glucose (74-104) mg/dL POC Whole Bld Glucose 176 H (70 - 100) mg/dL Calcium (8.5-10.3) mg/dL Phosphorus (2.5-5.0) mg/dL Magnesium 1.8 (1.7-2.3) mg/dL 04/14/24 04/14/24 04/14/24 Range/Units 06:07 04:18 04:18 WBC (4.8-10.8) x10^3/uL RBC (4.70-6.10) 10^6/uL Hgb (14.0-18.0) g/dL Hct (42.0-52.0) % MCV (80.0-94.0) fL MCH (27.0-31.0) pg MCHC (32.0-36.0) g/dL RDW (12.0-15.0) % Plt Count (130-450) 10^3/uL MPV (7.4-11.4) fL Neut # (Auto) (1.5-6.6) 10^3/uL Lymph # (Auto) (1.5-3.5) 10^3/uL Grundy # (Auto) (0.0-1.0) 10^3/uL Eos # (Auto) (0.0-0.7) 10^3/uL Baso # (Auto) (0.0-0.1) 10^3/uL Absolute Nucleated RBC x10^3/uL Nucleated RBC % /100WBC VBG pH 7.559 H (7.31-7.41) Ionized Calcium 1.02 L (1.15-1.33) mmol/L Sodium 137 (135-145) mmol/L Potassium 2.8 L (3.5-4.5) mmol/L Chloride 102 (101-111) mmol/L Carbon Dioxide 25 (21-32) mmol/L Anion Gap 10.0 (6-13) BUN 12 (6-20) mg/dL Creatinine 0.6 (0.6-1.3) mg/dL Estimated GFR (MDRD) 137 (>89) Glucose 90 (74-104) mg/dL POC Whole Bld Glucose 86 (70 - 100) mg/dL Calcium 8.7 (8.5-10.3) mg/dL Phosphorus 2.4 L (2.5-5.0) mg/dL Magnesium 1.6 L (1.7-2.3) mg/dL 04/14/24 04/13/24 04/13/24 Range/Units 04:18 23:51 17:50 WBC 6.6 (4.8-10.8) x10^3/uL RBC 3.75 L (4.70-6.10) 10^6/uL Hgb 9.5 L (14.0-18.0) g/dL Hct 30.2 L (42.0-52.0) % MCV 80.5 (80.0-94.0) fL MCH 25.3 L (27.0-31.0) pg MCHC 31.5 L (32.0-36.0) g/dL RDW 14.9 (12.0-15.0) % Plt Count 234 (130-450) 10^3/uL MPV 9.9 (7.4-11.4) fL Neut # (Auto) 5.1 (1.5-6.6) 10^3/uL Lymph # (Auto) 0.8 L (1.5-3.5) 10^3/uL Grundy # (Auto) 0.6 (0.0-1.0) 10^3/uL Eos # (Auto) 0.1 (0.0-0.7) 10^3/uL Baso # (Auto) 0.0 (0.0-0.1) 10^3/uL Absolute Nucleated RBC 0.00 x10^3/uL Nucleated RBC % 0.0 /100WBC VBG pH (7.31-7.41) Ionized Calcium (1.15-1.33) mmol/L Sodium (135-145) mmol/L Potassium (3.5-4.5) mmol/L Chloride (101-111) mmol/L Carbon Dioxide (21-32) mmol/L Anion Gap (6-13) BUN (6-20) mg/dL Creatinine (0.6-1.3) mg/dL Estimated GFR (MDRD) (>89) Glucose (74-104) mg/dL POC Whole Bld Glucose 95 112 H (70 - 100) mg/dL Calcium (8.5-10.3) mg/dL Phosphorus (2.5-5.0) mg/dL Magnesium (1.7-2.3) mg/dL Assessment/Plan - Problem List (1) Acute metabolic encephalopathy Impression: This patient most likely has anoxic brain injury due to as yet undetermined intentional or unintentional polysubstance overdose. He uses methamphetamines, has opioids, benzodiazepines at home. His sister describes him as particularly hostile and overwhelmed with his health. He has had multiple admissions for diabetic foot ulcers. He is lost a couple of toes on the left foot. Another toe on the right foot. On long-term antibiotics because of infection in the left foot. He has been at home on oral antibiotics when he was found down by his caregiver. He was intubated to protect his airway. For the first few days he is pupils were pinpoint and unreactive. Then they became 4 mm and unreactive. Yesterday, I felt that he had had enough time to finish going through any type of withdrawal and began the process of extubation to see what his mental status was. When I started the day, he was still unresponsive. This was in spite of a ll sedatives being removed. As the afternoon were on, the patient opened his eyes, and was following and tracking with his eyes. And following commands. Yesterday evening I decided to keep him on Precedex because I did not want to extubate him too late in the afternoon with no night support. This morning, sedatives were removed and he is alert, responding to commands. I put him on CPAP. He did well with that. No tachypnea, tachycardia, and blood pressure was stable. I ordered extubation and since extubation he is now sitting on a chair. Starting to eat. He knows it is April. He does not know where he is. But he is able to tell me that he lives alone. Has caregivers that come take care of him. That he lives in [place]. I will call his sister and update her. Our next step is physical and Occupational Therapy to evaluate his need for rehab. I will transition him to MedSurg status. I will discontinue the Burris. Start a clear liquid diet. (2) Pneumonia, Clinically aspiration pneumonia Conclusion/Plan: Patient who is acutely obtunded from baseline, and has multiple polysubstance drug in his toxicology screen. Again I am assuming there is been some aspiration. Today is day #5 of antibiotics. I am treating as an pneumonia but added Flagyl for aspiration. So he is on Rocephin, azithromycin, and Flagyl. Qualifiers: Pneumonia type: aspiration pneumonia Aspiration pneumonia type: unspecified Laterality: right Lung location: lower lobe of lung Qualified Code(s): J69.0 - Pneumonitis due to inhalation of food and vomit Resolved or chronic medical problems: (3) Acute respiratory insufficiency resolved. Conclusion/Plan: On intubation he was initially hypocarbic. I then adjusted his vent settings from 18->16 and his pCO2 went up to 36. That was yesterday. No blood gases today. I am providing anywhere between 60% to 80% FiO2 to maintain O2 sat above 90%. Pressures to deliver his oxygen is in the low 20s. He did reina the vent once the am and had pressures to 30s but back down again when his body calmed. He is on a PEEP of 5. (4) MARJ (acute kidney injury) resolved Conclusion/Plan: most likely due to his being found down. Unknown when his last known normal was. Since he has a creatinine of 0.8, and if I assume complete kidney shutdown, it would have taken at least 48 hours to get to the level he is now. With the IV fluids have been using to hydrate him, his creatinine has gone from 2.9 to 1.2>>1.0>>0.7 today. The last 2 days have had him on maintenance fluids of 83 cc an hour. Now that he is awake, and I am going to be starting p.o., I am stopping IV fluids. He does have hypokalemia today. I am supplementing with oral potassium. (5) Diabetes controlled Conclusion/Plan: Glucose is in the mid 200s in this gentleman. Already documented high A1c percentage for February of this year. Tight glucose control between 140 and 180 is recommended for wound healing. He is in the ICU. Nursing cannot find the PICC line that he supposedly has on chest x-ray. I am not finding it either. I opted not to start him on an insulin drip at this time. I started him on Lantus 15 units at night. Any sliding scale every 6 hours. He is NPO. Laboratory Tests 04/12/24 04/12/24 04/12/24 12:11 18:45 23:57 POC Whole Bld Glucose 148 H 144 H 151 H 04/13/24 04/13/24 05:52 11:57 POC Whole Bld Glucose 103 H 105 H Selected Entries 04/13/24 04/14/24 04/14/24 18:00 00:00 06:00 Result (mg/dL) 112 95 86 04/14/24 12:00 Result (mg/dL) 176 Plan is to continue Lantus and sliding scale insulin. I have started clear liquid diet. And I will advance to a carbohydrate diet by lunch if he is doing well. I will change the sliding scale insulin schedule to with meals as opposed to n.p.o. status. Qualifiers: Diabetes mellitus type: type 2 Diabetes mellitus manager long term care insulin use: with penitentiary use Diabetes mellitus complication status: with circulatory complication Diabetes mellitus complication detail: with peripheral angiopathy without gangrene Qualified Code(s): E11.51 - Type 2 diabetes mellitus with diabetic peripheral angiopathy without gangrene; Z79.4 - USP (current) use of insulin (6) Polysubstance abuse Conclusion/Plan: Dose of Narcan resulted in some involuntary twitching. A second dose of Narcan really did not have much change on March 11. opened his eyes on the morning of the but he is unresponsive. on the afternoon of April 13, the patient woke up. (7) Diabetic foot ulcer Conclusion/Plan: He is on Rocephin and azithromycin for the pneumonia. I have added Flagyl. Most of the bacteria that will be polymicrobial and aerobic as well as anaerobic should be covered by this regimen. No change in treatment at this time. His foot does not appear to be infected. I need to call [facility] and speak to orthopedics to find out when to take out his sutures. And erica. 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 In the ER he varies between hypotensive requiring Levophed and hypotensive. He has been weaned off the drip and I will continue to monitor him. Blood pressure stable since 04/11. I will resume his home meds.That includes isosorbide mononitrate, amlodipine and lisinopril. Qualifiers: Hypertension type: primary hypertension Qualified Code(s): I10 - Essential (primary) hypertension (9) ST segment abnormality resolved Conclusion/Plan: Reported by nursing on telemetry when he was first admitted. By the time we got an EKG on him, I Read his EKG and there was no ST segment changes. He had sinus rhythm with normal axis, normal R wave progression, no acute ST-T wave changes. Heart rate 55. I did a troponin and it was in the 30s. plan is continued monitoring on telemetry. So far, other than PACs, he is stable. (10) Do not resuscitate status Conclusion/Plan: his caregiver Tu states that she did try and have a conversation with him once in the past. She has been taking care of him for 6 months. She asked him if he never filled out a POLST form and could he please do that with his primary care provider. He said that he did not know what he wanted to do, was very vague and responding to her never really got around to getting that done. So I explained to her that, by default, he will be a full code. Did get a hold of his sister Brenda who lives in [place]. She states he would not want prolonged life support. As such I changed his CODE STATUS to DO NOT RESUSCITATE. Does not know where he is today. So there is some cognitive deficits. If his cognitive status improves, I will discuss with him. (11) Chronic anemia I will start ferrous gluconate 324 mg p.o. daily, thiamine 100 mg a day, folate 1 mg a day
[2024-04-14] MEDS: FERROUS GLUCONATE 324 MG TABLET PO SCH (15:57)
[2024-04-14] MEDS: MULTIVITAMIN W/MINERALS TABLET PO SCH (16:44)
[2024-04-14 17:25] LABS: MAGNESIUM 1.9 mg/dL (1.7-2.3); POTASSIUM 3.3 mmol/L (3.5-4.5)
[2024-04-14] MEDS: INSULIN LISPRO 300 UNIT/3 ML PEN SUBQ SCH (17:41)
[2024-04-14] MEDS ORDERED: ACETAMINOPHEN 1,000 MG/100 ML 1,000 MG/100 ML BAG IV PRN (19:40)
[2024-04-14] MEDS: ACETAMINOPHEN 325 MG TABLET PO PRN (20:32)
[2024-04-14] MEDS: amLODIPine 5 MG TABLET PO SCH (20:33)
[2024-04-14] MEDS: INSULIN GLARGINE-YFGN 300 UNIT/3 ML PEN SUBQ SCH (20:33)
[2024-04-14] MEDS ORDERED: INSULIN LISPRO 300 UNIT/3 ML PEN SUBQ SCH (21:00)
[2024-04-14] MEDS: hydrALAZINE INJ 20 MG/ML VIAL IVP PRN (22:04)
[2024-04-15] MEDS: hydrALAZINE INJ 20 MG/ML VIAL IVP PRN (00:24)
[2024-04-15] MEDS: METOPROLOL 5 MG/5 ML VIAL IVP PRN (03:56)
[2024-04-15] MEDS: ZINC OXIDE 20% OINT 30 GM TUBE TOP PRN (04:55)
[2024-04-15 05:08] LABS: BASOPHILS % (AUTO) 0.4 %; EOSINOPHILS % (AUTO) 0.4 %; HCT - HEMATOCRIT 30.8 % (42.0-52.0); LYMPHOCYTES # (AUTO) 0.8 10^3/uL (1.5-3.5); LYMPHOCYTES % (AUTO) 10.6 %; MEAN CORPUSCULAR HEMOGLOBIN 25.6 pg (27.0-31.0); MEAN CORPUSCULAR HGB CONC 32.5 g/dL (32.0-36.0); MEAN PLATELET VOLUME 9.6 fL (7.4-11.4); MONOCYTES # (AUTO) 0.8 10^3/uL (0.0-1.0); NEUTROPHILS # (AUTO) 5.9 10^3/uL (1.5-6.6); NEUTROPHILS % (AUTO) 77.6 %; PLT - PLATELET COUNT 273 10^3/uL (130-450); RED CELL DISTRIBUTION WIDTH 15.2 % (12.0-15.0); WHITE BLOOD COUNT 7.6 x10^3/uL (4.8-10.8)
[2024-04-15 05:17] LABS: CALCIUM, IONIZED 1.06 mmol/L (1.15-1.33); VBG PH 7.503 (7.31-7.41)
[2024-04-15 05:30] LABS: CALCIUM 8.8 mg/dL (8.5-10.3); CREATININE 0.8 mg/dL (0.6-1.3); MAGNESIUM 1.8 mg/dL (1.7-2.3); PHOSPHORUS 2.7 mg/dL (2.5-5.0); POTASSIUM 3.6 mmol/L (3.5-4.5)
[2024-04-15] MEDS: lisinopriL 20 MG TABLET PO SCH (08:26)
[2024-04-15] MEDS: cloNIDine 0.1 MG TABLET PO SCH (08:26)
[2024-04-15] MEDS: CALCIUM CARBONATE CHEW 500 MG TABLET PO SCH (08:26)
[2024-04-15] MEDS: POTASSIUM CHLORIDE 20 MEQ TABLET PO ONE (08:27)
[2024-04-15] MEDS: FOLIC ACID 1 MG TABLET PO SCH (08:28)
[2024-04-15] MEDS: THIAMINE 100 MG TABLET PO SCH (08:28)
[2024-04-15] MEDS: CARBOXYMETHYLCELLULOSE OPHTH DROPS EACHEYE PRN (14:13)
--- NOTE | 2024-04-15 17:36 | PROVIDER PROGRESS NOTE ---
Subjective - Prog Note Date Prog Note Date: 04/15/24 Prog Note Time: 17:31 - Subjective Pt reports feeling: Improved Subjective: sitting up in bed. Answering my questions. Interacting with nurse on a regular basis. Feels malaise. CC feels "yucky all over". But no specific pain. No chest pain, cough, shortness of breath. Current Medications - Current Medications Current Medications: Active Medications Acetaminophen (Acetaminophen 325 Mg Tablet) 650 mg PO Q6HR PRN PRN Reason: Pain or Fever > 38C (100.4F) Last Admin: 04/14/24 20:32 Dose: 650 mg Alcohol (Ethyl Alcohol 62% Swab Ampule) 1 amp PATRICK BID [facility] Last Admin: 04/15/24 08:26 Dose: 1 amp Amlodipine Besylate (Amlodipine 5 Mg Tablet) 5 mg PO BID [facility] Last Admin: 04/15/24 08:28 Dose: 5 mg Baclofen (Baclofen 10 Mg Tablet) 20 mg PO QID [facility] Last Admin: 04/15/24 13:12 Dose: Not Given Baclofen (Baclofen 10 Mg Tablet) 10 mg PO QID PRN PRN Reason: Spasms Carboxymethylcellulose (Carboxymethylcellulose Ophth Drops) 1 drops EACHEYE PRN PRN PRN Reason: Dry Eye Last Admin: 04/15/24 14:13 Dose: 1 drops Clonidine HCl (Clonidine 0.1 Mg Tablet) 0.3 mg PO BID [facility] Last Admin: 04/15/24 08:26 Dose: 0.3 mg Enoxaparin Sodium (Enoxaparin 40 Mg/0.4 Ml Syringe) 40 mg SUBQ DAILY [facility] Last Admin: 04/15/24 08:26 Dose: 40 mg Ferrous Gluconate (Ferrous Gluconate 324 Mg Tablet) 324 mg PO DAILYWM [facility] Last Admin: 04/15/24 08:28 Dose: 324 mg Folic Acid (Folic Acid 1 Mg Tablet) 1 mg PO DAILY [facility] Last Admin: 04/15/24 08:28 Dose: 1 mg Gabapentin (Gabapentin 100 Mg Capsule) 200 mg PO TID [facility] Last Admin: 04/15/24 14:08 Dose: 200 mg Hydralazine HCl (Hydralazine Inj 20 Mg/Ml Vial) 20 mg IVP Q6H PRN PRN Reason: SBP> or= 160 OR DBP> or= 110 Last Admin: 04/15/24 05:57 Dose: 20 mg Hydromorphone HCl (Hydromorphone 1 Mg/Ml Carpuject) 1 mg IVP Q2HR PRN PRN Reason: Severe Pain (Level 7-10) Last Admin: 04/15/24 13:38 Dose: 1 mg Acetaminophen (Acetaminophen) 1,000 mg in 100 mls @ 400 mls/hr IV Q6HR PRN PRN Reason: FEVER > 100.5 F Insulin Glargine-yfgn (Insulin Glargine-Yfgn 300 Unit/3 Ml Pen) 10 unit SUBQ QPM [facility] Last Admin: 04/14/24 20:33 Dose: 10 unit Insulin Human Lispro (Insulin Lispro 300 Unit/3 Ml Pen) 1 - 5 unit SUBQ 0800,1200,1700,2100 [facility]; Protocol Last Admin: 04/15/24 11:54 Dose: 4 unit Isosorbide Mononitrate (Isosorbide Mononitrate Er 30 Mg Tablet) 30 mg PO DAILY [facility] Last Admin: 04/15/24 08:28 Dose: 30 mg Lisinopril (Lisinopril 20 Mg Tablet) 40 mg PO DAILY [facility] Last Admin: 04/15/24 08:26 Dose: 40 mg Magnesium Oxide (Magnesium Oxide 400 Mg Tablet) 400 mg PO DAILY [facility] Last Admin: 04/15/24 08:26 Dose: 400 mg Melatonin (Melatonin 3 Mg Tablet) 3 mg PO QPM PRN PRN Reason: Insomnia Metoprolol Tartrate (Metoprolol 5 Mg/5 Ml Vial) 5 mg IVP ONCE PRN PRN Reason: SBP> or= 160 OR DBP> or= 110 Stop: 04/16/24 03:37 Last Admin: 04/15/24 03:56 Dose: 5 mg Mineral Oil (Min Oil/Dimethicon/Coconut Oil 92 Gm Tube) 1 applic TOP PRN PRN PRN Reason: Skin Care Last Admin: 04/15/24 04:55 Dose: 1 applic Multi-Ingredient Ointment (Zinc Oxide 20% Oint 30 Gm Tube) 1 applic TOP PRN PRN PRN Reason: Skin Care Last Admin: 04/15/24 04:55 Dose: 1 applic Multivitamins/Minerals (Multivitamin W/Minerals Tablet) [facility] [place] Admin: 04/15/24 08:27 Dose: 1 tab Ondansetron HCl (Ondansetron Odt 4 Mg Tablet) 4 mg TL Q6HR PRN PRN Reason: Nausea / Vomiting Ondansetron HCl (Ondansetron 4 Mg/2 Ml Vial) 4 mg IVP Q6HR PRN PRN Reason: Nausea / Vomiting Last Admin: 04/14/24 19:44 Dose: 4 mg Oxycodone HCl (Oxycodone 5 Mg Tablet) 10 mg PO Q4HR PRN PRN Reason: Moderate Pain (Level 4-6) Last Admin: 04/15/24 06:02 Dose: 10 mg Pantoprazole Sodium (Pantoprazole 40 Mg Tablet) 40 mg PO QDAC [facility] Saccharomyces Boulardii (Saccharomyces Boulardii 250 Mg Capsule) 250 mg [place] [facility] [place] Last Admin: 04/15/24 08:28 Dose: 250 mg Sodium Chloride (Sodium Chloride Flush 0.9% 10 Ml Syringe) 10 ml IVP 0100,0900,1700 [facility] Last Admin: 04/15/24 08:31 Dose: 10 ml Sodium Chloride (Sodium Chloride Flush 0.9% 10 Ml Syringe) 10 ml IVP PRN PRN PRN Reason: NEEDED PER PROVIDER ORDERS Last Admin: 04/14/24 07:03 Dose: 10 ml Thiamine HCl (Thiamine 100 Mg Tablet) 100 mg PO DAILY [facility] Last Admin: 04/15/24 08:28 Dose: 100 mg Amlodipine Besylate [Norvasc] 5 mg PO BID 11/18/22 Amox/Clav 875/125 [Augmentin 875/125 Tab] 1 tab PO BID 04/10/24 Baclofen 20 mg PO QID 04/10/24 Baclofen [Lioresal] 10 mg PO QID PRN 04/10/24 Gabapentin [Neurontin] 200 mg PO TID 04/10/24 Insulin Glargine,Hum.rec.anlog [Basaglar Kwikpen U-100] 22 units SUBQ DAILY 04/10/24 Insulin Lispro [Humalog Kwikpen U-100] 0 - 8 units SUBQ TIDWM 04/10/24 Isosorbide Mononitrate ER [Imdur] 30 mg PO DAILY 04/10/24 Lisinopril [Zestril] 40 mg PO DAILY 04/10/24 Magnesium Oxide 400 mg PO DAILY 04/10/24 Naloxone HCl Nasal [Narcan Nasal] 1 spray PATRICK PRN PRN 04/10/24 Oxycodone HCl 10 mg PO Q4HR PRN 04/10/24 Senna [Senokot] 8.6 mg PO DAILY 04/10/24 polyethylene glycoL 3350 [Miralax] 17 g PO DAILY PRN 04/10/24 Objective - Vital Signs/Intake & Output Reviewed Vital Signs: Yes Vital Signs: Vital Signs Temp 04/15/24 14:31 37.3 C Intake & Output: Intake & Output 04/12/24 04/13/24 04/14/24 04/15/24 23:59 23:59 23:59 23:59 Intake Total 3662.547 2725.810 4097.423 9005 Output Total 3041 4550 2525 1201 Balance 621.547 -1824.190 -569.036 159 - Objective General Appearance: positive: No acute distress, Alert ( Yesterday he appeared to have some cognitive deficits. Word finding difficulties. Slow thought process. Today he is improved but has not involuntary movement. He is not completely oriented.) Eyes Bilateral: positive: PERRL, EOMI Neck: positive: No JVD. negative: Stiff neck Respiratory: positive: No respiratory distress. negative: Wheezes, Rales, Rhonchi Cardiovascular: positive: Regular rate & rhythm Abdomen: positive: Non-tender, No organomegaly, Nml bowel sounds, No distention Skin: positive: Warm, Dry Extremities: positive: Full ROM, Pedal edema (1+ on L and 2+ on R feet. Old surgery w sutures and erica on L) Neurologic/Psychiatric: positive: Oriented x3, CN's nml (2-12), Motor nml - Lab Results Fish Bones: 04/15/24 04:56 04/15/24 04:56 Other Labs: Lab Results x24hrs 04/15/24 04/15/24 04/15/24 Range/Units 17:06 11:50 07:53 WBC (4.8-10.8) x10^3/uL RBC (4.70-6.10) 10^6/uL Hgb (14.0-18.0) g/dL Hct (42.0-52.0) % MCV (80.0-94.0) fL MCH (27.0-31.0) pg MCHC (32.0-36.0) g/dL RDW (12.0-15.0) % Plt Count (130-450) 10^3/uL MPV (7.4-11.4) fL Neut # (Auto) (1.5-6.6) 10^3/uL Lymph # (Auto) (1.5-3.5) 10^3/uL Cassia # (Auto) (0.0-1.0) 10^3/uL Eos # (Auto) (0.0-0.7) 10^3/uL Baso # (Auto) (0.0-0.1) 10^3/uL Absolute Nucleated RBC x10^3/uL Nucleated RBC % /100WBC VBG pH (7.31-7.41) Ionized Calcium (1.15-1.33) mmol/L Sodium (135-145) mmol/L Potassium (3.5-4.5) mmol/L Chloride (101-111) mmol/L Carbon Dioxide (21-32) mmol/L Anion Gap (6-13) BUN (6-20) mg/dL Creatinine (0.6-1.3) mg/dL Estimated GFR (MDRD) (>89) Glucose (74-104) mg/dL POC Whole Bld Glucose 217 H 300 H 222 H (70 - 100) mg/dL Calcium (8.5-10.3) mg/dL Phosphorus (2.5-5.0) mg/dL Magnesium (1.7-2.3) mg/dL 04/15/24 04/15/24 04/15/24 Range/Units 04:56 04:56 04:56 WBC 7.6 (4.8-10.8) x10^3/uL RBC 3.90 L (4.70-6.10) 10^6/uL Hgb 10.0 L (14.0-18.0) g/dL Hct 30.8 L (42.0-52.0) % MCV 79.0 L (80.0-94.0) fL MCH 25.6 L (27.0-31.0) pg MCHC 32.5 (32.0-36.0) g/dL RDW 15.2 H (12.0-15.0) % Plt Count 273 (130-450) 10^3/uL MPV 9.6 (7.4-11.4) fL Neut # (Auto) 5.9 (1.5-6.6) 10^3/uL Lymph # (Auto) 0.8 L (1.5-3.5) 10^3/uL Cassia # (Auto) 0.8 (0.0-1.0) 10^3/uL Eos # (Auto) 0.0 (0.0-0.7) 10^3/uL Baso # (Auto) 0.0 (0.0-0.1) 10^3/uL Absolute Nucleated RBC 0.00 x10^3/uL Nucleated RBC % 0.0 /100WBC VBG pH 7.503 H (7.31-7.41) Ionized Calcium 1.06 L (1.15-1.33) mmol/L Sodium 134 L (135-145) mmol/L Potassium 3.6 (3.5-4.5) mmol/L Chloride 98 L (101-111) mmol/L Carbon Dioxide 28 (21-32) mmol/L Anion Gap 8.0 (6-13) BUN 16 (6-20) mg/dL Creatinine 0.8 (0.6-1.3) mg/dL Estimated GFR (MDRD) 98 (>89) Glucose 225 H (74-104) mg/dL POC Whole Bld Glucose (70 - 100) mg/dL Calcium 8.8 (8.5-10.3) mg/dL Phosphorus 2.7 (2.5-5.0) mg/dL Magnesium 1.8 (1.7-2.3) mg/dL 04/14/24 04/14/24 04/14/24 Range/Units 20:11 17:22 17:02 WBC (4.8-10.8) x10^3/uL RBC (4.70-6.10) 10^6/uL Hgb (14.0-18.0) g/dL Hct (42.0-52.0) % MCV (80.0-94.0) fL MCH (27.0-31.0) pg MCHC (32.0-36.0) g/dL RDW (12.0-15.0) % Plt Count (130-450) 10^3/uL MPV (7.4-11.4) fL Neut # (Auto) (1.5-6.6) 10^3/uL Lymph # (Auto) (1.5-3.5) 10^3/uL Cassia # (Auto) (0.0-1.0) 10^3/uL Eos # (Auto) (0.0-0.7) 10^3/uL Baso # (Auto) (0.0-0.1) 10^3/uL Absolute Nucleated RBC x10^3/uL Nucleated RBC % /100WBC VBG pH (7.31-7.41) Ionized Calcium (1.15-1.33) mmol/L Sodium (135-145) mmol/L Potassium (3.5-4.5) mmol/L Chloride (101-111) mmol/L Carbon Dioxide (21-32) mmol/L Anion Gap (6-13) BUN (6-20) mg/dL Creatinine (0.6-1.3) mg/dL Estimated GFR (MDRD) (>89) Glucose (74-104) mg/dL POC Whole Bld Glucose 255 H 225 H (70 - 100) mg/dL Calcium (8.5-10.3) mg/dL Phosphorus 2.7 (2.5-5.0) mg/dL Magnesium (1.7-2.3) mg/dL Assessment/Plan - Problem List (1) Acute metabolic encephalopathy Impression: Was extubated yesterday late morning. The day before he had woken up, and he seen the following commands. But I did not want to extubate him later in the afternoon as we approached the evening hours. Yesterday morning I put him back on CPAP, he was following commands, and has been extubated since yesterday. He is oriented to person, and the date. He knows that it is April. But he does not know what this building is. I explained to him that I think he had an overdose. I asked him if he was delivered. He says no. While he is not happy with the situation with regards to his feet, he wants to leave. He says that he loves life. And would not kill himself. While he is speaking to me he has an odd involuntary movement. His gaze will walk on the ceiling. He will keep on talking to me but still at the ceiling. This happens about every 3 to 4 minutes. Last about 30 seconds. Then he looks at me in the face, has normal facial expressions and speech, and then lock his gaze on the ceiling again. He says that he is never done that before. He is aware he is doing it but cannot control it. I did update his sister Brenda. Brenda endorses that he does not do that. I explained to her that our next step is to have him evaluated by physical therapy and Occupational Therapy and most likely will need to be placed due to cognitive deficits as well as mobility and strength issues. Today is Wednesday. I anticipate will not be able to get placement until Wednesday or Wednesday. There will be avoidable days. (2) Pneumonia, Clinically aspiration pneumonia Conclusion/Plan: Patient who is acutely obtunded from baseline, and has multiple polysubstance drug in his toxicology screen. Again I am assuming there is been some aspiration. Today is day #6 of antibiotics. I was treating as community- acquired pneumonia with possible aspiration. Will stop antibiotics today. Qualifiers: Pneumonia type: aspiration pneumonia Aspiration pneumonia type: unspecified Laterality: right Lung location: lower lobe of lung Qualified Code(s): J69.0 - Pneumonitis due to inhalation of food and vomit Resolved or chronic medical problems: (3) Acute respiratory insufficiency resolved. Conclusion/Plan: On intubation he was initially hypocarbic. 48 hours I adjusted his vent settings to bring his CO2 up. He did have wide AA gradient today attributed to his right lung pneumonia as it looks like aspiration pneumonia. He was succes sfully extubated April 14 in the morning. (4) MARJ (acute kidney injury) resolved Conclusion/Plan: most likely due to his being found down. Unknown when his last known normal was. Since he has a creatinine of 0.8, and if I assume complete kidney shutdown, it would have taken at least 48 hours to get to the level he is now. With the IV fluids have been using to hydrate him, his creatinine has gone from 2.9 to 1.2>>1.0>>0.7 today. The last 2 days have had him on maintenance fluids of 83 cc an hour. Now that he is awake, and I am going to be starting p.o., I am stopping IV fluids. He did have hypokalemia yesterday. I supplemented with oral potassium and he did respond. Has nml K today. (5) Diabetes controlled Conclusion/Plan: Glucose is in the mid 200s in this gentleman. Already documented high A1c percentage for February of this year. Tight glucose control between 140 and 180 is recommended for wound healing. He is in the ICU. Nursing cannot find the PICC line that he supposedly has on chest x-ray. I am not finding it either. I opted not to start him on an insulin drip at this time. I started him on Lantus and SS insulin. Laboratory Tests 04/12/24 04/12/24 04/12/24 12:11 18:45 23:57 POC Whole Bld Glucose 148 H 144 H 151 H 04/13/24 04/13/24 05:52 11:57 POC Whole Bld Glucose 103 H 105 H Selected Entries 04/13/24 04/14/24 04/14/24 18:00 00:00 06:00 Result (mg/dL) 112 95 86 04/14/24 12:00 Result (mg/dL) 176 Laboratory Tests Started on food yesterday 04/15/24 04/15/24 04/15/24 04:56 07:53 11:50 Glucose 225 H POC Whole Bld Glucose 222 H 300 H 04/15/24 17:06 Glucose POC Whole Bld Glucose 217 H Plab: Increase lantus from 10 Units subcutaneously to 20 units subcutaneously. Continue sliding scale insulin. Qualifiers: Diabetes mellitus type: type 2 Diabetes mellitus [facility] insulin use: with technician terminal and repeater use Diabetes mellitus complication status: with circulatory complication Diabetes mellitus complication detail: with peripheral angiopathy without gangrene Qualified Code(s): E11.51 - Type 2 diabetes mellitus with diabetic peripheral angiopathy without gangrene; Z79.4 - technician terminal and repeater (current) use of insulin (6) Polysubstance abuse Conclusion/Plan: Dose of Narcan resulted in some involuntary twitching. A second dose of Narcan really did not have much change on March 11. opened his eyes on the morning of the but he is unresponsive. on the afternoon of April 13, the patient woke up. Exubated 04/14. (7) Diabetic foot ulcer Conclusion/Plan: He is status post 6 days of IV antibiotic therapy with Rocephin. Azithromycin was completed at 3 days. Flagyl was also continued for 6 days. Those antibiotics Are being stopped by me today. I need to call [facility] and speak to orthopedics to find out when to take out his sutures. And erica. Does not remember if he supposed to be on antibiotics or not. 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 Labile blood pressure with Levophed will be stopped and started. Since extubation I resumed his amlodipine, isosorbide mononitrate, and lisinopril. Blood pressure is still elevated in spite of that to 155-175 systolic and I have added clonidine 0.3 mg p.o. twice daily today Qualifiers: Hypertension type: primary hypertension Qualified Code(s): I10 - Essential (primary) hypertension (9) ST segment abnormality resolved Conclusion/Plan: Reported by nursing on telemetry when he was first admitted. By the time we got an EKG on him, I Read his EKG and there was no ST segment changes. He had sinus rhythm with normal axis, normal R wave progression, no acute ST-T wave changes. Heart rate 55. I did a troponin and it was in the 30s. plan is continued monitoring on telemetry. So far, other than PACs, he is st able. (10) Do not resuscitate status Conclusion/Plan: his caregiver Tu states that she did try and have a conversation with him once in the past. She has been taking care of him for 6 months. She asked him if he never filled out a POLST form and could he please do that with his primary care provider. He said that he did not know what he wanted to do, was very vague and responding to her never really got around to getting that done. So I explained to her that, by default, he will be a full code. Did get a hold of his sister Brenda who lives in [place]. She states he would not want prolonged life support. As such I changed his CODE STATUS to DO NOT RESUSCITATE. He is not completely oriented. I will discuss with him when I feel that he is competent enough to have a discussion. (11) Chronic anemia I Started ferrous gluconate 324 mg p.o. daily, thiamine 100 mg a day, folate 1 mg a day 04/14/24
[2024-04-15 18:31] LABS: CALCIUM, IONIZED 0.98 mmol/L (1.15-1.33); VBG PH 7.575 (7.31-7.41)
[2024-04-15 18:34] LABS: POTASSIUM 4.1 mmol/L (3.5-4.5)
[2024-04-15] MEDS: CALCIUM CHLORIDE 2,000 MG in SODIUM CHLORIDE 0.9% 100ML 100 ML IV ONE (19:30)
[2024-04-15] MEDS: MELATONIN 3 MG TABLET PO PRN (19:59)
[2024-04-15] MEDS: INSULIN GLARGINE-YFGN 300 UNIT/3 ML PEN SUBQ SCH (20:09)
[2024-04-16] MEDS: PANTOPRAZOLE 40 MG TABLET PO SCH (06:37)
[2024-04-16] MEDS: polyethylene glycoL 3350 17 GM PACKET PO SCH (08:56)
--- NOTE | 2024-04-16 13:08 | PROVIDER PROGRESS NOTE ---
Subjective - Prog Note Date Prog Note Date: 04/16/24 Prog Note Time: 13:14 - Subjective Pt reports feeling: Improved Subjective: Nurse reports that he was impulsive this morning he decided to get up out of bed, side of the bed alarm. Even though she was in the room he acted so quickly. He did not fall but he was with cerebellar ataxia. Not really using the walker. She immediately reminded him when he did grab the walker. He does recognize that he is supposed to wait. He is apologizing to nursing "I promised to do better". He is eating a pured diet. I watched him eat breakfast and lunch and there is no choking. He denies chest pain, palpitations, shortness of breath Current Medications - Current Medications Current Medications: Active Medications Acetaminophen (Acetaminophen 325 Mg Tablet) 650 mg PO Q6HR PRN PRN Reason: Pain or Fever > 38C (100.4F) Last Admin: 04/14/24 20:32 Dose: 650 mg Alcohol (Ethyl Alcohol 62% Swab Ampule) 1 amp PATRICK BID [facility] Last Admin: 04/16/24 08:56 Dose: 1 amp Amlodipine Besylate (Amlodipine 5 Mg Tablet) 5 mg PO BID [facility] Last Admin: 04/16/24 08:55 Dose: 5 mg Baclofen (Baclofen 10 Mg Tablet) 20 mg PO QID [facility] Last Admin: 04/16/24 08:54 Dose: 20 mg Baclofen (Baclofen 10 Mg Tablet) 10 mg PO QID PRN PRN Reason: Spasms Carboxymethylcellulose (Carboxymethylcellulose Ophth Drops) 1 drops EACHEYE PRN PRN PRN Reason: Dry Eye Last Admin: 04/15/24 14:13 Dose: 1 drops Clonidine HCl (Clonidine 0.1 Mg Tablet) 0.3 mg PO BID [facility] Last Admin: 04/16/24 09:33 Dose: Not Given Enoxaparin Sodium (Enoxaparin 40 Mg/0.4 Ml Syringe) 40 mg SUBQ DAILY [facility] Last Admin: 04/16/24 08:55 Dose: 40 mg Ferrous Gluconate (Ferrous Gluconate 324 Mg Tablet) 324 mg PO DAILYWM [facility] Last Admin: 04/16/24 08:54 Dose: 324 mg Folic Acid (Folic Acid 1 Mg Tablet) 1 mg PO DAILY [facility] Last Admin: 04/16/24 08:55 Dose: 1 mg Gabapentin (Gabapentin 100 Mg Capsule) 200 mg PO TID [facility] Last Admin: 04/16/24 05:47 Dose: 200 mg Hydralazine HCl (Hydralazine Inj 20 Mg/Ml Vial) 20 mg IVP Q6H PRN PRN Reason: SBP> or= 160 OR DBP> or= 110 Last Admin: 04/15/24 05:57 Dose: 20 mg Hydromorphone HCl (Hydromorphone 1 Mg/Ml Carpuject) 1 mg IVP Q2HR PRN PRN Reason: Severe Pain (Level 7-10) Last Admin: 04/15/24 13:38 Dose: 1 mg Acetaminophen (Acetaminophen) 1,000 mg in 100 mls @ 400 mls/hr IV Q6HR PRN PRN Reason: FEVER > 100.5 F Insulin Glargine-yfgn (Insulin Glargine-Yfgn 300 Unit/3 Ml Pen) 20 unit SUBQ QPM [facility] Last Admin: 04/15/24 20:09 Dose: 20 unit Insulin Human Lispro (Insulin Lispro 300 Unit/3 Ml Pen) 1 - 5 unit SUBQ 0800,1200,1700,2100 [facility]; Protocol Last Admin: 04/16/24 12:00 Dose: 4 unit Insulin Human Lispro (Insulin Lispro 300 Unit/3 Ml Pen) 5 unit SUBQ 1200,1700 [facility]; Protocol Isosorbide Mononitrate (Isosorbide Mononitrate Er 30 Mg Tablet) 30 mg PO DAILY [facility] Last Admin: 04/16/24 08:55 Dose: 30 mg Lisinopril (Lisinopril 20 Mg Tablet) 40 mg PO DAILY [facility] Last Admin: 04/16/24 08:55 Dose: 40 mg Magnesium Oxide (Magnesium Oxide 400 Mg Tablet) 400 mg PO DAILY [facility] Last Admin: 04/16/24 08:55 Dose: 400 mg Melatonin (Melatonin 3 Mg Tablet) 3 mg PO QPM PRN PRN Reason: Insomnia Last Admin: 04/15/24 19:59 Dose: 3 mg Mineral Oil (Min Oil/Dimethicon/Coconut Oil 92 Gm Tube) 1 applic TOP PRN PRN PRN Reason: Skin Care Last Admin: 04/15/24 04:55 Dose: 1 applic Multi-Ingredient Ointment (Zinc Oxide 20% Oint 30 Gm Tube) 1 applic TOP PRN PRN PRN Reason: Skin Care Last Admin: 04/16/24 05:54 Dose: 1 applic Multivitamins/Minerals (Multivitamin W/Minerals Tablet) 1 tab PO DAILYWM [facility] Last Admin: 04/16/24 08:55 Dose: 1 tab Ondansetron HCl (Ondansetron Odt 4 Mg Tablet) 4 mg TL Q6HR PRN PRN Reason: Nausea / Vomiting Ondansetron HCl (Ondansetron 4 Mg/2 Ml Vial) 4 mg IVP Q6HR PRN PRN Reason: Nausea / Vomiting Last Admin: 04/14/24 19:44 Dose: 4 mg Oxycodone HCl (Oxycodone 5 Mg Tablet) 10 mg PO Q4HR PRN PRN Reason: Moderate Pain (Level 4-6) Last Admin: 04/16/24 01:28 Dose: 10 mg Pantoprazole Sodium (Pantoprazole 40 Mg Tablet) 40 mg PO QDAC [facility] Last Admin: 04/16/24 07:11 Dose: Not Given Polyethylene Glycol (Polyethylene Glycol 3350 17 Gm Packet) 17 gm PO DAILY [facility] Last Admin: 04/16/24 08:56 Dose: Not Given Saccharomyces Boulardii (Saccharomyces Boulardii 250 Mg Capsule) 250 mg PO BIDWM [facility] Last Admin: 04/16/24 08:55 Dose: 250 mg Sodium Chloride (Sodium Chloride Flush 0.9% 10 Ml Syringe) 10 ml IVP 0100,0900,1700 [facility] Last Admin: 04/16/24 08:56 Dose: 10 ml Sodium Chloride (Sodium Chloride Flush 0.9% 10 Ml Syringe) 10 ml IVP PRN PRN PRN Reason: NEEDED PER PROVIDER ORDERS Last Admin: 04/14/24 07:03 Dose: 10 ml Thiamine HCl (Thiamine 100 Mg Tablet) 100 mg PO DAILY [facility] Last Admin: 04/16/24 08:55 Dose: 100 mg Amlodipine Besylate [Norvasc] 5 mg PO BID 11/18/22 Amox/Clav 875/125 [Augmentin 875/125 Tab] 1 tab PO BID 04/10/24 Baclofen 20 mg PO QID 04/10/24 Baclofen [Lioresal] 10 mg PO QID PRN 04/10/24 Gabapentin [Neurontin] 200 mg PO TID 04/10/24 Insulin Glargine,Hum.rec.anlog [Basaglar Kwikpen U-100] 22 units SUBQ DAILY 04/10/24 Insulin Lispro [Humalog Kwikpen U-100] 0 - 8 units SUBQ TIDWM 04/10/24 Isosorbide Mononitrate ER [Imdur] 30 mg PO DAILY 04/10/24 Lisinopril [Zestril] 40 mg PO DAILY 04/10/24 Magnesium Oxide 400 mg PO DAILY 04/10/24 Naloxone HCl Nasal [Narcan Nasal] 1 spray PATRICK PRN PRN 04/10/24 Oxycodone HCl 10 mg PO Q4HR PRN 04/10/24 Senna [Senokot] 8.6 mg PO DAILY 04/10/24 polyethylene glycoL 3350 [Miralax] 17 g PO DAILY PRN 04/10/24 Objective - Vital Signs/Intake & Output Reviewed Vital Signs: Yes Intake & Output: Intake & Output 04/13/24 04/14/24 04/15/24 04/16/24 23:59 23:59 23:59 23:59 Intake Total 2725.810 8651.977 0915 270 Output Total 4550 2525 1201 300 Balance -1824.190 -060.396 6544 -30 - Objective General Appearance: positive: No acute distress, Alert, Other ( thin white male at 6 foot tall, 75.5 kg. Sitting comfortably in the side sofa against the window. Eating his meals. Walker right in front of him. Oriented to person, place, time and situation) Eyes Bilateral: positive: PERRL, EOMI ENT: positive: No signs of dehydration Neck: positive: No JVD. negative: Stiff neck Respiratory: positive: No respiratory distress. negative: Wheezes, Rales, Rhonchi Cardiovascular: positive: Regular rate & rhythm, Systolic murmur Abdomen: positive: Non-tender, No organomegaly, Nml bowel sounds, No distention Skin: positive: Warm, Dry, Pallor Extremities: positive: Full ROM, Pedal edema ( both feet.), Joint swelling ( Right great and second toe gone.), Other ( Right foot with old eschar. At the calcaneus. Left foot calcaneus and vertical midline, and metatarsal sutures, erica. No redness, drainage, heat.) Neurologic/Psychiatric: positive: CN's nml (2-12), Disoriented to time, Other ( yesterday had an interesting phenomena where he would suddenly fixate his gaze on the ceiling. Then carry on normally. Fixated on the ceiling. Then carry on normally. That has stopped today). negative: Motor nml ( no focal deficits but Romberg positive, cerebellar ataxia), Sensation nml ( Peripheral neuropathy skilled nursing up the shins) - Lab Results Fish Bones: 04/15/24 04:56 04/15/24 18:10 Other Labs: Lab Results x24hrs 04/16/24 04/16/24 04/15/24 Range/Units 11:56 07:33 20:08 VBG pH (7.31-7.41) Ionized Calcium (1.15-1.33) mmol/L Potassium (3.5-4.5) mmol/L POC Whole Bld Glucose 284 H 104 H 216 H (70 - 100) mg/dL Phosphorus (2.5-5.0) mg/dL Magnesium (1.7-2.3) mg/dL 04/15/24 04/15/24 04/15/24 Range/Units 18:10 18:10 17:06 VBG pH 7.575 H (7.31-7.41) Ionized Calcium 0.98 L (1.15-1.33) mmol/L Potassium 4.1 (3.5-4.5) mmol/L POC Whole Bld Glucose 217 H (70 - 100) mg/dL Phosphorus 3.0 (2.5-5.0) mg/dL Magnesium 2.0 (1.7-2.3) mg/dL Assessment/Plan - Problem List (1) Acute metabolic encephalopathy Impression: Was extubated 04/14/24 am. 04/13, he had woken up, and he seen the following commands. But I did not want to extubate him later in the afternoon as we approached the evening hours. 04/14 morning I put him back on CPAP, he was following commands, and has been extubated since then. 04/15 he was oriented to person and the month. But he did not know what he was in. Did not was a hospital. Did not know the situation. I explained to him that I think he had an overdose. I asked him if he was deliberate and he says no. While he is not happy with the situation with regards to his feet, he wants to live. He says that he loves life. And would not kill himself. While he is speaking to me 04/15 he has an odd involuntary movement. His gaze will walk on the ceiling. He will keep on talking to me but still at the ceiling. This happens about every 3 to 4 minutes. Last about 30 seconds. Then he looks at me in the face, has normal facial expressions and speech, and then lock his gaze on the ceiling again. He says that he is never done that before. He is aware he is doing it but cannot control it. I did updated his sister February. I felt he was medically stable for discharge 04/15/24. today the involuntary movement is gone. He is now oriented to person, place, time and situation. He is impulsive. Cerebellar ataxia. Promises to call the nurse before he gets up. He does not like the bed alarm or the chair alarm but understands why we are using it. Moo, the home manager for the [employer], was in his room visiting him. She said that he was essentially homeless when she met him over a year ago. They were able to find him housing and he has been a stable housing situation since then. Just overwhelmed with his care because of his diabetic foot infections. Unfortunately he is in contact with a friend named Eusebio who is 1 is been supplying him with his methamphetamines and cannabis. Diego tells me that who we are seeing today is about the same for what his baseline status is. He is a chatty friendly gentleman. His cerebellar ataxia and unsteadiness is slightly worse than his baseline. He does use a walker in his apartment. He is having a little bit more problems with memory and word finding but she finds them to remember things appropriately, events correctly, and is able to make his own decisions. Is to get PT and OT eval and treatment tomorrow. I did order it for April 14 but family came into the room and he was unable to work with PT then. I am emphasizing to him that he must see them tomorrow in order for us to get an ev aluation for physical rehab in a SNF. (2) Diabetes controlled Conclusion/Plan: Glucose is in the mid 200s in this gentleman. Already documented high A1c percentage for February of this year. Tight glucose control between 140 and 180 is recommended for wound healing. He is in the ICU. Nursing cannot find the PICC line that he supposedly has on chest x-ray. I am not finding it either. I opted not to start him on an insulin drip at this time. I started him on Lantus and SS insulin. 04/14/24 12:00 Result (mg/dL) 176 Laboratory Tests Started on food yesterday 04/15/24 04/15/24 04/15/24 04:56 07:53 11:50 Glucose 225 H POC Whole Bld Glucose 222 H 300 H 04/15/24 17:06 Glucose POC Whole Bld Glucose 217 H I increased lantus from 10 Units subcutaneously to 20 units subcutaneously and first dose 8 pm. I Continued sliding scale insulin. Laboratory Tests 04/16/24 04/16/24 07:33 11:56 POC Whole Bld Glucose 104 H 284 H Review of glucose this morning shows the morning glucose to be at goal. The Lantus at night seems to be working. I will order 5 units of the fixed dose of short acting insulin before lunch and dinner and continue SS insulin. Is for him to be between 140 and 180 on a regular basis due to his diabetic foot infections. 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 Again I am assuming there is been some aspiration. Throughout his entire stay he has had a normal white cell count. He did have a widened AA gradient when he was initially intubated and was temporarily hypoxic. April 14 and April 15 he was on and off nasal cannula to maintain O2 sats above 92%. Since yesterday evening he has been on room air and not requiring any oxygen. 04/15 was day #6 of antibiotics. I was treating as community-acquired pneumonia with possible aspiration. I stopped antibiotics April 15. Qualifiers: Pneumonia type: aspiration pneumonia Aspiration pneumonia type: unspecified Laterality: right Lung location: lower lobe of lung Qualified Code(s): J69.0 - Pneumonitis due to inhalation of food and vomit (4) Acute respiratory insufficiency resolved. Conclusion/Plan: On intubation he was initially hypocarbic. 48 hours I adjusted his vent settings to bring his CO2 up. He did have wide AA gradient attributed to his right lung pneumonia as it looks like aspiration pneumonia. He was successfully extubated April 14 in the morning. (5) MARJ (acute kidney injury) resolved Conclusion/Plan: most likely due to his being found down. Unknown when his last known normal was. Since he has a creatinine of 0.8, and if I assume complete kidney shutdown, it would have taken at least 48 hours to get to the level he is now. With the IV fluids have been using to hydrate him, his creatinine has gone from 2.9 to 1.2>>1.0>>0.7 . After that I had him on 2 days of maintenance fluids of 83 cc an hour. Once he was awake, oriented enough to feed himself on a regular basis and take enough fluid intake, I stopped his IV maintenance on April 15. He did have hypokalemia 04/14. I supplemented with oral potassium and he did respond. Had nml K 04/15. (6) Polysubstance abuse Conclusion/Plan: Dose of Narcan resulted in some involuntary twitching. A second dose of Narcan really did not have much change on April 10. opened his eyes on the morning of the but he is unresponsive. on the afternoon of April 13, he patient woke up. Exubated 04/14. (7) Diabetic foot ulcer Conclusion/Plan: He completed 6 days of IV antibiotic therapy with Rocephin for pna. Azithromycin was completed at 3 days for maddox. Flagyl was also continued for 6 days for aspiration. Antibiotics stopped April 15. I need to call [facility] and speak to orthopedics to find out when to take out his sutures. And ercia. Today was the first day he was able to tell me who it was. He says that he sees a Dr. Amanda with podiatry. Does not remember if he supposed to be on antibiotics or not. Plan: Call podiatry tomorrow Qualifiers: Diabetic foot ulcer location: heel Diabetes mellitus type: type 2 Laterality: left Non-pressure ulcer stage: with fat layer exposed Qualified Code(s): E11.621 - Type 2 diabetes mellitus with foot ulcer; L97.422 - Non-p ressure chronic ulcer of left heel and midfoot with fat layer exposed (8) HTN (hypertension) Conclusion/Plan: He was hypotensive when he was first admitted and required Levophed. Labile blood pressure with Levophed will be stopped and started. Since extubation I resumed his amlodipine, isosorbide mononitrate, and lisinopril. Blood pressure is still elevated in spite of that to 155-175 systolic and I have added clonidine 0.3 mg p.o. twice daily as of 04/15. He declined the use of clonidine this morning. Really could not give a reason he just felt like he did not need it and did not want it. Systolic is in the 140s. Diastolic is 90. Qualifiers: Hypertension type: primary hypertension Qualified Code(s): I10 - Essential (primary) hypertension (9) ST segment abnormality resolved Conclusion/Plan: Reported by nursing on telemetry when he was first admitted. By the time we got an EKG on him, I Read his EKG and there was no ST segment changes. He had sinus rhythm with normal axis, normal R wave progression, no acute ST-T wave changes. Heart rate 55. I did a troponin and it was in the 30s. plan is continued monitoring on telemetry. So far, other than PACs, he is stable. (10) Do not resuscitate status Conclusion/Plan: his caregiver Tu states that she did try and have a conversation with him once in the past. She has been taking care of him for 6 months. She asked him if he never filled out a POLST form and could he please do that with his primary care provider. He said that he did not know what he wanted to do, was very vague and responding to her never really got around to getting that done. So I explained to her that, by default, he will be a full code. Did get a hold of his sister Brenda who lives in [place]. She states he would not want prolonged life support. As such I changed his CODE STATUS to DO NOT RESUSCITATE. did not advance care planning conversation with him today since he is oriented to person, place, time and situation. Diego, a person that knows him well, was present for the conversation. (11) Chronic anemia I Started ferrous gluconate 324 mg p.o. daily, thiamine 100 mg a day, folate 1 mg a day 04/14/24
--- NOTE | 2024-04-16 14:32 | ADVANCE CARE PLANNING NOTE ---
Advance Care Planning - Planning Encounter Date: 04/16/24 Time: 14:30 Purpose: establsih code status Parties in Attendance: Moo from the [facility], hospitalist, and patient Decisional Capacity of the Patient: He has a hard time focusing and digresses quite a bit during the conversation but when prompted he will focus. He is oriented to person, place, time, and situation. - Diagnosis for Encounter (1) Acute respiratory insufficiency Summary: This is a gentleman who had an unintentional drug overdose with oxycodone and methamphetamines. He is very clear in stating that while he has been using these for the last 10 years, and he is depressed about his chronic foot infections, he would never want to commit suicide. He loves life. He feels like he has good support system from the [facility] [place] and his caregivers. He was intubated because of respiratory depression due to the drug overdose. Had probably been down for a couple of days before he was found. He was near but he had a pulse and a pressure. He was adequately resuscitated by EMS in the ER. 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 - Encounter Subjective/Patient's Story: Born and raised in [place] [facility]. From a very young age he describes a chaotic household where his mom moved in with a boyfriend when he was 14. So he and his siblings would be left alone all day long because mom worked. And then at night she would go to her boyfriend's house. She would come back to the house, periodically, to make sure they had food and that the house had been taking care of. But, he recalls a lot of freedom where he probably made very bad decisions. 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 All by the age of 14. 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 Once he started getting into his late teens and early 20s, " I turned into a terrible person". "I was an asshole". He said he was a thief, but not a particularly good deal. He describ es himself as a "terrible thief". Kept on getting caught all the time and going to detention all the time. For short stent, [place] ended up in [place]. [place] here for [place] few [place]. Was living on [address] in a rental before . There was some disagreements and he ended up having to be leaving the house and lived in an RV that was being stored. That trailor did not have running water and was covered in mold. All this time he had diabetes. It became uncontrolled. He feels like the beginning of the end started happening when he was hospitalized for a back infection. He was hospitalized at [facility] during . Ever since then, nothing has gone right. He was essentially homeless after multiple hospitalizations. Living at the [place] and spending his time at the [facility]. That is how he met the [facility] and they found him housing where he has been for close to 2 years now. He also has caregivers and (after this hospitalization) will be getting 40 hours a month of care. Diego tells me that rent for the month of April has already been paid. Diego has known him for over a year. She finds his current status to be about 80% of baseline. His cognitive abilities are definitely diminished in compariso n to before. He has more cerebellar ataxia than he did before. But when she watches and feed himself, get up from the bed and use his walker to go to the bathroom, ask about the same. When I asked if she felt that he was safe to go back, after some physical rehab, with his caregivers, she said that he would be successful in that. However it is still a series of roadblocks because of his recurrent diabetic feet infections. One of his best friends, Eusebio, has talked him into continuing to do methamphetamines. He says that from here now he does not plan on seeing Eusebio anymore and promises not to do any more methamphetamines because it nearly killed him. We had a long talk about treatment and resuscitation. He kept on insisting he wanted a full code with everything done. When I drilled down to the details of what he was talking about, it became clear that he wanted treatment. He wanted to be offered every opportunity for surgeries, transfusions, antibiotics, cardioversion for A-fib or V. tach, and even temporary dialysis. But if he lost his pulse or pressure, he is afraid of becoming brain damage. He does not want to be on life support. When I explained to him the difference between full treatment up until you lose your pulse or pressure and then he has to decide if we are going to resuscitate you he understood. So we are in agreement that he wants full treatment and everything offered to him up until he loses his pulse or pressure. At that time he is a DO NOT RESUSCITATE. His major case detective with the [facility] is named Diego. She was with us for this 40-minute conversation and was very helpful in breaching the gap of understanding for him. He is telling me that his current DURABLE POWER OF EDITING CLERK is his sister Brenda. She is easily overwhelmed and he feels like she is not doing well herself even though she is only 2 years older than him. He is asking if Diego can become his DURABLE POWER OF EDITING CLERK. Objective/Medical Story: He was found in his sofa by his caregiver Tu. He was thought to not have a pulse and she started CPR. Called 911. When EMS arrived, this patient did look like he was near . Agonal respiration, but he did have a pulse and he did have a very low blood pressure and he was breathing on his own, albeit very very slowly. He required 1 round of CPR that in retrospect probably was not required. He was intubated Because of severe hypotension, low respiratory rate. I feel that he had polysubstance abuse, accidental overdose, and probable aspiration. CT of the head is been interpreted as negative by the ER doctor. CT of the chest, by his reading, does not have a pulmonary embolus. He does have a large right infiltrate. that finding on CT of the chest I feel that he most likely had aspiration. After being transferred to the ICU, the patient remained unresponsive with fixed pinpoint pupils for close to 2 days. Eyes started opening, then extraocular movements began. And by the third day he was slowly following commands. I was able to extubate him and he has become more and more alert as each day goes by. He is now being evaluated by PT and OT. Will see if he is able to go to a penitentiary or will he go home with home health PT and OT. I wanted to sit down and discussed with him his resuscitative status. At this point he does not have a formal 1 that was noted in the chart. I spoke to his sister Brenda who is his nearest next of kin when he was first admitted. Brenda did state that he would not want to live life as a vegetable and stated he should not be resuscitated. 40 minutes was spent with him today. He initially told me that he wanted a full resuscitation with everything done even if he did not have a pulse or pressure. After 10 to 15 minutes of me asking him what his rationale was, I realized that he was confusing treatment and resuscitation. He is expressing the philosophy that he wants every treatment offered to him. If he is in a car accident, in a fire, has pneumonia, infection, renal failure, or has some rare disease, he wants full treatment. He wants everything done. He equated that as resuscitation. I explained to him I am asking what he wants is to do if he has no pulse and no pressure. He brings up this example of the accidental overdose and he feels that he did not have a pulse or pressure and I explained that he did. I am emphasizing that if he does not have a pulse or pressure, does he want to be resuscitated? Up until that point happens, I explained that all treatment will be offered to him. Once he understood the difference between resuscitation and treatment, he does not want to be resuscitated. He does not want CPR, intubation, or cardioversion if he is without a pulse or a pressure. However if he has any arrhythmia such as V. tach or A-fib he would want cardioversion. If he has severe respiratory failure because of pneumonia and is still with a pulse and a pressure, would like to be intubated. My next request was to identify who speaks for him. Currently his sister Brenda is his only legal next of kin. I am using her as a default power of tin roller hot mill since there is no one else identified. He does agree with my speaking to Brenda. But states that she is slightly older than him, very very smart, but easily flustered and overwhelmed. "She was so freaked out by all of this". He is asking if Diego, from the [facility], can be his DURABLE POWER OF EDITING CLERK. I do not believe she has any financial relationship with him other than being the major case detective for finding him housing. He is interested in filling out a DURABLE POWER OF EDITING CLERK form and getting it notarized before discharge (that may be tomorrow). Goals of Care: He would like to live as long as possible. And go back to his apartment found for him. He wants to continue his current relationship with his caregivers. He finds an immense amount of support from them. So he would agree to temporary [facility] facility rehab for strengthening and mobility. After that he will return to his apartment. Diego will follow along to make sure rent is paid and that his caregiver support to 40 hours a month is continued. Plan: 1. POLST form filled out. DO NOT RESUSCITATE. His sister Brenda Magdaleno is the DPOA listed. 2. Try and get DURABLE POWER OF EDITING CLERK assigned to Diego, tomorrow. And then we would redo the POLST form with her listed as the DPOA. 3. Most like to return to home tomorrow with home health OT and PT. Code Status: Do Not Attempt Resuscitation Time spent on advance care plannin
[2024-04-16] MEDS: INSULIN LISPRO 300 UNIT/3 ML PEN SUBQ SCH ×3 (17:06→21:10)
--- NOTE | 2024-04-17 08:42 | XRAY Report ---
PROCEDURE: Chest 1V INDICATIONS: chest pain TECHNIQUE: One view of the chest was acquired. COMPARISON: CT 04/10/2024 FINDINGS: Surgical changes and devices: None. Lungs and pleura: Bibasilar opacities. Mediastinum: Mediastinal contours appear normal. Heart size is normal. Bones and chest wall: No suspicious bony lesions. Overlying soft tissues appear unremarkable. IMPRESSION: Bibasilar opacities, concerning for pneumonia. Reviewed by: Manjit Viveros MD on 04/17/2024 8:41 AM PDT Approved by: Manjit Viveros MD on 04/17/2024 8:41 AM PDT Station ID: [id number]
--- NOTE | 2024-04-17 08:53 | PROVIDER PROGRESS NOTE ---
Subjective - Prog Note Date Prog Note Date: 04/17/24 Prog Note Time: 08:51 - Subjective Pt reports feeling: Improved ( But scared) Subjective: he says that he was doing great yesterday. As the day went on he was hopeful about being discharged today or going to [facility] today so that he can "get over the the exercise" and then he would go to his apartment. But this morning he had sudden onset of diffuse chest pain. It went from shoulder to shoulder and covered his chest. It went up to the back of his neck. No nausea, diaphoresis, and he was scared so it did make him short of breath. It was pleuritic. During this stay he has been on Lovenox as well as SCDs. So his risk of DVT should be low. Chest pain resolved without intervention. I am now finding him sitting up getting ready for breakfast. Asking if I could please get him up to the sofa because he likes eating sitting up "like a normal person". Talkative, chatty. Current Medications - Current Medications Current Medications: Active Medications Acetaminophen (Acetaminophen 325 Mg Tablet) 650 mg PO Q6HR PRN PRN Reason: Pain or Fever > 38C (100.4F) Last Admin: 04/14/24 20:32 Dose: 650 mg Alcohol (Ethyl Alcohol 62% Swab Ampule) 1 amp PATRICK BID [facility] Last Admin: 04/17/24 08:02 Dose: 1 amp Amlodipine Besylate (Amlodipine 5 Mg Tablet) 5 mg PO BID [facility] Last Admin: 04/17/24 08:01 Dose: 5 mg Baclofen (Baclofen 10 Mg Tablet) 20 mg PO QID [facility] Last Admin: 04/17/24 08:01 Dose: 20 mg Baclofen (Baclofen 10 Mg Tablet) 10 mg PO QID PRN PRN Reason: Spasms Carboxymethylcellulose (Carboxymethylcellulose Ophth Drops) 1 drops EACHEYE PRN PRN PRN Reason: Dry Eye Last Admin: 04/15/24 14:13 Dose: 1 drops Clonidine HCl (Clonidine 0.1 Mg Tablet) 0.3 mg PO BID [facility] Last Admin: 04/17/24 08:01 Dose: 0.3 mg Docusate Sodium (Docusate Sodium 250 Mg Capsule) 250 - 500 mg PO DAILY [facility] Enoxaparin Sodium (Enoxaparin 40 Mg/0.4 Ml Syringe) 40 mg SUBQ DAILY [facility] Last Admin: 04/17/24 08:01 Dose: 40 mg Ferrous Gluconate (Ferrous Gluconate 324 Mg Tablet) 324 mg PO DAILYWM [facility] Last Admin: 04/17/24 08:00 Dose: 324 mg Folic Acid (Folic Acid 1 Mg Tablet) 1 mg PO DAILY [facility] Last Admin: 04/17/24 08:01 Dose: 1 mg Gabapentin (Gabapentin 100 Mg Capsule) 200 mg PO TID [facility] Last Admin: 04/17/24 07:03 Dose: 200 mg Hydralazine HCl (Hydralazine Inj 20 Mg/Ml Vial) 20 mg IVP Q6H PRN PRN Reason: SBP> or= 160 OR DBP> or= 110 Last Admin: 04/15/24 05:57 Dose: 20 mg Hydromorphone HCl (Hydromorphone 1 Mg/Ml Carpuject) 1 mg IVP Q2HR PRN PRN Reason: Severe Pain (Level 7-10) Last Admin: 04/15/24 13:38 Dose: 1 mg Acetaminophen (Acetaminophen) 1,000 mg in 100 mls @ 400 mls/hr IV Q6HR PRN PRN Reason: FEVER > 100.5 F Insulin Glargine-yfgn (Insulin Glargine-Yfgn 300 Unit/3 Ml Pen) 20 unit SUBQ QPM [facility] Last Admin: 04/16/24 20:54 Dose: 20 unit Insulin Human Lispro (Insulin Lispro 300 Unit/3 Ml Pen) 5 unit SUBQ 1200,1700 [facility]; Protocol Last Admin: 04/16/24 17:06 Dose: 5 unit Insulin Human Lispro (Insulin Lispro 300 Unit/3 Ml Pen) 2 - 10 unit SUBQ 0800,1200,1700,2100 [facility]; Protocol Last Admin: 04/17/24 08:08 Dose: 2 unit Isosorbide Mononitrate (Isosorbide Mononitrate Er 30 Mg Tablet) 30 mg PO DAILY [facility] Last Admin: 04/17/24 08:01 Dose: 30 mg Lisinopril (Lisinopril 20 Mg Tablet) 40 mg PO DAILY [facility] Last Admin: 04/17/24 08:01 Dose: 40 mg Magnesium Oxide (Magnesium Oxide 400 Mg Tablet) 400 mg PO DAILY [facility] Last Admin: 04/17/24 08:00 Dose: 400 mg Melatonin (Melatonin 3 Mg Tablet) 3 mg PO QPM PRN PRN Reason: Insomnia Last Admin: 04/15/24 19:59 Dose: 3 mg Mineral Oil (Min Oil/Dimethicon/Coconut Oil 92 Gm Tube) 1 applic TOP PRN PRN PRN Reason: Skin Care Last Admin: 04/15/24 04:55 Dose: 1 applic Multi-Ingredient Ointment (Zinc Oxide 20% Oint 30 Gm Tube) 1 applic TOP PRN PRN PRN Reason: Skin Care Last Admin: 04/16/24 05:54 Dose: 1 applic Multivitamins/Minerals (Multivitamin W/Minerals Tablet) 1 tab PO DAILYWM [facility] Last Admin: 04/17/24 08:00 Dose: 1 tab Ondansetron HCl (Ondansetron Odt 4 Mg Tablet) 4 mg TL Q6HR PRN PRN Reason: Nausea / Vomiting Ondansetron HCl (Ondansetron 4 Mg/2 Ml Vial) 4 mg IVP Q6HR PRN PRN Reason: Nausea / Vomiting Last Admin: 04/14/24 19:44 Dose: 4 mg Oxycodone HCl (Oxycodone 5 Mg Tablet) 10 mg PO Q4HR PRN PRN Reason: Moderate Pain (Level 4-6) Last Admin: 04/16/24 01:28 Dose: 10 mg Pantoprazole Sodium (Pantoprazole 40 Mg Tablet) 40 mg PO QDAC [facility] Last Admin: 04/17/24 07:03 Dose: 40 mg Polyethylene Glycol (Polyethylene Glycol 3350 17 Gm Packet) 17 gm PO DAILY [facility] Last Admin: 04/17/24 08:00 Dose: Not Given Saccharomyces Boulardii (Saccharomyces Boulardii 250 Mg Capsule) 250 mg PO BIDWM [facility] Last Admin: 04/17/24 08:02 Dose: 250 mg Senna (Senna 8.6 Mg Tablet) 8.6 - 17.2 mg PO DAILY [facility] Sodium Chloride (Sodium Chloride Flush 0.9% 10 Ml Syringe) 10 ml IVP 0100,0900,1700 [facility] Last Admin: 04/17/24 08:16 Dose: 10 ml Sodium Chloride (Sodium Chloride Flush 0.9% 10 Ml Syringe) 10 ml IVP PRN PRN PRN Reason: NEEDED PER PROVIDER ORDERS Last Admin: 04/16/24 23:52 Dose: 10 ml Thiamine HCl (Thiamine 100 Mg Tablet) 100 mg PO DAILY [facility] Last Admin: 04/17/24 08:01 Dose: 100 mg Amlodipine Besylate [Norvasc] 5 mg PO BID 11/18/22 Amox/Clav 875/125 [Augmentin 875/125 Tab] 1 tab PO BID 04/10/24 Baclofen 20 mg PO QID 04/10/24 Baclofen [Lioresal] 10 mg PO QID PRN 04/10/24 Gabapentin [Neurontin] 200 mg PO TID 04/10/24 Insulin Glargine,Hum.rec.anlog [Basaglar Kwikpen U-100] 22 units SUBQ DAILY 03/14 06/06 Insulin Lispro [Humalog Kwikpen U-100] 0 - 8 units SUBQ TIDWM 04/10/24 Isosorbide Mononitrate ER [Imdur] 30 mg PO DAILY 04/10/24 Lisinopril [Zestril] 40 mg PO DAILY 04/10/24 Magnesium Oxide 400 mg PO DAILY 04/10/24 Naloxone HCl Nasal [Narcan Nasal] 1 spray PATRICK PRN PRN 04/10/24 Oxycodone HCl 10 mg PO Q4HR PRN 04/10/24 Senna [Senokot] 8.6 mg PO DAILY 04/10/24 polyethylene glycoL 3350 [Miralax] 17 g PO DAILY PRN 04/10/24 Objective - Vital Signs/Intake & Output Reviewed Vital Signs: Yes Vital Signs: Vital Signs x48h Temp Pulse Resp BP Pulse Ox 04/17/24 07:50 36.6 C 62 20 159/89 H 94 04/17/24 07:08 37 C 62 20 157/81 H 93 Intake & Output: Intake & Output 04/14/24 04/15/24 04/16/24 04/17/24 23:59 23:59 23:59 23:59 Intake Total 6634.282 6771 795 Output Total 6513 5976 521 545 Balance -382.611 5673 -80 -675 - Objective General Appearance: positive: No acute distress, Alert, Other ( Thin, lanky, disheveled white male who looks much older than stated age. Alert, oriented, cheerful, nonstop talker) Eyes Bilateral: positive: PERRL, EOMI ENT: positive: No signs of dehydration, Other ( looks like he is lost all of his teeth on the upper part. Partial dentures and loss of teeth in the lower mouth.) Neck: positive: No JVD. negative: Stiff neck Respiratory: positive: No respiratory distress, Other ( Chest x-ray shows bibasilar opacities.). negative: Wheezes, Rales, Rhonchi Cardiovascular: positive: Regular rate & rhythm, Systolic murmur Abdomen: positive: Non-tender, No organomegaly, Nml bowel sounds, No distention Skin: positive: Warm, Dry Extremities: positive: Full ROM, No pedal edema Neurologic/Psychiatric: positive: Oriented x3, CN's nml (2-12). negative: Motor nml ( Slight cerebellar ataxia when he stands up. Uses walker to get to the sofa with my standby assist. Initially a little tachypneic with the effort but quickly settles within seconds to no shortness of breath when he sits. He is able to use spoon and knife to bring food to his mouth) - Lab Results Fish Bones: 04/15/24 04:56 04/15/24 18:10 Other Labs: Lab Results x24hrs 04/17/24 04/17/24 04/16/24 Range/Units 07:33 07:22 20:57 POC Whole Bld Glucose 169 H 253 H (70 - 100) mg/dL Troponin I High Sens 4.9 (2.3-19.7) ng/L 04/16/24 04/16/24 Range/Units 16:34 11:56 POC Whole Bld Glucose 258 H 284 H (70 - 100) mg/dL Troponin I High Sens (2.3-19.7) ng/L ABX Reporting Has patient been on IV antibiotics over the past 48 hours?: No Assessment/Plan - Problem List (1) Pleuritic chest pain Impression: troponin is low. No elevation. EKG shows nonspecific changes of ST-T waves but no acute ischemic changes. The pain is resolved. During his episode of pain he was normotensive, not hypoxic, not tachycardic. I did think about a PE but this gentleman has had been on Lovenox. Pain is now resolved. Plan was for discharge today. I canceled it because of his chest pain. Since pain has resolved he will most likely be able to leave tomorrow. He may not be able to be discharged to a residential facility due to insurance reasons and the plan will be discharged to home with caregivers. (2) Acute metabolic encephalopathy Impression: Was extubated 04/14/24 am. 04/13, he had woken up, and he seen the following commands. But I did not want to extubate him later in the afternoon as we approached the evening hours. 04/14 morning I put him back on CPAP, he was following commands, and has been extubated since then. 04/15 he was oriented to person and the month. But he did not know what he was in. Did not was a hospital. Did not know the situation. I explained to him that I think he had an overdose. I asked him if he was deliberate and he says no. While he is not happy with the situation with regards to his feet, he wants to live. He says that he loves life. And would not kill himself. While he is speaking to me 04/15 he has an odd involuntary movement. His gaze will walk on the ceiling. He will keep on talking to me but still at the ceiling. This happens about every 3 to 4 minutes. Last about 30 seconds. Then he looks at me in the face, has normal facial expressions and speech, and then lock his gaze on the ceiling again. He says that he is never done that before. He is aware he is doing it but cannot control it. I did updated his sister Brenda. I felt he was medically stable for discharge 04/15/24. today the involuntary movement is gone. He is now oriented to person, place, time and situation. He is impulsive. Cerebellar ataxia. Promises to call the nurse before he gets up. He does not like the bed alarm or the chair alarm but understands why we are using it. Moo, the director case for the [employer], was in his room visiting him. She said that he was essentially homeless when she met him over a year ago. They were able to find him housing and he has been a stable housing situation since then. Just overwhelmed with his care because of his diabetic foot infections. Unfortunately he is in contact with a friend named Eusebio who is 1 is been supplying him with his methamphetamines and cannabis. Diego tells me that who we are seeing today is about the same for what his baseline status is. He is a chatty friendly gentleman. His cerebellar ataxia and unsteadiness is slightly worse than his baseline. He does use a walker in his apartment. He is having a little bit more problems with memory and word finding but she finds them to remember things appropriately, events correctly, and is able to make his own decisions. Is to get PT and OT eval and treatment today but no PT today. Only OT. I did order it for April 14 but family came into the room and he was unable to work with PT then. I am emphasizing to him that he must see them today in order for us to get an evaluation for physical rehab. (3) Diabetes controlled Conclusion/Plan: Glucose is in the mid 200s in this gentleman. Already documented high A1c percentage for February of this year. Tight glucose control between 140 and 180 is recommended for wound healing. He is in the ICU. Nursing cannot find the PICC line that he supposedly has on chest x-ray. I am not finding it either. I opted not to start him on an insulin drip at this time. I started him on Lantus and SS insulin. 04/14/24 12:00 Result (mg/dL) 176 Laboratory Tests Started on food yesterday 04/15/24 04/15/24 04/15/24 04:56 07:53 11:50 Glucose 225 H POC Whole Bld Glucose 222 H 300 H 04/15/24 17:06 Glucose POC Whole Bld Glucose 217 H I increased lantus from 10 Units subcutaneously to 20 units subcutaneously and first dose 8/3 pm. I Continued sliding scale insulin. Laboratory Tests 04/16/24 04/16/24 07:33 11:56 POC Whole Bld Glucose 104 H 284 H Review of glucose this morning shows the morning glucose to be at goal. The Lantus at night seems to be working. I will order 5 units of the fixed dose of short acting insulin before lunch and dinner and continue SS insulin. Is for him to be between 140 and 180 on a regular basis due to his diabetic foot infections. today Selected Entries 04/17/24 04/17/24 04/17/24 07:49 11:54 16:40 Result (mg/dL) 164 293 146 04/17/24 16:59 Result (mg/dL) 146 No change for us. When he goes home tomorrow he will need his home meds which is glargine 22 units. Qualifiers: Diabetes mellitus type: type 2 Diabetes mellitus senior care insulin use: w ith extermination inspector use Diabetes mellitus complication status: with circulatory complication Diabetes mellitus complication detail: with peripheral angiopathy without gangrene Qualified Code(s): E11.51 - Type 2 diabetes mellitus with diabetic peripheral angiopathy without gangrene; Z79.4 - detention (current) use of insulin Resolved or chronic medical problems: (4) Pneumonia, Clinically aspiration pneumonia Conclusion/Plan: Patient who is acutely obtunded from baseline, and has multiple polysubstance drug in his toxicology screen. Again I am assuming there is been some aspiration. Throughout his entire stay he has had a normal white cell count. He did have a widened AA gradient when he was initially intubated and was temporarily hypoxic. April 14 and April 15 he was on and off nasal cannula to maintain O2 sats above 92%. Since yesterday evening he has been on room air and not requiring any oxygen. 04/15 was day #6 of antibiotics. I was treating as community-acquired pneumonia with possible aspiration. I stopped antibiotics April 15. Qualifiers: Pneumonia type: aspiration pneumonia Aspiration pneumonia type: unspecified Laterality: right Lung location: lower lobe of lung Qualified Code(s): J69.0 - Pneumonitis due to inhalation of food and vomit (5) Acute respiratory insufficiency resolved. Conclusion/Plan: On intubation he was initially hypocarbic. 48 hours I adjusted his vent settings to bring his CO2 up. He did have wide AA gradient attributed to his right lung pneumonia as it looks like aspiration pneumonia. He was successfully extubated April 14 in the morning. (6) MARJ (acute kidney injury) resolved Conclusion/Plan: most likely due to his being found down. Unknown when his last known normal was. Since he has a creatinine of 0.8, and if I assume complete kidney shutdown, it would have taken at least 48 hours to get to the level he is now. With the IV fluids have been using to hydrate him, his creatinine has gone from 2.9 to 1.2>>1.0>>0.7 . After that I had him on 2 days of maintenance fluids of 83 cc an hour. Once he was awake, oriented enough to feed himself on a regular basis and take enough fluid intake, I stopped his IV maintenance on April 15. He did have hypokalemia 04/14. I supplemented with oral potassium and he did respond. Had nml K 04/15. (7) Polysubstance abuse with accidental drug overdose Conclusion/Plan: Dose of Narcan resulted in some involuntary twitching. A second dose of Narcan really did not have much change on April 10. opened his eyes on the morning of the but he is unresponsive. on the afternoon of April 13, the patient woke up. Exubated 04/14. (8) Diabetic foot ulcer Conclusion/Plan: He completed 6 days of IV antibiotic therapy with Rocephin for pna. Azithromycin was completed at 3 days for maddox. Flagyl was also continued for 6 days for aspiration. Antibiotics stopped April 15. I need to call [facility] and speak to orthopedics to find out when to take out his sutures. And erica. Today was the first day he was able to tell me who it was. He says that he sees a Dr. Amanda with podiatry. Does not remember if he supposed to be on antibiotics or not. 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 Labile blood pressure with Levophed will be stopped and started. Since extubation I resumed his amlodipine, isosorbide mononitrate, and lisinopril. Blood pressure is still elevated in spite of that to 155-175 systolic and I have added clonidine 0.3 mg p.o. twice daily as of 04/15. He declined the use of clonidine this morning. Really could not give a reason he just felt like he did not need it and did not want it. Systolic is in the 140s. Diastolic is 90. Qualifiers: Hypertension type: primary hypertension Qualified Code(s): I10 - Essential (primary) hypertension (10) ST segment abnormality resolved Conclusion/Plan: Reported by nursing on telemetry when he was first admitted. By the time we got an EKG on him, I Read his EKG and there was no ST segment changes. He had sinus rhythm with normal axis, normal R wave progression, no acute ST-T wave changes. Heart rate 55. I did a troponin and it was in the 30s. plan is continued monitoring on telemetry. So far, other than PACs, he is stable. (11) Do not resuscitate status Conclusion/Plan: his caregiver Tu states that she did try and have a conversation with him once in the past. She has been taking care of him for 6 months. She asked him if he never filled out a POLST form and could he please do that with his primary care provider. He said that he did not know what he wanted to do, was very vague and responding to her never really got around to getting that done. So I explained to her that, by default, he will be a full code. Did get a hold of his sister Brenda who lives in [place]. She states he would not want prolonged life support. As such I changed his CODE STATUS to DO NOT RESUSCITATE. did not advance care planning conversation with him today since he is oriented to person, place, time and situation. Diego, a person that knows him well, was present for the conversation. (12) Chronic anemia I Started ferrous gluconate 324 mg p.o. daily, thiamine 100 mg a day, folate 1 mg a day 04/14/24
[2024-04-17] MEDS: DOCUSATE SODIUM 250 MG CAPSULE PO SCH (09:51)
[2024-04-17] MEDS: SENNA 8.6 MG TABLET PO SCH (09:54)
[2024-04-17] MEDS: oxyCODONE 5 MG TABLET PO PRN (13:53)
[2024-04-18] MEDS: oxyCODONE 5 MG TABLET PO PRN (00:49)
[2024-04-18] MEDS: IBUPROFEN 400 MG TABLET PO PRN (03:26)
[2024-04-18] MEDS: guaiFENesin 600 MG TABLET PO SCH (12:11)
--- NOTE | 2024-04-18 14:38 | Discharge Plan ---
Discharge Plan Problem Reviewed?: Yes Disposition: Home, Self Care Condition: Stable Prescriptions: Ferrous Gluconate [Fergon] 324 mg PO DAILYWM 30 Days #30 tab guaiFENesin [Mucinex] 1,200 mg PO BID 5 Days #20 tab Diet: Diabetic Activity Restrictions: Additional Comments (Avoid weight bearing on your right foot until seen by your Machine Umbrella Tipper) Health Concerns: You were admitted to the hospital after being found unresponsive by her meat counter clerk, who briefly performed CPR and EMS was contacted. When the EMS crew found you you did have a pulse however your blood pressure was extremely low. Y ou were put on the breathing machine as you are not breathing effectively while you are hospitalized you did require medication to artificially elevate your blood pressure as it was dangerously low at the time of admission. You had several imaging studies on presentation and felt to have a possible pneumonia that could have been due to you aspirating stomach contents when you were minimally responsive. You are treated with IV antibiotics and completed your course of antibiotics while hospitalized. The cause of your unresponsive episode was likely due to medication and substance abuse from amphetamines and narcotics along with baclofen potentially contributing to your presentation.Please be sure to stop using methamphetamine and try to minimize narcotic use as much as possible. If you start feeling drowsy or not responding well and think you may have overdosed on medications, please try using Narcan to reverse narcotics. Towards the end the hospitalization you were complaining about chest pain, which is mainly in the center of your chest. This was worse with coughing, deep breathing and any touching of your chest. This pain is consistent with what is called musculoskeletal pain which is pain that is due to muscles or bone issues. In your case since you had compressions on your chest, this pain is likely secondary to bruised bone or possibly a small fracture that was not seen on any x-rays. This pain will improve over time and you can take 400 mg ibuprofen every 8 hours as needed for the pain. Plan of Treatment: You were given two new prescriptions: 1. Guaifenesin (also known as Mucinex) 600 mg tablets. Take 2 tablets by mouth twice a day for 5 days. This is to help thin the mucus that you are coughing to make it easier to cough it up. 2. Iron (ferrous) sulfate 325 mg. Take 1 tablet by mouth daily. This is to help improve your red blood cell count as you were slightly anemic. You can discontinue the baclofen as you requested in the hospital. Additional Instructions or Follow Up instructions: Be sure to contact your primary care doctor, Dr. Jas Epstein, to schedule a hospital follow-up within 1 week of this hospitalization Please contact Dr. Amanda from [facility] to have your foot reevaluated for suture removal either by Dr. Amanda or by wound care clinic. No Smoking: If you smoke, Please STOP! Call for help. Follow-up with: Jas Epstein MD [Provider Admit Priv/Credential] -
--- NOTE | 2024-04-18 15:11 | DISCHARGE SUMMARY ---
"Discharge Summary Admit Date: 04/10/24 Discharge Date: 04/18/24 Discharging Provider: Dr. Emeka Bryant MD Primary Care Provider: Dr. Jas Epstein Code Status: Do Not Attempt Resuscitation Condition at Discharge: Stable Discharge Disposition: 01 Home, Self Care - DIAGNOSES Admission Diagnoses: Acute Metabolic Encephalopathy Discharge Diagnoses with Status of Each Condition: 1. Acute metabolic encephalopathy - resolved 2. Pleuritic chest pain secondary to prehospital compressions - ongoing but improved 3. Type 2 diabetes mellitus on long-term insulin therapy - stable 4. Aspiration pneumonia - resolved 5. Acute respiratory failure with hypoxia - resolved 6. Acute kidney injury - resolved 7. Polysubstance abuse - stable 8. Presumed accidental drug overdose - resolved 9. Right diabetic foot ulcer - stable 10. Essential hypertension - stable 11. Chronic anemia - stable - HPI History of Present Illness: This gentleman is a 62-year-old man who has type 2 diabetes with an A1c 9.1% on 02/23/2024, on insulin, and has a history of chronic diabetic foot ulcers. He also has had a history of an epidural abscess that need to be drained resulting in prolonged hospitalization in 2021. He is followed at our wound clinic and [facility] wound clinic because of chronic diabetic foot ulcers. He is followed by Dr. Jas Epstein as his PCP in the local [facility] clinics. His last admission with us was February 2023 for diabetic foot infection. At that time he had a flare in his infection because his car broke down and he could not figure out how to get to his wound care clinic appointments. The wound clinic is here in [place], the patient lives in [place]. He was discharged from [facility] on 02/23/2024 for right sided osteomyelitis of the foot and right metatarsal amputa tion. He saw podiatry 03/27/2024 and the wound was worse. He was advised to go to the hospital and he refused at that time. He was placed on Augmentin at that time. He then failed outpatient Augmentin for his foot for 4 days, then he was sent to the [facility] ED by the wound clinic. He was admitted on 03/30/2024 for worsening left foot ulceration with a known history of I&D before as well as previous amputation. He has a history of status post partial right second ray amputation in February 2024 for osteomyelitis with I&D on 03/31/2024 for nonhealing left calcaneal wound and nonhealing left plantar first metatarsal head wound. He was started on IV antibiotics and started on a non-DKA insulin drip for tight glycemic control. They did another I&D at [facility] on 04/05/2024 and he was discharged home. The patient also has a history of methamphetamine abuse. Multiple toxicology screens dating to August 2021 and subsequent to that date have been positive for methamphetamines, amphetamines, cannabinoids. He is intermittently prescribed oxycodone with acetaminophen from the wound clinic so his opioids are typically positive. He typically lives alone but does have caregivers that come to his home. For his current hospitalization a beauty artist came home the morning of presentation and found him unresponsive. When she walked into the apartment he was completely silent and she found him sitting on the sofa with an infrequent snoring respiration that was so faint she could barely hear it. He was unresponsive to voice or touch and she could not find a pulse thus she called 911 and did a few chest compressions. EMS arrived and found him to have significant hypotension but was difficult to feel a pulse thus 1 round of compressions were performed and he was intubated in the field. In the emergency department he received fluid resuscitation and empiric IV antibiotics and subsequently developed hypotension requiring central line placement and IV Levophed initiation. He did have evidence of acute kidney injury with a creatinine of 2.9. His urine toxicology was positive for opioids, oxycodone, amphetamines, methamphetamines and cannabinoids. A CT angio of the chest was negative for PE though did show extensive right middle lobe and right lower lobe infiltrates concerning for aspiration. A head CT was negative for any acute pathology. He was admitted to the ICU for further care and evaluation. - CONSULTS | PROCEDURES Consultations: None Procedures: Central Line Placement in the ED - HOSPITAL COURSE Hospital Course: After admission to the hospital it was presumed that he had a likely accidental drug overdose given his polysubstance abuse leading to a respiratory arrest.His EKG was nonischemic and his troponins remained minimally elevated consistent with demand ischemia in the setting of hypotension and CPR. Narcan was attempted while he was on the ventilator with some minimal response noted. Ultimately he remained on the ventilator until he was able to more accurately follow commands and was extubated on April 14. He was initially still disoriented but the following day he was alert and oriented without any ongoing neurologic issues. He denied having any intentional overdose and thinks that his event occurred because he was taking baclofen. He does note that he has been on baclofen chronically for over 2 years but swears that this was the cause of his overdose. He denies taking any extra doses of the baclofen or any other medications around the time of baclofen dosing. After extubation he did complain of significant midsternal chest pain that was pleuritic in nature as well as worse with cough or other movements. His EKG remained unremarkable and troponin was insignificant. His pain was reproducible on palpation and was felt to be musculoskeletal in nature secondary to his compressions. For his chronic health conditions, his type 2 diabetes was managed with Lantus and sliding scale insulin but was not adjusted at the time of discharge. His home antihypertensives were resumed after his blood pressure improved, though he did remain hypertensive during his hospitalization. We attempted to give him clonidine however he declined this medication though he did not give a specific reason why he did not want to take this. For his aspiration pneumonia he was treated with IV ceftriaxone and azithromycin with resolution of his symptoms aside from ongoing sputum production for which he was given Mucinex at the time of discharge. His hypoxia resolved rapidly after he was extubated. He also had evidence of acute kidney injury at the time of admission with a creatinine of 2.9 however with IV fluids is improved back down to normal at 0.7. The acute kidney injury was likely prerenal in nature from his respiratory arrest. For his diabetic foot wounds he does have sutures in his left foot and the wound clinic follow-up appointment was scheduled for the patient to have this further evaluated. He follows with Dr. Amanda and podiatry as well. - ALLERGIES Allergies/Adverse Reactions: Allergies Allergy/AdvReac Type Severity Reaction Status Date / Time No Known Drug Allergies Allergy Verified 04/10/24 11:17 - MEDICATIONS Home Medications: Ambulatory Orders Medication Instructions Recorded Confirmed Amlodipine Besylate [Norvasc] 5 mg PO BID 11/18/22 04/10/24 Amox/Clav 875/125 [Augmentin 1 tab PO BID 04/10/24 04/10/24 875/125 Tab] Gabapentin [Neurontin] 200 mg PO TID 04/10/24 04/10/24 Insulin Glargine,Hum.rec.anlog 22 units SUBQ DAILY 04/10/24 04/10/24 [Basaglar Kwikpen U-100] Insulin Lispro [Humalog Kwikpen 0 - 8 units SUBQ TIDWM 04/10/24 04/10/24 U-100] Isosorbide Mononitrate ER [Imdur] 30 mg PO DAILY 04/10/24 04/10/24 Lisinopril [Zestril] 40 mg PO DAILY 04/10/24 04/10/24 Magnesium Oxide 400 mg PO DAILY 04/10/24 04/10/24 Naloxone HCl Nasal [Narcan Nasal] 1 spray PATRICK PRN PRN 04/10/24 04/10/24 Oxycodone HCl 10 mg PO Q4HR PRN 04/10/24 04/10/24 Senna [Senokot] 8.6 mg PO DAILY 04/10/24 04/10/24 polyethylene glycoL 3350 [Miralax] 17 g PO DAILY PRN 04/10/24 04/10/24 Ferrous Gluconate [Fergon] 324 mg PO DAILYWM 30 Days #30 tab 04/18/24 guaiFENesin [Mucinex] 1,200 mg PO BID 5 Days #20 tab 04/18/24 - PHYSICAL EXAM AT DISCHARGE General Appearance: positive: No acute distress, Alert Eyes Bilateral: positive: Normal inspection, PERRL, EOMI ENT: positive: ENT inspection nml, Pharynx nml, No signs of dehydration Neck: positive: Nml inspection, Thyroid nml, No JVD Respiratory: positive: No respiratory distress, Breath sounds nml, Other (Mid- sternum very tender to palpation). negative: Wheezes, Rales, Rhonchi Cardiovascular: positive: Regular rate & rhythm, No murmur, No gallop Peripheral Pulses: positive: 2+ Abdomen: positive: Non-tender, No organomegaly, Nml bowel sounds, No distention Back: positive: Nml inspection Skin: positive: Color nml, No rash Extremities: positive: Non-tender, Full ROM Neurologic/Psychiatric: positive: Oriented x3, CN's nml (2-12), Motor nml, Sensation nml - LABS Result Diagrams: 04/15/24 04:56 04/15/24 18:10 - DIAGNOSTIC IMAGING Diagnostic Imaging Results: Final report reviewed Diagnostic Imaging Results Comments: CTA Chest: 1. No pulmonary embolism. 2. Severe LAD calcifications 3. Right lower lobe and right middle lobe pneumonia, probably aspiration with debris in the dependent airways. CT Head: No acute intracranial pathology. - SEPSIS Current Stage of Sepsis: Ruled out - FOLLOW UP Follow Up: Follow-up with his PCP, Dr. Jas Epstein, within 1 week of hospitalization. - TIME SPENT Time Spent in Discharge (Minutes): 40"
[2024-04-18 15:58] VITALS: BP 122/72; O2SAT 98
== END 2024-04-18 17:30 | disposition home or self-care (01) | DRG 208 ==
LOC: EDBD → MERGE 09:53 → ED 09:53 → ICU 14:05 → MS2 14:05 → UNDOADMIN 14:05
PROVIDERS: ADMIT Specialist; ATTEND Hospitalist
PROC: 5A1945Z Respiratory Ventilation, 24-96 Consecutive Hours (ICD-10-PCS; principal; 2024-04-10)
DX: J96.01 Acute respiratory failure with hypoxia (principal); G92.8 Other toxic encephalopathy; J69.0 Pneumonitis due to inhalation of food and vomit; R40.2A Nontraumatic coma due to underlying condition; N17.9 Acute kidney failure, unspecified; L97.419 Non-pressure chronic ulcer of right heel and midfoot with unspecified severity; I24.89 Other forms of acute ischemic heart disease; L97.422 Non-pressure chronic ulcer of left heel and midfoot with fat layer exposed; G11.9 Hereditary ataxia, unspecified; T50.911A Poisoning by multiple unspecified drugs, medicaments and biological substances, accidental (unintentional), initial encounter; F19.129 Other psychoactive substance abuse with intoxication, unspecified; F19.10 Other psychoactive substance abuse, uncomplicated; Y92.009 Unspecified place in unspecified non-institutional (private) residence as the place of occurrence of the external cause; E11.621 Type 2 diabetes mellitus with foot ulcer; I10 Essential (primary) hypertension; D64.9 Anemia, unspecified; R07.81 Pleurodynia; I95.9 Hypotension, unspecified; E11.42 Type 2 diabetes mellitus with diabetic polyneuropathy; M54.9 Dorsalgia, unspecified; G89.29 Other chronic pain; Z87.891 Personal history of nicotine dependence; Z78.1 Physical restraint status; Z66 Do not resuscitate; Z79.4 Long term (current) use of insulin; Z60.2 Problems related to living alone; Z89.431 Acquired absence of right foot; E11.51 Type 2 diabetes mellitus with diabetic peripheral angiopathy without gangrene; R94.31 Abnormal electrocardiogram [ECG] [EKG]; E87.6 Hypokalemia; E11.65 Type 2 diabetes mellitus with hyperglycemia
CPT/HCPCS: 36415; 36600; 70450; 71045; 71275; 80048; 80053; 80143; 80179; 80306; 81001; 82077; 82330; 82550; 82803; 83036; 83690; 83735; 83880; 84100; 84132; 84484; 85025; 86738; 87150; 87633; 93005; 94002; 94003; 94640; 96360; 96361; 97166; 99291; 99292; A6250; A9270; J1170; J1650; J1815; J3590; Q9967; 81003; 87086

== ENCOUNTER 2024-04-19 10:44 | Outpatient (CLI) | payer MEDICAID | END 2024-04-19 23:59 | disposition short-term general hospital (02) | LOC: EMS 10:44 | PROVIDERS: ATTEND Emergency Medicine | DX: R52 Pain, unspecified (principal); E11.65 Type 2 diabetes mellitus with hyperglycemia; Z79.4 Long term (current) use of insulin | CPT/HCPCS: A0425; A0429; A0999 ==